=== PATIENT | female | born 1940 | race African-American/Black ===

== ENCOUNTER → 2016-11-11 | Outpatient (CLI) | payer MEDICARE ==
--- NOTE | 2016-11-11 17:43 | WOMENS IMAGING REPORT ---
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 Left breast 90 mediolateral view, compression magnification views left breast lumpectomy site in the CC and 90 mediolateral orientations. LIMITATIONS: None. FINDINGS: RIGHT BREAST MASSES: No suspicious masses. CALCIFICATIONS: No new or suspicious calcifications. ARCHITECTURAL DISTORTION: None. DEVELOPING DENSITY: None. ASYMMETRY: None noted. OTHER: No other significant findings. LEFT BREAST MASSES: No suspicious masses. CALCIFICATIONS: No new or suspicious calcifications. ARCHITECTURAL DISTORTION: Postsurgical change in the left breast lower inner quadrant DEVELOPING DENSITY: None. ASYMMETRY: None noted. OTHER: Left breast skin thickening post radiation therapy Read with the assistance of CAD: .[facility] - R2 Cenova Version 1.3 .[facility] - R2 Cenova Version 1.3 .[facility] - R2 Cenova Version 2.4 .[facility] [place] R2 Cenova Version 2.4 .[facility] - R2 [employer] Version 9.2 BREAST DENSITY: a. The breasts are almost entirely fatty. BIRAD: 2 Benign findings. RECOMMENDATION: RECOMMENDED FOLLOW UP: Please continue right breast screening, left breast diagnosti c mammography in November 2017 SPECIFIC INTERVENTION/IMAGING/CONSULTATION RECOMMENDED:No additional intervention/ imaging/consultati on needed at this time. COMMUNICATION:Patient notified by letter COMMENT: PATIENT NOTIFIED BY LETTER. The [employer] ([employer]) has developed recommendations for screening MRI of the breast s in certain patient populations, to be used in conjunction with mammography. Breast MRI surveillanc e may be appropriate for women with more than 20% lifetime risk of developing breast cancer as deter mined by genetic testing, significant family history of the disease, or history of mantle radiation f or Hodgkins Disease. [employer] Practice Guidelines 2008. TECHNICAL DOCUMENTATION: FINDING NUMBER: (1) ASSESSMENT: (1) JOB ID: [id number] [employer]- All Rights Reserved
== END ==
LOC: WI 09:14
PROVIDERS: ATTEND Internal Medicine Medical Oncology
DX: C50.919 Malignant neoplasm of unspecified site of unspecified female breast (principal)
CPT/HCPCS: 77066; G0204

== ENCOUNTER 2017-01-26 10:14 | Day surgery (SDC) | payer MEDICARE ==
[2017-01-19 09:24] LABS: HEMATOCRIT 32.4 % (36.0-47.0); HEMOGLOBIN 10.5 g/dL (12.0-15.5); HGB HCT DIFFERENCE -0.9; MEAN CORPUSCULAR HEMOGLOBIN 29.3 pg (27.0-33.4); MEAN CORPUSCULAR HGB CONC 32.4 g/dL (32.0-36.0); MEAN CORPUSCULAR VOLUME 90 fl (80-97); RED BLOOD COUNT 3.59 10^6/uL (3.72-5.28); RED CELL DISTRIBUTION WIDTH 17.4 % (11.5-14.0); WHITE BLOOD COUNT 7.7 10^3/uL (4.0-10.5)
[2017-01-19 09:50] LABS: ALANINE AMINOTRANSFERASE 25 U/L (9-52); ALBUMIN 3.9 g/dL (3.5-5.0); ALKALINE PHOSPHATASE 100 U/L (38-126); ANION GAP 13 (5-19); ASPARTATE AMINO TRANSFERASE 14 U/L (14-36); BILIRUBIN,TOTAL 1.3 mg/dL (0.2-1.3); BLOOD UREA NITROGEN 20 mg/dL (7-20); CALCIUM 9.9 mg/dL (8.4-10.2); CARBON DIOXIDE 26 mmol/L (22-30); CHLORIDE 102 mmol/L (98-107); CREATININE RESULT 0.98 mg/dL (0.52-1.25); GLUCOSE 298 mg/dL (75-110); SODIUM 140.6 mmol/L (137-145)
--- NOTE | 2017-01-19 17:20 | EKG REPORT ---
SEVERITY:- ABNORMAL ECG - SINUS RHYTHM MULTIPLE ATRIAL PREMATURE COMPLEXES BORDERLINE T ABNORMALITIES, INFERIOR LEADS : Confirmed by: Ana Luisa Johnston MD 19-Jan-2017 17:20:05
[~2017-01-26 10:14] MED LIST: ACETAMINOPHEN 325 MG TABLET PO PRN; BUPIVACAINE HCL 0.25 % INJ/PF (2.5 MG/1 ML) 30 ML VIAL ONE; CEFAZOLIN 1 GM/D5W RTU 1 GM/50 ML RTUPB IV PRN; DEXAMETHASONE SOD PHOSPHATE INJ 4 MG/1 ML VIAL ONE; GLYCOPYRROLATE INJ 0.4 MG/2 ML VIAL ONE; LIDOCAINE 0.5% INJ-PF (5 MG/ML) 50 ML SDV SUBCUT PRN; LIDOCAINE 2% INJ-PF (20 MG/ML) 10 ML AMPUL ONE; METOCLOPRAMIDE HCL INJ/PF 10 MG/2 ML SDV ONE; NEOSTIGMINE METHYLSULFATE 10 MG/10 ML VIAL ONE; NORMAL SALINE 1000 ML (RENAL PATIENTS) IV PRN; ONDANSETRON HCL INJ/PF 4 MG/2 ML SDV ONE; PHENYLEPHRINE HCL INJ/PF 10 MG/1 ML SDV ONE; ROCURONIUM BROMIDE INJ 50 MG/5 ML VIAL IV ONE; SUCCINYLCHOLINE CHLORIDE INJ 200 MG/10 ML VIAL ONE
[2017-01-26] MEDS ORDERED: FENTANYL CITRATE INJ/PF 250 MCG/5 ML AMPULE ONE (11:06)
[2017-01-26] MEDS ORDERED: MIDAZOLAM 2 MG/2 ML INJ ONE (11:06)
[2017-01-26] MEDS ORDERED: PROPOFOL INJ 200 MG/20 ML VIAL IV ONE (11:06)
[2017-01-26] MEDS ORDERED: ACETAMINOPHEN 100 ML IV ONE (11:07)
[2017-01-26] MEDS ORDERED: MORPHINE SULFATE 10 MG/ML INJ ONE (11:07)
[2017-01-26 11:17] LABS: PROTHROMBIN TIME 13.4 SEC (11.4-15.4)
[2017-01-26] MEDS ORDERED: MEPERIDINE HCL/PF INJ 25 MG/1 ML DISP.SYRIN IV PRN (11:20)
[2017-01-26] MEDS ORDERED: DIPHENHYDRAMINE HCL 50 MG/ML VIAL IV PRN (11:20)
[2017-01-26] MEDS ORDERED: PROMETHAZINE HCL INJ 25 MG/1 ML VIAL IV PRN ×2 (11:20)
[2017-01-26] MEDS ORDERED: OXYCODONE-ACETAMINOPHEN 5-325 MG TABLET PO PRN ×3 (11:20→13:45)
[2017-01-26] MEDS ORDERED: FENTANYL CITRATE INJ/PF 100 MCG/2 ML AMPUL IV PRN ×3 (11:20)
[2017-01-26] MEDS ORDERED: MORPHINE SULFATE 10 MG/ML INJ IV PRN (11:20)
[2017-01-26] MEDS ORDERED: ONDANSETRON HCL INJ/PF 4 MG/2 ML SDV IV PRN (13:45)
[2017-01-26] MEDS ORDERED: RINGERS SOLUTION,LACTATED 1,000 ML IV PRN (13:45)
[2017-01-26] MEDS ORDERED: INSULIN REG, HUMAN 100 UNIT/ML 3 ML VIAL (PYX) ONE (15:55)
--- NOTE | 2017-01-26 16:16 | PDOC PROGRESS REPORT ---
Subjective Progress Note for:: 01/26/17 Subjective:: Awake comfortable states that she is feeling well. Physical Exam Vital Signs: Temp Pulse Resp BP Pulse Ox 98.4 F 72 25 H 118/58 L 100 01/26/17 14:23 01/26/17 14:53 01/26/17 14:53 01/26/17 14:53 01/26/17 14:53 Intake & Output 01/25/17 01/26/17 01/27/17 06:59 06:59 06:59 Intake Total 2150 Output Total 220 Balance 1930 Weight 96 kg General appearance: PRESENT: no acute distress Respiratory exam: PRESENT: clear to auscultation mack - O2 sat 98% on room air Cardiovascular exam: PRESENT: RRR GI/Abdominal exam: PRESENT: other - Soft, nondistended, minimal tenderness at the incision sites. Results Laboratory Results: 01/19/17 08:47 01/19/17 08:47 Impressions: Chest X-Ray 01/26/17 00:00 IMPRESSION: Stable moderate cardiomegaly. No acute infiltrates. Assessment & Plan - Diagnosis (1) Gallstones Is this a current diagnosis for this admission?: YesPlan: Status post laparoscopic cholecystectomy. Patient looks very good. Pulmonary status looks very good postoperatively. If she is able to ambulate and tolerate the liquids will plan to discharge the patient home. Her glucose was running in the 300s therefore 8 units of subcutaneous insulin was administered.
[2017-01-26 17:19] VITALS: BP 125/69
--- NOTE | 2017-01-26 19:04 | PDOC DISCHARGE SUMMARY ---
Discharge Summary (SDC) - Discharge Final Diagnosis: Symptomatic cholelithiasis Date of Surgery: 01/26/17 Discharge Date: 01/26/17 Condition: Good Treatment or Instructions: Laparoscopic cholecystectomy. May discharge the patient home when met discharge criteria. Stay active at home but avoid strenuous activity. May shower tomorrow night. Follow-up with me in next week. Hold Pradaxa until follow-up visit. Prescriptions: Oxycodone HCl/Acetaminophen [Percocet 5-325 mg Tablet] 1 tab PO ASDIR PRN #25 tablet PRN Reason: Discharge Diet: As Tolerated - Low-fat diabetic cardiac diet Discharge Activity: Activity As Tolerated - Stay active but avoid strenuous activity. Report the Following to Your Physician Immediately: Yellow Skin, Fever over 101 Degrees, Unusual Bleeding
--- NOTE | 2017-01-26 19:04 | Operative Report ---
Operative Report DATE OF SURGERY: 01/26/17 PREOPERATIVE DIAGNOSIS: Symptomatic cholelithiasis POSTOPERATIVE DIAGNOSIS: Symptomatically cholelithiasis OPERATION: Laparoscopic cholecystectomy SURGEON: LOREE ALEJANDRA ANESTHESIA: GA TISSUE REMOVED OR ALTERED: gallbladder COMPLICATIONS: None ESTIMATED BLOOD LOSS: minimal INTRAOPERATIVE FINDINGS: Intra-abdominal omental adhesions PROCEDURE: Informed consent was obtained. Patient was brought to the operating room placed operating table in supine position. After satisfactory induction of general anesthesia, patient's abdomen was prepped and draped in usual sterile fashion. A supraumbilical midline incision was made and dissection carried down to the fascia the peritoneal cavity entered without difficulty. El trocar was inserted. Pneumoperitoneum produced good patient toleration. 5 mm trocar was placed in the subxiphoid location.Two 5 mm trochars were placed in the right subcostal location. There were omental adhesions in the right upper quadrant which had to be taken down prior to placement of all of the trochars. Great care was taken to avoid injury to the underlying bowel. Meticulous hemostasis was maintained throughout the entire case. The gallbladder was grasped and retracted cephalad over the dome of the liver. The infundibulum of the gallbladder was grasped retracted laterally and inferiorly thus exposing calot's triangle. The cystic duct gallbladder junction was clearly identified and the cystic duct was clipped and divided. Cystic artery was likewise taken. The gallbladder was taken off the gallbladder bed using the hook electrocautery technique. The gallbladder was removed with an Endobag through the El trocar site fascial defect. There was no bile spillage during the case. Minimal amount of irrigation was used during the case. Hemostasis appeared excellent. All trochars were removed under the direct vision a laparoscope to ensure hemostasis. The El trocar site fascial defect was closed with interrupted Vicryl sutures. All skin incisions were closed with subcuticular interrupted Monocryl sutures. Marcaine was injected at the port sites. Patient tolerated procedure well no apparent complications and was taken to the recovery area in stable condition.
== END 2017-01-26 17:35 | disposition home or self-care (01) ==
LOC: OROUT 10:14
PROVIDERS: ATTEND Surgery
PROC: 0FT44ZZ Resection of Gallbladder, Percutaneous Endoscopic Approach (ICD-10-PCS; principal; 2017-01-26 12:15)
DX: K80.10 Calculus of gallbladder with chronic cholecystitis without obstruction (principal); E11.9 Type 2 diabetes mellitus without complications; I10 Essential (primary) hypertension; J44.9 Chronic obstructive pulmonary disease, unspecified; M19.90 Unspecified osteoarthritis, unspecified site; E66.01 Morbid (severe) obesity due to excess calories; I48.91 Unspecified atrial fibrillation; Z68.38 Body mass index [BMI] 38.0-38.9, adult; Z79.4 Long term (current) use of insulin; Z85.3 Personal history of malignant neoplasm of breast; Z79.01 Long term (current) use of anticoagulants; Z79.899 Other long term (current) drug therapy
CPT/HCPCS: 47562; 93005; 36415 ×2; 82962; 85027; 85610; 85730; 80053; 88304 ×2; 71010; 93010; J2250; J0690; J3490 ×2; J1100; J3010; J2765; J2370; A9270; J0330; J2405; J2704; J0131; 790; J1815; J2270

== ENCOUNTER 2017-03-06 23:47 | Emergency (ER) | payer MEDICARE ==
[2017-03-07] MEDS ORDERED: DEXTROSE 50%-WATER 25 GM/50 ML DISP.SYRIN IV ONE (00:04)
--- NOTE | 2017-03-07 01:53 | ER Document Report ---
ED General - General Chief Complaint: Low Blood Sugar Stated Complaint: BLOOD SUGAR PROBLEMS Notes: Patient is a 67-year-old female presents with complaint of episode of hypoglycemia. She takes insulin for her diabetes. Patient's daughter says that she not use much at dinner tonight. Mother checked on or she was sweaty and confused. According to him once her blood sugar was 27. She received D50. She then started eating. She is now sitting in bed eating crackers and peanut butter. She says that she feels well. She denies recent infections. She has no other complaints at this time. TRAVEL OUTSIDE OF THE [place] IN LAST 30 DAYS: No - Related Data Allergies/Adverse Reactions: No Known Allergies Allergy (Verified 01/19/17 09:40) Past Medical History - Social History Smoking Status: Unknown if Ever Smoked Frequency of alcohol use: None Drug Abuse: None Family History: None - Past Medical History Cardiac Medical History: Reports: Hx Atrial Fibrillation, Hx Hypertension, Hx Peripheral Vascular Disease Denies: Hx Congestive Heart Failure, Hx Coronary Artery Disease, Hx Heart Attack, Hx Hypercholesterolemia, Hx Pulmonary Embolism, Hx Heart Murmur Pulmonary Medical History: Reports: Hx Bronchitis - approx 2 x yrly, Hx Pneumonia - Nov 2012 (hospitalized), Hx Sleep Apnea - C-PAP use Denies: Hx Asthma, Hx COPD, Hx Respiratory Failure, Hx Tuberculosis Neurological Medical History: Denies: Hx Cerebrovascular Accident, Hx Seizures Endocrine Medical History: Reports: Hx Diabetes Mellitus Type 2. Denies: Hx Graves' Disease, Hx Hyperthyroidism, Hx Hypothyroidism Renal/ Medical History: Denies: Hx End Stage Renal Disease, Hx Kidney Stones, Hx Ovarian Cysts, Hx Peritoneal Dialysis, Hx Pelvic Inflammatory Disease Malignancy Medical History: Reports: Hx Breast Cancer - Left. Denies: Hx Cervical Cancer, Hx Lung Cancer, Hx Ovarian Cancer Musculoskeltal Medical History: Reports Hx Arthritis - Knees, Denies Hx Fibromyalgia, Denies Hx Multiple Sclerosis, Denies Hx Muscular Dystrophy Psychiatric Medical History: Denies: Hx Dementia, Hx Depression Traumatic Medical History: Denies: Hx Fractures Past Surgical History: Reports: Hx Breast Surgery - lumpectomy, Hx Hysterectomy , Hx Orthopedic Surgery - Left knee replacement, Hx Tonsillectomy. Denies: Hx Appendectomy, Hx Bowel Surgery, Hx Section, Hx Cholecystectomy, Hx Coronary Artery Bypass Graft, Hx Gastric Bypass Surgery, Hx Herniorrhaphy, Hx Mastectomy, Hx Pacemaker, Hx Tubal Ligation - Immunizations Immunizations up to date: Yes Hx Diphtheria, Pertussis, Tetanus Vaccination: Yes Hx Pneumococcal Vaccination: 08/08/16 Review of Systems - Review of Systems Notes: My Normal Review Basic REVIEW OF SYSTEMS: CONSTITUTIONAL : Denies fever, chills, or sweats. Denies recent illness. CARDIOVASCULAR: Denies chest pain. RESPIRATORY: Denies cough, cold, or chest congestion. Denies shortness of breath, difficulty breathing, or wheezing. GASTROINTESTINAL: Denies abdominal pain. Denies nausea, vomiting, or diarrhea. Denies constipation. Last BM: GENITOURINARY: Denies difficulty urinating, painful urination, burning, frequency, or blood in urine. MUSCULOSKELETAL: Denies neck or back pain or joint pain or swelling. SKIN: Denies rash or skin lesions. NEUROLOGICAL: Brief period of altered mental status due to hyperglycemia. ALL OTHER SYSTEMS REVIEWED AND NEGATIVE. Physical Exam - Notes Notes: General Appearance: Well nourished, alert, cooperative, no acute distress, no obvious discomfort. Ill-appearing. Vitals: reviewed, See vital signs table. Head: no swelling or tenderness to the head Eyes: PERRL, EOMI, Conjuctiva clear Lungs: No wheezing, No rales, No rhonci, No accessory muscle use, good air exchange bilaterally. Heart: Normal rate, Regular rythm, No murmur, no rub Abdomen: Normal BS, soft, No rigidity, No abdominal tenderness, No guarding, no rebound, no abdominal masses, no organomegaly Extremities: strength 5/5 in all extremities, good pulses in all extremities, no swelling or tenderness in the extremities, no edema. Skin: warm, dry, appropriate color, no rash Neuro: speech clear, oriented x 3, normal affect, responds appropriately to questions. Radial nerves II through XII are intact. Course - Re-evaluation Re-evalutation: 03/07/17 03:16 The daughter was able to get the patient's medications and bring him in. She is on Actos. She last took it yesterday morning. I will keep her until morning time so it's been at least 24 hours since he last took this medication makes her blood sugar does not drop again. If her blood sugar continues to remain stable then she'll be discharged at that time and we will have her hold the Actos. Patient and family agree with plan. - Laboratory Laboratory results interpreted by me: 03/07/17 03/07/17 03:14 04:29 POC Glucose 156 H 125 H - Transfer of Care Notes: 03/07/17 06:21 Patient's blood sugars remained stable throughout the night. I'll have her hold the Actos. I encourage her to eat well at dinnertime. We will discharge her home. We'll have her follow closely with her primary care doctor. Patient to return if she has any recurrence of hypoglycemia. Patient agrees with plan and will be discharged home. Dictation of this chart was performed using voice recognition software; therefore, there may be some unintended grammatical errors. Discharge - Discharge Clinical Impression: Hypoglycemia Condition: Good Disposition: HOME, SELF-CARE Additional Instructions: Please be sure to eat well at dinner. Please do not take Actos as this can sometimes cause recurrent drops in your blood sugar. Please follow up closely with your doctor this week for reevaluation.
[2017-03-07 06:23] VITALS: BP 129/65
== END 2017-03-07 06:25 | disposition home or self-care (01) ==
LOC: ER 23:47
DX: E11.649 Type 2 diabetes mellitus with hypoglycemia without coma (principal); Z79.4 Long term (current) use of insulin
CPT/HCPCS: 82962; 99285

== ENCOUNTER 2017-08-11 17:31 | Inpatient (IN) | payer MEDICARE ==
--- NOTE | 2017-08-11 17:48 | ER Document Report ---
ED Medical Screen (RME) - General Chief Complaint: Shortness Of Breath Stated Complaint: SHORTNESS OF BREATH Time Seen by Provider: 08/11/17 17:39 Mode of Arrival: Wheelchair Information source: Patient TRAVEL OUTSIDE OF THE [place] IN LAST 30 DAYS: No - HPI Patient complains to provider of: Chest pain or shortness of breath Notes: 08/11/17 17:47 Patient is a 77-year-old female presenting to the emergency room today complaining of chest pain with shortness of breath worsening over the past week , patient's heart rate is 150 in triage area, she was taken immediately back to her room in the main emergency department - Related Data Allergies/Adverse Reactions: No Known Allergies Allergy (Verified 08/11/17 17:37) Past Medical History - Past Medical History Cardiac Medical History: Reports: Hx Atrial Fibrillation, Hx Hypertension, Hx Peripheral Vascular Disease Denies: Hx Congestive Heart Failure, Hx Coronary Artery Disease, Hx Heart Attack, Hx Hypercholesterolemia, Hx Pulmonary Embolism, Hx Heart Murmur Pulmonary Medical History: Reports: Hx Bronchitis - approx 2 x yrly, Hx Pneumonia - Nov 2012 (hospitalized), Hx Sleep Apnea - C-PAP use Denies: Hx Asthma, Hx COPD, Hx Respiratory Failure, Hx Tuberculosis Neurological Medical History: Denies: Hx Cerebrovascular Accident, Hx Seizures Endocrine Medical History: Reports: Hx Diabetes Mellitus Type 2. Denies: Hx Graves' Disease, Hx Hyperthyroidism, Hx Hypothyroidism Renal/ Medical History: Denies: Hx End Stage Renal Disease, Hx Kidney Stones, Hx Ovarian Cysts, Hx Peritoneal Dialysis, Hx Pelvic Inflammatory Disease Malignancy Medical History: Reports: Hx Breast Cancer - Left. Denies: Hx Cervical Cancer, Hx Lung Cancer, Hx Ovarian Cancer Musculoskeltal Medical History: Reports Hx Arthritis - Knees, Denies Hx Fibromyalgia, Denies Hx Multiple Sclerosis, Denies Hx Muscular Dystrophy Psychiatric Medical History: Denies: Hx Dementia, Hx Depression Traumatic Medical History: Denies: Hx Fractures Past Surgical History: Reports: Hx Breast Surgery - lumpectomy, Hx Hysterectomy , Hx Orthopedic Surgery - Left knee replacement, Hx Tonsillectomy. Denies: Hx Appendectomy, Hx Bowel Surgery, Hx Section, Hx Cholecystectomy, Hx Coronary Artery Bypass Graft, Hx Gastric Bypass Surgery, Hx Herniorrhaphy, Hx Mastectomy, Hx Pacemaker, Hx Tubal Ligation - Immunizations Immunizations up to date: Yes Hx Diphtheria, Pertussis, Tetanus Vaccination: Yes Physical Exam - Vital signs Vitals: Temp Pulse Resp BP Pulse Ox 98.1 F 152 H 34 H 144/95 H 95 08/11/17 17:37 08/11/17 17:37 08/11/17 17:37 08/11/17 17:37 08/11/17 17:37 Course - Vital Signs Vital signs: Temp Pulse Resp BP Pulse Ox 98.1 F 152 H 34 H 144/95 H 95 08/11/17 17:37 08/11/17 17:37 08/11/17 17:37 08/11/17 17:37 08/11/17 17:37
[2017-08-11] MEDS ORDERED: DILTIAZEM HCL INJ 25 MG/5 ML VIAL IV ONE ×2 (18:03→20:05)
--- NOTE | 2017-08-11 18:14 | ER Document Report ---
ED General - General Chief Complaint: Shortness Of Breath Stated Complaint: SHORTNESS OF BREATH Time Seen by Provider: 08/11/17 17:39 Mode of Arrival: Wheelchair Information source: Patient, Relative TRAVEL OUTSIDE OF THE [place] IN LAST 30 DAYS: No - HPI Onset: Last week Onset/Duration: Sudden Quality of pain: Pressure Severity: Moderate Associated symptoms: Chest pain, Shortness of breath Exacerbated by: Other - ANY ACTIVITY Relieved by: Other - REST Similar symptoms previously: Yes - NOT RECENT Recently seen / treated by doctor: No - Related Data Allergies/Adverse Reactions: No Known Allergies Allergy (Verified 08/11/17 17:37) Past Medical History - General Information source: Patient - Social History Smoking Status: Never Smoker Chew tobacco use (# tins/day): No Frequency of alcohol use: None Drug Abuse: None Lives with: Family Family History: None - Past Medical History Cardiac Medical History: Reports: Hx Atrial Fibrillation, Hx Hypertension, Hx Peripheral Vascular Disease Denies: Hx Congestive Heart Failure, Hx Coronary Artery Disease, Hx Heart Attack, Hx Hypercholesterolemia, Hx Pulmonary Embolism, Hx Heart Murmur Pulmonary Medical History: Reports: Hx Bronchitis - approx 2 x yrly, Hx Pneumonia - Nov 2012 (hospitalized), Hx Sleep Apnea - C-PAP use Denies: Hx Asthma, Hx COPD, Hx Respiratory Failure, Hx Tuberculosis Neurological Medical History: Denies: Hx Cerebrovascular Accident, Hx Seizures Endocrine Medical History: Reports: Hx Diabetes Mellitus Type 2. Denies: Hx Graves' Disease, Hx Hyperthyroidism, Hx Hypothyroidism Renal/ Medical History: Denies: Hx End Stage Renal Disease, Hx Kidney Stones, Hx Ovarian Cysts, Hx Peritoneal Dialysis, Hx Pelvic Inflammatory Disease Malignancy Medical History: Reports: Hx Breast Cancer - Left. Denies: Hx Cervical Cancer, Hx Lung Cancer, Hx Ovarian Cancer Musculoskeltal Medical History: Reports Hx Arthritis - Knees, Denies Hx Fibromyalgia, Denies Hx Multiple Sclerosis, Denies Hx Muscular Dystrophy Psychiatric Medical History: Denies: Hx Dementia, Hx Depression Traumatic Medical History: Denies: Hx Fractures Past Surgical History: Reports: Hx Breast Surgery - lumpectomy, Hx Hysterectomy , Hx Orthopedic Surgery - Left knee replacement, Hx Tonsillectomy. Denies: Hx Appendectomy, Hx Bowel Surgery, Hx Section, Hx Cholecystectomy, Hx Coronary Artery Bypass Graft, Hx Gastric Bypass Surgery, Hx Herniorrhaphy, Hx Mastectomy, Hx Pacemaker, Hx Tubal Ligation - Immunizations Immunizations up to date: Yes Hx Diphtheria, Pertussis, Tetanus Vaccination: Yes Hx Pneumococcal Vaccination: 08/08/16 Review of Systems - Review of Systems Constitutional: Weakness EENT: No symptoms reported Cardiovascular: See HPI Respiratory: See HPI Gastrointestinal: Nausea, Vomiting. denies: Diarrhea Genitourinary: No symptoms reported Female Genitourinary: Post menopausal Musculoskeletal: No symptoms reported Skin: No symptoms reported Neurological/Psychological: No symptoms reported Physical Exam - Vital signs Vitals: Temp Pulse Resp BP Pulse Ox 98.1 F 152 H 34 H 144/95 H 95 08/11/17 17:37 08/11/17 17:37 08/11/17 17:37 08/11/17 17:37 08/11/17 17:37 Interpretation: Hypertensive, Tachycardic, Tachypneic. No: Hypoxic, Febrile - General General appearance: Appears well, Alert In distress: None - HEENT Head: Normocephalic Eyes: Normal Conjunctiva: Normal Ears: Normal Nasal: Normal Mouth/Lips: Normal Mucous membranes: Normal Pharynx: Normal Neck: Normal - Respiratory Respiratory status: No respiratory distress Breath sounds: Normal - Cardiovascular Rhythm: Regular, Tachycardia Heart sounds: Normal auscultation Murmur: No - Abdominal Inspection: Obese - Extremities General upper extremity: Normal inspection General lower extremity: Normal inspection. No: Edema - Neurological Neuro grossly intact: Yes Cognition: Normal Orientation: AAOx4 - Psychological Associated symptoms: Normal affect, Normal mood - Skin Skin Temperature: Warm Skin Moisture: Dry Skin Color: Normal Skin Turgor: Elastic Course - Re-evaluation Re-evalutation: 08/11/17 21:25 Patient remained tachycardic with minimal change after 2 doses of diltiazem, 10 mg each. BiPAP mask did seem to help her shortness of breath some. She was given 6 mg of adenosine IV push, with transient slowing of the ventricular rate , after which the rhythm appeared to change to atrial fibrillation with a ventricular response in the mid 140s. She will be begun on a diltiazem drip and her primary care provider will be requested to admit. - Vital Signs Vital signs: Temp Pulse Resp BP Pulse Ox 98.1 F 152 H 27 H 124/80 98 08/11/17 17:37 08/11/17 17:37 08/11/17 21:46 08/11/17 21:46 08/11/17 21:46 - Laboratory Result Diagrams: 08/11/17 18:31 08/11/17 18:31 Laboratory results interpreted by me: 08/11/17 08/11/17 08/11/17 18:31 18:31 18:31 RBC 3.40 L Hgb 10.1 L Hct 31.1 L RDW 18.9 H Seg Neutrophils % 35.6 L Lymphocytes % 56.2 H Absolute Neutrophils 1.5 L APTT 69.0 H BUN 21 H Est GFR ( Amer) 52 L Est GFR (Non-Af Amer) 43 L Glucose 267 H NT-Pro-B Natriuret Pep Urine Protein Urine Glucose (UA) Urine Blood 08/11/17 08/11/17 18:31 20:35 RBC Hgb Hct RDW Seg Neutrophils % Lymphocytes % Absolute Neutrophils APTT BUN Est GFR ( Amer) Est GFR (Non-Af Amer) Glucose NT-Pro-B Natriuret Pep 3760 H Urine Protein 100 H Urine Glucose (UA) >=500 H Urine Blood SMALL H - Diagnostic Test Radiology reviewed: Image reviewed, Reports reviewed - EKG Interpretation by Me EKG shows normal: [place], QRS Complexes, ST-T Waves - INF. T ABNLS, NS Rate: Tachycardia Rhythm: A.Flutter - (PROBABLY) - Consults DR. BOGGS Time consulted: 21:52 Reason for consultation: 08/11/17 21:54 AGREES TO ADMIT Consulted provider: will see as inpatient Procedures - Additional Procedures Cardioversion/Defib Time performed: 21:05 Additional Procedures: Cardioversion/defib Notes: 08/11/17 21:55 Patient was administered 6 mg of adenosine rapid IV push. This resulted in converting her rhythm from a regular narrow complex tachycardia of 150/min to an irregular narrow complex tachycardia of approximately 140, presumably atrial fibrillation with rapid response. Patient tolerated procedure well. Critical Care Note - Critical Care Note Total time excluding time spent on procedures (mins): 30 Comments: EXTREME TACHYCARDIA, LABILE BLOOD PRESSURE, INTRAVENOUS MEDICATIONS NECESSARY FOR STABILIZATION. Discharge - Discharge Clinical Impression: Atrial fibrillation with rapid ventricular response Condition: Good Disposition: ADMITTED INPATIENT Admitting Provider: Juan Unit Admitted: [facility]
--- NOTE | 2017-08-11 18:25 | RADIOLOGY REPORT (SQ) ---
EXAM DESCRIPTION: CHEST SINGLE VIEW COMPLETED DATE/TIME: 08/11/2017 6:12 pm REASON FOR STUDY: cp COMPARISON: 01/26/2017 EXAM PARAMETERS: NUMBER OF VIEWS: One view. TECHNIQUE: Single frontal radiographic view of the chest acquired. RADIATION DOSE: NA LIMITATIONS: None. FINDINGS: LUNGS AND PLEURA: There is ill-defined opacification in the left base. Chronic interstiti al changes are seen. MEDIASTINUM AND HILAR STRUCTURES: No masses. Contour normal. HEART AND VASCULAR STRUCTURES: Cardiomegaly with pulmonary vascular congestion but no pulmonary edema . BONES: No acute findings. HARDWARE: None in the chest. OTHER: No other significant finding. IMPRESSION: 1. Cannot rule out a left lower lobe pneumonia. 2. Cardiomegaly without CHF. TECHNICAL DOCUMENTATION: JOB ID: [id number]
[2017-08-11 18:58] LABS: ABSOLUTE LYMPHOCYTES (AUTO) 2.4 10^3/uL (0.5-4.7); ABSOLUTE MONOCYTES (AUTO) 0.3 10^3/uL (0.1-1.4); ABSOLUTE NEUT (AUTO) 1.5 10^3/uL (1.7-8.2); BASOPHILS % (AUTO) 1.1 % (0-2); EOSINOPHILS % (AUTO) 0.3 % (0-6); HEMATOCRIT 31.1 % (36.0-47.0); HEMOGLOBIN 10.1 g/dL (12.0-15.5); HGB HCT DIFFERENCE -0.8; LYMPHOCYTES % (AUTO) 56.2 % (13-45); MEAN CORPUSCULAR HEMOGLOBIN 29.6 pg (27.0-33.4); MEAN CORPUSCULAR HGB CONC 32.4 g/dL (32.0-36.0); MEAN CORPUSCULAR VOLUME 92 fl (80-97); MONOCYTES % (AUTO) 6.8 % (3-13); RED CELL DISTRIBUTION WIDTH 18.9 % (11.5-14.0); SEGMENTED NEUTROPHILS % (AUTO) 35.6 % (42-78); WHITE BLOOD COUNT 4.3 10^3/uL (4.0-10.5)
[2017-08-11 19:15] LABS: ALANINE AMINOTRANSFERASE 41 U/L (9-52); ALBUMIN 3.6 g/dL (3.5-5.0); ALKALINE PHOSPHATASE 120 U/L (38-126); ANION GAP 10 (5-19); ASPARTATE AMINO TRANSFERASE 27 U/L (14-36); BILIRUBIN,DIRECT 0.4 mg/dL (0.0-0.4); BILIRUBIN,TOTAL 1.3 mg/dL (0.2-1.3); BLOOD UREA NITROGEN 21 mg/dL (7-20); CALCIUM 9.4 mg/dL (8.4-10.2); CARBON DIOXIDE 25 mmol/L (22-30); CHLORIDE 106 mmol/L (98-107); CREATINE KINASE 105 U/L (30-135); CREATININE RESULT 1.21 mg/dL (0.52-1.25); GLUCOSE 267 mg/dL (75-110); POTASSIUM 4.2 mmol/L (3.6-5.0); SODIUM 140.9 mmol/L (137-145); TOTAL PROTEIN 7.4 g/dL (6.3-8.2)
[2017-08-11 19:26] LABS: CREATINE KINASE MB 1.08 ng/mL (<4.55); TROPONIN I 0.017 ng/mL
[2017-08-11] MEDS ORDERED: ADENOSINE INJ/PF 6 MG/2 ML SDV IV ONE ×2 (21:10→21:16)
[2017-08-11] MEDS ORDERED: DILTIAZEM HCL/D5W 125 MG/125 ML RTUINJ IV PRN (21:21)
[2017-08-11] MEDS ORDERED: DILTIAZEM HCL/D5W 125 MG/125 ML RTUINJ IV ONE (21:25)
[2017-08-11 21:45] LABS: APPEARANCE,URINE CLEAR; BILIRUBIN,URINE NEGATIVE (NEGATIVE); GLUCOSE, URINE >=500 mg/dL (NEGATIVE); KETONES,URINE NEGATIVE (NEGATIVE); LEUKOCYTE ESTERASE,URINE NEGATIVE (NEGATIVE); NITRITE,URINE NEGATIVE (NEGATIVE); PROTEIN,URINE 100 mg/dL (NEGATIVE); URINE SPECIFIC GRAVITY 1.018; UROBILINOGEN,URINE NEGATIVE mg/dL (<2.0)
[2017-08-12] MEDS ORDERED: AMIODARONE HCL 150 MG in DEXTROSE 5%-WATER 100 ML IV ONE ×5 (00:45→22:30)
[2017-08-12] MEDS ORDERED: DEXTROSE 5%-WATER 500 ML with AMIODARONE HCL 900 MG IV PRN ×4 (00:45→22:31)
[2017-08-12] MEDS ORDERED: GLUCAGON,HUMAN RECOMB 1 MG INJ IM PRN (00:53)
[2017-08-12] MEDS ORDERED: DEXTROSE 50%-WATER 25 GM/50 ML DISP.SYRIN IV PRN ×2 (00:53)
[2017-08-12] MEDS ORDERED: DEXTROSE 40% GEL 15 GM TUBE PO PRN ×2 (00:53)
[2017-08-12] MEDS ORDERED: DABIGATRAN ETEXILATE 150 MG CAPSULE PO SCH (01:00)
[2017-08-12] MEDS ORDERED: METOPROLOL SUCCINATE 50 MG TAB.SR.24H PO SCH ×2 (01:00→22:00)
[2017-08-12] MEDS ORDERED: LOSARTAN POTASSIUM 50 MG TABLET PO SCH ×2 (01:00→10:00)
[2017-08-12] MEDS ORDERED: INSULIN GLARGINE,HUM.REC.ANLOG 1,000 UNIT/10 ML UNIT SUBCUT SCH ×3 (01:00→22:00)
[2017-08-12] MEDS ORDERED: AMIODARONE HCL INJ 150 MG/3 ML VIAL IV ONE ×5 (01:06→23:15)
[2017-08-12 01:53] LABS: MAGNESIUM 1.3 mg/dL (1.6-2.3); PHOSPHORUS 3.5 mg/dL (2.5-4.5)
[2017-08-12 02:18] LABS: CREATINE KINASE MB 0.88 ng/mL (<4.55); TROPONIN I 0.023 ng/mL
[2017-08-12 02:30] LABS: THYROID STIMULATING HORMONE 1.32 uIU/mL (0.47-4.68)
[2017-08-12] MEDS ORDERED: METOPROLOL SUCCINATE 50 MG TAB.SR.24H PO ONE (03:15)
[2017-08-12] MEDS ORDERED: LOSARTAN POTASSIUM 50 MG TABLET PO ONE (03:15)
[2017-08-12] MEDS ORDERED: INSULIN GLARGINE,HUM.REC.ANLOG 1,000 UNIT/10 ML UNIT SUBCUT ONE (03:15)
[2017-08-12] MEDS ORDERED: DABIGATRAN ETEXILATE 150 MG CAPSULE PO ONE (03:15)
[2017-08-12] MEDS ORDERED: VERAPAMIL HCL 120 MG TABLET PO ONE ×2 (06:07→08:45)
[2017-08-12 07:39] LABS: CHOLESTEROL 126.28 mg/dL (0-200); CREATINE KINASE 78 U/L (30-135); Direct HDL 41 mg/dL (>40); TRIGLYCERIDES 77 mg/dL (<150)
[2017-08-12 07:48] LABS: CREATINE KINASE MB 0.88 ng/mL (<4.55); TROPONIN I 0.021 ng/mL
[2017-08-12 07:50] LABS: DIRECT LDL 68 mg/dL (<100)
[2017-08-12] MEDS: INSULIN LISPRO 100 UNIT/ML 3 ML VIAL SUBCUT PRN ×4 (08:10→15:40)
--- NOTE | 2017-08-12 09:13 | EKG REPORT ---
SEVERITY:- ABNORMAL ECG - SINUS TACHYCARDIA NONSPECIFIC T ABNORMALITIES, INFERIOR LEADS : Confirmed by: Ana Luisa Johnston MD 12-Aug-2017 09:13:12
[2017-08-12] MEDS: NORMAL SALINE 1000 ML 1,000 ML IV PRN ×2 (09:29→15:33)
--- NOTE | 2017-08-12 09:29 | RADIOLOGY REPORT (SQ) ---
EXAM DESCRIPTION: CT CHEST WITHOUT COMPLETED DATE/TIME: 08/12/2017 7:59 am REASON FOR STUDY: PNEUMONIA COMPARISON: CT chest 10/15/2016, 01/17/2014, 09/19/2009 TECHNIQUE: CT scan performed of the chest without intravenous contrast. Images reviewed with lung, soft tissue and bone windows. Reconstructed coronal and sagittal MPR images reviewed. All images st ored on PACS. All CT scanners at this facility use dose modulation, iterative reconstruction, and/or weight based d osing when appropriate to reduce radiation dose to as low as reasonably achievable (ALARA). [facility]: Dose Right [facility]: CareDose [facility]: Dose Right [facility]: Teradose 4D [facility]: [employer] RADIATION DOSE: Up-to-date CT equipment and radiation dose reduction techniques were employed. CTDIv ol: 19.0 mGy. DLP: 656 mGy-cm. mGy. LIMITATIONS: No technical limitations. FINDINGS: LUNGS AND PLEURA: There are small to moderate-sized bilateral pleural effusions. Diffuse thickened interlobular septa likely from interstitial edema. At both bases, patchy airspace disease is present, pulmonary edema versus pneumonia. More masslike areas of consolidation are present in the anterior aspect left upper lobe (2.[address] image 40), periphery of the right upper lobe (2 x 1 cm image 41 and 42), and periphery of the lef t lower lobe (2 cm on axial image 62). This could represent multifocal pneumonia. Lung parenchymal scarring or underlying nodules could not be excluded. When the patient's acute condition resolves, f ollow-up noncontrast CT chest is recommended to evaluate these findings. No pneumothorax. HILAR AND MEDIASTINAL STRUCTURES: There are multiple stable small hilar and mediastinal lymph nodes, similar compared to 10/15/2016 and 09/19/2009, nonspecific. HEART AND VASCULAR STRUCTURES: Cardiomegaly. Calcified aortic valve. No significant coronary artery calcification or pericardial effusion. UPPER ABDOMEN: No significant findings. Limited exam. THYROID AND OTHER SOFT TISSUES: No masses. No adenopathy. BONES: No significant finding. HARDWARE: None in the chest. OTHER: No other significant findings. IMPRESSION: Findings worrisome for fluid overload or congestive failure with alveolar and interstiti al edema. Multiple areas of more dense lung parenchymal consolidation around the periphery of both lungs, pneum onia versus nodules. When the patient's acute condition resolves, uncontrasted CT chest is recommend ed for followup TECHNICAL DOCUMENTATION: JOB ID: [id number] Quality ID # [id number]: Final reports with documentation of one or more dose reduction techniques (e.g., Au tomated exposure control, adjustment of the mA and/or kV according to patient size, use of iterative reconstruction technique) 2010 [employer]- All Rights Reserved
[2017-08-12] MEDS ORDERED: [UNRECOGNIZED DRUG - OTHER] PO SCH (10:00)
[2017-08-12] MEDS ORDERED: NORMAL SALINE 1000 ML 1,000 ML IV ONE (10:00)
[2017-08-12] MEDS ORDERED: CANAGLIFLOZIN PO SCH ×2 (10:00→17:00)
[2017-08-12] MEDS ORDERED: METFORMIN HCL PO SCH ×2 (10:00→17:00)
[2017-08-12] MEDS ORDERED: CALCIUM GLUCONATE 1000 MG/10 ML INJ IV ONE ×2 (10:05→10:15)
[2017-08-12] MEDS ORDERED: INSULIN LISPRO 100 UNIT/ML 3 ML VIAL SUBCUT ONE (10:15)
[2017-08-12 10:25] LABS: ABSOLUTE BASOPHILS # (AUTO) 0.1 10^3/uL (0.0-0.2); ABSOLUTE LYMPHOCYTES (AUTO) 1.3 10^3/uL (0.5-4.7); ABSOLUTE MONOCYTES (AUTO) 0.5 10^3/uL (0.1-1.4); ABSOLUTE NEUT (AUTO) 6.2 10^3/uL (1.7-8.2); BASOPHILS % (AUTO) 0.7 % (0-2); HEMATOCRIT 29.7 % (36.0-47.0); HGB HCT DIFFERENCE -2.7; LYMPHOCYTES % (AUTO) 16.1 % (13-45); MEAN CORPUSCULAR HEMOGLOBIN 28.9 pg (27.0-33.4); MEAN CORPUSCULAR HGB CONC 30.3 g/dL (32.0-36.0); MEAN CORPUSCULAR VOLUME 95 fl (80-97); MONOCYTES % (AUTO) 6.3 % (3-13); RED BLOOD COUNT 3.12 10^6/uL (3.72-5.28); RED CELL DISTRIBUTION WIDTH 19.3 % (11.5-14.0); SEGMENTED NEUTROPHILS % (AUTO) 76.9 % (42-78)
[2017-08-12 10:35] LABS: FIBRINOGEN 383 mg/dL (209-497); PARTIAL THROMBOPLASTIN TIME 30.2 SEC (23.5-35.8)
[2017-08-12 10:38] LABS: D-DIMER 1.99 ug/mL (0.00-0.50)
[2017-08-12 10:40] LABS: ARTERIAL BLOOD BASE EXCESS -5.2 mmol/L; ARTERIAL BLOOD O2 SATURATION 99.4 % (94-98)
[2017-08-12 10:44] LABS: ANION GAP 13 (5-19); BLOOD UREA NITROGEN 19 mg/dL (7-20); CALCIUM 9.3 mg/dL (8.4-10.2); CARBON DIOXIDE 19 mmol/L (22-30); CHLORIDE 102 mmol/L (98-107); CREATININE RESULT 1.66 mg/dL (0.52-1.25); MAGNESIUM 1.3 mg/dL (1.6-2.3); POTASSIUM 4.4 mmol/L (3.6-5.0); SODIUM 133.6 mmol/L (137-145)
[2017-08-12] MEDS: ATORVASTATIN CALCIUM 10 MG TABLET PO SCH ×2 (10:48→21:59)
[2017-08-12] MEDS: METOPROLOL SUCCINATE 50 MG TAB.SR.24H PO SCH ×2 (10:50→21:57)
[2017-08-12 10:55] LABS: GLUCOSE 504 mg/dL (75-110)
--- NOTE | 2017-08-12 11:33 | RADIOLOGY REPORT (SQ) ---
EXAM DESCRIPTION: CHEST SINGLE VIEW COMPLETED DATE/TIME: 08/12/2017 11:00 am REASON FOR STUDY: chf COMPARISON: CT chest 10/15/2016, 08/12/2017 Chest films 08/11/2017, 01/26/2017, 10/14/2016, 09/14/2015 EXAM PARAMETERS: NUMBER OF VIEWS: One view. TECHNIQUE: Single frontal radiographic view of the chest acquired. RADIATION DOSE: NA LIMITATIONS: None. FINDINGS: LUNGS AND PLEURA: The small pleural effusions seen on CT chest earlier today 08/12/2017 are difficult to visualize by portable chest film. There is pulmonary vascular congestion with mild alveolar and interstitial edema. Bandlike airspace disease right upper lobe. Airspace disease periphery left mid lung. No pneumothorax. MEDIASTINUM AND HILAR STRUCTURES: No masses. Contour normal. HEART AND VASCULAR STRUCTURES: Stable cardiomegaly. BONES: No acute findings. HARDWARE: Right permanent central line tip superior vena cava. Defibrillator pads over the chest OTHER: No other significant finding. IMPRESSION: Pulmonary vascular congestion with mild alveolar and interstitial edema Small pleural effusions evident on chest CT earlier today are difficult to detect by plain film TECHNICAL DOCUMENTATION: JOB ID: [id number]
[2017-08-12 15:01] LABS: CREATINE KINASE MB 0.59 ng/mL (<4.55); TROPONIN I 0.02 ng/mL
[2017-08-12] MEDS ORDERED: [UNRECOGNIZED DRUG - OTHER] PO SCH (17:00)
[2017-08-12] MEDS: DABIGATRAN ETEXILATE 150 MG CAPSULE PO SCH ×2 (18:27→21:59)
--- NOTE | 2017-08-12 19:43 | XCELERA REPORT ---
[address] [address] Transthoracic Echocardiogram Report Name: LC ANGUIANO Age: 77 yrs Gender: Female : 1940 Patient Status: Inpatient Patient Location: [address] [place] [address] Study Date: 08/12/2017 01:28 PM Height: 63 in Weight: 210 lb BSA: 2.0 m2 Procedure: A complete two-dimensional transthoracic echocardiogram was performed (2D, M-mode, spectral and color flow Doppler). The study was technically difficult with many images being suboptimal in quality. Reason For Study: ATRIAL FIBRILLATION Ordering Physician: OBED BOGGS Performed By: Jeanne Hagan Interpretation Summary LV EF is 35% Left ventricular systolic function is moderately reduced. There is borderline concentric left ventricular hypertrophy. The left ventricle is grossly normal size. Doppler measurements suggest pseudonormalized left ventricular relaxation, which is associated with grade II/IV or mild to moderate diastolic dysfunction Regional wall motion abnormalities cannot be excluded due to limited visualization. Not all wall segments were well visualized. The right atrium is mildly dilated. The left atrium is mildly dilated. There is a mild amount of mitral regurgitation There is no mitral valve stenosis. There is a trace amount of aortic regurgitation There is no aortic valve stenosis There is a trace or physiologic amount of tricuspid regurgitation Tricuspid regurgitation jet envelope not well defined to measure RV systolic pressure accurately. The aortic root is not well visualized. The inferior vena cava was not well visualized There is no pericardial effusion. MMode/2D Measurements & Calculations RVDd: 2.2 cm LVIDd: 5.2 cmFS: 11.0 % Ao root diam: 3.4 cm IVSd: 1.0 cm LVIDs: 4.7 cmEDV(Teich): 131.6 ml LVPWd: 1.0 cmESV(Teich): 100.3 ml Ao root area: 8.8 cm2 EF(Teich): 23.7 % LA dimension: 3.9 cm LVOT diam: 2.0 cm LVOT area: 3.2 cm2 Doppler Measurements & Calculations MV E max vero: MV P1/2t max vero: Ao V2 max: LV V1 max P.5 cm/sec 81.8 cm/sec 108.0 cm/sec 2.7 mmHg MV A max vero: MV P1/2t: 50.3 msec Ao max PG: LV V1 max: 22.4 cm/sec MVA(P1/2t): 4.4 cm2 4.7 mmHg 82.0 cm/sec MV E/A: 3.6 MV dec slope: NADER(V,D): 2.4 cm2 476.1 cm/sec2 PA V2 max: PI end-d vero: TR max vero: 54.8 cm/sec 130.3 cm/sec 225.9 cm/sec PA max PG: TR max P.2 mmHg 20.4 mmHg Left Ventricle The left ventricle is grossly normal size. There is borderline concentric left ventricular hypertrophy. Left ventricular systolic function is moderately reduced. LV EF is 35%. Doppler measurements suggest pseudonormalized left ventricular relaxation, which is associated with grade II/IV or mild to moderate diastolic dysfunction. Not all wall segments were well visualized. Regional wall motion abnormalities cannot be excluded due to limited visualization. Right Ventricle The right ventricle is mildly dilated. The right ventricular systolic function is mildly reduced. Atria The right atrium is mildly dilated. The left atrium is mildly dilated. Interarterial septum not well visualized and not well dopplered. Cannot comment on ASD/PFO presence. Mitral Valve The mitral valve is grossly normal. There is no mitral valve stenosis. There is a mild amount of mitral regurgitation. Aortic Valve The aortic valve is grossly normal. There is no aortic valve stenosis. There is a trace amount of aortic regurgitation. Tricuspid Valve The tricuspid valve is not well visualized secondary to technical limitations. There is no tricuspid stenosis. There is a trace or physiologic amount of tricuspid regurgitation. Tricuspid regurgitation jet envelope not well defined to measure RV systolic pressure accurately. Pulmonic Valve The pulmonic valve is not well visualized. Great Vessels The aortic root is not well visualized. The inferior vena cava was not well visualized. Effusions There is no pericardial effusion. : OBED BOGGS > Domo Parker
[2017-08-12] MEDS ORDERED: FUROSEMIDE INJ/PF 40 MG/4 ML SDV IV ONE (20:30)
[2017-08-12] MEDS ORDERED: CHLORPHENIRAMINE MALEATE 4 MG TABLET PO PRN (20:50)
[2017-08-12] MEDS ORDERED: LEVOFLOXACIN 750 MG TABLET PO SCH (21:00)
--- NOTE | 2017-08-12 21:02 | PDOC H&P ---
History of Present Illness Admission Date/PCP: 08/12/17 00:47 OBED BOGGS MD History of Present Illness: LC ANGUIANO is a 77 year old female, She has a history of paroxysmal atrial fibrillation, chronic obstructive lung disease, type 2 diabetes mellitus, she came to the emergency room for evaluation of shortness of breath cough and palpitation. In the emergency room she was found to have atrial fibrillation with rapid ventricular response, she was treated with adenosine and Cardizem infusion without much response in the rate.Hospital admission was advised ,on the floor she was started on amiodarone infusion this was complicated with hypotension. Patient is known to have atrial fibrillation, chronically, on anticoagulant with Pradaxa.She was subsequently stabilized. A 2D echo was done this morning it showed left ventricle ejection fraction of 35%, the left ventricle is grossly normal size the Doppler evaluation suggests grade [address] chest was done he showed moderate-sized bilateral pleural effusions also found was mass like areas of consolidation in the anterior aspect of the left upper lobe peripherally of the right upper lobe and periphery of the left lower lobe the chest CT is most suggestive of fluid overload this is probably related to the fluid resuscitation that was administered to the patient was initially low blood pressure Past Medical History Cardiac Medical History: Reports: Atrial Fibrillation, Hypertension, Peripheral Vascular Disease Pulmonary Medical History: Reports: Bronchitis - approx 2 x yrly, Pneumonia - Nov 2012 (hospitalized), Sleep Apnea - C-PAP use Endocrine Medical History: Reports: Diabetes Mellitus Type 2 Malignancy Medical History: Reports: Breast Cancer - Left Musculoskeltal Medical History: Reports: Arthritis - Knees Denies: Fibromyalgia Past Surgical History Past Surgical History: Reports: Hysterectomy, Orthopedic Surgery - Left knee replacement, Tonsillectomy Denies: Amputation, Appendectomy, Section, Cholecystectomy, Coronary Artery Bypass Graft, Gastric Bypass Surgery, Herniorrhaphy, Mastectomy , Pacemaker, Tubal Ligation Social History Lives with: Family Smoking Status: Former Smoker Frequency of Alcohol Use: None Hx Recreational Drug Use: No Drugs: None Hx Prescription Drug Abuse: No - Advance Directive Resuscitation Status: Full Code Family History Family History: None Parental Family History Reviewed: Yes Children Family History Reviewed: Yes Sibling(s) Family History Reviewed.: Yes Medication/Allergy Home Medications: Atorvastatin Calcium [Lipitor 10 mg Tablet] 10 mg PO QHS 08/12/17 Canagliflozin/Metformin HCl [Invokamet 150-1,000 mg Tablet] 1 each PO BIDBS 03/24 Chlorpheniramine Maleate [Chlor-Trimeton 4 mg Tablet] 1 tab PO Q6HP PRN Dabigatran Etexilate Mesylate [Pradaxa 150 mg Capsule] 150 mg PO Q12 08/12/17 Gabapentin [Neurontin 300 mg Capsule] 300 mg PO Q8 08/12/17 Insulin Aspart [Novolog Flexpen] 6 unit SUBCUT AC 08/12/17 Insulin Glargine,Hum.rec.anlog [Lantus Insulin 100 Unit/1 ml 10 ml] 40 unit SUBCUT QHS 08/12/17 Losartan Potassium [Cozaar 50 mg Tablet] 50 mg PO DAILY 08/12/17 Metoprolol Succinate [Toprol XL 100 mg Tablet] 100 mg PO Q12 08/12/17 Pioglitazone HCl [Actos] 30 mg PO QAM 08/12/17 Allergies/Adverse Reactions: No Known Allergies Allergy (Verified 08/11/17 17:37) Review of Systems Constitutional: ABSENT: chills, fever(s), headache(s), weight gain, weight loss Eyes: ABSENT: visual disturbances Ears: ABSENT: hearing changes Cardiovascular: PRESENT: chest pain, dyspnea on exertion, orthropnea, palpitations Respiratory: ABSENT: cough, hemoptysis Gastrointestinal: ABSENT: abdominal pain, constipation, diarrhea, hematemesis, hematochezia, nausea, vomiting Genitourinary: ABSENT: dysuria, hematuria Musculoskeletal: ABSENT: joint swelling Integumentary: ABSENT: rash, wounds Neurological: ABSENT: abnormal gait, abnormal speech, confusion, dizziness, focal weakness, syncope Psychiatric: ABSENT: anxiety, depression, homidical ideation, suicidal ideation Endocrine: ABSENT: cold intolerance, heat intolerance, menstrual abnormalities, polydipsia, polyuria Hematologic/Lymphatic: ABSENT: easy bleeding, easy bruising, lymphadenopathy Physical Exam Vital Signs: Temp Pulse Resp BP Pulse Ox 98.2 F 72 20 124/63 98 08/12/17 16:23 08/12/17 16:23 08/12/17 16:23 08/12/17 17:36 08/12/17 17:36 Intake & Output 08/11/17 08/12/17 08/13/17 06:59 06:59 06:59 Intake Total 265 1636 Output Total 351 700 Balance -86 936 Weight 95.6 kg General appearance: PRESENT: mild distress Head exam: PRESENT: atraumatic, normocephalic Eye exam: PRESENT: conjunctiva pink, EOMI, PERRLA Ear exam: PRESENT: normal external ear exam Mouth exam: PRESENT: moist, tongue midline Neck exam: PRESENT: full ROM Cardiovascular exam: PRESENT: irregular rhythm, RRR, +S1, +S2, systolic murmur Pulses: PRESENT: normal dorsalis pedis pul, +2 pedal pulses bilateral Vascular exam: PRESENT: normal capillary refill GI/Abdominal exam: PRESENT: normal bowel sounds, soft Rectal exam: PRESENT: deferred Neurological exam: PRESENT: alert, awake, oriented to person, oriented to place , oriented to time, oriented to situation, CN II-XII grossly intact Psychiatric exam: PRESENT: appropriate affect, normal mood Skin exam: PRESENT: dry, intact, warm Results Laboratory Results: 08/12/17 10:12 08/12/17 10:12 08/12/17 08/12/17 08/12/17 01:20 01:20 01:20 WBC RBC Hgb Hct MCV MCH MCHC RDW Plt Count Seg Neutrophils % Lymphocytes % Monocytes % Eosinophils % Basophils % Absolute Neutrophils Absolute Lymphocytes Absolute Monocytes Absolute Eosinophils Absolute Basophils Carbonic Acid HCO3/H2CO3 Ratio ABG pH ABG pCO2 ABG pO2 ABG HCO3 ABG O2 Saturation ABG Base Excess FiO2 Sodium Potassium Chloride Carbon Dioxide Anion Gap BUN Creatinine Est GFR ( Amer) Est GFR (Non-Af Amer) Glucose Calcium Phosphorus 3.5 Magnesium 1.3 L Ammonia < 8.7 L Triglycerides Cholesterol LDL Cholesterol Direct VLDL Cholesterol HDL Cholesterol Amylase 36 Lipase 42.0 TSH 1.32 Free T4 2.06 08/12/17 08/12/17 08/12/17 06:45 10:12 10:12 WBC 8.0 RBC 3.12 L Hgb 9.0 L Hct 29.7 L MCV 95 MCH 28.9 MCHC 30.3 L RDW 19.3 H Plt Count 131 L Seg Neutrophils % 76.9 Lymphocytes % 16.1 Monocytes % 6.3 Eosinophils % 0.0 Basophils % 0.7 Absolute Neutrophils 6.2 Absolute Lymphocytes 1.3 Absolute Monocytes 0.5 Absolute Eosinophils 0.0 Absolute Basophils 0.1 Carbonic Acid HCO3/H2CO3 Ratio ABG pH ABG pCO2 ABG pO2 ABG HCO3 ABG O2 Saturation ABG Base Excess FiO2 Sodium 133.6 L Potassium 4.4 Chloride 102 Carbon Dioxide 19 L Anion Gap 13 BUN 19 Creatinine 1.66 H Est GFR ( Amer) 36 L Est GFR (Non-Af Amer) 30 L Glucose 504 H* Calcium 9.3 Phosphorus Magnesium 1.3 L Ammonia Triglycerides 77 Cholesterol 126.28 LDL Cholesterol Direct 68 VLDL Cholesterol 15.0 HDL Cholesterol 41 Amylase Lipase TSH Free T4 08/12/17 10:30 WBC RBC Hgb Hct MCV MCH MCHC RDW Plt Count Seg Neutrophils % Lymphocytes % Monocytes % Eosinophils % Basophils % Absolute Neutrophils Absolute Lymphocytes Absolute Monocytes Absolute Eosinophils Absolute Basophils Carbonic Acid 1.09 HCO3/H2CO3 Ratio 18:1 ABG pH 7.36 ABG pCO2 36.1 ABG pO2 204.1 H ABG HCO3 19.8 L ABG O2 Saturation 99.4 H ABG Base Excess -5.2 FiO2 100% Sodium Potassium Chloride Carbon Dioxide Anion Gap BUN Creatinine Est GFR ( Amer) Est GFR (Non-Af Amer) Glucose Calcium Phosphorus Magnesium Ammonia Triglycerides Cholesterol LDL Cholesterol Direct VLDL Cholesterol HDL Cholesterol Amylase Lipase TSH Free T4 08/12/17 08/12/17 08/12/17 01:20 01:20 01:20 Creatine Kinase 88 CK-MB (CK-2) 0.88 Troponin I 0.023 NT-Pro-B Natriuret Pep 2800 H 08/12/17 08/12/17 08/12/17 06:45 06:45 14:07 Creatine Kinase 78 58 CK-MB (CK-2) 0.88 Troponin I 0.021 NT-Pro-B Natriuret Pep 08/12/17 14:07 Creatine Kinase CK-MB (CK-2) 0.59 Troponin I 0.020 NT-Pro-B Natriuret Pep Impressions: Chest CT 08/12/17 00:00 IMPRESSION: Findings worrisome for fluid overload or congestive failure with alveolar and interstitial edema. Multiple areas of more dense lung parenchymal consolidation around the periphery of both lungs, pneumonia versus nodules. When the patient's acute condition resolves, uncontrasted CT chest is recommended for followup Chest X-Ray 08/12/17 00:00 IMPRESSION: Pulmonary vascular congestion with mild alveolar and interstitial edema Small pleural effusions evident on chest CT earlier today are difficult to detect by plain film Assessment & Plan - Diagnosis (1) Acute combined systolic and diastolic heart failure Is this a current diagnosis for this admission?: Yes Plan: 2D echo showed low ejection fraction of left ventricle ,clinically CHF, she will be started on entresto (2) Atrial fibrillation with rapid ventricular response Is this a current diagnosis for this admission?: Yes (3) Atrial fibrillation with rapid ventricular response Is this a current diagnosis for this admission?: Yes (4) Diabetes mellitus type II, uncontrolled Qualifiers: Diabetes mellitus complication status: with neurologic complications Diabetes mellitus complication detail: with polyneuropathy Diabetes mellitus detention insulin use: with assembler surgical garment use Qualified Code(s): E11.42 - Type 2 diabetes mellitus with diabetic polyneuropathy Is this a current diagnosis for this admission?: Yes
[2017-08-12] MEDS: CEFTRIAXONE 1 GM/D5W RTU 1 GM/50 ML RTUPB IV SCH (21:20)
[2017-08-12] MEDS: GABAPENTIN 300 MG CAPSULE PO SCH (22:14)
[2017-08-12] MEDS ORDERED: METOPROLOL TARTRATE PF/INJ 5 MG/5 ML SDV IV PRN (22:21)
[2017-08-12] MEDS: SACUBITRIL/VALSARTAN 24 MG/26 MG TABLET PO SCH (22:25)
[2017-08-12] MEDS: INSULIN GLARGINE,HUM.REC.ANLOG 300 UNIT/3 ML INSULN.PEN SUBCUT SCH (22:27)
[2017-08-12] MEDS ORDERED: DIGOXIN INJ 0.5 MG/2 ML AMPULE IV ONE (22:30)
[2017-08-12] MEDS: METOPROLOL TARTRATE PF/INJ 5 MG/5 ML SDV IV PRN (22:59)
[2017-08-12 23:32] LABS: APPEARANCE,URINE CLEAR; BILIRUBIN,URINE NEGATIVE (NEGATIVE); GLUCOSE, URINE NEGATIVE (NEGATIVE); KETONES,URINE NEGATIVE (NEGATIVE); LEUKOCYTE ESTERASE,URINE NEGATIVE (NEGATIVE); NITRITE,URINE NEGATIVE (NEGATIVE); PROTEIN,URINE NEGATIVE (NEGATIVE); URINE SPECIFIC GRAVITY 1.004; UROBILINOGEN,URINE NEGATIVE mg/dL (<2.0)
[2017-08-12 23:46] LABS: URINE BARBITURATES SCREEN NEGATIVE; URINE METHADONE SCREEN NEGATIVE; URINE OPIATES LOW NEGATIVE; URINE PHENCYCLIDINE SCREEN NEGATIVE
[2017-08-12] MEDS: DEXTROSE 5%-WATER 500 ML with AMIODARONE HCL 900 MG IV PRN ×2 (23:55)
[2017-08-13] MEDS: DABIGATRAN ETEXILATE 150 MG CAPSULE PO SCH ×4 (06:45→21:57)
[2017-08-13] MEDS: GABAPENTIN 300 MG CAPSULE PO SCH ×3 (06:46→21:58)
[2017-08-13 07:27] LABS: ANION GAP 12 (5-19); BLOOD UREA NITROGEN 21 mg/dL (7-20); CALCIUM 9.2 mg/dL (8.4-10.2); CARBON DIOXIDE 24 mmol/L (22-30); CHLORIDE 105 mmol/L (98-107); CREATININE RESULT 1.63 mg/dL (0.52-1.25); GLUCOSE 281 mg/dL (75-110); POTASSIUM 4.6 mmol/L (3.6-5.0); SODIUM 140.6 mmol/L (137-145)
[2017-08-13 07:36] LABS: ABSOLUTE LYMPHOCYTES (AUTO) 2.7 10^3/uL (0.5-4.7); ABSOLUTE MONOCYTES (AUTO) 0.9 10^3/uL (0.1-1.4); ABSOLUTE NEUT (AUTO) 7.7 10^3/uL (1.7-8.2); BASOPHILS % (AUTO) 0.1 % (0-2); HEMATOCRIT 33.4 % (36.0-47.0); HEMOGLOBIN 10.4 g/dL (12.0-15.5); HGB HCT DIFFERENCE -2.2; LYMPHOCYTES % (AUTO) 24.2 % (13-45); MEAN CORPUSCULAR HEMOGLOBIN 29.2 pg (27.0-33.4); MEAN CORPUSCULAR HGB CONC 31.2 g/dL (32.0-36.0); MEAN CORPUSCULAR VOLUME 94 fl (80-97); MONOCYTES % (AUTO) 7.7 % (3-13); RED BLOOD COUNT 3.57 10^6/uL (3.72-5.28); RED CELL DISTRIBUTION WIDTH 19.3 % (11.5-14.0); WHITE BLOOD COUNT 11.3 10^3/uL (4.0-10.5)
[2017-08-13] MEDS ORDERED: PIOGLITAZONE HCL 30 MG TABLET PO SCH (08:00)
[2017-08-13] MEDS: METOPROLOL TARTRATE PF/INJ 5 MG/5 ML SDV IV PRN (08:19)
[2017-08-13] MEDS: INSULIN LISPRO 100 UNIT/ML 3 ML VIAL SUBCUT PRN ×4 (08:19→23:17)
[2017-08-13] MEDS ORDERED: FUROSEMIDE INJ/PF 40 MG/4 ML SDV IV ONE (10:00)
--- NOTE | 2017-08-13 10:14 | PDOC CONSULTATION ---
Consultation Consult Date: 08/13/17 Attending physician:: OBED BOGGS Consult reason:: Atrial fibrillation, CHF History of Present Illness Admission Date/PCP: 08/12/17 00:47 OBED BOGGS MD Patient complains of: Shortness of breath History of Present Illness: LC ANGUIANO is a 77 year old female, She has a history of paroxysmal atrial fibrillation, chronic obstructive lung disease, type 2 diabetes mellitus, she came to the emergency room for evaluation of shortness of breath cough and palpitation. In the emergency room she was found to have atrial fibrillation with rapid ventricular response, she was treated with adenosine and Cardizem infusion without much response in the rate.Hospital admission was advised ,on the floor she was started on amiodarone infusion this was complicated with hypotension. Patient is known to have atrial fibrillation, chronically, on anticoagulant with Pradaxa.She was subsequently stabilized. A 2D echo was done this morning it showed left ventricle ejection fraction of 35%, the left ventricle is grossly normal size the Doppler evaluation suggests grade [address] chest was done he showed moderate-sized bilateral pleural effusions also found was mass like areas of consolidation in the anterior aspect of the left upper lobe peripherally of the right upper lobe and periphery of the left lower lobe the chest CT is most suggestive of fluid overload this is probably related to the fluid resuscitation that was administered to the patient was initially low blood pressure. Past Medical History Cardiac Medical History: Reports: Atrial Fibrillation, Hypertension, Peripheral Vascular Disease Denies: Congestive Heart Failure, Coronary Artery Disease, Myocardial Infarction, Hyperlipidema, Pulmonary Embolism, Heart Murmur Pulmonary Medical History: Reports: Bronchitis - approx 2 x yrly, Pneumonia - Nov 2012 (hospitalized), Sleep Apnea - C-PAP use Denies: Asthma, Chronic Obstructive Pulmonary Disease (COPD), Respiratory Failure, Tuberculosis Neurological Medical History: Denies: Seizures Endocrine Medical History: Reports: Diabetes Mellitus Type 2 Denies: Hyperthyroidism, Hypothyroidism Renal/ Medical History: Denies: End Stage Renal Disease Malignancy Medical History: Reports: Breast Cancer - Left Denies: Cervical Cancer, Lung Cancer, Ovarian Cancer Musculoskeltal Medical History: Reports: Arthritis - Knees Denies: Fibromyalgia Psychiatric Medical History: Denies: Dementia, Depression Hematology: Denies: Anemia Past Surgical History Past Surgical History: Reports: Hysterectomy, Orthopedic Surgery - Left knee replacement, Tonsillectomy Denies: Amputation, Appendectomy, Section, Cholecystectomy, Coronary Artery Bypass Graft, Gastric Bypass Surgery, Herniorrhaphy, Mastectomy , Pacemaker, Tubal Ligation Social History Information Source: Patient Lives with: Family Smoking Status: Former Smoker Frequency of Alcohol Use: None Hx Recreational Drug Use: No Drugs: None Hx Prescription Drug Abuse: No - Advance Directive Resuscitation Status: Full Code Family History Family History: Hypertension Parental Family History Reviewed: Yes Children Family History Reviewed: Yes Sibling(s) Family History Reviewed.: Yes Medication/Allergy Home Medications: Atorvastatin Calcium [Lipitor 10 mg Tablet] 10 mg PO QHS 08/12/17 Canagliflozin/Metformin HCl [Invokamet 150-1,000 mg Tablet] 1 each PO BIDBS 03/24 Chlorpheniramine Maleate [Chlor-Trimeton 4 mg Tablet] 1 tab PO Q6HP PRN Dabigatran Etexilate Mesylate [Pradaxa 150 mg Capsule] 150 mg PO Q12 08/12/17 Gabapentin [Neurontin 300 mg Capsule] 300 mg PO Q8 08/12/17 Insulin Aspart [Novolog Flexpen] 6 unit SUBCUT AC 08/12/17 Insulin Glargine,Hum.rec.anlog [Lantus Insulin 100 Unit/1 ml 10 ml] 40 unit SUBCUT QHS 08/12/17 Losartan Potassium [Cozaar 50 mg Tablet] 50 mg PO DAILY 08/12/17 Metoprolol Succinate [Toprol XL 100 mg Tablet] 100 mg PO Q12 08/12/17 Pioglitazone HCl [Actos] 30 mg PO QAM 08/12/17 Allergies/Adverse Reactions: No Known Allergies Allergy (Verified 08/11/17 17:37) Review of Systems Review of Systems: Please see history of present illness and past medical history as wall. Constitutional: No fever or chills reported. Head : No recent chronic headaches, recent head injury. Eyes: No recent eye pain, diplopia, redness, discharge, acute visual changes. Ears: No recent chronic ear pain, acute hearing loss, ear discharge. Oral cavity: No recent ulcerations, bleeding, oral cavity discomfort. Neck: No recent acute neck pain reported. Hematologic: No recent easy bruising or bleeding or hematologic malignancy reported. Lymphatic: No recent lymphatic malignancy, chronic lymphadenopathy reported yet Cardiovascular system review: See history of present illness. Increasing shortness of breath, palpitations and pedal edema. No chest pains Respiratory system review: No hemoptysis, blood clots in the lungs reported. Shortness of breath on exertion, cough but no sputum production present Gastrointestinal system review: Negative for any recent acute or chronic abdominal pain, hematemesis, melena, recent change in bowel habits. Genitourinary system review: No recent acute or chronic hematuria, flank pain, UTI etc. reported. Skin system review: Negative for any recent abnormal bruising, no rash, no pruritus reported. Neurologic: No prior history of strokes, mini strokes, seizure disorder. Psychologic: No history of major psychosis or major depression reported. Musculoskeletal: Minor aches and pains reported. No acute joint swelling reported. Endocrine: No recent polyuria, polydipsia, recent heat or cold intolerance. Physical Exam Vital Signs: Temp Pulse Resp BP Pulse Ox 97.8 F 122 H 26 H 114/96 H 98 08/13/17 05:41 08/13/17 06:33 08/13/17 09:34 08/13/17 09:01 08/13/17 10:00 Intake & Output 08/12/17 08/13/17 08/14/17 06:59 06:59 06:59 Intake Total 265 2929 Output Total 351 3700 Balance -86 -771 Weight 95.6 kg Exam: GENERAL: well-nourished and in no acute distress. Alert and oriented x3 HEAD: Atraumatic, normocephalic. EYES: Pupils equal round and reactive to light, extraocular movements intact, sclera anicteric, conjunctiva are normal. ENT: TMs normal, nares patent, oropharynx clear without exudates. Moist mucous membranes. No oral ulcerations or bleeding gums noted NECK: supple without lymphadenopathy. Trachea is central. No cervical or axillary lymphadenopathy noted. Carotids are 2+, JVD 10-12 cm LUNGS: Respiration seems nonlabored, no significant accessory muscle action noted. Bilateral fine crackles with some mild dullness both bases. No significant wheezing noted. CHEST: Palpation of the chest wall shows no significant chest wall tenderness. No other significant abnormalities noted. HEART: [place] [employer] THER[employer]IST, No PSH, 1/6 JOSUE aortic area, 1/6 bunch systolic murmur mitral area, no rubs, positive S3 gallop. ABDOMEN: Soft, no significant tenderness appreciated, normoactive bowel sounds. No guarding, no rebound. No rigidity noted . No masses appreciated. EXTREMITIES: Pedal pulses are 1-2+, no calf tenderness noted. No clubbing or cyanosis. 1+ pedal edema noted NEUROLOGICAL: Focused neurological exam showed no significant neurologic deficit. Normal speech, no focal weakness appreciated. PSYCH: Normal mood, normal affect. Judgment and insight within normal limits. SKIN: No significant ecchymosis, rash, ulcerations or signs of pruritus noted. MUSCULOSKELETAL EXAM: No significant joint swelling noted. Results Laboratory Results: 08/13/17 07:05 08/13/17 07:05 08/12/17 08/12/17 08/12/17 10:12 10:12 10:30 WBC 8.0 RBC 3.12 L Hgb 9.0 L Hct 29.7 L MCV 95 MCH 28.9 MCHC 30.3 L RDW 19.3 H Plt Count 131 L Seg Neutrophils % 76.9 Lymphocytes % 16.1 Monocytes % 6.3 Eosinophils % 0.0 Basophils % 0.7 Absolute Neutrophils 6.2 Absolute Lymphocytes 1.3 Absolute Monocytes 0.5 Absolute Eosinophils 0.0 Absolute Basophils 0.1 Carbonic Acid 1.09 HCO3/H2CO3 Ratio 18:1 ABG pH 7.36 ABG pCO2 36.1 ABG pO2 204.1 H ABG HCO3 19.8 L ABG O2 Saturation 99.4 H ABG Base Excess -5.2 FiO2 100% Sodium 133.6 L Potassium 4.4 Chloride 102 Carbon Dioxide 19 L Anion Gap 13 BUN 19 Creatinine 1.66 H Est GFR ( Amer) 36 L Est GFR (Non-Af Amer) 30 L Glucose 504 H* Calcium 9.3 Magnesium 1.3 L Urine Color Urine Appearance Urine pH Ur Specific [place] Urine Protein Urine Glucose (UA) Urine Ketones Urine Blood Urine Nitrite Ur Leukocyte Esterase Urine WBC (Auto) Urine RBC (Auto) 08/12/17 08/13/17 08/13/17 22:15 07:05 07:05 WBC 11.3 H RBC 3.57 L Hgb 10.4 L Hct 33.4 L MCV 94 MCH 29.2 MCHC 31.2 L RDW 19.3 H Plt Count 146 L Seg Neutrophils % 68.0 Lymphocytes % 24.2 Monocytes % 7.7 Eosinophils % 0.0 Basophils % 0.1 Absolute Neutrophils 7.7 Absolute Lymphocytes 2.7 Absolute Monocytes 0.9 Absolute Eosinophils 0.0 Absolute Basophils 0.0 Carbonic Acid HCO3/H2CO3 Ratio ABG pH ABG pCO2 ABG pO2 ABG HCO3 ABG O2 Saturation ABG Base Excess FiO2 Sodium 140.6 Potassium 4.6 Chloride 105 Carbon Dioxide 24 Anion Gap 12 BUN 21 H Creatinine 1.63 H Est GFR ( Amer) 37 L Est GFR (Non-Af Amer) 31 L Glucose 281 H Calcium 9.2 Magnesium Urine Color STRAW Urine Appearance CLEAR Urine pH 5.0 Ur Specific [place] 1.004 Urine Protein NEGATIVE Urine Glucose (UA) NEGATIVE Urine Ketones NEGATIVE Urine Blood LARGE H Urine Nitrite NEGATIVE Ur Leukocyte Esterase NEGATIVE Urine WBC (Auto) 1 Urine RBC (Auto) 24 08/12/17 08/12/17 08/12/17 01:20 01:20 01:20 Creatine Kinase 88 CK-MB (CK-2) 0.88 Troponin I 0.023 NT-Pro-B Natriuret Pep 2800 H 08/12/17 08/12/17 08/12/17 06:45 06:45 14:07 Creatine Kinase 78 58 CK-MB (CK-2) 0.88 Troponin I 0.021 NT-Pro-B Natriuret Pep 08/12/17 14:07 Creatine Kinase CK-MB (CK-2) 0.59 Troponin I 0.020 NT-Pro-B Natriuret Pep EKG Comments: Yesterday's EKG shows sinus rhythm with borderline T-wave abnormalities. No acute ST segment changes noted. Impressions: Chest CT 08/12/17 00:00 IMPRESSION: Findings worrisome for fluid overload or congestive failure with alveolar and interstitial edema. Multiple areas of more dense lung parenchymal consolidation around the periphery of both lungs, pneumonia versus nodules. When the patient's acute condition resolves, uncontrasted CT chest is recommended for followup Chest X-Ray 08/12/17 00:00 IMPRESSION: Pulmonary vascular congestion with mild alveolar and interstitial edema Small pleural effusions evident on chest CT earlier today are difficult to detect by plain film Assessment & Plan - Diagnosis (1) Acute on chronic combined systolic and diastolic congestive heart failure Is this a current diagnosis for this admission?: Yes (2) Atrial fibrillation with rapid ventricular response Is this a current diagnosis for this admission?: Yes (3) COPD (chronic obstructive pulmonary disease) Qualifiers: Emphysema type: unspecified Is this a current diagnosis for this admission?: Yes (4) Hypertension Qualifiers: Hypertension type: essential hypertension Qualified Code(s): I10 - Essential (primary) hypertension (5) Sleep apnea syndrome Qualifiers: Sleep apnea type: unspecified type Qualified Code(s): G47.30 - Sleep apnea , unspecified Is this a current diagnosis for this admission?: Yes (6) Cardiomyopathy Qualifiers: Cardiomyopathy type: unspecified Qualified Code(s): I42.9 - Cardiomyopathy , unspecified Is this a current diagnosis for this admission?: Yes - Notes Notes: CHF: Possibly acute on chronic systolic and diastolic. At this point, will start patient on torsemide 20 mg p.o. daily. Atrial fibrillation clearly aggravating this. Patient was in sinus rhythm yesterday morning therefore patient was placed on amiodarone bolus and drip protocol to try to convert her back to sinus rhythm as this will certainly help. In the meantime will recommend optimizing therapy for underlying cardiomyopathy. This should include ALFONSO inhibitor/ARB/entresto therapy. Have added digoxin. May consider spironolactone therapy. Have stopped pioglitazone as this can aggravate CHF. Atrial fibrillation with rapid ventricular response. Patient currently on chronic anticoagulation. For heart rate controlled, beta-blockers and digoxin preferred in the presence of diastolic systolic heart failure. May consider adding Ranexa if needed. COPD: Currently is stable. Hypertension: Blood pressure under satisfactory control. Goal is 135/95 or less. Cardiomyopathy: Currently is stable. Sleep apnea syndrome: Recommend nightly bilevel therapy and also during the day while taking naps. - Time Time Spent: 50 to 70 Minutes - CODE STATUS was discussed, patient remains full code. Surrogate decision-maker unchanged. Multiple medical problems were addressed. More than 50% of the time spent coordinating care, discussing management plans with involved caregivers. Management plans discussed with involved personnels. Medical decision making was of moderate to high complexity , patient's has multiple comorbidities. Medications reviewed and adjusted accordingly: Yes
--- NOTE | 2017-08-13 11:15 | EKG REPORT ---
SEVERITY:- BORDERLINE ECG - SINUS RHYTHM BORDERLINE T ABNORMALITIES, DIFFUSE LEADS BORDERLINE PROLONGED QT INTERVAL : Confirmed by: Ana Luisa Johnston MD 13-Aug-2017 11:14:20
[2017-08-13] MEDS: SACUBITRIL/VALSARTAN 24 MG/26 MG TABLET PO SCH ×2 (11:51→23:18)
[2017-08-13] MEDS: METOPROLOL SUCCINATE 50 MG TAB.SR.24H PO SCH ×2 (11:52→21:56)
[2017-08-13] MEDS: ATORVASTATIN CALCIUM 10 MG TABLET PO SCH ×2 (11:53→21:58)
[2017-08-13] MEDS ORDERED: TORSEMIDE 20 MG TABLET PO ONE (12:00)
[2017-08-13] MEDS ORDERED: DIGOXIN 0.125 MG TABLET PO ONE (12:00)
[2017-08-13] MEDS: CEFTRIAXONE 1 GM/D5W RTU 1 GM/50 ML RTUPB IV SCH (20:56)
[2017-08-13] MEDS: DEXTROSE 5%-WATER 500 ML with AMIODARONE HCL 900 MG IV PRN ×2 (23:15)
[2017-08-13] MEDS: INSULIN GLARGINE,HUM.REC.ANLOG 300 UNIT/3 ML INSULN.PEN SUBCUT SCH (23:17)
--- NOTE | 2017-08-13 23:40 | PDOC PROGRESS REPORT ---
Subjective Progress Note for:: 08/13/17 Subjective:: She was seen by the bedside, she was seen today by cardiology, Dr. Parker she continues to require noninvasive positive pressure ventilation BiPAP machine she was admitted for the management of acute systolic heart failure with atrial fibrillation and rapid irregular response. Blood culture is growing gram- positive cocci, she is empirically on IV antibiotic for pneumona Physical Exam Vital Signs: Temp Pulse Resp BP Pulse Ox 97.8 F 105 H 25 H 123/108 H 99 08/13/17 05:41 08/13/17 19:00 08/13/17 20:42 08/13/17 19:01 08/13/17 20:42 Intake & Output 08/12/17 08/13/17 08/14/17 06:59 06:59 06:59 Intake Total 265 2929 750 Output Total 351 3700 1000 Balance -86 -891 -250 Weight 95.6 kg General appearance: PRESENT: mild distress Eye exam: PRESENT: PERRLA Respiratory exam: PRESENT: crackles Cardiovascular exam: PRESENT: +S1, +S2 GI/Abdominal exam: PRESENT: soft Neurological exam: PRESENT: alert, CN II-XII grossly intact Results Laboratory Results: 08/13/17 07:05 08/13/17 07:05 08/12/17 08/13/17 08/13/17 22:15 07:05 07:05 WBC 11.3 H RBC 3.57 L Hgb 10.4 L Hct 33.4 L MCV 94 MCH 29.2 MCHC 31.2 L RDW 19.3 H Plt Count 146 L Seg Neutrophils % 68.0 Lymphocytes % 24.2 Monocytes % 7.7 Eosinophils % 0.0 Basophils % 0.1 Absolute Neutrophils 7.7 Absolute Lymphocytes 2.7 Absolute Monocytes 0.9 Absolute Eosinophils 0.0 Absolute Basophils 0.0 Sodium 140.6 Potassium 4.6 Chloride 105 Carbon Dioxide 24 Anion Gap 12 BUN 21 H Creatinine 1.63 H Est GFR ( Amer) 37 L Est GFR (Non-Af Amer) 31 L Glucose 281 H Calcium 9.2 Urine Color STRAW Urine Appearance CLEAR Urine pH 5.0 Ur Specific [place] 1.004 Urine Protein NEGATIVE Urine Glucose (UA) NEGATIVE Urine Ketones NEGATIVE Urine Blood LARGE H Urine Nitrite NEGATIVE Ur Leukocyte Esterase NEGATIVE Urine WBC (Auto) 1 Urine RBC (Auto) 24 08/12/17 08/12/17 08/12/17 01:20 01:20 01:20 Creatine Kinase 88 CK-MB (CK-2) 0.88 Troponin I 0.023 NT-Pro-B Natriuret Pep 2800 H 08/12/17 08/12/17 08/12/17 06:45 06:45 14:07 Creatine Kinase 78 58 CK-MB (CK-2) 0.88 Troponin I 0.021 NT-Pro-B Natriuret Pep 08/12/17 14:07 Creatine Kinase CK-MB (CK-2) 0.59 Troponin I 0.020 NT-Pro-B Natriuret Pep Impressions: Chest CT 08/12/17 00:00 IMPRESSION: Findings worrisome for fluid overload or congestive failure with alveolar and interstitial edema. Multiple areas of more dense lung parenchymal consolidation around the periphery of both lungs, pneumonia versus nodules. When the patient's acute condition resolves, uncontrasted CT chest is recommended for followup Chest X-Ray 08/12/17 00:00 IMPRESSION: Pulmonary vascular congestion with mild alveolar and interstitial edema Small pleural effusions evident on chest CT earlier today are difficult to detect by plain film Assessment & Plan - Diagnosis (1) Acute combined systolic and diastolic heart failure Is this a current diagnosis for this admission?: Yes (2) Atrial fibrillation with rapid ventricular response Is this a current diagnosis for this admission?: Yes (3) Atrial fibrillation with rapid ventricular response Is this a current diagnosis for this admission?: Yes (4) Diabetes mellitus type II, uncontrolled Qualifiers: Diabetes mellitus complication status: with neurologic complications Diabetes mellitus complication detail: with polyneuropathy Diabetes mellitus intermodal customer service insulin use: with longterm use Qualified Code(s): E11.42 - Type 2 diabetes mellitus with diabetic polyneuropathy Is this a current diagnosis for this admission?: Yes (5) Pneumonia Qualifiers: Pneumonia type: aspiration pneumonia Aspiration pneumonia type: unspecified Laterality: unspecified laterality Lung location: unspecified part of lung Qualified Code(s): J69.0 - Pneumonitis due to inhalation of food and vomit Is this a current diagnosis for this admission?: Yes (6) Gram positive septicemia Is this a current diagnosis for this admission?: Yes - Plan Summary Plan Summary: The patient will be discontinued she will continue IV antibiotic ceftriaxone, continue beta-jerry., Continue noninvasive positive pressure ventilation with BiPAP
[2017-08-14] MEDS: GABAPENTIN 300 MG CAPSULE PO SCH ×3 (05:42→21:44)
[2017-08-14] MEDS: DABIGATRAN ETEXILATE 150 MG CAPSULE PO SCH ×2 (05:43→17:20)
[2017-08-14 06:20] LABS: ABSOLUTE MONOCYTES (AUTO) 0.9 10^3/uL (0.1-1.4); ABSOLUTE NEUT (AUTO) 4.3 10^3/uL (1.7-8.2); BASOPHILS % (AUTO) 0.1 % (0-2); EOSINOPHILS % (AUTO) 0.1 % (0-6); HEMATOCRIT 32.2 % (36.0-47.0); HEMOGLOBIN 10.2 g/dL (12.0-15.5); HGB HCT DIFFERENCE -1.6; LYMPHOCYTES % (AUTO) 27.3 % (13-45); MEAN CORPUSCULAR HEMOGLOBIN 29.2 pg (27.0-33.4); MEAN CORPUSCULAR HGB CONC 31.8 g/dL (32.0-36.0); MEAN CORPUSCULAR VOLUME 92 fl (80-97); MONOCYTES % (AUTO) 12.7 % (3-13); RED CELL DISTRIBUTION WIDTH 19.3 % (11.5-14.0); SEGMENTED NEUTROPHILS % (AUTO) 59.8 % (42-78); WHITE BLOOD COUNT 7.2 10^3/uL (4.0-10.5)
[2017-08-14 06:41] LABS: ANION GAP 11 (5-19); BLOOD UREA NITROGEN 30 mg/dL (7-20); CALCIUM 8.7 mg/dL (8.4-10.2); CARBON DIOXIDE 25 mmol/L (22-30); CHLORIDE 104 mmol/L (98-107); CREATININE RESULT 1.77 mg/dL (0.52-1.25); GLUCOSE 210 mg/dL (75-110); SODIUM 139.6 mmol/L (137-145)
[2017-08-14] MEDS: INSULIN LISPRO 100 UNIT/ML 3 ML VIAL SUBCUT PRN ×4 (08:09→21:41)
--- NOTE | 2017-08-14 11:18 | PDOC PROGRESS REPORT ---
Subjective Progress Note for:: 08/14/17 Subjective:: Patient seems to be doing better with gradual improvement. Pt is denying any chest arm or neck discomfort. Patient denying any PND, orthopnea. Patient denied any sustained palpitations, dizziness, syncope, near syncope. Patient denying any fever chills. Patient denying any other significant discomfort. Patient is maintaining atrial fibrillation, heart rate seems slightly increased but better than before. Review of systems: Rest review of systems negative. Medications: Medications have been reviewed. Physical Exam Vital Signs: Temp Pulse Resp BP Pulse Ox 97.8 F 120 H 21 H 123/108 H 97 08/13/17 05:41 08/14/17 07:00 08/14/17 04:28 08/13/17 19:01 08/14/17 04:28 Intake & Output 08/13/17 08/14/17 08/15/17 06:59 06:59 06:59 Intake Total 2929 1460 Output Total 3700 1425 Balance -771 35 Weight 95.8 kg Exam: GENERAL: well-nourished and in no acute distress. Alert and oriented x3 HEAD: Atraumatic, normocephalic. EYES: Pupils equal round and reactive to light, extraocular movements intact, sclera anicteric, conjunctiva are normal. ENT: TMs normal, nares patent, oropharynx clear without exudates. Moist mucous membranes. No oral ulcerations or bleeding gums noted NECK: supple without lymphadenopathy. Trachea is central. No cervical or axillary lymphadenopathy noted. Carotids are 2+, JVD difficult to assess LUNGS: Respiration seems nonlabored, no significant accessory muscle action noted. Bibasilar fine crackles with mild dullness noted. CHEST: Palpation of the chest wall shows no significant chest wall tenderness. No other significant abnormalities noted. HEART: [employer], No PSH, 1/6 JOSUE aortic area, 1/6 bunch systolic murmur mitral area, no rubs, no gallops. ABDOMEN: Soft, no significant tenderness appreciated, normoactive bowel sounds. No guarding, no rebound. No rigidity noted . No masses appreciated. EXTREMITIES: Pedal pulses are 1-2+, no calf tenderness noted. No clubbing or cyanosis.trace to 1+ pedal edema noted NEUROLOGICAL: Focused neurological exam showed no significant neurologic deficit. Normal speech, no focal weakness appreciated. PSYCH: Normal mood, normal affect. Judgment and insight within normal limits. SKIN: No significant ecchymosis, rash, ulcerations or signs of pruritus noted. MUSCULOSKELETAL EXAM: No significant joint swelling noted. Results Laboratory Results: 08/14/17 05:47 08/14/17 05:47 08/14/17 08/14/17 05:47 05:47 WBC 7.2 RBC 3.50 L Hgb 10.2 L Hct 32.2 L MCV 92 MCH 29.2 MCHC 31.8 L RDW 19.3 H Plt Count 125 L Seg Neutrophils % 59.8 Lymphocytes % 27.3 Monocytes % 12.7 Eosinophils % 0.1 Basophils % 0.1 Absolute Neutrophils 4.3 Absolute Lymphocytes 2.0 Absolute Monocytes 0.9 Absolute Eosinophils 0.0 Absolute Basophils 0.0 Sodium 139.6 Potassium 4.0 Chloride 104 Carbon Dioxide 25 Anion Gap 11 BUN 30 H Creatinine 1.77 H Est GFR ( Amer) 34 L Est GFR (Non-Af Amer) 28 L Glucose 210 H Calcium 8.7 08/12/17 22:15 Clean Catch Midstream Urine Culture - Final Mixed Urogenital [place] 08/12/17 08/12/17 08/12/17 01:20 01:20 01:20 Creatine Kinase 88 CK-MB (CK-2) 0.88 Troponin I 0.023 NT-Pro-B Natriuret Pep 2800 H 08/12/17 08/12/17 08/12/17 06:45 06:45 14:07 Creatine Kinase 78 58 CK-MB (CK-2) 0.88 Troponin I 0.021 NT-Pro-B Natriuret Pep 08/12/17 14:07 Creatine Kinase CK-MB (CK-2) 0.59 Troponin I 0.020 NT-Pro-B Natriuret Pep EKG Comments: Atrial fibrillation with mild tachycardic rhythm but improved than before Impressions: Chest CT 08/12/17 00:00 IMPRESSION: Findings worrisome for fluid overload or congestive failure with alveolar and interstitial edema. Multiple areas of more dense lung parenchymal consolidation around the periphery of both lungs, pneumonia versus nodules. When the patient's acute condition resolves, uncontrasted CT chest is recommended for followup Chest X-Ray 08/12/17 00:00 IMPRESSION: Pulmonary vascular congestion with mild alveolar and interstitial edema Small pleural effusions evident on chest CT earlier today are difficult to detect by plain film Assessment & Plan - Diagnosis (1) Congestive heart failure (CHF) Qualifiers: Congestive heart failure type: combined Congestive heart failure chronicity : acute on chronic Qualified Code(s): I50.43 - Acute on chronic combined systolic (congestive) and diastolic (congestive) heart failure Is this a current diagnosis for this admission?: Yes (2) Atrial fibrillation with rapid ventricular response Is this a current diagnosis for this admission?: Yes (3) COPD (chronic obstructive pulmonary disease) Qualifiers: Emphysema type: unspecified Is this a current diagnosis for this admission?: Yes (4) Hypertension Qualifiers: Hypertension type: essential hypertension Qualified Code(s): I10 - Essential (primary) hypertension (5) Sleep apnea syndrome Qualifiers: Sleep apnea type: unspecified type Qualified Code(s): G47.30 - Sleep apnea , unspecified Is this a current diagnosis for this admission?: Yes (6) Cardiomyopathy Qualifiers: Cardiomyopathy type: unspecified Qualified Code(s): I42.9 - Cardiomyopathy , unspecified Is this a current diagnosis for this admission?: Yes - Notes Notes: CHF: Possibly acute on chronic systolic and diastolic. Currently patient on torsemide 20 mg p.o. daily. Atrial fibrillation clearly aggravating this. Patient was in sinus rhythm earlier this admission, patient was on amiodarone at home therefore will discontinue IV amiodarone and switch her back to p.o. amiodarone to try to convert her back to sinus rhythm as this will certainly help. In the meantime will recommend optimizing therapy for underlying cardiomyopathy. This should include ALFONSO inhibitor/ARB/entresto therapy. Continue digoxin at 0.125 mg p.o. daily. May consider spironolactone therapy. Have stopped pioglitazone as this can aggravate CHF. Atrial fibrillation with rapid ventricular response. Patient currently on chronic anticoagulation. For heart rate controlled, beta-blockers and digoxin preferred in the presence of diastolic systolic heart failure. May consider adding Ranexa if needed. Ranexa may help with converting patient to sinus rhythm. Currently on metoprolol succinate 100 mg p.o. twice daily. COPD: Currently is stable. Hypertension: Blood pressure under satisfactory control. Goal is 135/95 or less. Cardiomyopathy: Currently is stable. Sleep apnea syndrome: Recommend nightly bilevel therapy and also during the day while taking naps. Addendum I was called in the afternoon and had to order IV Lopressor every hour as needed for heart rate over 115. - Time Time with patient: Greater than 35 minutes - CODE STATUS was discussed, patient remains full code. Multiple medical problems were addressed. More than 50% of the time spent coordinating care, discussing management plans with involved caregivers. Management plans discussed with involved personnels. Medical decision making was of high complexity, patient's has multiple comorbidities. Medications reviewed and adjusted accordingly: Yes
[2017-08-14] MEDS: TORSEMIDE 20 MG TABLET PO SCH (11:41)
[2017-08-14] MEDS: SACUBITRIL/VALSARTAN 24 MG/26 MG TABLET PO SCH ×2 (11:42→21:44)
[2017-08-14] MEDS: METOPROLOL SUCCINATE 50 MG TAB.SR.24H PO SCH ×2 (11:42→21:43)
[2017-08-14] MEDS: DIGOXIN 0.125 MG TABLET PO SCH (11:42)
[2017-08-14] MEDS ORDERED: RANOLAZINE 500 MG TAB.SR.12H PO ONE (12:00)
[2017-08-14] MEDS: METOPROLOL TARTRATE PF/INJ 5 MG/5 ML SDV IV PRN ×6 (15:44→22:36)
[2017-08-14] MEDS: AMIODARONE HCL 200 MG TABLET PO SCH (15:44)
--- NOTE | 2017-08-14 16:37 | PDOC PROGRESS REPORT ---
Subjective Progress Note for:: 08/14/17 Subjective:: Patient denied any chest pain. Breathing is getting better. No fever or chills. No nausea, vomiting, or abdominal pain. Oral intake satisfactory. Physical Exam Vital Signs: Temp Pulse Resp BP Pulse Ox 97.8 F 107 H 21 H 123/108 H 97 08/13/17 05:41 08/14/17 14:00 08/14/17 04:28 08/13/17 19:01 08/14/17 04:28 Intake & Output 08/13/17 08/14/17 08/15/17 06:59 06:59 06:59 Intake Total 2929 1460 Output Total 3700 1425 Balance -771 35 Weight 95.8 kg General appearance: PRESENT: no acute distress, mild distress - remain on supplemental oxygen via nasal cannula Head exam: PRESENT: atraumatic, normocephalic Eye exam: PRESENT: conjunctiva pink, EOMI, PERRLA. ABSENT: scleral icterus Mouth exam: PRESENT: moist Respiratory exam: PRESENT: clear to auscultation mack, decreased breath sounds Cardiovascular exam: PRESENT: RRR. ABSENT: diastolic murmur, rubs, systolic murmur Vascular exam: PRESENT: normal capillary refill. ABSENT: pallor GI/Abdominal exam: PRESENT: normal bowel sounds, soft. ABSENT: distended, guarding, mass, organolmegaly, rebound, tenderness Musculoskeletal exam: PRESENT: deformity - related to joint arthritis Neurological exam: PRESENT: alert, awake, oriented to person, oriented to place , oriented to time, oriented to situation, CN II-XII grossly intact. ABSENT: motor sensory deficit Psychiatric exam: PRESENT: appropriate affect, normal mood. ABSENT: homicidal ideation, suicidal ideation Skin exam: PRESENT: dry, intact, warm. ABSENT: cyanosis, rash Results Laboratory Results: 08/14/17 05:47 08/14/17 05:47 08/14/17 08/14/17 05:47 05:47 WBC 7.2 RBC 3.50 L Hgb 10.2 L Hct 32.2 L MCV 92 MCH 29.2 MCHC 31.8 L RDW 19.3 H Plt Count 125 L Seg Neutrophils % 59.8 Lymphocytes % 27.3 Monocytes % 12.7 Eosinophils % 0.1 Basophils % 0.1 Absolute Neutrophils 4.3 Absolute Lymphocytes 2.0 Absolute Monocytes 0.9 Absolute Eosinophils 0.0 Absolute Basophils 0.0 Sodium 139.6 Potassium 4.0 Chloride 104 Carbon Dioxide 25 Anion Gap 11 BUN 30 H Creatinine 1.77 H Est GFR ( Amer) 34 L Est GFR (Non-Af Amer) 28 L Glucose 210 H Calcium 8.7 08/12/17 22:15 Clean Catch Midstream Urine Culture - Final Mixed Urogenital [place] 08/12/17 08/12/17 08/12/17 01:20 01:20 01:20 Creatine Kinase 88 CK-MB (CK-2) 0.88 Troponin I 0.023 NT-Pro-B Natriuret Pep 2800 H 08/12/17 08/12/17 08/12/17 06:45 06:45 14:07 Creatine Kinase 78 58 CK-MB (CK-2) 0.88 Troponin I 0.021 NT-Pro-B Natriuret Pep 08/12/17 14:07 Creatine Kinase CK-MB (CK-2) 0.59 Troponin I 0.020 NT-Pro-B Natriuret Pep Impressions: Chest CT 08/12/17 00:00 IMPRESSION: Findings worrisome for fluid overload or congestive failure with alveolar and interstitial edema. Multiple areas of more dense lung parenchymal consolidation around the periphery of both lungs, pneumonia versus nodules. When the patient's acute condition resolves, uncontrasted CT chest is recommended for followup Chest X-Ray 08/12/17 00:00 IMPRESSION: Pulmonary vascular congestion with mild alveolar and interstitial edema Small pleural effusions evident on chest CT earlier today are difficult to detect by plain film Assessment & Plan - Diagnosis (1) Atrial fibrillation with rapid ventricular response Is this a current diagnosis for this admission?: Yes Plan: See physician orders. She is currently of amiodarone infusion therapy. (2) Congestive heart failure (CHF) Qualifiers: Congestive heart failure type: combined Congestive heart failure chronicity : acute on chronic Qualified Code(s): I50.43 - Acute on chronic combined systolic (congestive) and diastolic (congestive) heart failure Is this a current diagnosis for this admission?: Yes Plan: See covering attending physician orders. (3) Gram positive septicemia Is this a current diagnosis for this admission?: Yes (4) Pneumonia Qualifiers: Pneumonia type: aspiration pneumonia Aspiration pneumonia type: unspecified Laterality: unspecified laterality Lung location: unspecified part of lung Qualified Code(s): J69.0 - Pneumonitis due to inhalation of food and vomit Is this a current diagnosis for this admission?: Yes Plan: Maintain on IV Rocephin coverage. Follow up on blood culture findings. (5) Diabetes mellitus type II, uncontrolled Qualifiers: Diabetes mellitus complication status: with neurologic complications Diabetes mellitus complication detail: with polyneuropathy Diabetes mellitus alf insulin use: with alf use Qualified Code(s): E11.42 - Type 2 diabetes mellitus with diabetic polyneuropathy Is this a current diagnosis for this admission?: Yes Plan: See covering attending physician orders. - Time Time Spent with patient: 25-34 minutes Medications reviewed and adjusted accordingly: Yes Anticipated discharge: SNF - for short term rehabilitation - Inpatient Certification Based on my medical assessment, after consideration of the patient's comorbidities, presenting symptoms, or acuity I expect that the services needed warrant INPATIENT care.: Yes I certify that my determination is in accordance with my understanding of Medicare's requirements for reasonable and necessary INPATIENT services [42 CFR 412.3e].: Yes Medical Necessity: Need Close Monitoring Due to Risk of Patient Decompensation, Need For Continuous Telemetry Monitoring, Need for Nebulizer Therapy and Monitoring of Response, Need for IV Antibiotics, Risk of Complication if Not Cared For in Hospital Post Hospital Care: D/C or Transfer Summary - Plan Summary Plan Summary: See attending physician orders.
[2017-08-14] MEDS: CEFTRIAXONE 1 GM/D5W RTU 1 GM/50 ML RTUPB IV SCH (21:40)
[2017-08-14] MEDS: INSULIN GLARGINE,HUM.REC.ANLOG 300 UNIT/3 ML INSULN.PEN SUBCUT SCH (21:41)
[2017-08-14] MEDS: ATORVASTATIN CALCIUM 10 MG TABLET PO SCH (21:44)
[2017-08-14] MEDS: RANOLAZINE 500 MG TAB.SR.12H PO SCH (21:44)
[2017-08-15] MEDS: DABIGATRAN ETEXILATE 150 MG CAPSULE PO SCH ×2 (07:10→17:12)
[2017-08-15] MEDS: GABAPENTIN 300 MG CAPSULE PO SCH ×3 (07:12→21:51)
[2017-08-15 07:56] LABS: ABSOLUTE LYMPHOCYTES (AUTO) 1.9 10^3/uL (0.5-4.7); ABSOLUTE MONOCYTES (AUTO) 0.9 10^3/uL (0.1-1.4); ABSOLUTE NEUT (AUTO) 3.5 10^3/uL (1.7-8.2); BASOPHILS % (AUTO) 0.2 % (0-2); EOSINOPHILS % (AUTO) 0.1 % (0-6); HEMATOCRIT 30.9 % (36.0-47.0); HEMOGLOBIN 9.8 g/dL (12.0-15.5); HGB HCT DIFFERENCE -1.5; LYMPHOCYTES % (AUTO) 29.9 % (13-45); MEAN CORPUSCULAR HEMOGLOBIN 29.3 pg (27.0-33.4); MEAN CORPUSCULAR HGB CONC 31.8 g/dL (32.0-36.0); MEAN CORPUSCULAR VOLUME 92 fl (80-97); MONOCYTES % (AUTO) 14.6 % (3-13); RED BLOOD COUNT 3.35 10^6/uL (3.72-5.28); RED CELL DISTRIBUTION WIDTH 18.6 % (11.5-14.0); SEGMENTED NEUTROPHILS % (AUTO) 55.2 % (42-78); WHITE BLOOD COUNT 6.4 10^3/uL (4.0-10.5)
[2017-08-15 08:12] LABS: ANION GAP 9 (5-19); BLOOD UREA NITROGEN 35 mg/dL (7-20); CALCIUM 8.5 mg/dL (8.4-10.2); CARBON DIOXIDE 29 mmol/L (22-30); CHLORIDE 105 mmol/L (98-107); CREATININE RESULT 1.62 mg/dL (0.52-1.25); GLUCOSE 80 mg/dL (75-110); POTASSIUM 3.8 mmol/L (3.6-5.0); SODIUM 143.4 mmol/L (137-145)
[2017-08-15] MEDS: AMIODARONE HCL 200 MG TABLET PO SCH ×2 (08:18→15:39)
[2017-08-15] MEDS: DIGOXIN 0.125 MG TABLET PO SCH (10:23)
[2017-08-15] MEDS: RANOLAZINE 500 MG TAB.SR.12H PO SCH ×2 (10:24→21:51)
[2017-08-15] MEDS: SACUBITRIL/VALSARTAN 24 MG/26 MG TABLET PO SCH ×2 (10:24→21:52)
[2017-08-15] MEDS: METOPROLOL SUCCINATE 50 MG TAB.SR.24H PO SCH ×2 (10:24→21:52)
[2017-08-15] MEDS: TORSEMIDE 20 MG TABLET PO SCH (10:25)
--- NOTE | 2017-08-15 16:14 | PDOC PROGRESS REPORT ---
Subjective Progress Note for:: 08/15/17 Subjective:: Patient seems to be doing better with significant improvement, this improvement is from conversion to sinus rhythm. Pt is denying any chest arm or neck discomfort. Patient denying any PND, orthopnea. Patient denied any sustained palpitations, dizziness, syncope, near syncope. Patient denying any fever chills. Patient denying any other significant discomfort. Today noted to be in sinus rhythm.. Review of systems: Rest review of systems negative. Medications: Medications have been reviewed. Physical Exam Vital Signs: Temp Pulse Resp BP Pulse Ox 99.6 F 65 23 H 118/52 L 99 08/14/17 20:00 08/15/17 14:00 08/15/17 04:22 08/15/17 11:46 08/15/17 10:21 Intake & Output 08/14/17 08/15/17 08/16/17 06:59 06:59 06:59 Intake Total 1460 1625 Output Total 1425 1700 Balance 35 -75 Weight 95.8 kg 95.8 kg Exam: GENERAL: well-nourished and in no acute distress. Alert and oriented x3 HEAD: Atraumatic, normocephalic. EYES: Pupils equal round and reactive to light, extraocular movements intact, sclera anicteric, conjunctiva are normal. ENT: TMs normal, nares patent, oropharynx clear without exudates. Moist mucous membranes. No oral ulcerations or bleeding gums noted NECK: supple without lymphadenopathy. Trachea is central. No cervical or axillary lymphadenopathy noted. Carotids are 2+, JVD WNL LUNGS: Respiration seems nonlabored, no significant accessory muscle action noted. Breath sounds clear to auscultation bilaterally and equal noted. No wheezes rales or rhonchi noted. No significant dullness noted on percussion. CHEST: Palpation of the chest wall shows no significant chest wall tenderness. No other significant abnormalities noted. HEART: [place] [employer], No PSH, 1/6 JOSUE aortic area, 1/6 bunch systolic murmur mitral area, no rubs, no gallops. ABDOMEN: Soft, no significant tenderness appreciated, normoactive bowel sounds. No guarding, no rebound. No rigidity noted . No masses appreciated. EXTREMITIES: Pedal pulses are 1-2+, no calf tenderness noted. No clubbing or cyanosis.trace to 1+ pedal edema noted NEUROLOGICAL: Focused neurological exam showed no significant neurologic deficit. Normal speech, no focal weakness appreciated. PSYCH: Normal mood, normal affect. Judgment and insight within normal limits. SKIN: No significant ecchymosis, rash, ulcerations or signs of pruritus noted. MUSCULOSKELETAL EXAM: No significant joint swelling noted. Results Laboratory Results: 08/15/17 07:10 08/15/17 07:10 08/15/17 08/15/17 07:10 07:10 WBC 6.4 RBC 3.35 L Hgb 9.8 L Hct 30.9 L MCV 92 MCH 29.3 MCHC 31.8 L RDW 18.6 H Plt Count 110 L Seg Neutrophils % 55.2 Lymphocytes % 29.9 Monocytes % 14.6 H Eosinophils % 0.1 Basophils % 0.2 Absolute Neutrophils 3.5 Absolute Lymphocytes 1.9 Absolute Monocytes 0.9 Absolute Eosinophils 0.0 Absolute Basophils 0.0 Sodium 143.4 Potassium 3.8 Chloride 105 Carbon Dioxide 29 Anion Gap 9 BUN 35 H Creatinine 1.62 H Est GFR ( Amer) 37 L Est GFR (Non-Af Amer) 31 L Glucose 80 Calcium 8.5 08/12/17 08/12/17 08/12/17 01:20 01:20 01:20 Creatine Kinase 88 CK-MB (CK-2) 0.88 Troponin I 0.023 NT-Pro-B Natriuret Pep 2800 H 08/12/17 08/12/17 08/12/17 06:45 06:45 14:07 Creatine Kinase 78 58 CK-MB (CK-2) 0.88 Troponin I 0.021 NT-Pro-B Natriuret Pep 08/12/17 14:07 Creatine Kinase CK-MB (CK-2) 0.59 Troponin I 0.020 NT-Pro-B Natriuret Pep Impressions: Chest CT 08/12/17 00:00 IMPRESSION: Findings worrisome for fluid overload or congestive failure with alveolar and interstitial edema. Multiple areas of more dense lung parenchymal consolidation around the periphery of both lungs, pneumonia versus nodules. When the patient's acute condition resolves, uncontrasted CT chest is recommended for followup Chest X-Ray 08/12/17 00:00 IMPRESSION: Pulmonary vascular congestion with mild alveolar and interstitial edema Small pleural effusions evident on chest CT earlier today are difficult to detect by plain film Assessment & Plan - Diagnosis (1) Congestive heart failure (CHF) Qualifiers: Congestive heart failure type: combined Congestive heart failure chronicity : acute on chronic Qualified Code(s): I50.43 - Acute on chronic combined systolic (congestive) and diastolic (congestive) heart failure Is this a current diagnosis for this admission?: Yes (2) Atrial fibrillation with rapid ventricular response Is this a current diagnosis for this admission?: Yes (3) COPD (chronic obstructive pulmonary disease) Qualifiers: Emphysema type: unspecified Is this a current diagnosis for this admission?: Yes (4) Hypertension Qualifiers: Hypertension type: essential hypertension Qualified Code(s): I10 - Essential (primary) hypertension (5) Sleep apnea syndrome Qualifiers: Sleep apnea type: unspecified type Qualified Code(s): G47.30 - Sleep apnea , unspecified Is this a current diagnosis for this admission?: Yes (6) Cardiomyopathy Qualifiers: Cardiomyopathy type: unspecified Qualified Code(s): I42.9 - Cardiomyopathy , unspecified Is this a current diagnosis for this admission?: Yes - Notes Notes: CHF: Possibly acute on chronic systolic and diastolic. Currently patient on torsemide 20 mg p.o. daily. Patient converted to sinus rhythm. Patient's medical regimen reviewed. Currently seems to be in satisfactory sinus rhythm. Patient was placed on Ranexa, Ranexa has some effect on improving diastolic dysfunction. Atrial fibrillation with rapid ventricular response. Patient converted to sinus rhythm. Patient currently on chronic anticoagulation. For heart rate controlled, beta-blockers and digoxin preferred in the presence of diastolic systolic heart failure. Continue p.o. amiodarone and Ranexa therapy. COPD: Currently is stable. Hypertension: Blood pressure under satisfactory control. Goal is 135/95 or less. Cardiomyopathy: Currently is stable. Medical regimen is noted to be satisfactory with high-dose beta-jerry, entresto therapy. Entresto can be gradually increased. Sleep apnea syndrome: Recommend nightly bilevel therapy and also during the day while taking naps. - Time Time with patient: Greater than 35 minutes - CODE STATUS was discussed, patient remains full code. Multiple medical problems were addressed. More than 50% of the time spent coordinating care, discussing management plans with involved caregivers. Management plans discussed with involved personnels. Medical decision making was of moderate to high complexity, patient's has multiple comorbidities. Medications reviewed and adjusted accordingly: Yes
--- NOTE | 2017-08-15 16:36 | PDOC PROGRESS REPORT ---
Subjective Progress Note for:: 08/15/17 Subjective:: Patient converted to sinus rhythm earlier today. She remain on oral amiodarone and beta-jerry therapy for rhythm and rate control. She denied any chest pain ior difficulty with breathing. No fever or chills. No nausea, vomiting, or abdominal pain. Oral intake satisfactory. Physical Exam Vital Signs: Temp Pulse Resp BP Pulse Ox 99.6 F 65 23 H 118/52 L 99 08/14/17 20:00 08/15/17 14:00 08/15/17 04:22 08/15/17 11:46 08/15/17 10:21 Intake & Output 08/14/17 08/15/17 08/16/17 06:59 06:59 06:59 Intake Total 1460 1625 Output Total 1425 1700 Balance 35 -75 Weight 95.8 kg 95.8 kg Results Laboratory Results: 08/15/17 07:10 08/15/17 07:10 08/15/17 08/15/17 07:10 07:10 WBC 6.4 RBC 3.35 L Hgb 9.8 L Hct 30.9 L MCV 92 MCH 29.3 MCHC 31.8 L RDW 18.6 H Plt Count 110 L Seg Neutrophils % 55.2 Lymphocytes % 29.9 Monocytes % 14.6 H Eosinophils % 0.1 Basophils % 0.2 Absolute Neutrophils 3.5 Absolute Lymphocytes 1.9 Absolute Monocytes 0.9 Absolute Eosinophils 0.0 Absolute Basophils 0.0 Sodium 143.4 Potassium 3.8 Chloride 105 Carbon Dioxide 29 Anion Gap 9 BUN 35 H Creatinine 1.62 H Est GFR ( Amer) 37 L Est GFR (Non-Af Amer) 31 L Glucose 80 Calcium 8.5 08/12/17 08/12/17 08/12/17 01:20 01:20 01:20 Creatine Kinase 88 CK-MB (CK-2) 0.88 Troponin I 0.023 NT-Pro-B Natriuret Pep 2800 H 08/12/17 08/12/17 08/12/17 06:45 06:45 14:07 Creatine Kinase 78 58 CK-MB (CK-2) 0.88 Troponin I 0.021 NT-Pro-B Natriuret Pep 08/12/17 14:07 Creatine Kinase CK-MB (CK-2) 0.59 Troponin I 0.020 NT-Pro-B Natriuret Pep Impressions: Chest CT 08/12/17 00:00 IMPRESSION: Findings worrisome for fluid overload or congestive failure with alveolar and interstitial edema. Multiple areas of more dense lung parenchymal consolidation around the periphery of both lungs, pneumonia versus nodules. When the patient's acute condition resolves, uncontrasted CT chest is recommended for followup Chest X-Ray 08/12/17 00:00 IMPRESSION: Pulmonary vascular congestion with mild alveolar and interstitial edema Small pleural effusions evident on chest CT earlier today are difficult to detect by plain film Assessment & Plan - Diagnosis (1) Atrial fibrillation with rapid ventricular response Is this a current diagnosis for this admission?: Yes (2) Congestive heart failure (CHF) Qualifiers: Congestive heart failure type: combined Congestive heart failure chronicity : acute on chronic Qualified Code(s): I50.43 - Acute on chronic combined systolic (congestive) and diastolic (congestive) heart failure Is this a current diagnosis for this admission?: Yes (3) Gram positive septicemia Is this a current diagnosis for this admission?: Yes (4) Pneumonia Qualifiers: Pneumonia type: aspiration pneumonia Aspiration pneumonia type: unspecified Laterality: unspecified laterality Lung location: unspecified part of lung Qualified Code(s): J69.0 - Pneumonitis due to inhalation of food and vomit Is this a current diagnosis for this admission?: Yes (5) Diabetes mellitus type II, uncontrolled Qualifiers: Diabetes mellitus complication status: with neurologic complications Diabetes mellitus complication detail: with polyneuropathy Diabetes mellitus longterm insulin use: with longterm use Qualified Code(s): E11.42 - Type 2 diabetes mellitus with diabetic polyneuropathy Is this a current diagnosis for this admission?: Yes - Time Time Spent with patient: 25-34 minutes Medications reviewed and adjusted accordingly: Yes Anticipated discharge: Home with Homehealth Within: Other - Inpatient Certification Based on my medical assessment, after consideration of the patient's comorbidities, presenting symptoms, or acuity I expect that the services needed warrant INPATIENT care.: Yes I certify that my determination is in accordance with my understanding of Medicare's requirements for reasonable and necessary INPATIENT services [42 CFR 412.3e].: Yes Medical Necessity: Need Close Monitoring Due to Risk of Patient Decompensation, Need For Continuous Telemetry Monitoring, Risk of Complication if Not Cared For in Hospital Post Hospital Care: D/C Retail Analyst Documentation - Plan Summary Plan Summary: Maintain on current medication management. Encouraged medication compliance.
[2017-08-15] MEDS: INSULIN LISPRO 100 UNIT/ML 3 ML VIAL SUBCUT PRN (16:43)
--- NOTE | 2017-08-15 17:04 | EKG REPORT ---
SEVERITY:- BORDERLINE ECG - SINUS RHYTHM ATRIAL PREMATURE COMPLEX BORDERLINE T ABNORMALITIES, DIFFUSE LEADS : Confirmed by: Ana Luisa Johnston MD 15-Aug-2017 17:03:11
[2017-08-15] MEDS: CEFTRIAXONE 1 GM/D5W RTU 1 GM/50 ML RTUPB IV SCH (21:50)
[2017-08-15] MEDS: INSULIN GLARGINE,HUM.REC.ANLOG 300 UNIT/3 ML INSULN.PEN SUBCUT SCH (21:51)
[2017-08-15] MEDS: ATORVASTATIN CALCIUM 10 MG TABLET PO SCH (21:51)
--- NOTE | 2017-08-16 06:24 | EKG REPORT ---
SEVERITY:- ABNORMAL ECG - ATRIAL FIBRILLATION NONSPECIFIC T ABNORMALITIES, ANT-LAT LEADS : Confirmed by: Ana Luisa Johnston MD 16-Aug-2017 06:23:20
[2017-08-16] MEDS: DABIGATRAN ETEXILATE 150 MG CAPSULE PO SCH ×2 (07:07→17:29)
[2017-08-16] MEDS: GABAPENTIN 300 MG CAPSULE PO SCH ×3 (07:09→20:59)
--- NOTE | 2017-08-16 08:36 | RADIOLOGY REPORT (SQ) ---
EXAM DESCRIPTION: CHEST PA/LAT COMPLETED DATE/TIME: 08/16/2017 7:44 am REASON FOR STUDY: followup CHF COMPARISON: AP chest 08/12/2017, 10/14/2016, 01/26/2017 CT chest 08/12/2017 EXAM PARAMETERS: NUMBER OF VIEWS: two views TECHNIQUE: Digital Frontal and Lateral radiographic views of the chest acquired. RADIATION DOSE: NA LIMITATIONS: none FINDINGS: LUNGS AND PLEURA: On the lateral view, there is blunting of the posterior costophrenic sul ci from trace bilateral pleural effusions. Bibasilar atelectasis is present, similar compared to CT 08/12/2017. There are bandlike areas of atelectasis in the right perihilar and left mid lung. Mild pulmonary vascular congestion. No alveolar edema. No pneumothorax. MEDIASTINUM AND HILAR STRUCTURES: No masses or contour abnormalities. HEART AND VASCULAR STRUCTURES: Stable moderate cardiomegaly BONES: No acute findings. HARDWARE: Right-sided permanent central line tip superior vena cava. Defibrillator pads over the [address]. OTHER: No other significant finding. IMPRESSION: Small bilateral pleural effusions with bibasilar atelectasis. Mild pulmonary vascular congestion without alveolar or interstitial edema TECHNICAL DOCUMENTATION: JOB ID: [id number] [employer]- All Rights Reserved
[2017-08-16] MEDS: AMIODARONE HCL 200 MG TABLET PO SCH ×2 (08:40→16:02)
[2017-08-16] MEDS: METOPROLOL SUCCINATE 50 MG TAB.SR.24H PO SCH ×2 (09:39→20:59)
[2017-08-16] MEDS: RANOLAZINE 500 MG TAB.SR.12H PO SCH ×2 (09:40→20:59)
[2017-08-16] MEDS: DIGOXIN 0.125 MG TABLET PO SCH (09:40)
[2017-08-16] MEDS: TORSEMIDE 20 MG TABLET PO SCH (09:40)
[2017-08-16] MEDS: SACUBITRIL/VALSARTAN 24 MG/26 MG TABLET PO SCH ×2 (09:42→20:59)
[2017-08-16] MEDS: INSULIN LISPRO 100 UNIT/ML 3 ML VIAL SUBCUT PRN ×2 (12:50→17:29)
--- NOTE | 2017-08-16 19:19 | PDOC PROGRESS REPORT ---
Subjective Progress Note for:: 08/16/17 Subjective:: She was seen by the bedside, she is still requires noninvasive positive pressure ventilation BiPAP Physical Exam Vital Signs: Temp Pulse Resp BP Pulse Ox 99.9 F 118 H 18 111/52 L 97 08/16/17 14:59 08/16/17 14:59 08/16/17 14:59 08/16/17 14:59 08/16/17 16:29 Intake & Output 08/15/17 08/16/17 08/17/17 06:59 06:59 06:59 Intake Total 1625 1195 20 Output Total 1700 1650 Balance -75 -455 20 Weight 95.8 kg 98.7 kg General appearance: PRESENT: mild distress Eye exam: PRESENT: PERRLA Respiratory exam: PRESENT: decreased breath sounds Cardiovascular exam: PRESENT: +S1, +S2 GI/Abdominal exam: PRESENT: soft Neurological exam: PRESENT: alert, CN II-XII grossly intact Results Laboratory Results: 08/15/17 07:10 08/15/17 07:10 08/12/17 01:20 Blood Blood Culture - Final Staphylococcus Epidermidis Staphylococcus Epidermidis#2 08/12/17 08/12/17 08/12/17 01:20 01:20 01:20 Creatine Kinase 88 CK-MB (CK-2) 0.88 Troponin I 0.023 NT-Pro-B Natriuret Pep 2800 H 08/12/17 08/12/17 08/12/17 06:45 06:45 14:07 Creatine Kinase 78 58 CK-MB (CK-2) 0.88 Troponin I 0.021 NT-Pro-B Natriuret Pep 08/12/17 14:07 Creatine Kinase CK-MB (CK-2) 0.59 Troponin I 0.020 NT-Pro-B Natriuret Pep Impressions: Chest CT 08/12/17 00:00 IMPRESSION: Findings worrisome for fluid overload or congestive failure with alveolar and interstitial edema. Multiple areas of more dense lung parenchymal consolidation around the periphery of both lungs, pneumonia versus nodules. When the patient's acute condition resolves, uncontrasted CT chest is recommended for followup Chest X-Ray 08/16/17 07:00 IMPRESSION: Small bilateral pleural effusions with bibasilar atelectasis. Mild pulmonary vascular congestion without alveolar or interstitial edema Assessment & Plan - Diagnosis (1) Acute combined systolic and diastolic heart failure Is this a current diagnosis for this admission?: Yes (2) Atrial fibrillation with rapid ventricular response Is this a current diagnosis for this admission?: Yes (3) Atrial fibrillation with rapid ventricular response Is this a current diagnosis for this admission?: Yes (4) Diabetes mellitus type II, uncontrolled Qualifiers: Diabetes mellitus complication status: with neurologic complications Diabetes mellitus complication detail: with polyneuropathy Diabetes mellitus retirement insulin use: with retirement use Qualified Code(s): E11.42 - Type 2 diabetes mellitus with diabetic polyneuropathy Is this a current diagnosis for this admission?: Yes (5) Pneumonia Qualifiers: Pneumonia type: aspiration pneumonia Aspiration pneumonia type: unspecified Laterality: unspecified laterality Lung location: unspecified part of lung Qualified Code(s): J69.0 - Pneumonitis due to inhalation of food and vomit Is this a current diagnosis for this admission?: Yes (6) Gram positive septicemia Is this a current diagnosis for this admission?: Yes - Plan Summary Plan Summary: She will continue present medications the blood culture grew staph epi most likely is contamination
--- NOTE | 2017-08-16 19:40 | PDOC PROGRESS REPORT ---
Subjective Progress Note for:: 08/16/17 Subjective:: Patient seems to be doing about the same as yesterday. Still needing intermittent positive pressure noninvasive ventilation. Pt is denying any chest arm or neck discomfort. Patient denying any PND, orthopnea. Patient denied any sustained palpitations, dizziness, syncope, near syncope. Patient denying any fever chills. Patient denying any other significant discomfort. Today noted to be in reverted back to atrial fibrillation. Review of systems: Rest review of systems negative. Medications: Medications have been reviewed. Physical Exam Vital Signs: Temp Pulse Resp BP Pulse Ox 99.9 F 118 H 18 111/52 L 97 08/16/17 14:59 08/16/17 14:59 08/16/17 14:59 08/16/17 14:59 08/16/17 16:29 Intake & Output 08/15/17 08/16/17 08/17/17 06:59 06:59 06:59 Intake Total 1625 1195 620 Output Total 1700 1650 2100 Balance -75 -455 -1480 Weight 95.8 kg 98.7 kg Exam: GENERAL: well-nourished and in no acute distress. Alert and oriented x3 HEAD: Atraumatic, normocephalic. EYES: Pupils equal round and reactive to light, extraocular movements intact, sclera anicteric, conjunctiva are normal. ENT: TMs normal, nares patent, oropharynx clear without exudates. Moist mucous membranes. No oral ulcerations or bleeding gums noted NECK: supple without lymphadenopathy. Trachea is central with tracheostomy scar noted. No cervical or axillary lymphadenopathy noted. Carotids are 2+, JVD WNL LUNGS: Respiration seems nonlabored, no significant accessory muscle action noted. Bibasilar fine crackles with few wheezes rales or rhonchi noted. No significant dullness noted on percussion. CHEST: Palpation of the chest wall shows no significant chest wall tenderness. No other significant abnormalities noted. 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 ABDOMEN: Soft, no significant tenderness appreciated, normoactive bowel sounds. No guarding, no rebound. No rigidity noted . No masses appreciated. EXTREMITIES: Pedal pulses are 1-2+, no calf tenderness noted. No clubbing or cyanosis.trace to 1+ pedal edema noted NEUROLOGICAL: Focused neurological exam showed no significant neurologic deficit. Normal speech, no focal weakness appreciated. PSYCH: Normal mood, normal affect. Judgment and insight within normal limits. SKIN: No significant ecchymosis, rash, ulcerations or signs of pruritus noted. MUSCULOSKELETAL EXAM: No significant joint swelling noted. Results Laboratory Results: 08/15/17 07:10 08/15/17 07:10 08/12/17 01:20 Blood Blood Culture - Final Staphylococcus Epidermidis Staphylococcus Epidermidis#2 08/12/17 08/12/17 08/12/17 01:20 01:20 01:20 Creatine Kinase 88 CK-MB (CK-2) 0.88 Troponin I 0.023 NT-Pro-B Natriuret Pep 2800 H 08/12/17 08/12/17 08/12/17 06:45 06:45 14:07 Creatine Kinase 78 58 CK-MB (CK-2) 0.88 Troponin I 0.021 NT-Pro-B Natriuret Pep 08/12/17 14:07 Creatine Kinase CK-MB (CK-2) 0.59 Troponin I 0.020 NT-Pro-B Natriuret Pep EKG Comments: Telemetry strips shows patient reverted to back to atrial fibrillation. However heart rate is better controlled. Impressions: Chest CT 08/12/17 00:00 IMPRESSION: Findings worrisome for fluid overload or congestive failure with alveolar and interstitial edema. Multiple areas of more dense lung parenchymal consolidation around the periphery of both lungs, pneumonia versus nodules. When the patient's acute condition resolves, uncontrasted CT chest is recommended for followup Chest X-Ray 08/16/17 07:00 IMPRESSION: Small bilateral pleural effusions with bibasilar atelectasis. Mild pulmonary vascular congestion without alveolar or interstitial edema Assessment & Plan - Diagnosis (1) Congestive heart failure (CHF) Qualifiers: Congestive heart failure type: combined Congestive heart failure chronicity : acute on chronic Qualified Code(s): I50.43 - Acute on chronic combined systolic (congestive) and diastolic (congestive) heart failure Is this a current diagnosis for this admission?: Yes (2) Atrial fibrillation with rapid ventricular response Is this a current diagnosis for this admission?: Yes (3) COPD (chronic obstructive pulmonary disease) Qualifiers: Emphysema type: unspecified Is this a current diagnosis for this admission?: Yes (4) Hypertension Qualifiers: Hypertension type: essential hypertension Qualified Code(s): I10 - Essential (primary) hypertension (5) Sleep apnea syndrome Qualifiers: Sleep apnea type: unspecified type Qualified Code(s): G47.30 - Sleep apnea , unspecified Is this a current diagnosis for this admission?: Yes (6) Cardiomyopathy Qualifiers: Cardiomyopathy type: unspecified Qualified Code(s): I42.9 - Cardiomyopathy , unspecified Is this a current diagnosis for this admission?: Yes - Notes Notes: CHF: Possibly acute on chronic systolic and diastolic. Currently patient on torsemide 20 mg p.o. daily. Patient reverted back to atrial fibrillation. Patient's medical regimen reviewed. Currently seems euvolemic. Chest x-ray shows improvement. Patient was placed on Ranexa, Ranexa has some effect on improving diastolic dysfunction. Atrial fibrillation with rapid ventricular response. Patient converted to sinus rhythm. Patient currently on chronic anticoagulation. For heart rate controlled, beta-blockers and digoxin preferred in the presence of diastolic systolic heart failure. Continue p.o. amiodarone and Ranexa therapy. Digoxin level noted to be WNL therefore continue digoxin. COPD: Currently is stable. Hypertension: Blood pressure under satisfactory control. Goal is 135/95 or less. Cardiomyopathy: Currently is stable. Medical regimen is noted to be satisfactory with high-dose beta-jerry, entresto therapy. Entresto can be gradually increased. Sleep apnea syndrome: Recommend nightly bilevel therapy and also during the day while taking naps. Patient generally maintaining stable status. Will continue to follow. - Time Time with patient: 15-25 minutes - CODE STATUS was discussed, patient remains full code. Surrogate decision-maker unchanged. Multiple medical problems were addressed. More than 50% of the time spent coordinating care, discussing management plans with involved caregivers. Management plans discussed with involved personnels. Medical decision making was of moderate to high complexity , patient's has multiple comorbidities. Medications reviewed and adjusted accordingly: Yes
[2017-08-16] MEDS: ATORVASTATIN CALCIUM 10 MG TABLET PO SCH (20:59)
[2017-08-16] MEDS: CEFTRIAXONE 1 GM/D5W RTU 1 GM/50 ML RTUPB IV SCH (20:59)
[2017-08-16] MEDS: INSULIN GLARGINE,HUM.REC.ANLOG 300 UNIT/3 ML INSULN.PEN SUBCUT SCH (23:09)
[2017-08-17] MEDS: DABIGATRAN ETEXILATE 150 MG CAPSULE PO SCH ×2 (05:26→18:21)
[2017-08-17] MEDS: GABAPENTIN 300 MG CAPSULE PO SCH ×3 (05:26→21:34)
[2017-08-17] MEDS: AMIODARONE HCL 200 MG TABLET PO SCH ×2 (07:50→15:55)
[2017-08-17] MEDS: METOPROLOL SUCCINATE 50 MG TAB.SR.24H PO SCH ×2 (09:34→21:35)
[2017-08-17] MEDS: DIGOXIN 0.125 MG TABLET PO SCH (09:34)
[2017-08-17] MEDS: TORSEMIDE 20 MG TABLET PO SCH (09:34)
[2017-08-17] MEDS: RANOLAZINE 500 MG TAB.SR.12H PO SCH ×2 (09:34→21:35)
[2017-08-17] MEDS: LORATADINE 10 MG TABLET PO SCH (09:34)
[2017-08-17] MEDS: SACUBITRIL/VALSARTAN 24 MG/26 MG TABLET PO SCH ×2 (09:35→21:34)
[2017-08-17 12:54] LABS: ARTERIAL BLOOD BASE EXCESS 5.9 mmol/L; ARTERIAL BLOOD O2 SATURATION 94.9 % (94-98)
[2017-08-17 13:54] LABS: APPEARANCE,URINE CLEAR; BILIRUBIN,URINE NEGATIVE (NEGATIVE); GLUCOSE, URINE NEGATIVE (NEGATIVE); KETONES,URINE NEGATIVE (NEGATIVE); LEUKOCYTE ESTERASE,URINE NEGATIVE (NEGATIVE); NITRITE,URINE NEGATIVE (NEGATIVE); PROTEIN,URINE NEGATIVE (NEGATIVE); URINE SPECIFIC GRAVITY 1.005; UROBILINOGEN,URINE NEGATIVE mg/dL (<2.0)
[2017-08-17 14:08] LABS: ALANINE AMINOTRANSFERASE 33 U/L (9-52); ALBUMIN 3.2 g/dL (3.5-5.0); ALKALINE PHOSPHATASE 96 U/L (38-126); ANION GAP 12 (5-19); ASPARTATE AMINO TRANSFERASE 35 U/L (14-36); BILIRUBIN,DIRECT 0.7 mg/dL (0.0-0.4); BLOOD UREA NITROGEN 31 mg/dL (7-20); CALCIUM 8.3 mg/dL (8.4-10.2); CARBON DIOXIDE 32 mmol/L (22-30); CHLORIDE 101 mmol/L (98-107); CREATININE RESULT 1.58 mg/dL (0.52-1.25); GLUCOSE 68 mg/dL (75-110); SODIUM 144.5 mmol/L (137-145); TOTAL PROTEIN 7.2 g/dL (6.3-8.2)
[2017-08-17 14:10] LABS: URINE POTASSIUM 13.5 mmol/L (22-164)
--- NOTE | 2017-08-17 14:31 | RADIOLOGY REPORT (SQ) ---
EXAM DESCRIPTION: CT HEAD WITHOUT COMPLETED DATE/TIME: 08/17/2017 2:07 pm REASON FOR STUDY: acute confusion COMPARISON: CT brain 08/24/2008, 05/08/2012 TECHNIQUE: Axial images acquired through the brain without intravenous contrast. Images reviewed wi th bone, brain and subdural windows. Images stored on PACS. All CT scanners at this facility use dose modulation, iterative reconstruction, and/or weight based d osing when appropriate to reduce radiation dose to as low as reasonably achievable (ALARA). [facility]: Dose Right [facility]: CareDose [facility]: Dose Right [facility]: Teradose 4D [facility]: [employer] RADIATION DOSE: Up-to-date CT equipment and radiation dose reduction techniques were employed. CTDIv ol: 49.0 mGy. DLP: 783 mGy-cm. mGy. LIMITATIONS: Motion artifact throughout the study. FINDINGS: Motion artifact throughout the study. 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 No gross evidence of acute large territory ischemic change, acute intracranial hemorrhage, mass effec t, or midline shift. IMPRESSION: Old small vessel disease. Limited study, no gross acute changes EVIDENCE OF ACUTE STROKE: NO. COMMENT: Quality ID # [id number]: Final reports with documentation of one or more dose reduction techniques (e.g., Automated exposure control, adjustment of the mA and/or kV according to patient size, use of iterative reconstruction technique) TECHNICAL DOCUMENTATION: JOB ID: [id number] [employer]- All Rights Reserved
[2017-08-17] MEDS ORDERED: FUROSEMIDE INJ/PF 40 MG/4 ML SDV IV ONE (18:30)
--- NOTE | 2017-08-17 19:37 | PDOC PROGRESS REPORT ---
Subjective Progress Note for:: 08/17/17 Subjective:: Patient seems to be doing about the same as yesterday. Patient was reported to be confused by the nurses and is being scheduled to have a CT of the head. Patient was seen in the morning. Still needing intermittent positive pressure noninvasive ventilation. When examined patient was noted to be sleeping. Patient continues in atrial fibrillation. It is noted that when patient is comfortable using CPAP therapy her heart rate is better controlled. Review of systems: Rest review of systems negative. Medications: Medications have been reviewed. Physical Exam Vital Signs: Temp Pulse Resp BP Pulse Ox 99.4 F 80 27 H 148/61 H 100 08/17/17 15:30 08/17/17 15:30 08/17/17 15:30 08/17/17 15:30 08/17/17 15:30 Intake & Output 08/16/17 08/17/17 08/18/17 06:59 06:59 06:59 Intake Total 1195 922 252 Output Total 1650 2850 1800 Balance -328 -9434 -6072 Weight 98.7 kg 95.6 kg Exam: GENERAL: well-nourished and in no acute distress. Patient is alert but not oriented to place time or person. Patient noted to be confused today. HEAD: Atraumatic, normocephalic. EYES: Pupils equal round and reactive to light, extraocular movements intact, sclera anicteric, conjunctiva are normal. ENT: TMs normal, nares patent, oropharynx clear without exudates. Moist mucous membranes. No oral ulcerations or bleeding gums noted NECK: supple without lymphadenopathy or JVD. Trachea is central, with central tracheostomy scar. No cervical or axillary lymphadenopathy noted. Carotids are 2+ LUNGS: Breath sounds bibasilar fine crackles at bases. No significant dullness noted. CHEST: Palpation of chest wall shows no significant chest wall tenderness. 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 ABDOMEN: Soft, no significant tenderness appreciated, normoactive bowel sounds. No guarding, no rebound. No rigidity noted . No masses appreciated. EXTREMITIES: Pedal pulses are 1-2+, no calf tenderness noted, Trace + pedal edema noted. No clubbing or cyanosis. NEUROLOGICAL: Patient is alert but is not able to participate in neurological exam because of patient's current mental status PSYCH: Patient cannot participate in a neurologic and psych exam because of the patient's current mental status SKIN: No significant ecchymosis, rash, ulcerations or signs of pruritus noted. MUSCULOSKELETAL EXAM: No significant joint swelling noted. Results Laboratory Results: 08/15/17 07:10 08/17/17 13:25 08/17/17 08/17/17 08/17/17 12:40 13:25 13:25 Carbonic Acid 1.44 H HCO3/H2CO3 Ratio 21:1 ABG pH 7.43 ABG pCO2 47.8 H ABG pO2 72.8 L ABG HCO3 31.1 H ABG O2 Saturation 94.9 ABG Base Excess 5.9 FiO2 4L Sodium 144.5 Potassium 4.0 Chloride 101 Carbon Dioxide 32 H Anion Gap 12 BUN 31 H Creatinine 1.58 H Est GFR ( Amer) 38 L Est GFR (Non-Af Amer) 32 L Glucose 68 L Calcium 8.3 L Total Bilirubin 2.0 H AST 35 ALT 33 Alkaline Phosphatase 96 Total Protein 7.2 Albumin 3.2 L Urine Color YELLOW Urine Appearance CLEAR Urine pH 5.0 Ur Specific [place] 1.005 Urine Protein NEGATIVE Urine Glucose (UA) NEGATIVE Urine Ketones NEGATIVE Urine Blood LARGE H Urine Nitrite NEGATIVE Ur Leukocyte Esterase NEGATIVE Urine RBC (Auto) >182 08/12/17 08/12/17 08/12/17 01:20 01:20 01:20 Creatine Kinase 88 CK-MB (CK-2) 0.88 Troponin I 0.023 NT-Pro-B Natriuret Pep 2800 H 08/12/17 08/12/17 08/12/17 06:45 06:45 14:07 Creatine Kinase 78 58 CK-MB (CK-2) 0.88 Troponin I 0.021 NT-Pro-B Natriuret Pep 08/12/17 14:07 Creatine Kinase CK-MB (CK-2) 0.59 Troponin I 0.020 NT-Pro-B Natriuret Pep Impressions: Chest CT 08/12/17 00:00 IMPRESSION: Findings worrisome for fluid overload or congestive failure with alveolar and interstitial edema. Multiple areas of more dense lung parenchymal consolidation around the periphery of both lungs, pneumonia versus nodules. When the patient's acute condition resolves, uncontrasted CT chest is recommended for followup Chest X-Ray 08/16/17 07:00 IMPRESSION: Small bilateral pleural effusions with bibasilar atelectasis. Mild pulmonary vascular congestion without alveolar or interstitial edema Head CT 08/17/17 00:00 IMPRESSION: Old small vessel disease. Limited study, no gross acute changes EVIDENCE OF ACUTE STROKE: NO. Assessment & Plan - Diagnosis (1) Congestive heart failure (CHF) Qualifiers: Congestive heart failure type: combined Congestive heart failure chronicity : acute on chronic Qualified Code(s): I50.43 - Acute on chronic combined systolic (congestive) and diastolic (congestive) heart failure Is this a current diagnosis for this admission?: Yes (2) Atrial fibrillation with rapid ventricular response Is this a current diagnosis for this admission?: Yes (3) COPD (chronic obstructive pulmonary disease) Qualifiers: Emphysema type: unspecified Is this a current diagnosis for this admission?: Yes (4) Hypertension Qualifiers: Hypertension type: essential hypertension Qualified Code(s): I10 - Essential (primary) hypertension (5) Sleep apnea syndrome Qualifiers: Sleep apnea type: unspecified type Qualified Code(s): G47.30 - Sleep apnea , unspecified Is this a current diagnosis for this admission?: Yes (6) Cardiomyopathy Qualifiers: Cardiomyopathy type: unspecified Qualified Code(s): I42.9 - Cardiomyopathy , unspecified Is this a current diagnosis for this admission?: Yes - Notes Notes: CHF: Possibly acute on chronic systolic and diastolic. Currently patient on torsemide 20 mg p.o. daily. Patient reverted back to atrial fibrillation. Patient's medical regimen reviewed. Currently seems mildly volume overloaded. Chest x-ray shows no significant change by my review. Patient was placed on Ranexa, Ranexa has some effect on improving diastolic dysfunction. Atrial fibrillation with rapid ventricular response. Rate control strategy. Patient currently on chronic anticoagulation. For heart rate controlled, beta- blockers and digoxin preferred in the presence of diastolic systolic heart failure. Continue p.o. amiodarone and Ranexa therapy. Digoxin level noted to be WNL therefore continue digoxin. COPD: Currently is stable. Hypertension: Blood pressure under satisfactory control. Goal is 135/95 or less. Cardiomyopathy: Currently is stable. Medical regimen is noted to be satisfactory with high-dose beta-jerry, entresto therapy. Entresto can be gradually increased. Sleep apnea syndrome: Recommend nightly bilevel therapy and also during the day while taking naps. Patient remains critically ill. Will continue to follow. - Time Time with patient: 15-25 minutes - CODE STATUS was discussed, patient remains full code. Surrogate decision-maker unchanged. Multiple medical problems were addressed. More than 50% of the time spent coordinating care, discussing management plans with involved caregivers. Management plans discussed with involved personnels. Medical decision making was of moderate to high complexity , patient's has multiple comorbidities. Medications reviewed and adjusted accordingly: Yes
--- NOTE | 2017-08-17 20:32 | PDOC PROGRESS REPORT ---
Subjective Progress Note for:: 08/17/17 Subjective:: She had episode of confusion this morning, this is most likely from hypoglycemia , the glucose was 60, the blood gas that was done showed metabolic alkalosis the urine potassium was 13.5 urine sodium 123, this is expected most likely is contraction alkalosis due to diuretic the confusion is most likely from hypoglycemia. Physical Exam Vital Signs: Temp Pulse Resp BP Pulse Ox 99.4 F 80 27 H 148/61 H 100 08/17/17 15:30 08/17/17 15:30 08/17/17 15:30 08/17/17 15:30 08/17/17 15:30 Intake & Output 08/16/17 08/17/17 08/18/17 06:59 06:59 06:59 Intake Total 1195 922 252 Output Total 5101 6190 2731 Balance -068 -2870 -9917 Weight 98.7 kg 95.6 kg General appearance: PRESENT: mild distress Eye exam: PRESENT: PERRLA Respiratory exam: PRESENT: rales Cardiovascular exam: PRESENT: +S1, +S2 GI/Abdominal exam: PRESENT: soft Neurological exam: PRESENT: alert, other - Confused to person place and time Results Laboratory Results: 08/15/17 07:10 08/17/17 13:25 08/17/17 08/17/17 08/17/17 12:40 13:25 13:25 Carbonic Acid 1.44 H HCO3/H2CO3 Ratio 21:1 ABG pH 7.43 ABG pCO2 47.8 H ABG pO2 72.8 L ABG HCO3 31.1 H ABG O2 Saturation 94.9 ABG Base Excess 5.9 FiO2 4L Sodium 144.5 Potassium 4.0 Chloride 101 Carbon Dioxide 32 H Anion Gap 12 BUN 31 H Creatinine 1.58 H Est GFR ( Amer) 38 L Est GFR (Non-Af Amer) 32 L Glucose 68 L Calcium 8.3 L Total Bilirubin 2.0 H AST 35 ALT 33 Alkaline Phosphatase 96 Total Protein 7.2 Albumin 3.2 L Urine Color YELLOW Urine Appearance CLEAR Urine pH 5.0 Ur Specific [place] 1.005 Urine Protein NEGATIVE Urine Glucose (UA) NEGATIVE Urine Ketones NEGATIVE Urine Blood LARGE H Urine Nitrite NEGATIVE Ur Leukocyte Esterase NEGATIVE Urine RBC (Auto) >182 08/12/17 08/12/17 08/12/17 01:20 01:20 01:20 Creatine Kinase 88 CK-MB (CK-2) 0.88 Troponin I 0.023 NT-Pro-B Natriuret Pep 2800 H 08/12/17 08/12/17 08/12/17 06:45 06:45 14:07 Creatine Kinase 78 58 CK-MB (CK-2) 0.88 Troponin I 0.021 NT-Pro-B Natriuret Pep 08/12/17 14:07 Creatine Kinase CK-MB (CK-2) 0.59 Troponin I 0.020 NT-Pro-B Natriuret Pep Impressions: Chest CT 08/12/17 00:00 IMPRESSION: Findings worrisome for fluid overload or congestive failure with alveolar and interstitial edema. Multiple areas of more dense lung parenchymal consolidation around the periphery of both lungs, pneumonia versus nodules. When the patient's acute condition resolves, uncontrasted CT chest is recommended for followup Chest X-Ray 08/16/17 07:00 IMPRESSION: Small bilateral pleural effusions with bibasilar atelectasis. Mild pulmonary vascular congestion without alveolar or interstitial edema Head CT 08/17/17 00:00 IMPRESSION: Old small vessel disease. Limited study, no gross acute changes EVIDENCE OF ACUTE STROKE: NO. Assessment & Plan - Diagnosis (1) Acute combined systolic and diastolic heart failure Is this a current diagnosis for this admission?: Yes Plan: Lasix 40 mg IV 1 was given (2) Atrial fibrillation with rapid ventricular response Is this a current diagnosis for this admission?: Yes (3) Atrial fibrillation with rapid ventricular response Is this a current diagnosis for this admission?: Yes (4) Diabetes mellitus type II, uncontrolled Qualifiers: Diabetes mellitus complication status: with neurologic complications Diabetes mellitus complication detail: with polyneuropathy Diabetes mellitus detention insulin use: with detention use Qualified Code(s): E11.42 - Type 2 diabetes mellitus with diabetic polyneuropathy Is this a current diagnosis for this admission?: Yes (5) Pneumonia Qualifiers: Pneumonia type: aspiration pneumonia Aspiration pneumonia type: unspecified Laterality: unspecified laterality Lung location: unspecified part of lung Qualified Code(s): J69.0 - Pneumonitis due to inhalation of food and vomit Is this a current diagnosis for this admission?: Yes (6) Gram positive septicemia Is this a current diagnosis for this admission?: Yes (7) Hypoglycemic encephalopathy Is this a current diagnosis for this admission?: Yes
[2017-08-17] MEDS: CEFTRIAXONE 1 GM/D5W RTU 1 GM/50 ML RTUPB IV SCH (21:06)
[2017-08-17] MEDS: ATORVASTATIN CALCIUM 10 MG TABLET PO SCH (21:35)
[2017-08-17] MEDS: INSULIN GLARGINE,HUM.REC.ANLOG 300 UNIT/3 ML INSULN.PEN SUBCUT SCH (22:31)
[2017-08-18] MEDS: DABIGATRAN ETEXILATE 150 MG CAPSULE PO SCH ×2 (07:07→17:59)
[2017-08-18] MEDS: GABAPENTIN 300 MG CAPSULE PO SCH ×3 (07:08→22:47)
[2017-08-18] MEDS: AMIODARONE HCL 200 MG TABLET PO SCH ×2 (08:36→15:54)
[2017-08-18] MEDS: RANOLAZINE 500 MG TAB.SR.12H PO SCH ×2 (10:13→22:46)
[2017-08-18] MEDS: METOPROLOL SUCCINATE 50 MG TAB.SR.24H PO SCH ×2 (10:14→22:45)
[2017-08-18] MEDS: LORATADINE 10 MG TABLET PO SCH (10:15)
[2017-08-18] MEDS: DIGOXIN 0.125 MG TABLET PO SCH (10:15)
[2017-08-18] MEDS: TORSEMIDE 20 MG TABLET PO SCH (10:15)
[2017-08-18] MEDS: SACUBITRIL/VALSARTAN 24 MG/26 MG TABLET PO SCH ×2 (10:15→22:47)
[2017-08-18] MEDS ORDERED: ALBUTEROL SULFATE 0.083% NEB 2.5 MG/3 ML AMPUL NEB PRN ×2 (13:54→16:00)
[2017-08-18] MEDS ORDERED: IPRATROPIUM/ALBUTEROL 0.5-2.5 MG/3 ML AMPUL NEB PRN (13:54)
[2017-08-18 16:13] LABS: HEMATOCRIT 31.3 % (36.0-47.0); HEMOGLOBIN 9.8 g/dL (12.0-15.5); HGB HCT DIFFERENCE -1.9; MEAN CORPUSCULAR HEMOGLOBIN 28.3 pg (27.0-33.4); MEAN CORPUSCULAR HGB CONC 31.2 g/dL (32.0-36.0); MEAN CORPUSCULAR VOLUME 91 fl (80-97); RED BLOOD COUNT 3.45 10^6/uL (3.72-5.28); RED CELL DISTRIBUTION WIDTH 18.3 % (11.5-14.0); WHITE BLOOD COUNT 3.9 10^3/uL (4.0-10.5)
[2017-08-18 16:23] LABS: ALANINE AMINOTRANSFERASE 28 U/L (9-52); ALKALINE PHOSPHATASE 90 U/L (38-126); ANION GAP 11 (5-19); ASPARTATE AMINO TRANSFERASE 37 U/L (14-36); BILIRUBIN,DIRECT 0.6 mg/dL (0.0-0.4); BILIRUBIN,TOTAL 1.8 mg/dL (0.2-1.3); BLOOD UREA NITROGEN 38 mg/dL (7-20); CALCIUM 8.3 mg/dL (8.4-10.2); CARBON DIOXIDE 32 mmol/L (22-30); CHLORIDE 98 mmol/L (98-107); CREATININE RESULT 1.59 mg/dL (0.52-1.25); GLUCOSE 210 mg/dL (75-110); POTASSIUM 4.1 mmol/L (3.6-5.0); SODIUM 140.6 mmol/L (137-145)
[2017-08-18 16:42] LABS: BASOPHILS % (MANUAL) 1 % (0-2); EOSINOPHILS % (MANUAL) 1 % (0-6); LYMPHOCYTES % (MANUAL) 35 % (13-45); TOTAL CELLS COUNTED 100
[2017-08-18 16:45] LABS: ANISOCYTOSIS 2+; HYPOCHROMASIA SLIGHT; PLATELET CLUMPS PRESENT; POIKILOCYTOSIS 1+; POLYCHROMASIA SLIGHT; SCHISTOCYTES SLIGHT; TARGET CELLS 1+
--- NOTE | 2017-08-18 17:35 | PDOC PROGRESS REPORT ---
Subjective Progress Note for:: 08/18/17 Subjective:: Patient was seen by the bedside, she is somewhat improved today compared to previously but on auscultation of her chest there is scattered wheeze in both lung guerra, she has a history of COPD, she was admitted due to acute systolic heart failure associated with atrial fibrillation and RVR. Physical Exam Vital Signs: Temp Pulse Resp BP Pulse Ox 98.5 F 73 24 H 114/55 L 96 08/18/17 08:30 08/18/17 08:30 08/18/17 08:30 08/18/17 08:30 08/18/17 08:30 Intake & Output 08/17/17 08/18/17 08/19/17 06:59 06:59 06:59 Intake Total 922 407 118 Output Total 2850 2700 400 Balance -7633 -9749 -491 Weight 95.6 kg 93.7 kg General appearance: PRESENT: mild distress Eye exam: PRESENT: PERRLA Respiratory exam: PRESENT: wheezes Cardiovascular exam: PRESENT: irregular rhythm, +S1, +S2 GI/Abdominal exam: PRESENT: soft Neurological exam: PRESENT: alert Results Laboratory Results: 08/18/17 15:50 08/18/17 15:50 08/18/17 08/18/17 15:50 15:50 WBC 3.9 L RBC 3.45 L Hgb 9.8 L Hct 31.3 L MCV 91 MCH 28.3 MCHC 31.2 L RDW 18.3 H Plt Count 133 L Seg Neutrophils % Not Reportable Lymphocytes % Not Reportable Monocytes % Not Reportable Eosinophils % Not Reportable Basophils % Not Reportable Absolute Neutrophils Not Reportable Absolute Lymphocytes Not Reportable Absolute Monocytes Not Reportable Absolute Eosinophils Not Reportable Absolute Basophils Not Reportable Sodium 140.6 Potassium 4.1 Chloride 98 Carbon Dioxide 32 H Anion Gap 11 BUN 38 H Creatinine 1.59 H Est GFR ( Amer) 38 L Est GFR (Non-Af Amer) 31 L Glucose 210 H Calcium 8.3 L Total Bilirubin 1.8 H AST 37 H ALT 28 Alkaline Phosphatase 90 Total Protein 7.0 Albumin 3.0 L 08/16/17 17:30 Catheterized Urine Urine Culture - Final NO GROWTH 2 DAYS 08/12/17 08/12/17 08/12/17 01:20 01:20 01:20 Creatine Kinase 88 CK-MB (CK-2) 0.88 Troponin I 0.023 NT-Pro-B Natriuret Pep 2800 H 08/12/17 08/12/17 08/12/17 06:45 06:45 14:07 Creatine Kinase 78 58 CK-MB (CK-2) 0.88 Troponin I 0.021 NT-Pro-B Natriuret Pep 08/12/17 14:07 Creatine Kinase CK-MB (CK-2) 0.59 Troponin I 0.020 NT-Pro-B Natriuret Pep Impressions: Chest CT 08/12/17 00:00 IMPRESSION: Findings worrisome for fluid overload or congestive failure with alveolar and interstitial edema. Multiple areas of more dense lung parenchymal consolidation around the periphery of both lungs, pneumonia versus nodules. When the patient's acute condition resolves, uncontrasted CT chest is recommended for followup Chest X-Ray 08/16/17 07:00 IMPRESSION: Small bilateral pleural effusions with bibasilar atelectasis. Mild pulmonary vascular congestion without alveolar or interstitial edema Head CT 08/17/17 00:00 IMPRESSION: Old small vessel disease. Limited study, no gross acute changes EVIDENCE OF ACUTE STROKE: NO. Assessment & Plan - Diagnosis (1) Acute combined systolic and diastolic heart failure Is this a current diagnosis for this admission?: Yes (2) Atrial fibrillation with rapid ventricular response Is this a current diagnosis for this admission?: Yes (3) Atrial fibrillation with rapid ventricular response Is this a current diagnosis for this admission?: Yes (4) Diabetes mellitus type II, uncontrolled Qualifiers: Diabetes mellitus complication status: with neurologic complications Diabetes mellitus complication detail: with polyneuropathy Diabetes mellitus joint terminal attack controller insulin use: with correction use Qualified Code(s): E11.42 - Type 2 diabetes mellitus with diabetic polyneuropathy Is this a current diagnosis for this admission?: Yes (5) Pneumonia Qualifiers: Pneumonia type: aspiration pneumonia Aspiration pneumonia type: unspecified Laterality: unspecified laterality Lung location: unspecified part of lung Qualified Code(s): J69.0 - Pneumonitis due to inhalation of food and vomit Is this a current diagnosis for this admission?: Yes (6) Gram positive septicemia Is this a current diagnosis for this admission?: Yes (7) Hypoglycemic encephalopathy Is this a current diagnosis for this admission?: Yes (8) Acute exacerbation of chronic obstructive pulmonary disease (COPD) Is this a current diagnosis for this admission?: Yes Plan: She has COPD with acute exacerbation, she be treated with bronchodilators, will hold off on IV Solu-Medrol at this time, this will reconsider if there is no resolution of the wheezing
[2017-08-18] MEDS: INSULIN LISPRO 100 UNIT/ML 3 ML VIAL SUBCUT PRN (17:57)
[2017-08-18] MEDS: IPRATROPIUM/ALBUTEROL 0.5-2.5 MG/3 ML AMPUL NEB SCH (20:09)
[2017-08-18] MEDS: CEFTRIAXONE 1 GM/D5W RTU 1 GM/50 ML RTUPB IV SCH (21:17)
[2017-08-18] MEDS: ATORVASTATIN CALCIUM 10 MG TABLET PO SCH (22:47)
[2017-08-18] MEDS: INSULIN GLARGINE,HUM.REC.ANLOG 300 UNIT/3 ML INSULN.PEN SUBCUT SCH (22:48)
[2017-08-19] MEDS: IPRATROPIUM/ALBUTEROL 0.5-2.5 MG/3 ML AMPUL NEB SCH ×4 (02:50→19:52)
[2017-08-19] MEDS: GABAPENTIN 300 MG CAPSULE PO SCH ×3 (05:15→22:52)
[2017-08-19] MEDS: DABIGATRAN ETEXILATE 150 MG CAPSULE PO SCH ×2 (05:15→17:58)
[2017-08-19 06:10] LABS: ALANINE AMINOTRANSFERASE 36 U/L (9-52); ALBUMIN 2.5 g/dL (3.5-5.0); ALKALINE PHOSPHATASE 67 U/L (38-126); ANION GAP 12 (5-19); ASPARTATE AMINO TRANSFERASE 21 U/L (14-36); BILIRUBIN,DIRECT 0.4 mg/dL (0.0-0.4); BLOOD UREA NITROGEN 35 mg/dL (7-20); CALCIUM 7.1 mg/dL (8.4-10.2); CARBON DIOXIDE 26 mmol/L (22-30); CHLORIDE 106 mmol/L (98-107); CREATININE RESULT 1.37 mg/dL (0.52-1.25); GLUCOSE 182 mg/dL (75-110); POTASSIUM 3.4 mmol/L (3.6-5.0); SODIUM 144.3 mmol/L (137-145); TOTAL PROTEIN 5.9 g/dL (6.3-8.2)
[2017-08-19 06:12] LABS: HEMATOCRIT 30.6 % (36.0-47.0); HEMOGLOBIN 9.6 g/dL (12.0-15.5); HGB HCT DIFFERENCE -1.8; MEAN CORPUSCULAR HEMOGLOBIN 28.8 pg (27.0-33.4); MEAN CORPUSCULAR HGB CONC 31.5 g/dL (32.0-36.0); MEAN CORPUSCULAR VOLUME 91 fl (80-97); RED BLOOD COUNT 3.35 10^6/uL (3.72-5.28); WHITE BLOOD COUNT 5.3 10^3/uL (4.0-10.5)
[2017-08-19 06:36] LABS: BAND NEUTROPHILS % (MANUAL) 1 % (3-5); BASOPHILS % (MANUAL) 0 % (0-2); TOTAL CELLS COUNTED 100
[2017-08-19 06:37] LABS: ANISOCYTOSIS 2+; EOSINOPHILS % (MANUAL) 3 % (0-6); HYPOCHROMASIA 2+; LYMPHOCYTES % (MANUAL) 43 % (13-45); POLYCHROMASIA 1+
[2017-08-19] MEDS: TORSEMIDE 20 MG TABLET PO SCH (09:11)
[2017-08-19] MEDS: AMIODARONE HCL 200 MG TABLET PO SCH ×2 (09:11→16:57)
[2017-08-19] MEDS: METOPROLOL SUCCINATE 50 MG TAB.SR.24H PO SCH ×2 (09:12→22:50)
[2017-08-19] MEDS: SACUBITRIL/VALSARTAN 24 MG/26 MG TABLET PO SCH ×2 (09:12→22:50)
[2017-08-19] MEDS: RANOLAZINE 500 MG TAB.SR.12H PO SCH ×2 (09:12→22:50)
[2017-08-19] MEDS: LORATADINE 10 MG TABLET PO SCH (09:12)
[2017-08-19] MEDS: DIGOXIN 0.125 MG TABLET PO SCH (09:13)
[2017-08-19] MEDS: INSULIN LISPRO 100 UNIT/ML 3 ML VIAL SUBCUT PRN ×2 (16:55→22:46)
--- NOTE | 2017-08-19 19:28 | PDOC PROGRESS REPORT ---
Subjective Progress Note for:: 08/18/17 Subjective:: Patient seems to be doing better than yesterday. Patient is noted to be more alert and seems more oriented, easily answering to questions. Patient was seen in the morning. Still needing intermittent positive pressure noninvasive ventilation. Patient continues in atrial fibrillation. Heart rate slight bit on the high side but currently stable. Review of systems: Rest review of systems negative. Medications: Medications have been reviewed. Physical Exam Vital Signs: Temp Pulse Resp BP Pulse Ox 97.4 F 98 22 H 140/91 H 98 08/18/17 16:45 08/18/17 16:45 08/18/17 16:45 08/18/17 16:45 08/18/17 16:45 Intake & Output 08/17/17 08/18/17 08/19/17 06:59 06:59 06:59 Intake Total 922 407 460 Output Total 2850 2700 1000 Balance -2468 -2293 -540 Weight 95.6 kg 93.7 kg Exam: GENERAL: well-nourished and in no acute distress. Alert and oriented x3 HEAD: Atraumatic, normocephalic. EYES: Pupils equal round and reactive to light, extraocular movements intact, sclera anicteric, conjunctiva are normal. ENT: TMs normal, nares patent, oropharynx clear without exudates. Moist mucous membranes. No oral ulcerations or bleeding gums noted NECK: supple without lymphadenopathy. Trachea is central. No cervical or axillary lymphadenopathy noted. Carotids are 2+, JVD WNL. Central tracheostomy scar noted. LUNGS: Respiration seems nonlabored, no significant accessory muscle action noted. Bibasilar fine crackles with few wheezes rales or rhonchi noted. No significant dullness noted on percussion. CHEST: Palpation of the chest wall shows no significant chest wall tenderness. No other significant abnormalities noted. HEART: [place] [employer], No PSH, 1/6 JOSUE aortic area, 1/6 bunch systolic murmur mitral area, no rubs, no gallops. ABDOMEN: Soft, no significant tenderness appreciated, normoactive bowel sounds. No guarding, no rebound. No rigidity noted . No masses appreciated. EXTREMITIES: Pedal pulses are 1-2+, no calf tenderness noted. No clubbing or cyanosis.trace to 1+ pedal edema noted NEUROLOGICAL: Focused neurological exam showed no significant neurologic deficit. Normal speech, no focal weakness appreciated. PSYCH: Normal mood, normal affect. Judgment and insight within normal limits. SKIN: No significant ecchymosis, rash, ulcerations or signs of pruritus noted. MUSCULOSKELETAL EXAM: No significant joint swelling noted. Results Laboratory Results: 08/18/17 15:50 08/18/17 15:50 08/18/17 08/18/17 15:50 15:50 WBC 3.9 L RBC 3.45 L Hgb 9.8 L Hct 31.3 L MCV 91 MCH 28.3 MCHC 31.2 L RDW 18.3 H Plt Count 133 L Seg Neutrophils % Not Reportable Lymphocytes % Not Reportable Monocytes % Not Reportable Eosinophils % Not Reportable Basophils % Not Reportable Absolute Neutrophils Not Reportable Absolute Lymphocytes Not Reportable Absolute Monocytes Not Reportable Absolute Eosinophils Not Reportable Absolute Basophils Not Reportable Sodium 140.6 Potassium 4.1 Chloride 98 Carbon Dioxide 32 H Anion Gap 11 BUN 38 H Creatinine 1.59 H Est GFR ( Amer) 38 L Est GFR (Non-Af Amer) 31 L Glucose 210 H Calcium 8.3 L Total Bilirubin 1.8 H AST 37 H ALT 28 Alkaline Phosphatase 90 Total Protein 7.0 Albumin 3.0 L 08/16/17 17:30 Catheterized Urine Urine Culture - Final NO GROWTH 2 DAYS 08/12/17 08/12/17 08/12/17 01:20 01:20 01:20 Creatine Kinase 88 CK-MB (CK-2) 0.88 Troponin I 0.023 NT-Pro-B Natriuret Pep 2800 H 08/12/17 08/12/17 08/12/17 06:45 06:45 14:07 Creatine Kinase 78 58 CK-MB (CK-2) 0.88 Troponin I 0.021 NT-Pro-B Natriuret Pep 08/12/17 14:07 Creatine Kinase CK-MB (CK-2) 0.59 Troponin I 0.020 NT-Pro-B Natriuret Pep Impressions: Chest CT 08/12/17 00:00 IMPRESSION: Findings worrisome for fluid overload or congestive failure with alveolar and interstitial edema. Multiple areas of more dense lung parenchymal consolidation around the periphery of both lungs, pneumonia versus nodules. When the patient's acute condition resolves, uncontrasted CT chest is recommended for followup Chest X-Ray 08/16/17 07:00 IMPRESSION: Small bilateral pleural effusions with bibasilar atelectasis. Mild pulmonary vascular congestion without alveolar or interstitial edema Head CT 08/17/17 00:00 IMPRESSION: Old small vessel disease. Limited study, no gross acute changes EVIDENCE OF ACUTE STROKE: NO. Assessment & Plan - Diagnosis (1) Congestive heart failure (CHF) Qualifiers: Congestive heart failure type: combined Congestive heart failure chronicity : acute on chronic Qualified Code(s): I50.43 - Acute on chronic combined systolic (congestive) and diastolic (congestive) heart failure Is this a current diagnosis for this admission?: Yes (2) Atrial fibrillation with rapid ventricular response Is this a current diagnosis for this admission?: Yes (3) COPD (chronic obstructive pulmonary disease) Qualifiers: Emphysema type: unspecified Is this a current diagnosis for this admission?: Yes (4) Hypertension Qualifiers: Hypertension type: essential hypertension Qualified Code(s): I10 - Essential (primary) hypertension (5) Sleep apnea syndrome Qualifiers: Sleep apnea type: unspecified type Qualified Code(s): G47.30 - Sleep apnea , unspecified Is this a current diagnosis for this admission?: Yes (6) Cardiomyopathy Qualifiers: Cardiomyopathy type: unspecified Qualified Code(s): I42.9 - Cardiomyopathy , unspecified Is this a current diagnosis for this admission?: Yes - Notes Notes: CHF: Currently stable with slight hypervolemia by clinical exam. Continue diuretic therapy. Will consider rechecking chest x-ray. Atrial fibrillation with rapid ventricular response: Continue current regimen of rate control and chronic anticoagulation. COPD: Continue current management plans. Hypertension: Blood pressure seems under reasonable control. Sleep apnea syndrome: Currently stable. Patient on noninvasive positive pressure in ventilation. Cardiomyopathy: Medical management is being gradually optimized. Currently on entresto and other supportive therapy. - Time Time with patient: 15-25 minutes - CODE STATUS was discussed, patient remains full code. Surrogate decision-maker unchanged. Multiple medical problems were addressed. More than 50% of the time spent coordinating care, discussing management plans with involved caregivers. Management plans discussed with involved personnels. Medical decision making was of moderate to high complexity , patient's has multiple comorbidities. Medications reviewed and adjusted accordingly: Yes
--- NOTE | 2017-08-19 19:32 | PDOC PROGRESS REPORT ---
Subjective Progress Note for:: 08/19/17 Subjective:: Patient seems to be doing better than yesterday. Patient is noted to be more alert and seems more oriented, easily answering to questions. Patient was seen in the morning. Still needing intermittent positive pressure noninvasive ventilation. Patient today noted to be in sinus rhythm. Review of systems: Rest review of systems negative. Medications: Medications have been reviewed. Physical Exam Vital Signs: Temp Pulse Resp BP Pulse Ox 98.0 F 65 20 96/42 L 96 08/19/17 11:19 08/19/17 14:25 08/19/17 14:25 08/19/17 11:19 08/19/17 14:25 Intake & Output 08/18/17 08/19/17 08/20/17 06:59 06:59 06:59 Intake Total 407 815 600 Output Total 2700 1575 200 Balance -2293 -760 400 Weight 93.7 kg 92.8 kg Exam: GENERAL: well-nourished and in no acute distress. Alert and oriented x3 HEAD: Atraumatic, normocephalic. EYES: Pupils equal round and reactive to light, extraocular movements intact, sclera anicteric, conjunctiva are normal. ENT: TMs normal, nares patent, oropharynx clear without exudates. Moist mucous membranes. No oral ulcerations or bleeding gums noted NECK: supple without lymphadenopathy. Trachea is central central tracheostomy scar noted.. No cervical or axillary lymphadenopathy noted. Carotids are 2+, JVD WNL LUNGS: Respiration seems nonlabored, no significant accessory muscle action noted. Bilateral mild wheezing noted with few bibasilar crackles. No dullness noted. CHEST: Palpation of the chest wall shows no significant chest wall tenderness. No other significant abnormalities noted. HEART: [place] [employer]ER[employer]IST, No PSH, 1/6 JOSUE aortic area, 1/6 bunch systolic murmur mitral area, no rubs, no gallops. ABDOMEN: Soft, no significant tenderness appreciated, normoactive bowel sounds. No guarding, no rebound. No rigidity noted . No masses appreciated. EXTREMITIES: Pedal pulses are 1-2+, no calf tenderness noted. No clubbing or cyanosis.trace to 1+ pedal edema noted NEUROLOGICAL: Focused neurological exam showed no significant neurologic deficit. Normal speech, no focal weakness appreciated. PSYCH: Normal mood, normal affect. Judgment and insight within normal limits. SKIN: No significant ecchymosis, rash, ulcerations or signs of pruritus noted. MUSCULOSKELETAL EXAM: No significant joint swelling noted. Results Laboratory Results: 08/19/17 04:35 08/19/17 04:35 08/19/17 08/19/17 04:35 04:35 WBC 5.3 RBC 3.35 L Hgb 9.6 L Hct 30.6 L MCV 91 MCH 28.8 MCHC 31.5 L RDW 18.0 H Plt Count 139 L Seg Neutrophils % Not Reportable Lymphocytes % Not Reportable Monocytes % Not Reportable Eosinophils % Not Reportable Basophils % Not Reportable Absolute Neutrophils Not Reportable Absolute Lymphocytes Not Reportable Absolute Monocytes Not Reportable Absolute Eosinophils Not Reportable Absolute Basophils Not Reportable Sodium 144.3 Potassium 3.4 L Chloride 106 Carbon Dioxide 26 Anion Gap 12 BUN 35 H Creatinine 1.37 H Est GFR ( Amer) 45 L Est GFR (Non-Af Amer) 37 L Glucose 182 H Calcium 7.1 L Total Bilirubin 1.0 AST 21 ALT 36 Alkaline Phosphatase 67 Total Protein 5.9 L Albumin 2.5 L 08/12/17 08/12/17 08/12/17 01:20 01:20 01:20 Creatine Kinase 88 CK-MB (CK-2) 0.88 Troponin I 0.023 NT-Pro-B Natriuret Pep 2800 H 08/12/17 08/12/17 08/12/17 06:45 06:45 14:07 Creatine Kinase 78 58 CK-MB (CK-2) 0.88 Troponin I 0.021 NT-Pro-B Natriuret Pep 08/12/17 14:07 Creatine Kinase CK-MB (CK-2) 0.59 Troponin I 0.020 NT-Pro-B Natriuret Pep Impressions: Chest CT 08/12/17 00:00 IMPRESSION: Findings worrisome for fluid overload or congestive failure with alveolar and interstitial edema. Multiple areas of more dense lung parenchymal consolidation around the periphery of both lungs, pneumonia versus nodules. When the patient's acute condition resolves, uncontrasted CT chest is recommended for followup Chest X-Ray 08/16/17 07:00 IMPRESSION: Small bilateral pleural effusions with bibasilar atelectasis. Mild pulmonary vascular congestion without alveolar or interstitial edema Head CT 08/17/17 00:00 IMPRESSION: Old small vessel disease. Limited study, no gross acute changes EVIDENCE OF ACUTE STROKE: NO. Assessment & Plan - Diagnosis (1) Congestive heart failure (CHF) Qualifiers: Congestive heart failure type: combined Congestive heart failure chronicity : acute on chronic Qualified Code(s): I50.43 - Acute on chronic combined systolic (congestive) and diastolic (congestive) heart failure Is this a current diagnosis for this admission?: Yes (2) Atrial fibrillation with rapid ventricular response Is this a current diagnosis for this admission?: Yes (3) COPD (chronic obstructive pulmonary disease) Qualifiers: Emphysema type: unspecified Is this a current diagnosis for this admission?: Yes (4) Hypertension Qualifiers: Hypertension type: essential hypertension Qualified Code(s): I10 - Essential (primary) hypertension (5) Sleep apnea syndrome Qualifiers: Sleep apnea type: unspecified type Qualified Code(s): G47.30 - Sleep apnea , unspecified Is this a current diagnosis for this admission?: Yes (6) Cardiomyopathy Qualifiers: Cardiomyopathy type: unspecified Qualified Code(s): I42.9 - Cardiomyopathy , unspecified Is this a current diagnosis for this admission?: Yes - Notes Notes: Plan on repeating a chest x-ray in the morning. Also increase entresto dose. CHF: Currently stable with slight hypervolemia by clinical exam. Continue diuretic therapy. Will consider rechecking chest x-ray. Atrial fibrillation with rapid ventricular response: Today patient converted back to sinus rhythm. Continue current regimen of rate control and chronic anticoagulation. COPD: Continue current management plans. Hypertension: Blood pressure seems under reasonable control. Sleep apnea syndrome: Currently stable. Patient on noninvasive positive pressure in ventilation. Cardiomyopathy: Medical management is being gradually optimized. Currently on entresto and other supportive therapy. - Time Time with patient: 15-25 minutes - CODE STATUS was discussed, patient remains full code. Surrogate decision-maker unchanged. Multiple medical problems were addressed. More than 50% of the time spent coordinating care, discussing management plans with involved caregivers. Management plans discussed with involved personnels. Medical decision making was of moderate to high complexity , patient's has multiple comorbidities. Medications reviewed and adjusted accordingly: Yes
--- NOTE | 2017-08-19 20:57 | PDOC PROGRESS REPORT ---
Subjective Progress Note for:: 08/19/17 Subjective:: Patient was seen by the bedside, she seemed to be improving, she is able to walk down the hallway today with physical therapy Physical Exam Vital Signs: Temp Pulse Resp BP Pulse Ox 98.0 F 65 20 96/42 L 96 08/19/17 11:19 08/19/17 14:25 08/19/17 14:25 08/19/17 11:19 08/19/17 14:25 Intake & Output 08/18/17 08/19/17 08/20/17 06:59 06:59 06:59 Intake Total 407 815 600 Output Total 2700 1575 200 Balance -2293 -760 400 Weight 93.7 kg 92.8 kg General appearance: PRESENT: no acute distress, well-developed, well-nourished Head exam: PRESENT: atraumatic, normocephalic Eye exam: PRESENT: conjunctiva pink, EOMI, PERRLA Ear exam: PRESENT: normal external ear exam Mouth exam: PRESENT: moist, tongue midline Neck exam: PRESENT: full ROM Respiratory exam: PRESENT: clear to auscultation mack Cardiovascular exam: PRESENT: irregular rhythm, RRR, +S1, +S2 Pulses: PRESENT: normal dorsalis pedis pul, +2 pedal pulses bilateral Vascular exam: PRESENT: normal capillary refill GI/Abdominal exam: PRESENT: normal bowel sounds, soft Rectal exam: PRESENT: deferred Neurological exam: PRESENT: alert, CN II-XII grossly intact Psychiatric exam: PRESENT: appropriate affect, normal mood Skin exam: PRESENT: dry, intact, warm Results Laboratory Results: 08/19/17 04:35 08/19/17 04:35 08/19/17 08/19/17 04:35 04:35 WBC 5.3 RBC 3.35 L Hgb 9.6 L Hct 30.6 L MCV 91 MCH 28.8 MCHC 31.5 L RDW 18.0 H Plt Count 139 L Seg Neutrophils % Not Reportable Lymphocytes % Not Reportable Monocytes % Not Reportable Eosinophils % Not Reportable Basophils % Not Reportable Absolute Neutrophils Not Reportable Absolute Lymphocytes Not Reportable Absolute Monocytes Not Reportable Absolute Eosinophils Not Reportable Absolute Basophils Not Reportable Sodium 144.3 Potassium 3.4 L Chloride 106 Carbon Dioxide 26 Anion Gap 12 BUN 35 H Creatinine 1.37 H Est GFR ( Amer) 45 L Est GFR (Non-Af Amer) 37 L Glucose 182 H Calcium 7.1 L Total Bilirubin 1.0 AST 21 ALT 36 Alkaline Phosphatase 67 Total Protein 5.9 L Albumin 2.5 L 08/12/17 08/12/17 08/12/17 01:20 01:20 01:20 Creatine Kinase 88 CK-MB (CK-2) 0.88 Troponin I 0.023 NT-Pro-B Natriuret Pep 2800 H 08/12/17 08/12/17 08/12/17 06:45 06:45 14:07 Creatine Kinase 78 58 CK-MB (CK-2) 0.88 Troponin I 0.021 NT-Pro-B Natriuret Pep 08/12/17 14:07 Creatine Kinase CK-MB (CK-2) 0.59 Troponin I 0.020 NT-Pro-B Natriuret Pep Impressions: Chest CT 08/12/17 00:00 IMPRESSION: Findings worrisome for fluid overload or congestive failure with alveolar and interstitial edema. Multiple areas of more dense lung parenchymal consolidation around the periphery of both lungs, pneumonia versus nodules. When the patient's acute condition resolves, uncontrasted CT chest is recommended for followup Head CT 08/17/17 00:00 IMPRESSION: Old small vessel disease. Limited study, no gross acute changes EVIDENCE OF ACUTE STROKE: NO. Assessment & Plan - Diagnosis (1) Acute combined systolic and diastolic heart failure Is this a current diagnosis for this admission?: Yes (2) Atrial fibrillation with rapid ventricular response Is this a current diagnosis for this admission?: Yes (3) Atrial fibrillation with rapid ventricular response Is this a current diagnosis for this admission?: Yes (4) Diabetes mellitus type II, uncontrolled Qualifiers: Diabetes mellitus complication status: with neurologic complications Diabetes mellitus complication detail: with polyneuropathy Diabetes mellitus director long term care insulin use: with director long term care use Qualified Code(s): E11.42 - Type 2 diabetes mellitus with diabetic polyneuropathy Is this a current diagnosis for this admission?: Yes (5) Pneumonia Qualifiers: Pneumonia type: aspiration pneumonia Aspiration pneumonia type: unspecified Laterality: unspecified laterality Lung location: unspecified part of lung Qualified Code(s): J69.0 - Pneumonitis due to inhalation of food and vomit Is this a current diagnosis for this admission?: Yes (6) Gram positive septicemia Is this a current diagnosis for this admission?: Yes (7) Hypoglycemic encephalopathy Is this a current diagnosis for this admission?: Yes (8) Acute exacerbation of chronic obstructive pulmonary disease (COPD) Is this a current diagnosis for this admission?: Yes - Plan Summary Plan Summary: She will continue present treatment
[2017-08-19] MEDS: INSULIN GLARGINE,HUM.REC.ANLOG 300 UNIT/3 ML INSULN.PEN SUBCUT SCH (22:47)
[2017-08-19] MEDS: ATORVASTATIN CALCIUM 10 MG TABLET PO SCH (22:50)
--- NOTE | 2017-08-19 23:31 | RADIOLOGY REPORT (SQ) ---
EXAM DESCRIPTION: CHEST PA/LAT COMPLETED DATE/TIME: 08/19/2017 8:21 pm REASON FOR STUDY: followup CHF COMPARISON: 08/16/2017 EXAM PARAMETERS: NUMBER OF VIEWS: two views TECHNIQUE: Digital Frontal and Lateral radiographic views of the chest acquired. RADIATION DOSE: NA LIMITATIONS: none FINDINGS: LUNGS AND PLEURA: Resolved pleural effusions. Mild residual interstitial prominence. Min imal linear subsegmental atelectasis in both lung bases. No consolidation or pneumothorax. MEDIASTINUM AND HILAR STRUCTURES: Stable. HEART AND VASCULAR STRUCTURES: Stable. BONES: No acute findings. HARDWARE: Right chest port. OTHER: No other significant finding. IMPRESSION: Resolved pleural effusions. Mild residual interstitial prominence. Minimal linear subs egmental atelectasis in both lung bases. TECHNICAL DOCUMENTATION: JOB ID: [id number] [employer]- All Rights Reserved
[2017-08-20] MEDS: IPRATROPIUM/ALBUTEROL 0.5-2.5 MG/3 ML AMPUL NEB SCH ×4 (02:11→19:55)
[2017-08-20] MEDS: GABAPENTIN 300 MG CAPSULE PO SCH ×3 (05:45→21:26)
[2017-08-20] MEDS: DABIGATRAN ETEXILATE 150 MG CAPSULE PO SCH ×2 (05:46→17:06)
[2017-08-20] MEDS: INSULIN LISPRO 100 UNIT/ML 3 ML VIAL SUBCUT PRN ×3 (08:47→17:06)
[2017-08-20] MEDS: AMIODARONE HCL 200 MG TABLET PO SCH (08:48)
[2017-08-20] MEDS: DIGOXIN 0.125 MG TABLET PO SCH (10:08)
[2017-08-20] MEDS: LORATADINE 10 MG TABLET PO SCH (10:08)
[2017-08-20] MEDS: RANOLAZINE 500 MG TAB.SR.12H PO SCH ×2 (10:08→21:25)
[2017-08-20] MEDS: METOPROLOL SUCCINATE 50 MG TAB.SR.24H PO SCH ×2 (10:09→21:24)
[2017-08-20] MEDS: SACUBITRIL/VALSARTAN 24 MG/26 MG TABLET PO SCH ×2 (10:10→21:25)
[2017-08-20] MEDS: TORSEMIDE 20 MG TABLET PO SCH (10:10)
--- NOTE | 2017-08-20 11:05 | PDOC PROGRESS REPORT ---
Subjective Progress Note for:: 08/20/17 Subjective:: Patient seems to be doing better than yesterday. Patient today noted to be sitting at bedside chair complaining of feeling better. Patient was seen in the morning. Still needing intermittent positive pressure noninvasive ventilation. Patient has reverted back into atrial fibrillation. Heart rate slight bit on the high side but currently stable. Review of systems: Rest review of systems negative. Medications: Medications have been reviewed. Physical Exam Vital Signs: Temp Pulse Resp BP Pulse Ox 98.0 F 86 21 H 96/42 L 99 08/19/17 11:19 08/20/17 07:52 08/20/17 07:52 08/19/17 11:19 08/20/17 07:52 Intake & Output 08/19/17 08/20/17 08/21/17 06:59 06:59 06:59 Intake Total 815 1197 Output Total 1575 700 Balance -760 497 Weight 92.8 kg 92.9 kg Exam: GENERAL: well-nourished and in no acute distress. Alert and oriented x3 HEAD: Atraumatic, normocephalic. EYES: Pupils equal round and reactive to light, extraocular movements intact, sclera anicteric, conjunctiva are normal. ENT: TMs normal, nares patent, oropharynx clear without exudates. Moist mucous membranes. No oral ulcerations or bleeding gums noted. Central tracheostomy scar noted NECK: supple without lymphadenopathy. Trachea is central. No cervical or axillary lymphadenopathy noted. Carotids are 2+, JVD WNL LUNGS: Respiration seems nonlabored, no significant accessory muscle action noted. Few bibasilar crackles noted. No wheezes rales or rhonchi noted. No significant dullness noted on percussion. CHEST: Palpation of the chest wall shows no significant chest wall tenderness. No other significant abnormalities noted. 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 ABDOMEN: Soft, no significant tenderness appreciated, normoactive bowel sounds. No guarding, no rebound. No rigidity noted . No masses appreciated. EXTREMITIES: Pedal pulses are 1-2+, no calf tenderness noted. No clubbing or cyanosis.trace to 1+ pedal edema noted NEUROLOGICAL: Focused neurological exam showed no significant neurologic deficit. Normal speech, no focal weakness appreciated. PSYCH: Normal mood, normal affect. Judgment and insight within normal limits. SKIN: No significant ecchymosis, rash, ulcerations or signs of pruritus noted. MUSCULOSKELETAL EXAM: No significant joint swelling noted. Results Laboratory Results: 08/19/17 04:35 08/19/17 04:35 08/12/17 08/12/17 08/12/17 01:20 01:20 01:20 Creatine Kinase 88 CK-MB (CK-2) 0.88 Troponin I 0.023 NT-Pro-B Natriuret Pep 2800 H 08/12/17 08/12/17 08/12/17 06:45 06:45 14:07 Creatine Kinase 78 58 CK-MB (CK-2) 0.88 Troponin I 0.021 NT-Pro-B Natriuret Pep 08/12/17 08/20/17 14:07 06:05 Creatine Kinase CK-MB (CK-2) 0.59 Troponin I 0.020 NT-Pro-B Natriuret Pep 325 Impressions: Chest CT 08/12/17 00:00 IMPRESSION: Findings worrisome for fluid overload or congestive failure with alveolar and interstitial edema. Multiple areas of more dense lung parenchymal consolidation around the periphery of both lungs, pneumonia versus nodules. When the patient's acute condition resolves, uncontrasted CT chest is recommended for followup Head CT 08/17/17 00:00 IMPRESSION: Old small vessel disease. Limited study, no gross acute changes EVIDENCE OF ACUTE STROKE: NO. Chest X-Ray 08/19/17 19:33 IMPRESSION: Resolved pleural effusions. Mild residual interstitial prominence. Minimal linear subsegmental atelectasis in both lung bases. Assessment & Plan - Diagnosis (1) Congestive heart failure (CHF) Qualifiers: Congestive heart failure type: combined Congestive heart failure chronicity : acute on chronic Qualified Code(s): I50.43 - Acute on chronic combined systolic (congestive) and diastolic (congestive) heart failure Is this a current diagnosis for this admission?: Yes (2) Atrial fibrillation with rapid ventricular response Is this a current diagnosis for this admission?: Yes (3) COPD (chronic obstructive pulmonary disease) Qualifiers: Emphysema type: unspecified Is this a current diagnosis for this admission?: Yes (4) Hypertension Qualifiers: Hypertension type: essential hypertension Qualified Code(s): I10 - Essential (primary) hypertension (5) Sleep apnea syndrome Qualifiers: Sleep apnea type: unspecified type Qualified Code(s): G47.30 - Sleep apnea , unspecified Is this a current diagnosis for this admission?: Yes (6) Cardiomyopathy Qualifiers: Cardiomyopathy type: unspecified Qualified Code(s): I42.9 - Cardiomyopathy , unspecified Is this a current diagnosis for this admission?: Yes - Notes Notes: CHF: Clinically improved. BNP level WNL however chest x-ray showing increased interstitial markings. This raises possibility of interstitial lung disease. Will order a CT chest without contrast. Atrial fibrillation with rapid ventricular response: Heart rate reasonably well controlled. Have stopped amiodarone in concern about interstitial lung disease. COPD: Continue current management plans. May consult pulmonary. Hypertension: Blood pressure under well controlled. Sleep apnea syndrome: Continue positive pressure noninvasive ventilation. Cardiomyopathy: Currently stable. May consider increasing entresto dose as tolerated. Dr. Johnston to cover from tomorrow. - Time Time with patient: 15-25 minutes - CODE STATUS was discussed, patient remains full code. Surrogate decision-maker unchanged. Multiple medical problems were addressed. More than 50% of the time spent coordinating care, discussing management plans with involved caregivers. Management plans discussed with involved personnels. Medical decision making was of moderate to high complexity , patient's has multiple comorbidities. Medications reviewed and adjusted accordingly: Yes
--- NOTE | 2017-08-20 16:42 | RADIOLOGY REPORT (SQ) ---
EXAM DESCRIPTION: CT CHEST WITHOUT COMPLETED DATE/TIME: 08/20/2017 3:58 pm REASON FOR STUDY: evaluate for CHF vs interstial lung disease COMPARISON: CT chest exams 08/12/2017, 10/15/2016, 01/17/2014, 11/21/2012, 05/10/2012, 09/09/2009 TECHNIQUE: CT scan performed of the chest without intravenous contrast. Images reviewed with lung, soft tissue and bone windows. Reconstructed coronal and sagittal MPR images reviewed. All images st ored on PACS. All CT scanners at this facility use dose modulation, iterative reconstruction, and/or weight based d osing when appropriate to reduce radiation dose to as low as reasonably achievable (ALARA). [facility]: Dose Right [facility]: CareDose [facility]: Dose Right [facility]: Teradose 4D [facility]: [employer] RADIATION DOSE: Up-to-date CT equipment and radiation dose reduction techniques were employed. CTDIv ol: 18.6 mGy. DLP: 648 mGy-cm. mGy. LIMITATIONS: No technical limitations. FINDINGS: LUNGS AND PLEURA: Over the series of exams, there are waxing and waning areas of dense con solidation throughout both lungs. This is worrisome for recurrent pneumonia/aspiration versus bronch iolitis obliterans organizing pneumonia. These densities are as follows: Right apical alveolar density 1.5 cm axial image 28 new compared to prior 6 mm nodule left lung apex axial image 28 new compared to prior Anterior left upper lobe consolidation axial image 38 less prominent than on 08/12/2017 Minimal bandlike density periphery of the right upper lobe axial image 43 improved compared to 017 New lingular 1.5 cm density axial image 57 New medial right middle lobe density 1.2 cm axial image 70 New left lower lobe 2 cm density posterior costophrenic sulcus axial image 76 No pleural effusions. No pneumothorax. Benign calcified granuloma left lower lobe unchanged. HILAR AND MEDIASTINAL STRUCTURES: Mild to moderate adenopathy, similar over the series of exams with enlarged lymph nodes in the prevascular, pretracheal and right paratracheal, precarinal, and AP windo w regions. HEART AND VASCULAR STRUCTURES: No aneurysm. No pericardial effusion. UPPER ABDOMEN: Post cholecystectomy THYROID AND OTHER SOFT TISSUES: No masses. No adenopathy. BONES: Convex rightward thoracic curvature. HARDWARE: Right permanent central line tip superior vena cava OTHER: The esophagus is diffusely abnormal. There is diffuse wall thickening, and a small hiatal her paola IMPRESSION: Multifocal consolidation, waxing and waning over the series of exams. Differential is r ecurrent aspiration/ multifocal pneumonia versus bronchiolitis obliterans. Sarcoidosis might cause t his appearance. Significantly abnormal esophagus, with diffuse wall thickening and luminal narrowing. Small hiatal h ernia. Question diffuse esophagitis. TECHNICAL DOCUMENTATION: JOB ID: [id number] Quality ID # [id number]: Final reports with documentation of one or more dose reduction techniques (e.g., Au tomated exposure control, adjustment of the mA and/or kV according to patient size, use of iterative reconstruction technique) 2010 [employer]- All Rights Reserved
[2017-08-20] MEDS: ATORVASTATIN CALCIUM 10 MG TABLET PO SCH (21:25)
[2017-08-20] MEDS: INSULIN GLARGINE,HUM.REC.ANLOG 300 UNIT/3 ML INSULN.PEN SUBCUT SCH (21:25)
[2017-08-21] MEDS: IPRATROPIUM/ALBUTEROL 0.5-2.5 MG/3 ML AMPUL NEB SCH ×4 (01:32→20:08)
[2017-08-21] MEDS: DABIGATRAN ETEXILATE 150 MG CAPSULE PO SCH ×2 (05:59→18:04)
[2017-08-21] MEDS: GABAPENTIN 300 MG CAPSULE PO SCH ×3 (05:59→21:20)
[2017-08-21] MEDS: INSULIN LISPRO 100 UNIT/ML 3 ML VIAL SUBCUT PRN ×3 (07:34→16:23)
[2017-08-21] MEDS: SACUBITRIL/VALSARTAN 24 MG/26 MG TABLET PO SCH ×2 (09:20→21:21)
[2017-08-21] MEDS: RANOLAZINE 500 MG TAB.SR.12H PO SCH ×2 (09:20→21:21)
[2017-08-21] MEDS: METOPROLOL SUCCINATE 50 MG TAB.SR.24H PO SCH ×2 (09:20→21:20)
[2017-08-21] MEDS: LORATADINE 10 MG TABLET PO SCH (09:20)
[2017-08-21] MEDS: DIGOXIN 0.125 MG TABLET PO SCH (09:20)
[2017-08-21] MEDS: TORSEMIDE 20 MG TABLET PO SCH (09:20)
--- NOTE | 2017-08-21 09:34 | PDOC PROGRESS REPORT ---
Subjective Progress Note for:: 08/20/17 Subjective:: She was seen by the bedside, she was admitted for the management of acute systolic heart failure in the setting of atrial fibrillation with rapid irregular response. Physical Exam Vital Signs: Temp Pulse Resp BP Pulse Ox 97.5 F 57 L 16 105/59 L 99 08/21/17 07:57 08/21/17 08:14 08/21/17 08:14 08/21/17 07:57 08/21/17 08:14 Intake & Output 08/20/17 08/21/17 08/22/17 06:59 06:59 06:59 Intake Total 1197 1375 Output Total 700 800 Balance 497 575 Weight 92.9 kg 93 kg General appearance: PRESENT: no acute distress Eye exam: PRESENT: PERRLA Respiratory exam: PRESENT: clear to auscultation mack Cardiovascular exam: PRESENT: irregular rhythm, +S1, +S2 GI/Abdominal exam: PRESENT: soft Neurological exam: PRESENT: alert Results Laboratory Results: 08/19/17 04:35 08/19/17 04:35 08/12/17 08/12/17 08/12/17 01:20 01:20 01:20 Creatine Kinase 88 CK-MB (CK-2) 0.88 Troponin I 0.023 NT-Pro-B Natriuret Pep 2800 H 08/12/17 08/12/17 08/12/17 06:45 06:45 14:07 Creatine Kinase 78 58 CK-MB (CK-2) 0.88 Troponin I 0.021 NT-Pro-B Natriuret Pep 08/12/17 08/20/17 14:07 06:05 Creatine Kinase CK-MB (CK-2) 0.59 Troponin I 0.020 NT-Pro-B Natriuret Pep 325 Impressions: Head CT 08/17/17 00:00 IMPRESSION: Old small vessel disease. Limited study, no gross acute changes EVIDENCE OF ACUTE STROKE: NO. Chest X-Ray 08/19/17 19:33 IMPRESSION: Resolved pleural effusions. Mild residual interstitial prominence. Minimal linear subsegmental atelectasis in both lung bases. Chest CT 08/20/17 00:00 IMPRESSION: Multifocal consolidation, waxing and waning over the series of exams. Differential is recurrent aspiration/ multifocal pneumonia versus bronchiolitis obliterans. Sarcoidosis might cause this appearance. Significantly abnormal esophagus, with diffuse wall thickening and luminal narrowing. Small hiatal hernia. Question diffuse esophagitis. Assessment & Plan - Diagnosis (1) Acute combined systolic and diastolic heart failure Is this a current diagnosis for this admission?: Yes (2) Atrial fibrillation with rapid ventricular response Is this a current diagnosis for this admission?: Yes (3) Atrial fibrillation with rapid ventricular response Is this a current diagnosis for this admission?: Yes (4) Diabetes mellitus type II, uncontrolled Qualifiers: Diabetes mellitus complication status: with neurologic complications Diabetes mellitus complication detail: with polyneuropathy Diabetes mellitus long term care phlebotomist insulin use: with long term care phlebotomist use Qualified Code(s): E11.42 - Type 2 diabetes mellitus with diabetic polyneuropathy Is this a current diagnosis for this admission?: Yes (5) Pneumonia Qualifiers: Pneumonia type: aspiration pneumonia Aspiration pneumonia type: unspecified Laterality: unspecified laterality Lung location: unspecified part of lung Qualified Code(s): J69.0 - Pneumonitis due to inhalation of food and vomit Is this a current diagnosis for this admission?: Yes (6) Gram positive septicemia Is this a current diagnosis for this admission?: Yes (7) Hypoglycemic encephalopathy Is this a current diagnosis for this admission?: Yes (8) Acute exacerbation of chronic obstructive pulmonary disease (COPD) Is this a current diagnosis for this admission?: Yes - Plan Summary Plan Summary: She will continue present treatment
[2017-08-21 10:41] LABS: ABSOLUTE MONOCYTES (AUTO) 0.4 10^3/uL (0.1-1.4); ABSOLUTE NEUT (AUTO) 3.1 10^3/uL (1.7-8.2); BASOPHILS % (AUTO) 0.4 % (0-2); EOSINOPHILS % (AUTO) 0.4 % (0-6); HEMATOCRIT 28.8 % (36.0-47.0); HGB HCT DIFFERENCE -1.8; LYMPHOCYTES % (AUTO) 36.5 % (13-45); MEAN CORPUSCULAR HEMOGLOBIN 28.5 pg (27.0-33.4); MEAN CORPUSCULAR HGB CONC 31.3 g/dL (32.0-36.0); MEAN CORPUSCULAR VOLUME 91 fl (80-97); MONOCYTES % (AUTO) 6.4 % (3-13); RED BLOOD COUNT 3.17 10^6/uL (3.72-5.28); RED CELL DISTRIBUTION WIDTH 18.2 % (11.5-14.0); SEGMENTED NEUTROPHILS % (AUTO) 56.3 % (42-78); WHITE BLOOD COUNT 5.5 10^3/uL (4.0-10.5)
[2017-08-21 11:22] LABS: ANION GAP 11 (5-19); BLOOD UREA NITROGEN 66 mg/dL (7-20); CALCIUM 9.3 mg/dL (8.4-10.2); CARBON DIOXIDE 32 mmol/L (22-30); CHLORIDE 97 mmol/L (98-107); CREATININE RESULT 2.09 mg/dL (0.52-1.25); GLUCOSE 288 mg/dL (75-110); SODIUM 139.8 mmol/L (137-145)
[2017-08-21 11:23] LABS: ALANINE AMINOTRANSFERASE 26 U/L (9-52); ALBUMIN 3.2 g/dL (3.5-5.0); ALKALINE PHOSPHATASE 84 U/L (38-126); ASPARTATE AMINO TRANSFERASE 28 U/L (14-36); BILIRUBIN,DIRECT 0.5 mg/dL (0.0-0.4); BILIRUBIN,TOTAL 0.7 mg/dL (0.2-1.3); TOTAL PROTEIN 7.1 g/dL (6.3-8.2)
--- NOTE | 2017-08-21 12:39 | PDOC PROGRESS REPORT ---
Subjective Progress Note for:: 08/21/17 Subjective:: I saw patient by the bedside, she said she feels better she still coughing but not like when she was admitted. She had CT chest without contrast on 08/20/2017 , it showed areas of dense consolidation throughout both lungs, worrisome for recurrent pneumonia/aspiration/bronchiolitis obliterans organizing pneumonia. She has right apical alveolar density which is new when compared to prior CAT scan that was done when she is admitted. Also found was a 6 mm nodule left lung apex new, anterior left upper lobe consolidation less prominent than on 03/2017. Minimal bandlike density periphery of the right upper lobe improvement compared to 03/17/2017. New lingular 1.5 cm density. New medial right middle lobe density new left lower lobe 2 cm density in the posterior costophrenic sulcus no pleural effusion there is mild to moderate adenopathy in the hilium. Physical Exam Vital Signs: Temp Pulse Resp BP Pulse Ox 97.5 F 57 L 16 105/59 L 99 08/21/17 07:57 08/21/17 08:14 08/21/17 08:14 08/21/17 07:57 08/21/17 08:14 Intake & Output 08/20/17 08/21/17 08/22/17 06:59 06:59 06:59 Intake Total 1197 1375 Output Total 700 800 Balance 497 575 Weight 92.9 kg 93 kg General appearance: PRESENT: no acute distress Respiratory exam: PRESENT: rhonchi Cardiovascular exam: PRESENT: irregular rhythm, +S1, +S2 GI/Abdominal exam: PRESENT: soft Neurological exam: PRESENT: alert, CN II-XII grossly intact Results Laboratory Results: 08/21/17 09:59 08/21/17 09:59 08/21/17 08/21/17 09:59 09:59 WBC 5.5 RBC 3.17 L Hgb 9.0 L Hct 28.8 L MCV 91 MCH 28.5 MCHC 31.3 L RDW 18.2 H Plt Count 195 Seg Neutrophils % 56.3 Lymphocytes % 36.5 Monocytes % 6.4 Eosinophils % 0.4 Basophils % 0.4 Absolute Neutrophils 3.1 Absolute Lymphocytes 2.0 Absolute Monocytes 0.4 Absolute Eosinophils 0.0 Absolute Basophils 0.0 Sodium 139.8 Potassium 4.0 Chloride 97 L Carbon Dioxide 32 H Anion Gap 11 BUN 66 H Creatinine 2.09 H Est GFR ( Amer) 28 L Est GFR (Non-Af Amer) 23 L Glucose 288 H Calcium 9.3 Total Bilirubin 0.7 AST 28 ALT 26 Alkaline Phosphatase 84 Total Protein 7.1 Albumin 3.2 L 08/12/17 08/12/17 08/12/17 01:20 01:20 01:20 Creatine Kinase 88 CK-MB (CK-2) 0.88 Troponin I 0.023 NT-Pro-B Natriuret Pep 2800 H 08/12/17 08/12/17 08/12/17 06:45 06:45 14:07 Creatine Kinase 78 58 CK-MB (CK-2) 0.88 Troponin I 0.021 NT-Pro-B Natriuret Pep 08/12/17 08/20/17 14:07 06:05 Creatine Kinase CK-MB (CK-2) 0.59 Troponin I 0.020 NT-Pro-B Natriuret Pep 325 Impressions: Head CT 08/17/17 00:00 IMPRESSION: Old small vessel disease. Limited study, no gross acute changes EVIDENCE OF ACUTE STROKE: NO. Chest X-Ray 08/19/17 19:33 IMPRESSION: Resolved pleural effusions. Mild residual interstitial prominence. Minimal linear subsegmental atelectasis in both lung bases. Chest CT 08/20/17 00:00 IMPRESSION: Multifocal consolidation, waxing and waning over the series of exams. Differential is recurrent aspiration/ multifocal pneumonia versus bronchiolitis obliterans. Sarcoidosis might cause this appearance. Significantly abnormal esophagus, with diffuse wall thickening and luminal narrowing. Small hiatal hernia. Question diffuse esophagitis. Assessment & Plan - Diagnosis (1) Acute combined systolic and diastolic heart failure Is this a current diagnosis for this admission?: Yes (2) Atrial fibrillation with rapid ventricular response Is this a current diagnosis for this admission?: Yes (3) Atrial fibrillation with rapid ventricular response Is this a current diagnosis for this admission?: Yes (4) Diabetes mellitus type II, uncontrolled Qualifiers: Diabetes mellitus complication status: with neurologic complications Diabetes mellitus complication detail: with polyneuropathy Diabetes mellitus termite control technician insulin use: with termite control technician use Qualified Code(s): E11.42 - Type 2 diabetes mellitus with diabetic polyneuropathy Is this a current diagnosis for this admission?: Yes (5) Pneumonia Qualifiers: Pneumonia type: aspiration pneumonia Aspiration pneumonia type: unspecified Laterality: unspecified laterality Lung location: unspecified part of lung Qualified Code(s): J69.0 - Pneumonitis due to inhalation of food and vomit Is this a current diagnosis for this admission?: Yes (6) Gram positive septicemia Is this a current diagnosis for this admission?: Yes Plan: She has no antibiotic allergy, she will be started on intravenous azithromycin and Rocephin (7) Hypoglycemic encephalopathy Is this a current diagnosis for this admission?: Yes (8) Acute exacerbation of chronic obstructive pulmonary disease (COPD) Is this a current diagnosis for this admission?: Yes (9) Acute kidney injury Is this a current diagnosis for this admission?: Yes Plan: There is worsening serum creatinine suggesting acute kidney injury, on admission his serum creatinine was normal, this is most likely prerenal, she is on diuretic and also on entresto the ABG from 08/17/2017 was consistent with metabolic alkalosis, the UA showed increased sodium, low potassium consistent with contraction alkalosis. So she is most likely over diuresed that could be the reason for the acute kidney injury. She also have acute systolic heart failure the CT chest is grossly abnormal suggesting fluid with a component of pneumonia versus sarcoidosis the acute kidney injury could also be from cardiorenal syndrome from the acute systolic heart failure kidney ultrasound is ordered to rule out postobstructive etiology though unlikely
[2017-08-21] MEDS: CEFTRIAXONE 1 GM/D5W RTU 1 GM/50 ML RTUPB IV SCH (12:50)
[2017-08-21] MEDS: AZITHROMYCIN 500 MG in DEXTROSE 5%-WATER 250 ML IV SCH (13:41)
--- NOTE | 2017-08-21 20:26 | RADIOLOGY REPORT (SQ) ---
EXAM DESCRIPTION: U/S RETROPERITON (RENAL/AORTA) COMPLETED DATE/TIME: 08/21/2017 7:12 pm REASON FOR STUDY: kidney failure COMPARISON: None. TECHNIQUE: Dynamic and static grayscale images acquired of the kidneys and bladder and recorded on P ACS. Additional selected color Doppler and spectral images recorded. LIMITATIONS: None. FINDINGS: RIGHT KIDNEY: Normal size. Normal echogenicity. No solid or suspicious masses. No hydronep hrosis. No calcifications. LEFT KIDNEY: Normal size. Normal echogenicity. No solid or suspicious masses. No hydronephrosis. No calcifications. BLADDER: No masses. OTHER FINDINGS: No other significant finding. IMPRESSION: NORMAL RENAL AND BLADDER ULTRASOUND. TECHNICAL DOCUMENTATION: JOB ID: [id number] [employer]- All Rights Reserved
[2017-08-21] MEDS ORDERED: DABIGATRAN ETEXILATE 150 MG CAPSULE PO SCH (20:36)
[2017-08-21] MEDS: INSULIN GLARGINE,HUM.REC.ANLOG 300 UNIT/3 ML INSULN.PEN SUBCUT SCH (21:17)
[2017-08-21] MEDS: ATORVASTATIN CALCIUM 10 MG TABLET PO SCH (21:20)
--- NOTE | 2017-08-21 21:58 | PROGRESS NOTE E ---
Progress Note NAME: LC ANGUIANO : 1940 AGE: 77Y DATE: 08/21/2017 ROOM: 305 SUBJECTIVE: The patient states the shortness of breath is much better. She still has orthopnea although she says the shortness of breath is much better. She intermittently uses intermittent positive pressure noninvasive ventilation. The patient has gone back into sinus rhythm. The heart rate is well controlled at present. The patient denies any chest pain or discomfort. There are no TIA or CVA symptoms. There is no bleeding on Pradaxa. REVIEW OF SYSTEMS: Otherwise negative. MEDICATIONS: Have been reviewed. OBJECTIVE: GENERAL: The patient is moderately obese but in no acute distress. At present she is on room air; she was on positive pressure noninvasive ventilation. VITAL SIGNS: Pulse 60 beats per minute. Blood pressure 107/45, respirations 18 per minute, 02 saturations 100% on room air. HEENT: Head is normocephalic, atraumatic. Eyes: Pupils are equal, round, regular and reactive to light and accommodation. Extraocular movements are normal. There is mild conjunctival pallor. There is no scleral icterus. Tympanic membranes are normal. Nares are patent. Oropharynx is clear without exudates. Moist mucous membranes and tongue. There is no oral ulceration or bleeding gums noted. Tracheostomy scar is noted. NECK: Supple. There is no JVD. Trachea is central. There is no cervical or axillary lymphadenopathy. LUNGS: Without any accessory muscles in action. Respirations seem to be nonlabored. There are no wheezing, rales or rhonchi noted. There is no significant dullness on percussion. HEART: The apex of heart is not palpable. There is a systolic murmur in the aortic area and a systolic murmur in the mitral area. S1,S2 heard. S1 is of normal intensity. There is no S3 gallop; there is no S4 gallop; there are no rubs. ABDOMEN: Soft, nontender, slightly obese and bowel sounds are normal. There is no hepatosplenomegaly. There are no tender areas or masses. EXTREMITIES: Femorals are very deep. Femorals are diminished. There are no femoral bruits. Leg pulses are diminished. There is trace pedal edema bilaterally. There is no cyanosis or clubbing. There is no cellulitis. CENTRAL NERVOUS SYSTEM: The patient is conscious, awake, alert x3 with no neurologic deficits. There is no focal weakness appreciated. PSYCHIATRIC: The patient's judgment and insight are within normal limits. Mood is normal and her affect is normal. SKIN: There are no skin rashes or ecchymosis or petechia or skin lesions. DIAGNOSTIC DATA: Note that the patient's echocardiogram done from 08/12/2017 showed an EF of 35%, which is moderately reduced. The patient's had a chest CT and this showed waxing and waning areas of dense consolidation in both lungs. This is worrisome for recurrent pneumonia aspiration versus bronchiolitis obliterans or organizing pneumonia. Please review the report. Also there is a significantly abnormal esophagus and diffuse wall thickening and luminal narrowing, mild hiatal hernia, question diffuse cellulitis, but the patient does not complain of any swallowing problems. The patient's 24-hour intake is 1375 mL, output is 800 mL. The patient's sodium is 139.8, potassium 4.0, chloride 97, CO2 22, BUN 66, creatinine 2.09, GFR is reduced at 28 which is chronic kidney disease stage 4. Glucose is 254. Liver function tests are normal except for a mildly elevated direct bilirubin of 0.5 and calcium is 9.3. The patient's white count is 5500, hemoglobin 9, hematocrit 28.8, platelet count is 195,000. On August 15, the patient's digoxin level was 0.97. IMPRESSION: 1. Zkzmt-tn-muihvih congestive heart failure. Seems to be compensated at present. 2. Paroxysmal atrial fibrillation. At present in sinus rhythm. 3. COPD. At present seems to be stable. 4. Hypertension. Blood pressure well controlled. 5. Sleep apnea syndrome. 6. Cardiomyopathy. 7. CKD stage 4. 8. Diabetes mellitus, insulin-dependent with chronic kidney disease. RECOMMENDATIONS: 1. Chest x-ray findings were discussed with the patient. 2. Continue the patient's current treatment. 3. In view of the renal function, would not increase the Entresto. 4. In view of the patient's renal function showing a GFR of 28 mL/min, would decrease the dose of Pradaxa to 75 mg twice a day. 5. Also would continue the patient's insulin, would be *------* with Invokana and treat dehydration and also in view of the patient's renal function being bad, would not put the patient on metformin. Will discuss with the attending physician. 6. Medications have been reviewed. 7. Abnormal chest x-ray due to differential diagnosis of which is organizing versus aspiration pneumonia versus bronchiolitis obliterans organizing pneumonia. TIME SPENT: Thirty minutes spent on this patient. Medications have been reviewed. Continue current medications. Note that the patient's amiodarone has been discontinued. Continue metoprolol. Continue Ranexa and would not increase the dose of Ranexa. Continue the patient's torsemide and Entresto. The patient is also on antibiotics for abnormal chest x-ray. Would recommend a Pulmonary consult. Will decrease the dose of Pradaxa. More than 50% of the time spent on direct patient care and medications have been reviewed and adjusted. Note that the patient is a FULL CODE and her daughter is the surrogate healthcare decision-maker. Will follow with you. DICTATING PHYSICIAN: MERARI MARLEY M.D. [id number] PHY#: [id number] ID: [id number] JOB#: [id number] ACCT: [id number] cc: >
[2017-08-22] MEDS: IPRATROPIUM/ALBUTEROL 0.5-2.5 MG/3 ML AMPUL NEB SCH ×4 (03:01→21:23)
[2017-08-22 05:03] LABS: ABSOLUTE LYMPHOCYTES (AUTO) 2.2 10^3/uL (0.5-4.7); ABSOLUTE MONOCYTES (AUTO) 0.4 10^3/uL (0.1-1.4); BASOPHILS % (AUTO) 0.7 % (0-2); EOSINOPHILS % (AUTO) 0.7 % (0-6); HEMOGLOBIN 8.1 g/dL (12.0-15.5); HGB HCT DIFFERENCE -0.7; LYMPHOCYTES % (AUTO) 47.6 % (13-45); MEAN CORPUSCULAR HEMOGLOBIN 29.2 pg (27.0-33.4); MEAN CORPUSCULAR HGB CONC 32.5 g/dL (32.0-36.0); MEAN CORPUSCULAR VOLUME 90 fl (80-97); MONOCYTES % (AUTO) 8.1 % (3-13); RED BLOOD COUNT 2.78 10^6/uL (3.72-5.28); RED CELL DISTRIBUTION WIDTH 17.8 % (11.5-14.0); SEGMENTED NEUTROPHILS % (AUTO) 42.9 % (42-78); WHITE BLOOD COUNT 4.7 10^3/uL (4.0-10.5)
[2017-08-22 06:09] LABS: ALANINE AMINOTRANSFERASE 34 U/L (9-52); ALBUMIN 3.1 g/dL (3.5-5.0); ALKALINE PHOSPHATASE 89 U/L (38-126); ANION GAP 13 (5-19); ASPARTATE AMINO TRANSFERASE 20 U/L (14-36); BILIRUBIN,DIRECT 0.4 mg/dL (0.0-0.4); BILIRUBIN,TOTAL 0.4 mg/dL (0.2-1.3); BLOOD UREA NITROGEN 69 mg/dL (7-20); CALCIUM 9.2 mg/dL (8.4-10.2); CARBON DIOXIDE 30 mmol/L (22-30); CHLORIDE 99 mmol/L (98-107); CREATININE RESULT 2.06 mg/dL (0.52-1.25); DIGOXIN 1.16 ng/mL (0.8-2.0); GLUCOSE 276 mg/dL (75-110); POTASSIUM 4.1 mmol/L (3.6-5.0); SODIUM 141.6 mmol/L (137-145); TOTAL PROTEIN 6.7 g/dL (6.3-8.2)
[2017-08-22] MEDS: GABAPENTIN 300 MG CAPSULE PO SCH ×3 (06:09→22:16)
[2017-08-22] MEDS: DABIGATRAN ETEXILATE 75 MG CAPSULE PO SCH ×2 (06:10→17:34)
[2017-08-22] MEDS: INSULIN LISPRO 100 UNIT/ML 3 ML VIAL SUBCUT PRN ×3 (08:37→17:34)
[2017-08-22] MEDS: LORATADINE 10 MG TABLET PO SCH (09:35)
[2017-08-22] MEDS: DIGOXIN 0.125 MG TABLET PO SCH (09:36)
[2017-08-22] MEDS: METOPROLOL SUCCINATE 50 MG TAB.SR.24H PO SCH ×2 (09:36→22:14)
[2017-08-22] MEDS: RANOLAZINE 500 MG TAB.SR.12H PO SCH ×2 (09:37→22:16)
[2017-08-22] MEDS: SACUBITRIL/VALSARTAN 24 MG/26 MG TABLET PO SCH ×2 (09:38→22:16)
[2017-08-22] MEDS: TORSEMIDE 20 MG TABLET PO SCH (09:38)
[2017-08-22] MEDS: CEFTRIAXONE 1 GM/D5W RTU 1 GM/50 ML RTUPB IV SCH (12:35)
[2017-08-22] MEDS: AZITHROMYCIN 500 MG in DEXTROSE 5%-WATER 250 ML IV SCH (13:09)
--- NOTE | 2017-08-22 13:53 | PROGRESS NOTE E ---
Progress Note NAME: LC ANGUIANO : 1940 AGE: 77Y DATE: 08/22/2017 ROOM: 305 SUBJECTIVE: The patient is sitting up in the chair. She denies any chest pain or discomfort. There is no shortness of breath. There is some degree of orthopnea, but no cough or wheezing. Her legs are without any edema. She does have some orthopnea. The patient at night wears BiPAP. At present she is on room air and O2 saturation is great. OBJECTIVE: GENERAL: On examination the patient is moderately obese, but in no acute distress. She is on room air present. VITAL SIGNS: Her pulse is 58 beats per minute, the patient remains in sinus rhythm. Her blood pressure is 123/44. Her temperature is 98.1. Her respirations are 20 per minute, O2 saturations are 91% on room air. HEENT: Head is normocephalic, atraumatic. Eyes: Pupils are equal, round, regular and reactive to light and accommodation. Extraocular movements are normal. There is mild conjunctival pallor. There is no scleral icterus. Tympanic membranes are normal. Nares are patent. There is no inflammation of the nasal mucosa membranes. Oropharynx is clear without exudates. Mouth: Moist mucous membranes and tongue. There is no ulceration or bleeding from the gums noted. Tracheostomy scar is noted. NECK: Supple. There is no JVD. Trachea is central. There is no cervical or axillary lymphadenopathy. LUNGS: Without any accessory muscles in action. Respirations seem to be nonlabored. There is no wheezing, rales, or rhonchi. There is no significant dullness on percussion. HEART: The apex of heart is nonpalpable. There is a systolic murmur in the aortic area and a systolic murmur in the mitral area. S1 and S2 is heard. S1 is of normal intensity. There is no S3 gallop. There is no S4 gallop. There are no rubs. ABDOMEN: Soft, nontender, slightly obese. Bowel sounds are normal. There is no hepatosplenomegaly. There are no tender areas or masses. EXTREMITIES: Femorals are deep. Femorals are diminished. There are no femoral bruits. Leg pulses are diminished. There is no pedal edema today bilaterally. There is no cyanosis or clubbing. There is no cellulitis. There is no calf tenderness. CENTRAL NERVOUS SYSTEM: The patient is conscious, awake, alert, and oriented x3 with no focal deficits noted. PSYCHIATRIC: The patient's judgment and insight are within normal limits. Mood is normal and her affect is normal. SKIN: There are no skin rashes, ecchymosis, petechia, or skin lesions. INTAKE/OUTPUT: The patient's 24 hour intake is 2045 mL, output is 1100 mL. LABORATORY DATA: The patient's dig level was 1.16. The patient's sodium is 121.6, potassium 4.9, chloride 99, CO2 is 30. The patient's BUN is 69, creatinine is 2.06, GFR is reduced by 28 this is chronic kidney disease stage 4. Glucose *------*. Calcium is 9.2. Her liver function tests are normal. The patient's albumin is 3.1, total protein is 6.7. The patient's white count is 4600, hemoglobin is 8.1, hematocrit is 25. The patient's platelet count is 181,000. IMPRESSION: 1. ACUTE ON CHRONIC CONGESTIVE HEART FAILURE. SEEMS TO BE COMPENSATED AT PRESENT. 2. PAROXYSMAL ATRIAL FIBRILLATION. AT PRESENT IN SINUS RHYTHM. 3. COPD. AT PRESENT SEEMS TO BE STABLE. 4. HYPERTENSION. BLOOD PRESSURE IS WELL-CONTROLLED. 5. SLEEP APNEA SYNDROME. 6. CARDIOMYOPATHY. 7. CKD STAGE 4. 8. DIABETES MELLITUS, INSULIN DEPENDENT WITH CHRONIC KIDNEY DISEASE. 9. RULE OUT DIAGNOSIS OF HYPERLIPIDEMIA. RECOMMENDATIONS: Continue atorvastatin at 10 mg/hr. The patient is on digoxin 0.125 mg p.o. daily and *------* changed to every other day. She is on antibiotic azithromycin 500 mg IV daily as well as on ceftriaxone 1 g IV every day. She is on metoprolol succinate 100 mg p.o. q.12 hours. She is on ranolazine (Ranexa) 500 mg p.o. q.12 hours. She is on Entresto 24 mg/23 mg tablet 1 tablet p.o. q.12 hours. The patient is improving. Also the patient is on Demadex 20 mg p.o. daily. TIME SPENT: Note 30 minutes spent on this patient with more than 50% of the time spent on direct patient care and medications were reviewed. Later discussed with daughter and patient, asked for the management plan. Not more than 50% of the time spent on direct patient care. The patient's medical decision making was moderate to highly complex decision in view of the multiple medical problems that the patient has. In view of the dialysis would watch the patient's BUN and creatinine closely. DICTATING PHYSICIAN: MERARI MARLEY M.D. [id number] PHY#: [id number] ID: [id number] JOB#: [id number] ACCT: [id number] cc: >
--- NOTE | 2017-08-22 20:15 | PDOC PROGRESS REPORT ---
Subjective Progress Note for:: 08/22/17 Subjective:: I saw patient by the bedside, she said she feels better she still coughing but not like when she was admitted. She had CT chest without contrast on 08/20/2017 , it showed areas of dense consolidation throughout both lungs, worrisome for recurrent pneumonia/aspiration/bronchiolitis obliterans organizing pneumonia. She has right apical alveolar density which is new when compared to prior CAT scan that was done when she is admitted. Also found was a 6 mm nodule left lung apex new, anterior left upper lobe consolidation less prominent than on 03/2017. Minimal bandlike density periphery of the right upper lobe improvement compared to 03/17/2017. New lingular 1.5 cm density. New medial right middle lobe density new left lower lobe 2 cm density in the posterior costophrenic sulcus no pleural effusion there is mild to moderate adenopathy in the hilium. Physical Exam Vital Signs: Temp Pulse Resp BP Pulse Ox 98.0 F 58 L 17 107/43 L 99 08/22/17 15:59 08/22/17 15:59 08/22/17 15:59 08/22/17 15:59 08/22/17 15:59 Intake & Output 08/21/17 08/22/17 08/23/17 06:59 06:59 06:59 Intake Total 1375 2045 770 Output Total 800 1100 1300 Balance 575 945 -530 Weight 93 kg 93.6 kg General appearance: PRESENT: mild distress Eye exam: PRESENT: PERRLA Respiratory exam: PRESENT: rhonchi Cardiovascular exam: PRESENT: +S1, +S2 GI/Abdominal exam: PRESENT: soft Neurological exam: PRESENT: alert, CN II-XII grossly intact Results Laboratory Results: 08/22/17 04:37 08/22/17 04:37 08/22/17 08/22/17 04:37 04:37 WBC 4.7 RBC 2.78 L Hgb 8.1 L Hct 25.0 L MCV 90 MCH 29.2 MCHC 32.5 RDW 17.8 H Plt Count 181 Seg Neutrophils % 42.9 Lymphocytes % 47.6 H Monocytes % 8.1 Eosinophils % 0.7 Basophils % 0.7 Absolute Neutrophils 2.0 Absolute Lymphocytes 2.2 Absolute Monocytes 0.4 Absolute Eosinophils 0.0 Absolute Basophils 0.0 Sodium 141.6 Potassium 4.1 Chloride 99 Carbon Dioxide 30 Anion Gap 13 BUN 69 H Creatinine 2.06 H Est GFR ( Amer) 28 L Est GFR (Non-Af Amer) 23 L Glucose 276 H Calcium 9.2 Total Bilirubin 0.4 AST 20 ALT 34 Alkaline Phosphatase 89 Total Protein 6.7 Albumin 3.1 L 08/12/17 08/12/17 08/12/17 01:20 01:20 01:20 Creatine Kinase 88 CK-MB (CK-2) 0.88 Troponin I 0.023 NT-Pro-B Natriuret Pep 2800 H 08/12/17 08/12/17 08/12/17 06:45 06:45 14:07 Creatine Kinase 78 58 CK-MB (CK-2) 0.88 Troponin I 0.021 NT-Pro-B Natriuret Pep 08/12/17 08/20/17 14:07 06:05 Creatine Kinase CK-MB (CK-2) 0.59 Troponin I 0.020 NT-Pro-B Natriuret Pep 325 Impressions: Head CT 08/17/17 00:00 IMPRESSION: Old small vessel disease. Limited study, no gross acute changes EVIDENCE OF ACUTE STROKE: NO. Chest X-Ray 08/19/17 19:33 IMPRESSION: Resolved pleural effusions. Mild residual interstitial prominence. Minimal linear subsegmental atelectasis in both lung bases. Chest CT 08/20/17 00:00 IMPRESSION: Multifocal consolidation, waxing and waning over the series of exams. Differential is recurrent aspiration/ multifocal pneumonia versus bronchiolitis obliterans. Sarcoidosis might cause this appearance. Significantly abnormal esophagus, with diffuse wall thickening and luminal narrowing. Small hiatal hernia. Question diffuse esophagitis. Renal Ultrasound 08/21/17 00:00 IMPRESSION: NORMAL RENAL AND BLADDER ULTRASOUND. 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 Qualified Code(s): E11.42 - Type 2 diabetes mellitus with diabetic polyneuropathy Is this a current diagnosis for this admission?: Yes (5) Pneumonia Qualifiers: Pneumonia type: aspiration pneumonia Aspiration pneumonia type: unspecified Laterality: unspecified laterality Lung location: unspecified part of lung Qualified Code(s): J69.0 - Pneumonitis due to inhalation of food and vomit Is this a current diagnosis for this admission?: Yes (6) Gram positive septicemia Is this a current diagnosis for this admission?: Yes (7) Hypoglycemic encephalopathy Is this a current diagnosis for this admission?: Yes (8) Acute exacerbation of chronic obstructive pulmonary disease (COPD) Is this a current diagnosis for this admission?: Yes (9) Acute kidney injury Is this a current diagnosis for this admission?: Yes - Plan Summary Plan Summary: Yesterday she was started on IV antibiotic, the CAT scan of the chest suggests a superimposed acute lung injury on a pre-existing pulmonary edema from CHF, she was seen by cardiology today as well consultation will be requested from pulmonary
[2017-08-22] MEDS: ATORVASTATIN CALCIUM 10 MG TABLET PO SCH (22:16)
[2017-08-22] MEDS ORDERED: INSULIN GLARGINE,HUM.REC.ANLOG 300 UNIT/3 ML INSULN.PEN SUBCUT ONE (22:31)
[2017-08-22] MEDS: INSULIN GLARGINE,HUM.REC.ANLOG 300 UNIT/3 ML INSULN.PEN SUBCUT SCH (22:38)
[2017-08-23] MEDS: IPRATROPIUM/ALBUTEROL 0.5-2.5 MG/3 ML AMPUL NEB SCH ×4 (01:37→20:15)
[2017-08-23] MEDS: GABAPENTIN 300 MG CAPSULE PO SCH ×3 (06:13→21:36)
[2017-08-23] MEDS: DABIGATRAN ETEXILATE 75 MG CAPSULE PO SCH ×2 (06:13→17:26)
[2017-08-23] MEDS: METOPROLOL SUCCINATE 50 MG TAB.SR.24H PO SCH ×2 (10:07→21:36)
[2017-08-23] MEDS: DIGOXIN 0.125 MG TABLET PO SCH (10:10)
[2017-08-23] MEDS: RANOLAZINE 500 MG TAB.SR.12H PO SCH ×2 (10:11→21:36)
[2017-08-23] MEDS: LORATADINE 10 MG TABLET PO SCH (10:11)
[2017-08-23] MEDS: TORSEMIDE 20 MG TABLET PO SCH (10:12)
[2017-08-23] MEDS: SACUBITRIL/VALSARTAN 24 MG/26 MG TABLET PO SCH ×2 (10:12→21:37)
[2017-08-23] MEDS: CEFTRIAXONE 1 GM/D5W RTU 1 GM/50 ML RTUPB IV SCH (12:59)
[2017-08-23] MEDS: AZITHROMYCIN 500 MG in DEXTROSE 5%-WATER 250 ML IV SCH (13:44)
[2017-08-23] MEDS: INSULIN LISPRO 100 UNIT/ML 3 ML VIAL SUBCUT PRN ×2 (17:34→21:49)
[2017-08-23] MEDS: ATORVASTATIN CALCIUM 10 MG TABLET PO SCH (21:36)
--- NOTE | 2017-08-23 21:46 | PDOC PROGRESS REPORT ---
Subjective Progress Note for:: 08/30/17 Subjective:: Patient is seen by the bedside she seems to be improving compared to yesterday the plan is that she be discharged home with physical therapy home health and OT Physical Exam Vital Signs: Temp Pulse Resp BP Pulse Ox 97.9 F 53 L 23 H 119/49 L 97 08/23/17 20:00 08/23/17 20:15 08/23/17 20:15 08/23/17 20:00 08/23/17 20:00 Intake & Output 08/22/17 08/23/17 08/24/17 06:59 06:59 06:59 Intake Total 2045 770 1438 Output Total 1100 2100 1000 Balance 945 -1330 438 Weight 93.6 kg General appearance: PRESENT: no acute distress, well-developed, well-nourished Head exam: PRESENT: atraumatic, normocephalic Eye exam: PRESENT: conjunctiva pink, EOMI, PERRLA. ABSENT: scleral icterus Ear exam: PRESENT: normal external ear exam Mouth exam: PRESENT: moist, tongue midline Neck exam: PRESENT: full ROM Respiratory exam: PRESENT: clear to auscultation mack Cardiovascular exam: PRESENT: RRR, +S1, +S2 Pulses: PRESENT: normal dorsalis pedis pul, +2 pedal pulses bilateral Vascular exam: PRESENT: normal capillary refill GI/Abdominal exam: PRESENT: normal bowel sounds, soft Rectal exam: PRESENT: deferred Neurological exam: PRESENT: alert, awake, oriented to person, oriented to place , oriented to time, oriented to situation, CN II-XII grossly intact Psychiatric exam: PRESENT: appropriate affect, normal mood Skin exam: PRESENT: dry, intact, warm Results Laboratory Results: 08/22/17 04:37 08/22/17 04:37 08/12/17 08/12/17 08/12/17 01:20 01:20 01:20 Creatine Kinase 88 CK-MB (CK-2) 0.88 Troponin I 0.023 NT-Pro-B Natriuret Pep 2800 H 08/12/17 08/12/17 08/12/17 06:45 06:45 14:07 Creatine Kinase 78 58 CK-MB (CK-2) 0.88 Troponin I 0.021 NT-Pro-B Natriuret Pep 08/12/17 08/20/17 14:07 06:05 Creatine Kinase CK-MB (CK-2) 0.59 Troponin I 0.020 NT-Pro-B Natriuret Pep 325 Impressions: Head CT 08/17/17 00:00 IMPRESSION: Old small vessel disease. Limited study, no gross acute changes EVIDENCE OF ACUTE STROKE: NO. Chest X-Ray 08/19/17 19:33 IMPRESSION: Resolved pleural effusions. Mild residual interstitial prominence. Minimal linear subsegmental atelectasis in both lung bases. Chest CT 08/20/17 00:00 IMPRESSION: Multifocal consolidation, waxing and waning over the series of exams. Differential is recurrent aspiration/ multifocal pneumonia versus bronchiolitis obliterans. Sarcoidosis might cause this appearance. Significantly abnormal esophagus, with diffuse wall thickening and luminal narrowing. Small hiatal hernia. Question diffuse esophagitis. Renal Ultrasound 08/21/17 00:00 IMPRESSION: NORMAL RENAL AND BLADDER ULTRASOUND. Assessment & Plan - Diagnosis (1) Acute combined systolic and diastolic heart failure Is this a current diagnosis for this admission?: Yes (2) Atrial fibrillation with rapid ventricular response Is this a current diagnosis for this admission?: Yes (3) Atrial fibrillation with rapid ventricular response Is this a current diagnosis for this admission?: Yes (4) Diabetes mellitus type II, uncontrolled Qualifiers: Diabetes mellitus complication status: with neurologic complications Diabetes mellitus complication detail: with polyneuropathy Diabetes mellitus fdc insulin use: with termination clerk use Qualified Code(s): E11.42 - Type 2 diabetes mellitus with diabetic polyneuropathy Is this a current diagnosis for this admission?: Yes (5) Pneumonia Qualifiers: Pneumonia type: aspiration pneumonia Aspiration pneumonia type: unspecified Laterality: unspecified laterality Lung location: unspecified part of lung Qualified Code(s): J69.0 - Pneumonitis due to inhalation of food and vomit Is this a current diagnosis for this admission?: Yes (6) Gram positive septicemia Is this a current diagnosis for this admission?: Yes (7) Hypoglycemic encephalopathy Is this a current diagnosis for this admission?: Yes (8) Acute exacerbation of chronic obstructive pulmonary disease (COPD) Is this a current diagnosis for this admission?: Yes (9) Acute kidney injury Is this a current diagnosis for this admission?: Yes
[2017-08-23] MEDS: INSULIN GLARGINE,HUM.REC.ANLOG 300 UNIT/3 ML INSULN.PEN SUBCUT SCH (21:49)
--- NOTE | 2017-08-23 23:08 | PROGRESS NOTE E ---
Progress Note NAME: LC ANGUIANO : 1940 AGE: 77Y DATE: 08/23/2017 ROOM: 305 SUBJECTIVE: The patient denies any shortness of breath. She has no PND, but has some mild orthopnea. There is no chest pain or discomfort. The patient continues to be in sinus rhythm. There is no bleeding on Pradaxa. There is no TIA or CVA symptoms. There is no pedal edema. The patient denies any symptoms of TIA or CVA. OBJECTIVE: GENERAL: On examination the patient is moderately obese, but in no acute distress. She is well-groomed. She uses intermittent positive pressure, noninvasive ventilation. At present the patient is on room air. VITAL SIGNS: Her pulse is 58 beats per minute, still shows sinus bradycardia. She is afebrile with a temperature of 98 degrees Fahrenheit. Her blood pressure is 114/76. Her respirations are 18 per minute, O2 saturations are 94% on room air. HEENT: Head is normocephalic, atraumatic. Eyes: Pupils are equal, round, regular and reactive to light and accommodation. Extraocular movements are normal. There is mild conjunctival pallor. There is no scleral icterus. Tympanic membranes are normal. Nares are patent. Oropharynx is clear without exudates. Moist mucous membranes and tongue. There is no oral ulceration or bleeding gums. Note, tracheostomy scar is noted. NECK: Supple. There is no JVD. Carotids are equal, there is no bruit. Trachea is central. There is no cervical or axillary lymphadenopathy. There is no goiter. LUNGS: Without any accessory muscles of respiration use. Respirations seem to be normal. There is no wheezing, rales, rhonchi, or dullness noted. There is diminished air entry and prolonged expiration. On percussion there is slight hyperresonance. HEART: S1 and S2 is heard. The apical beat of heart is nonpalpable. There is a systolic murmur in the aortic area and a systolic murmur in the mitral area. S1 and S2 is heard. S1 is of normal intensity. There is no S3 gallop. There is no S4 gallop. There are no rubs. ABDOMEN: Soft, obese, nontender. Bowel sounds are well heard. There is no hepatosplenomegaly. There are no tender areas or masses. There is no rebound, guarding, or rigidity. EXTREMITIES: Femorals are deep. Femorals are diminished. Leg pulses are diminished. There is no pedal edema. There is no cyanosis or clubbing. There is no cellulitis. There is no calf tenderness. CENTRAL NERVOUS SYSTEM: The patient is conscious, awake, alert, and oriented x3 with no focal neurological deficits. There is no focal weakness appreciated. PSYCHIATRIC: The patient's judgment and insight are intact. Her affect is normal. INTAKE/OUTPUT: Note the patient's intake was 770 mL, output was 2100 mL. LABORATORY DATA: Note her only blood test done today was a blood sugar which was 147. IMPRESSION: 1. ACUTE ON CHRONIC CONGESTIVE HEART FAILURE. AT PRESENT SEEMS TO BE COMPENSATED. 2. PAROXYSMAL ATRIAL FIBRILLATION. AT PRESENT IN SINUS RHYTHM. NOT AMIODARONE HAS BEEN STOPPED, THE PATIENT IS ON METOPROLOL AND THE PATIENT IS ALSO ON PRADAXA. 3. COPD. AT PRESENT SEEMS TO BE STABLE. 4. HYPERTENSION. BLOOD PRESSURE IS WELL-CONTROLLED. 5. SLEEP APNEA SYNDROME, USES INTERMITTENT POSITIVE PRESSURE NONINVASIVE VENTILATION. 6. CARDIOMYOPATHY. 7. CHRONIC KIDNEY DISEASE STAGE 4. 8. DIABETES MELLITUS, INSULIN DEPENDENT WITH CHRONIC KIDNEY DISEASE. 9. ABNORMAL CHEST X-RAY WITH DIFFERENTIAL DIAGNOSIS WHICH IS ASPIRATION PNEUMONIA VERSUS BRONCHIOLITIS OBLITERANS, ORGANIZING PNEUMONIA. SEEMS TO BE GETTING BETTER. RECOMMENDATIONS: Continue the patient's Pradaxa at a lower dose. Continue the patient on current treatment, including metoprolol. Note that the patient should be able to be discharged here shortly to home with physiotherapy and occupational therapy at home. TIME SPENT: Note 30 minutes spent on this patient with more than 50% of the time spent on direct patient care. Her medications have been reviewed and *------* discussed with the attending physician on the case. Note that this is a moderately complex medical decision making with this case in view of the patient's significant multiple medical problems. Discussed with the attending physician and management of *------*. Dr. Parker will be covering tomorrow. DICTATING PHYSICIAN: MERARI MARLEY M.D. [id number] PHY#: [id number] ID: [id number] JOB#: [id number] ACCT: [id number] cc: >
[2017-08-24] MEDS: IPRATROPIUM/ALBUTEROL 0.5-2.5 MG/3 ML AMPUL NEB SCH ×4 (02:09→19:51)
[2017-08-24] MEDS: DABIGATRAN ETEXILATE 75 MG CAPSULE PO SCH ×2 (05:59→17:51)
[2017-08-24] MEDS: GABAPENTIN 300 MG CAPSULE PO SCH ×3 (06:01→21:38)
[2017-08-24] MEDS: INSULIN LISPRO 100 UNIT/ML 3 ML VIAL SUBCUT PRN ×2 (07:35→22:07)
[2017-08-24] MEDS: DIGOXIN 0.125 MG TABLET PO SCH (10:05)
[2017-08-24] MEDS: LORATADINE 10 MG TABLET PO SCH (10:05)
[2017-08-24] MEDS: METOPROLOL SUCCINATE 50 MG TAB.SR.24H PO SCH ×2 (10:06→21:36)
[2017-08-24] MEDS: TORSEMIDE 20 MG TABLET PO SCH (10:07)
[2017-08-24] MEDS: RANOLAZINE 500 MG TAB.SR.12H PO SCH ×2 (10:07→21:38)
[2017-08-24] MEDS: SACUBITRIL/VALSARTAN 24 MG/26 MG TABLET PO SCH ×2 (10:07→21:38)
[2017-08-24] MEDS: AZITHROMYCIN 250 MG TABLET PO SCH (13:24)
[2017-08-24] MEDS: CEFTRIAXONE 1 GM/D5W RTU 1 GM/50 ML RTUPB IV SCH (13:25)
--- NOTE | 2017-08-24 21:03 | PDOC PROGRESS REPORT ---
Subjective Progress Note for:: 08/24/17 Subjective:: Patient was seen by the bedside, she is improving with treatment on present regimen. Physical Exam Vital Signs: Temp Pulse Resp BP Pulse Ox 98.1 F 68 18 122/55 L 96 08/24/17 20:10 08/24/17 20:10 08/24/17 20:10 08/24/17 20:10 08/24/17 20:10 Intake & Output 08/23/17 08/24/17 08/25/17 06:59 06:59 06:59 Intake Total 770 1438 670 Output Total 2100 1000 Balance -1330 438 670 Weight 93.6 kg General appearance: PRESENT: no acute distress, well-developed, well-nourished Head exam: PRESENT: atraumatic, normocephalic Eye exam: PRESENT: conjunctiva pink, EOMI, PERRLA Ear exam: PRESENT: normal external ear exam Mouth exam: PRESENT: moist, tongue midline Neck exam: PRESENT: full ROM Respiratory exam: PRESENT: clear to auscultation mack Cardiovascular exam: PRESENT: RRR. ABSENT: diastolic murmur, rubs, systolic murmur Pulses: PRESENT: normal dorsalis pedis pul, +2 pedal pulses bilateral Vascular exam: PRESENT: normal capillary refill GI/Abdominal exam: PRESENT: normal bowel sounds, soft Rectal exam: PRESENT: deferred Neurological exam: PRESENT: alert, CN II-XII grossly intact Psychiatric exam: PRESENT: appropriate affect, normal mood Skin exam: PRESENT: dry, intact, warm. ABSENT: cyanosis, rash Results Laboratory Results: 08/22/17 04:37 08/22/17 04:37 08/12/17 08/12/17 08/12/17 01:20 01:20 01:20 Creatine Kinase 88 CK-MB (CK-2) 0.88 Troponin I 0.023 NT-Pro-B Natriuret Pep 2800 H 08/12/17 08/12/17 08/12/17 06:45 06:45 14:07 Creatine Kinase 78 58 CK-MB (CK-2) 0.88 Troponin I 0.021 NT-Pro-B Natriuret Pep 08/12/17 08/20/17 14:07 06:05 Creatine Kinase CK-MB (CK-2) 0.59 Troponin I 0.020 NT-Pro-B Natriuret Pep 325 Impressions: Head CT 08/17/17 00:00 IMPRESSION: Old small vessel disease. Limited study, no gross acute changes EVIDENCE OF ACUTE STROKE: NO. Chest X-Ray 08/19/17 19:33 IMPRESSION: Resolved pleural effusions. Mild residual interstitial prominence. Minimal linear subsegmental atelectasis in both lung bases. Chest CT 08/20/17 00:00 IMPRESSION: Multifocal consolidation, waxing and waning over the series of exams. Differential is recurrent aspiration/ multifocal pneumonia versus bronchiolitis obliterans. Sarcoidosis might cause this appearance. Significantly abnormal esophagus, with diffuse wall thickening and luminal narrowing. Small hiatal hernia. Question diffuse esophagitis. Renal Ultrasound 08/21/17 00:00 IMPRESSION: NORMAL RENAL AND BLADDER ULTRASOUND. Assessment & Plan - Diagnosis (1) Acute combined systolic and diastolic heart failure Is this a current diagnosis for this admission?: Yes (2) Atrial fibrillation with rapid ventricular response Is this a current diagnosis for this admission?: Yes (3) Atrial fibrillation with rapid ventricular response Is this a current diagnosis for this admission?: Yes (4) Diabetes mellitus type II, uncontrolled Qualifiers: Qualified Code(s): E11.42 - Type 2 diabetes mellitus with diabetic polyneuropathy; E11.65 - Type 2 diabetes mellitus with hyperglycemia; E11.65 - Type 2 diabetes mellitus with hyperglycemia; E11.65 - Type 2 diabetes mellitus with hyperglycemia; E11.65 - Type 2 diabetes mellitus with hyperglycemia; Z79.4 - [facility] (current) use of insulin; 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 ; 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; 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 Is this a current diagnosis for this admission?: Yes (5) Pneumonia Qualifiers: Qualified Code(s): J69.0 - Pneumonitis due to inhalation of food and vomit Is this a current diagnosis for this admission?: Yes (6) Gram positive septicemia Is this a current diagnosis for this admission?: Yes (7) Hypoglycemic encephalopathy Is this a current diagnosis for this admission?: Yes (8) Acute exacerbation of chronic obstructive pulmonary disease (COPD) Is this a current diagnosis for this admission?: Yes (9) Acute kidney injury Is this a current diagnosis for this admission?: Yes - Plan Summary Plan Summary: She will continue present regimen
[2017-08-24 21:36] LABS: ABSOLUTE LYMPHOCYTES (AUTO) 2.4 10^3/uL (0.5-4.7); ABSOLUTE MONOCYTES (AUTO) 0.3 10^3/uL (0.1-1.4); ABSOLUTE NEUT (AUTO) 1.5 10^3/uL (1.7-8.2); BASOPHILS % (AUTO) 0.5 % (0-2); EOSINOPHILS % (AUTO) 0.5 % (0-6); HEMATOCRIT 26.3 % (36.0-47.0); HEMOGLOBIN 8.3 g/dL (12.0-15.5); HGB HCT DIFFERENCE -1.4; LYMPHOCYTES % (AUTO) 55.5 % (13-45); MEAN CORPUSCULAR HEMOGLOBIN 28.7 pg (27.0-33.4); MEAN CORPUSCULAR HGB CONC 31.5 g/dL (32.0-36.0); MEAN CORPUSCULAR VOLUME 91 fl (80-97); MONOCYTES % (AUTO) 8.1 % (3-13); RED BLOOD COUNT 2.89 10^6/uL (3.72-5.28); RED CELL DISTRIBUTION WIDTH 18.1 % (11.5-14.0); SEGMENTED NEUTROPHILS % (AUTO) 35.4 % (42-78); WHITE BLOOD COUNT 4.2 10^3/uL (4.0-10.5)
[2017-08-24] MEDS: ATORVASTATIN CALCIUM 10 MG TABLET PO SCH (21:38)
[2017-08-24 22:06] LABS: ALANINE AMINOTRANSFERASE 60 U/L (9-52); ALBUMIN 3.3 g/dL (3.5-5.0); ALKALINE PHOSPHATASE 84 U/L (38-126); ANION GAP 11 (5-19); ASPARTATE AMINO TRANSFERASE 31 U/L (14-36); BILIRUBIN,DIRECT 0.4 mg/dL (0.0-0.4); BILIRUBIN,TOTAL 0.4 mg/dL (0.2-1.3); BLOOD UREA NITROGEN 51 mg/dL (7-20); CALCIUM 8.8 mg/dL (8.4-10.2); CARBON DIOXIDE 29 mmol/L (22-30); CHLORIDE 102 mmol/L (98-107); CREATININE RESULT 2.04 mg/dL (0.52-1.25); GLUCOSE 263 mg/dL (75-110); POTASSIUM 4.5 mmol/L (3.6-5.0); SODIUM 142.3 mmol/L (137-145); TOTAL PROTEIN 7.1 g/dL (6.3-8.2)
[2017-08-24] MEDS: INSULIN GLARGINE,HUM.REC.ANLOG 300 UNIT/3 ML INSULN.PEN SUBCUT SCH (22:07)
[2017-08-24 22:14] LABS: HEMATOCRIT 25.1 % (36.0-47.0); HGB HCT DIFFERENCE -1.1; MEAN CORPUSCULAR HEMOGLOBIN 28.7 pg (27.0-33.4); MEAN CORPUSCULAR HGB CONC 31.8 g/dL (32.0-36.0); MEAN CORPUSCULAR VOLUME 90 fl (80-97); RED BLOOD COUNT 2.78 10^6/uL (3.72-5.28); RED CELL DISTRIBUTION WIDTH 18.4 % (11.5-14.0); WHITE BLOOD COUNT 4.2 10^3/uL (4.0-10.5)
[2017-08-24 22:40] LABS: ANION GAP 10 (5-19); BLOOD UREA NITROGEN 49 mg/dL (7-20); CARBON DIOXIDE 30 mmol/L (22-30); CHLORIDE 102 mmol/L (98-107); CREATININE RESULT 1.88 mg/dL (0.52-1.25); GLUCOSE 257 mg/dL (75-110); POTASSIUM 4.2 mmol/L (3.6-5.0); SODIUM 141.5 mmol/L (137-145)
[2017-08-25] MEDS: IPRATROPIUM/ALBUTEROL 0.5-2.5 MG/3 ML AMPUL NEB SCH ×4 (02:08→19:30)
[2017-08-25] MEDS: DABIGATRAN ETEXILATE 75 MG CAPSULE PO SCH ×2 (06:28→17:12)
[2017-08-25] MEDS: GABAPENTIN 300 MG CAPSULE PO SCH ×3 (06:31→22:08)
[2017-08-25 06:48] LABS: HEMATOCRIT 24.7 % (36.0-47.0); HGB HCT DIFFERENCE -0.7; MEAN CORPUSCULAR HEMOGLOBIN 29.2 pg (27.0-33.4); MEAN CORPUSCULAR HGB CONC 32.4 g/dL (32.0-36.0); MEAN CORPUSCULAR VOLUME 90 fl (80-97); RED BLOOD COUNT 2.75 10^6/uL (3.72-5.28); RED CELL DISTRIBUTION WIDTH 17.6 % (11.5-14.0); WHITE BLOOD COUNT 3.5 10^3/uL (4.0-10.5)
[2017-08-25 06:53] LABS: ALANINE AMINOTRANSFERASE 51 U/L (9-52); ALBUMIN 3.1 g/dL (3.5-5.0); ALKALINE PHOSPHATASE 78 U/L (38-126); ANION GAP 11 (5-19); ASPARTATE AMINO TRANSFERASE 23 U/L (14-36); BILIRUBIN,DIRECT 0.4 mg/dL (0.0-0.4); BILIRUBIN,TOTAL 0.4 mg/dL (0.2-1.3); BLOOD UREA NITROGEN 45 mg/dL (7-20); CALCIUM 9.4 mg/dL (8.4-10.2); CARBON DIOXIDE 30 mmol/L (22-30); CHLORIDE 104 mmol/L (98-107); CREATININE RESULT 1.76 mg/dL (0.52-1.25); GLUCOSE 200 mg/dL (75-110); POTASSIUM 4.2 mmol/L (3.6-5.0); SODIUM 145.4 mmol/L (137-145)
[2017-08-25 07:35] LABS: ANISOCYTOSIS 2+; BASOPHILS % (MANUAL) 0 % (0-2); EOSINOPHILS % (MANUAL) 2 % (0-6); HYPOCHROMASIA 1+; LYMPHOCYTES % (MANUAL) 61 % (13-45); POLYCHROMASIA 1+; TOTAL CELLS COUNTED 100
[2017-08-25] MEDS: METOPROLOL SUCCINATE 50 MG TAB.SR.24H PO SCH ×2 (10:00→22:08)
[2017-08-25] MEDS: SACUBITRIL/VALSARTAN 24 MG/26 MG TABLET PO SCH (10:00)
[2017-08-25] MEDS: LORATADINE 10 MG TABLET PO SCH (10:01)
[2017-08-25] MEDS: DIGOXIN 0.125 MG TABLET PO SCH (10:01)
[2017-08-25] MEDS: TORSEMIDE 20 MG TABLET PO SCH (10:01)
[2017-08-25] MEDS: RANOLAZINE 500 MG TAB.SR.12H PO SCH ×2 (10:01→22:08)
--- NOTE | 2017-08-25 11:14 | PDOC PROGRESS REPORT ---
Subjective Progress Note for:: 08/24/17 Subjective:: Patient seems to be doing better than yesterday. Patient today noted to be sitting at bedside chair complaining of feeling better. Patient was seen in the morning. Still needing intermittent positive pressure noninvasive ventilation. Noted to be in sinus rhythm but telemetry strips reviewed shows intermittent atrial fibrillation last night. Review of systems: Rest review of systems negative. Medications: Medications have been reviewed. Physical Exam Vital Signs: Temp Pulse Resp BP Pulse Ox 98.1 F 68 18 122/55 L 96 08/24/17 20:10 08/24/17 20:10 08/24/17 20:10 08/24/17 20:10 08/24/17 20:10 Intake & Output 08/23/17 08/24/17 08/25/17 06:59 06:59 06:59 Intake Total 770 1438 670 Output Total 2100 1000 Balance -1330 438 670 Weight 93.6 kg Exam: GENERAL: well-nourished and in no acute distress. Alert and oriented x3 HEAD: Atraumatic, normocephalic. EYES: Pupils equal round and reactive to light, extraocular movements intact, sclera anicteric, conjunctiva are normal. ENT: TMs normal, nares patent, oropharynx clear without exudates. Moist mucous membranes. No oral ulcerations or bleeding gums noted NECK: supple without lymphadenopathy. Trachea is central. No cervical or axillary lymphadenopathy noted. Carotids are 2+, JVD WNL. Tracheostomy scar noted LUNGS: Respiration seems nonlabored, no significant accessory muscle action noted. Breath sounds clear to auscultation bilaterally and equal noted. No wheezes rales or rhonchi noted. No significant dullness noted on percussion. CHEST: Palpation of the chest wall shows no significant chest wall tenderness. No other significant abnormalities noted. 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 ABDOMEN: Soft, no significant tenderness appreciated, normoactive bowel sounds. No guarding, no rebound. No rigidity noted . No masses appreciated. EXTREMITIES: Pedal pulses are 1-2+, no calf tenderness noted. No clubbing or cyanosis.trace pedal edema noted NEUROLOGICAL: Focused neurological exam showed no significant neurologic deficit. Normal speech, no focal weakness appreciated. PSYCH: Normal mood, normal affect. Judgment and insight within normal limits. SKIN: No significant ecchymosis, rash, ulcerations or signs of pruritus noted. MUSCULOSKELETAL EXAM: No significant joint swelling noted. Results Laboratory Results: 08/22/17 04:37 08/22/17 04:37 08/12/17 08/12/17 08/12/17 01:20 01:20 01:20 Creatine Kinase 88 CK-MB (CK-2) 0.88 Troponin I 0.023 NT-Pro-B Natriuret Pep 2800 H 08/12/17 08/12/17 08/12/17 06:45 06:45 14:07 Creatine Kinase 78 58 CK-MB (CK-2) 0.88 Troponin I 0.021 NT-Pro-B Natriuret Pep 08/12/17 08/20/17 14:07 06:05 Creatine Kinase CK-MB (CK-2) 0.59 Troponin I 0.020 NT-Pro-B Natriuret Pep 325 EKG Comments: Patient noted to be maintaining sinus rhythm with mild intermittent bradycardia Impressions: Head CT 08/17/17 00:00 IMPRESSION: Old small vessel disease. Limited study, no gross acute changes EVIDENCE OF ACUTE STROKE: NO. Chest X-Ray 08/19/17 19:33 IMPRESSION: Resolved pleural effusions. Mild residual interstitial prominence. Minimal linear subsegmental atelectasis in both lung bases. Chest CT 08/20/17 00:00 IMPRESSION: Multifocal consolidation, waxing and waning over the series of exams. Differential is recurrent aspiration/ multifocal pneumonia versus bronchiolitis obliterans. Sarcoidosis might cause this appearance. Significantly abnormal esophagus, with diffuse wall thickening and luminal narrowing. Small hiatal hernia. Question diffuse esophagitis. Renal Ultrasound 08/21/17 00:00 IMPRESSION: NORMAL RENAL AND BLADDER ULTRASOUND. Assessment & Plan - Diagnosis (1) Congestive heart failure (CHF) Qualifiers: Congestive heart failure type: combined Congestive heart failure chronicity : acute on chronic Qualified Code(s): I50.43 - Acute on chronic combined systolic (congestive) and diastolic (congestive) heart failure Is this a current diagnosis for this admission?: Yes (2) Atrial fibrillation with rapid ventricular response Is this a current diagnosis for this admission?: Yes (3) COPD (chronic obstructive pulmonary disease) Qualifiers: Emphysema type: unspecified Is this a current diagnosis for this admission?: Yes (4) Hypertension Qualifiers: Hypertension type: essential hypertension Qualified Code(s): I10 - Essential (primary) hypertension (5) Sleep apnea syndrome Qualifiers: Sleep apnea type: unspecified type Qualified Code(s): G47.30 - Sleep apnea , unspecified Is this a current diagnosis for this admission?: Yes (6) Cardiomyopathy Qualifiers: Cardiomyopathy type: unspecified Qualified Code(s): I42.9 - Cardiomyopathy , unspecified Is this a current diagnosis for this admission?: Yes - Notes Notes: Congestive heart failure: Seems clinically compensated without any signs of fluid overload. Chest x-ray will be obtained tomorrow. Atrial fibrillation with rapid ventricular response: Patient currently maintaining sinus rhythm. She was in A. fib last night. Continue with chronic anticoagulation and rate control strategy. COPD: Most likely severe with some possible interstitial lung disease. Hypertension: Reasonably well-controlled. Sleep apnea syndrome: Continue with current management plans with noninvasive positive pressure ventilation on as needed during the day and on a regular basis at night. Cardiomyopathy: Will optimize dose of entresto based on blood pressure reading. - Time Time with patient: 15-25 minutes - CODE STATUS was discussed, patient remains full code. Surrogate decision-maker unchanged. Multiple medical problems were addressed. More than 50% of the time spent coordinating care, discussing management plans with involved caregivers. Management plans discussed with involved personnels. Medical decision making was of moderate to high complexity , patient's has multiple comorbidities. Medications reviewed and adjusted accordingly: Yes
--- NOTE | 2017-08-25 11:22 | PDOC PROGRESS REPORT ---
Subjective Progress Note for:: 08/25/17 Subjective:: Patient seems to be doing better than yesterday. Patient today noted sitting at the bedside chair. Patient today noted to be sitting at bedside chair complaining of feeling better. Noted to be in sinus rhythm with mild intermittent bradycardia. Review of systems: Rest review of systems negative. Medications: Medications have been reviewed. Physical Exam Vital Signs: Temp Pulse Resp BP Pulse Ox 98.1 F 56 L 14 129/46 H 96 08/25/17 07:15 08/25/17 08:57 08/25/17 08:57 08/25/17 07:15 08/25/17 08:57 Intake & Output 08/24/17 08/25/17 08/26/17 06:59 06:59 06:59 Intake Total 1438 992 Output Total 1000 850 Balance 438 142 Weight 94.2 kg Exam: GENERAL: well-nourished and in no acute distress. Alert and oriented x3 HEAD: Atraumatic, normocephalic. EYES: Pupils equal round and reactive to light, extraocular movements intact, sclera anicteric, conjunctiva are normal. ENT: TMs normal, nares patent, oropharynx clear without exudates. Moist mucous membranes. No oral ulcerations or bleeding gums noted NECK: supple without lymphadenopathy. Trachea is central. Tracheostomy scar noted. No cervical or axillary lymphadenopathy noted. Carotids are 2+, JVD WNL LUNGS: Respiration seems nonlabored, no significant accessory muscle action noted. Breath sounds clear to auscultation bilaterally and equal noted. No wheezes rales or rhonchi noted. No significant dullness noted on percussion. CHEST: Palpation of the chest wall shows no significant chest wall tenderness. No other significant abnormalities noted. 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 ABDOMEN: Soft, no significant tenderness appreciated, normoactive bowel sounds. No guarding, no rebound. No rigidity noted . No masses appreciated. EXTREMITIES: Pedal pulses are 1-2+, no calf tenderness noted. No clubbing or cyanosis.trace pedal edema noted NEUROLOGICAL: Focused neurological exam showed no significant neurologic deficit. Normal speech, no focal weakness appreciated. PSYCH: Normal mood, normal affect. Judgment and insight within normal limits. SKIN: No significant ecchymosis, rash, ulcerations or signs of pruritus noted. MUSCULOSKELETAL EXAM: No significant joint swelling noted. Results Laboratory Results: 08/25/17 06:15 08/25/17 06:15 08/24/17 08/24/17 08/24/17 21:18 21:18 22:00 WBC 4.2 4.2 RBC 2.89 L 2.78 L Hgb 8.3 L 8.0 L Hct 26.3 L 25.1 L MCV 91 90 MCH 28.7 28.7 MCHC 31.5 L 31.8 L RDW 18.1 H 18.4 H Plt Count 230 232 Seg Neutrophils % 35.4 L Lymphocytes % 55.5 H Monocytes % 8.1 Eosinophils % 0.5 Basophils % 0.5 Absolute Neutrophils 1.5 L Absolute Lymphocytes 2.4 Absolute Monocytes 0.3 Absolute Eosinophils 0.0 Absolute Basophils 0.0 Sodium 142.3 Potassium 4.5 Chloride 102 Carbon Dioxide 29 Anion Gap 11 BUN 51 H Creatinine 2.04 H Est GFR ( Amer) 29 L Est GFR (Non-Af Amer) 24 L Glucose 263 H Calcium 8.8 Total Bilirubin 0.4 AST 31 ALT 60 H Alkaline Phosphatase 84 Total Protein 7.1 Albumin 3.3 L 08/24/17 08/25/17 08/25/17 22:00 06:15 06:15 WBC 3.5 L RBC 2.75 L Hgb 8.0 L Hct 24.7 L MCV 90 MCH 29.2 MCHC 32.4 RDW 17.6 H Plt Count 228 Seg Neutrophils % Not Reportable Lymphocytes % Not Reportable Monocytes % Not Reportable Eosinophils % Not Reportable Basophils % Not Reportable Absolute Neutrophils Not Reportable Absolute Lymphocytes Not Reportable Absolute Monocytes Not Reportable Absolute Eosinophils Not Reportable Absolute Basophils Not Reportable Sodium 141.5 145.4 H Potassium 4.2 4.2 Chloride 102 104 Carbon Dioxide 30 30 Anion Gap 10 11 BUN 49 H 45 H Creatinine 1.88 H 1.76 H Est GFR ( Amer) 31 L 34 L Est GFR (Non-Af Amer) 26 L 28 L Glucose 257 H 200 H Calcium 9.0 9.4 Total Bilirubin 0.4 AST 23 ALT 51 Alkaline Phosphatase 78 Total Protein 7.0 Albumin 3.1 L 10/05/17 10/05/17 10/05/17 01:20 01:20 01:20 Creatine Kinase 88 CK-MB (CK-2) 0.88 Troponin I 0.023 NT-Pro-B Natriuret Pep 2800 H 08/12/17 08/12/17 08/12/17 06:45 06:45 14:07 Creatine Kinase 78 58 CK-MB (CK-2) 0.88 Troponin I 0.021 NT-Pro-B Natriuret Pep 08/12/17 08/20/17 14:07 06:05 Creatine Kinase CK-MB (CK-2) 0.59 Troponin I 0.020 NT-Pro-B Natriuret Pep 325 EKG Comments: Sinus rhythm with mild intermittent sinus bradycardia Impressions: Head CT 08/17/17 00:00 IMPRESSION: Old small vessel disease. Limited study, no gross acute changes EVIDENCE OF ACUTE STROKE: NO. Chest X-Ray 08/19/17 19:33 IMPRESSION: Resolved pleural effusions. Mild residual interstitial prominence. Minimal linear subsegmental atelectasis in both lung bases. Chest CT 08/20/17 00:00 IMPRESSION: Multifocal consolidation, waxing and waning over the series of exams. Differential is recurrent aspiration/ multifocal pneumonia versus bronchiolitis obliterans. Sarcoidosis might cause this appearance. Significantly abnormal esophagus, with diffuse wall thickening and luminal narrowing. Small hiatal hernia. Question diffuse esophagitis. Renal Ultrasound 08/21/17 00:00 IMPRESSION: NORMAL RENAL AND BLADDER ULTRASOUND. Assessment & Plan - Diagnosis (1) Congestive heart failure (CHF) Qualifiers: Congestive heart failure type: combined Congestive heart failure chronicity : acute on chronic Qualified Code(s): I50.43 - Acute on chronic combined systolic (congestive) and diastolic (congestive) heart failure Is this a current diagnosis for this admission?: Yes (2) Atrial fibrillation with rapid ventricular response Is this a current diagnosis for this admission?: Yes (3) COPD (chronic obstructive pulmonary disease) Qualifiers: Emphysema type: unspecified Is this a current diagnosis for this admission?: Yes (4) Hypertension Qualifiers: Hypertension type: essential hypertension Qualified Code(s): I10 - Essential (primary) hypertension (5) Sleep apnea syndrome Qualifiers: Sleep apnea type: unspecified type Qualified Code(s): G47.30 - Sleep apnea , unspecified Is this a current diagnosis for this admission?: Yes (6) Cardiomyopathy Qualifiers: Cardiomyopathy type: unspecified Qualified Code(s): I42.9 - Cardiomyopathy , unspecified Is this a current diagnosis for this admission?: Yes - Notes Notes: Same as yesterday. Have increased entresto dose. Have ordered a chest x-ray. Will order BNP level, digoxin level and chemistry panel for tomorrow morning. Patient looks much improved. Patient will need physical therapy. Patient tells me that she might be discharged tomorrow. Indications reviewed. - Time Time with patient: 15-25 minutes - CODE STATUS was discussed, patient remains full code. Surrogate decision-maker unchanged. Multiple medical problems were addressed. More than 50% of the time spent coordinating care, discussing management plans with involved caregivers. Management plans discussed with involved personnels. Medical decision making was of moderate to high complexity , patient's has multiple comorbidities. Medications reviewed and adjusted accordingly: Yes
--- NOTE | 2017-08-25 13:10 | RADIOLOGY REPORT (SQ) ---
EXAM DESCRIPTION: CHEST PA/LAT COMPLETED DATE/TIME: 08/25/2017 12:54 pm REASON FOR STUDY: followup CHF COMPARISON: 08/19/2017. TECHNIQUE: Frontal and lateral radiographic views of the chest acquired. NUMBER OF VIEWS: Two view. LIMITATIONS: None. FINDINGS: LUNGS AND PLEURA: Generally clear lungs today. No evidence of overt failure or pneumonia. No significant pleural fluid. No pneumothorax. MEDIASTINUM AND HILAR STRUCTURES: Stable contours. HEART AND VASCULAR STRUCTURES: Cardiac enlargement, stable. BONES: No acute findings. HARDWARE: Right port to the right atrium, grossly intact pre OTHER: No other significant finding. IMPRESSION: NO SIGNIFICANT RADIOGRAPHIC FINDING IN THE CHEST. TECHNICAL DOCUMENTATION: JOB ID: [id number] [employer]- All Rights Reserved
[2017-08-25] MEDS: AZITHROMYCIN 250 MG TABLET PO SCH (14:53)
[2017-08-25] MEDS: CEFTRIAXONE 1 GM/D5W RTU 1 GM/50 ML RTUPB IV SCH (14:54)
--- NOTE | 2017-08-25 17:00 | PDOC PROGRESS REPORT ---
Subjective Progress Note for:: 08/25/17 Subjective:: Patient is seen by the bedside, the chest x-ray that was done today showed no pulmonary edema, no pneumonia Physical Exam Vital Signs: Temp Pulse Resp BP Pulse Ox 98.1 F 60 16 108/48 L 97 08/25/17 15:32 08/25/17 15:32 08/25/17 15:32 08/25/17 15:32 08/25/17 15:32 Intake & Output 08/24/17 08/25/17 08/26/17 06:59 06:59 06:59 Intake Total 1438 992 437 Output Total 0482 652 7578 Balance 438 142 -563 Weight 94.2 kg General appearance: PRESENT: no acute distress, well-developed, well-nourished Head exam: PRESENT: atraumatic, normocephalic Eye exam: PRESENT: conjunctiva pink, EOMI, PERRLA Ear exam: PRESENT: normal external ear exam Mouth exam: PRESENT: moist, tongue midline Neck exam: PRESENT: full ROM Respiratory exam: PRESENT: clear to auscultation mack Cardiovascular exam: PRESENT: RRR, +S1, +S2 Pulses: PRESENT: normal dorsalis pedis pul, +2 pedal pulses bilateral Vascular exam: PRESENT: normal capillary refill GI/Abdominal exam: PRESENT: normal bowel sounds, soft Rectal exam: PRESENT: deferred Neurological exam: PRESENT: alert, awake, oriented to person, oriented to place , oriented to time, oriented to situation, CN II-XII grossly intact Psychiatric exam: PRESENT: appropriate affect, normal mood Skin exam: PRESENT: dry, intact, warm Results Laboratory Results: 08/25/17 06:15 08/25/17 06:15 08/24/17 08/24/17 08/24/17 21:18 21:18 22:00 WBC 4.2 4.2 RBC 2.89 L 2.78 L Hgb 8.3 L 8.0 L Hct 26.3 L 25.1 L MCV 91 90 MCH 28.7 28.7 MCHC 31.5 L 31.8 L RDW 18.1 H 18.4 H Plt Count 230 232 Seg Neutrophils % 35.4 L Lymphocytes % 55.5 H Monocytes % 8.1 Eosinophils % 0.5 Basophils % 0.5 Absolute Neutrophils 1.5 L Absolute Lymphocytes 2.4 Absolute Monocytes 0.3 Absolute Eosinophils 0.0 Absolute Basophils 0.0 Sodium 142.3 Potassium 4.5 Chloride 102 Carbon Dioxide 29 Anion Gap 11 BUN 51 H Creatinine 2.04 H Est GFR ( Amer) 29 L Est GFR (Non-Af Amer) 24 L Glucose 263 H Calcium 8.8 Total Bilirubin 0.4 AST 31 ALT 60 H Alkaline Phosphatase 84 Total Protein 7.1 Albumin 3.3 L 08/24/17 08/25/17 08/25/17 22:00 06:15 06:15 WBC 3.5 L RBC 2.75 L Hgb 8.0 L Hct 24.7 L MCV 90 MCH 29.2 MCHC 32.4 RDW 17.6 H Plt Count 228 Seg Neutrophils % Not Reportable Lymphocytes % Not Reportable Monocytes % Not Reportable Eosinophils % Not Reportable Basophils % Not Reportable Absolute Neutrophils Not Reportable Absolute Lymphocytes Not Reportable Absolute Monocytes Not Reportable Absolute Eosinophils Not Reportable Absolute Basophils Not Reportable Sodium 141.5 145.4 H Potassium 4.2 4.2 Chloride 102 104 Carbon Dioxide 30 30 Anion Gap 10 11 BUN 49 H 45 H Creatinine 1.88 H 1.76 H Est GFR ( Amer) 31 L 34 L Est GFR (Non-Af Amer) 26 L 28 L Glucose 257 H 200 H Calcium 9.0 9.4 Total Bilirubin 0.4 AST 23 ALT 51 Alkaline Phosphatase 78 Total Protein 7.0 Albumin 3.1 L 08/12/17 08/12/17 08/12/17 01:20 01:20 01:20 Creatine Kinase 88 CK-MB (CK-2) 0.88 Troponin I 0.023 NT-Pro-B Natriuret Pep 2800 H 08/12/17 08/12/17 08/12/17 06:45 06:45 14:07 Creatine Kinase 78 58 CK-MB (CK-2) 0.88 Troponin I 0.021 NT-Pro-B Natriuret Pep 08/12/17 08/20/17 14:07 06:05 Creatine Kinase CK-MB (CK-2) 0.59 Troponin I 0.020 NT-Pro-B Natriuret Pep 325 Impressions: Head CT 08/17/17 00:00 IMPRESSION: Old small vessel disease. Limited study, no gross acute changes EVIDENCE OF ACUTE STROKE: NO. Chest CT 08/20/17 00:00 IMPRESSION: Multifocal consolidation, waxing and waning over the series of exams. Differential is recurrent aspiration/ multifocal pneumonia versus bronchiolitis obliterans. Sarcoidosis might cause this appearance. Significantly abnormal esophagus, with diffuse wall thickening and luminal narrowing. Small hiatal hernia. Question diffuse esophagitis. Renal Ultrasound 08/21/17 00:00 IMPRESSION: NORMAL RENAL AND BLADDER ULTRASOUND. Chest X-Ray 08/25/17 11:15 IMPRESSION: NO SIGNIFICANT RADIOGRAPHIC FINDING IN THE CHEST. Assessment & Plan - Diagnosis (1) Acute combined systolic and diastolic heart failure Is this a current diagnosis for this admission?: Yes (2) Atrial fibrillation with rapid ventricular response Is this a current diagnosis for this admission?: Yes (3) Atrial fibrillation with rapid ventricular response Is this a current diagnosis for this admission?: Yes (4) Diabetes mellitus type II, uncontrolled Qualifiers: Diabetes mellitus complication status: with neurologic complications Diabetes mellitus complication detail: with polyneuropathy Diabetes mellitus alf insulin use: with alf use Qualified Code(s): E11.42 - Type 2 diabetes mellitus with diabetic polyneuropathy Is this a current diagnosis for this admission?: Yes (5) Pneumonia Qualifiers: Pneumonia type: aspiration pneumonia Aspiration pneumonia type: unspecified Laterality: unspecified laterality Lung location: unspecified part of lung Qualified Code(s): J69.0 - Pneumonitis due to inhalation of food and vomit Is this a current diagnosis for this admission?: Yes (6) Gram positive septicemia Is this a current diagnosis for this admission?: Yes (7) Hypoglycemic encephalopathy Is this a current diagnosis for this admission?: Yes (8) Acute exacerbation of chronic obstructive pulmonary disease (COPD) Is this a current diagnosis for this admission?: Yes (9) Acute kidney injury Is this a current diagnosis for this admission?: Yes
[2017-08-25] MEDS: INSULIN LISPRO 100 UNIT/ML 3 ML VIAL SUBCUT PRN ×2 (17:12→22:07)
[2017-08-25] MEDS: SACUBITRIL/VALSARTAN 49 MG/51 MG TABLET PO SCH (17:13)
[2017-08-25] MEDS: INSULIN GLARGINE,HUM.REC.ANLOG 300 UNIT/3 ML INSULN.PEN SUBCUT SCH (22:07)
[2017-08-25] MEDS: ATORVASTATIN CALCIUM 10 MG TABLET PO SCH (22:08)
[2017-08-26] MEDS: IPRATROPIUM/ALBUTEROL 0.5-2.5 MG/3 ML AMPUL NEB SCH ×4 (02:13→19:43)
[2017-08-26] MEDS: DABIGATRAN ETEXILATE 75 MG CAPSULE PO SCH ×2 (05:47→17:44)
[2017-08-26] MEDS: GABAPENTIN 300 MG CAPSULE PO SCH ×3 (05:47→21:43)
[2017-08-26 06:16] LABS: ALANINE AMINOTRANSFERASE 49 U/L (9-52); ALBUMIN 3.4 g/dL (3.5-5.0); ALKALINE PHOSPHATASE 72 U/L (38-126); ANION GAP 12 (5-19); ASPARTATE AMINO TRANSFERASE 25 U/L (14-36); BILIRUBIN,DIRECT 0.4 mg/dL (0.0-0.4); BILIRUBIN,TOTAL 0.5 mg/dL (0.2-1.3); BLOOD UREA NITROGEN 36 mg/dL (7-20); CALCIUM 9.4 mg/dL (8.4-10.2); CARBON DIOXIDE 31 mmol/L (22-30); CHLORIDE 104 mmol/L (98-107); CREATININE RESULT 1.47 mg/dL (0.52-1.25); DIGOXIN 1.49 ng/mL (0.8-2.0); GLUCOSE 114 mg/dL (75-110); POTASSIUM 4.2 mmol/L (3.6-5.0); SODIUM 146.6 mmol/L (137-145); TOTAL PROTEIN 7.3 g/dL (6.3-8.2)
[2017-08-26] MEDS: SACUBITRIL/VALSARTAN 49 MG/51 MG TABLET PO SCH ×2 (07:06→17:44)
[2017-08-26] MEDS: TORSEMIDE 20 MG TABLET PO SCH (09:09)
[2017-08-26] MEDS: RANOLAZINE 500 MG TAB.SR.12H PO SCH ×2 (09:10→21:43)
[2017-08-26] MEDS: LORATADINE 10 MG TABLET PO SCH (09:10)
[2017-08-26] MEDS: METOPROLOL SUCCINATE 50 MG TAB.SR.24H PO SCH ×2 (09:33→21:43)
--- NOTE | 2017-08-26 10:00 | PDOC PROGRESS REPORT ---
Subjective Progress Note for:: 08/26/17 Subjective:: Patient seems to be doing better than yesterday. Patient today noted sitting at the bedside chair. Patient today noted to be sitting at bedside chair complaining of feeling better. Noted to be in sinus rhythm with mild intermittent bradycardia. Review of systems: Rest review of systems negative. Medications: Medications have been reviewed. Physical Exam Vital Signs: Temp Pulse Resp BP Pulse Ox 97.5 F 52 L 16 127/55 H 100 08/26/17 07:58 08/26/17 07:58 08/26/17 07:58 08/26/17 07:58 08/26/17 07:58 Intake & Output 08/25/17 08/26/17 08/27/17 06:59 06:59 06:59 Intake Total 992 1821 Output Total 850 2650 Balance 142 -829 Weight 94.2 kg 94.8 kg Exam: GENERAL: well-nourished and in no acute distress. Alert and oriented x3 HEAD: Atraumatic, normocephalic. EYES: Pupils equal round and reactive to light, extraocular movements intact, sclera anicteric, conjunctiva are normal. ENT: TMs normal, nares patent, oropharynx clear without exudates. Moist mucous membranes. No oral ulcerations or bleeding gums noted NECK: supple without lymphadenopathy. Trachea is central. Tracheostomy scar noted. No cervical or axillary lymphadenopathy noted. Carotids are 2+, JVD WNL LUNGS: Respiration seems nonlabored, no significant accessory muscle action noted. Breath sounds clear to auscultation bilaterally and equal noted. No wheezes rales or rhonchi noted. No significant dullness noted on percussion. CHEST: Palpation of the chest wall shows no significant chest wall tenderness. No other significant abnormalities noted. 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 ABDOMEN: Soft, no significant tenderness appreciated, normoactive bowel sounds. No guarding, no rebound. No rigidity noted . No masses appreciated. EXTREMITIES: Pedal pulses are 1-2+, no calf tenderness noted. No clubbing or cyanosis.trace pedal edema noted NEUROLOGICAL: Focused neurological exam showed no significant neurologic deficit. Normal speech, no focal weakness appreciated. PSYCH: Normal mood, normal affect. Judgment and insight within normal limits. SKIN: No significant ecchymosis, rash, ulcerations or signs of pruritus noted. MUSCULOSKELETAL EXAM: No significant joint swelling noted. Results Laboratory Results: 08/25/17 06:15 08/26/17 04:40 08/26/17 04:40 Sodium 146.6 H Potassium 4.2 Chloride 104 Carbon Dioxide 31 H Anion Gap 12 BUN 36 H Creatinine 1.47 H Est GFR ( Amer) 42 L Est GFR (Non-Af Amer) 34 L Glucose 114 H Calcium 9.4 Total Bilirubin 0.5 AST 25 ALT 49 Alkaline Phosphatase 72 Total Protein 7.3 Albumin 3.4 L 08/12/17 08/12/17 08/12/17 01:20 01:20 01:20 Creatine Kinase 88 CK-MB (CK-2) 0.88 Troponin I 0.023 NT-Pro-B Natriuret Pep 2800 H 08/12/17 08/12/17 08/12/17 06:45 06:45 14:07 Creatine Kinase 78 58 CK-MB (CK-2) 0.88 Troponin I 0.021 NT-Pro-B Natriuret Pep 08/12/17 08/20/17 08/26/17 14:07 06:05 04:40 Creatine Kinase CK-MB (CK-2) 0.59 Troponin I 0.020 NT-Pro-B Natriuret Pep 325 283 EKG Comments: SR, mild SB Impressions: Head CT 08/17/17 00:00 IMPRESSION: Old small vessel disease. Limited study, no gross acute changes EVIDENCE OF ACUTE STROKE: NO. Chest CT 08/20/17 00:00 IMPRESSION: Multifocal consolidation, waxing and waning over the series of exams. Differential is recurrent aspiration/ multifocal pneumonia versus bronchiolitis obliterans. Sarcoidosis might cause this appearance. Significantly abnormal esophagus, with diffuse wall thickening and luminal narrowing. Small hiatal hernia. Question diffuse esophagitis. Renal Ultrasound 08/21/17 00:00 IMPRESSION: NORMAL RENAL AND BLADDER ULTRASOUND. Chest X-Ray 08/25/17 11:15 IMPRESSION: NO SIGNIFICANT RADIOGRAPHIC FINDING IN THE CHEST. Assessment & Plan - Diagnosis (1) Congestive heart failure (CHF) Qualifiers: Congestive heart failure type: combined Congestive heart failure chronicity : acute on chronic Qualified Code(s): I50.43 - Acute on chronic combined systolic (congestive) and diastolic (congestive) heart failure Is this a current diagnosis for this admission?: Yes (2) Atrial fibrillation with rapid ventricular response Is this a current diagnosis for this admission?: Yes (3) COPD (chronic obstructive pulmonary disease) Qualifiers: Emphysema type: unspecified Is this a current diagnosis for this admission?: Yes (4) Hypertension Qualifiers: Hypertension type: essential hypertension Qualified Code(s): I10 - Essential (primary) hypertension (5) Sleep apnea syndrome Qualifiers: Sleep apnea type: unspecified type Qualified Code(s): G47.30 - Sleep apnea , unspecified Is this a current diagnosis for this admission?: Yes (6) Cardiomyopathy Qualifiers: Cardiomyopathy type: unspecified Qualified Code(s): I42.9 - Cardiomyopathy , unspecified Is this a current diagnosis for this admission?: Yes (7) Bradycardia Is this a current diagnosis for this admission?: Yes - Notes Notes: Doing Well. Tolerated increased entresto dose. reviewed chest x-ray. reviewed BNP level, reviewed chemistry panel results. Patient looks much improved. Patient will need physical therapy. Noted to have mild SB, reduce Digoxin to QOD. Digoxin level reviewed. Adequate digoxin level should be less than 1. - Time Time with patient: 15-25 minutes - CODE STATUS was discussed, patient remains full code. Surrogate decision-maker unchanged. Multiple medical problems were addressed. More than 50% of the time spent coordinating care, discussing management plans with involved caregivers. Management plans discussed with involved personnels. Medical decision making was of moderate to high complexity , patient's has multiple comorbidities. Medications reviewed and adjusted accordingly: Yes
[2017-08-26] MEDS: CEFTRIAXONE 1 GM/D5W RTU 1 GM/50 ML RTUPB IV SCH (12:22)
[2017-08-26] MEDS: AZITHROMYCIN 250 MG TABLET PO SCH (13:18)
[2017-08-26] MEDS: INSULIN LISPRO 100 UNIT/ML 3 ML VIAL SUBCUT PRN (17:44)
[2017-08-26] MEDS ORDERED: INFLUENZA ADLT QUAD (36MOS+) 2017-18 VAC 0.5 ML SYR IM PRN (21:13)
[2017-08-26 21:14] VITALS: BP 121/35
[2017-08-26] MEDS: ATORVASTATIN CALCIUM 10 MG TABLET PO SCH (21:43)
--- NOTE | 2017-08-26 22:09 | PDOC DISCHARGE SUMMARY ---
General - Admit/Disc Date/PCP Admission Date/Primary Care Provider: 08/12/17 00:47 OBED BOGGS MD Discharge Date: 08/26/17 - Discharge Diagnosis (1) Acute combined systolic and diastolic heart failure Is this a current diagnosis for this admission?: Yes (2) Atrial fibrillation with rapid ventricular response Is this a current diagnosis for this admission?: Yes (3) Atrial fibrillation with rapid ventricular response Is this a current diagnosis for this admission?: Yes (4) Diabetes mellitus type II, uncontrolled Is this a current diagnosis for this admission?: Yes (5) Pneumonia Is this a current diagnosis for this admission?: Yes (6) Gram positive septicemia Is this a current diagnosis for this admission?: Yes (7) Hypoglycemic encephalopathy Is this a current diagnosis for this admission?: Yes (8) Acute exacerbation of chronic obstructive pulmonary disease (COPD) Is this a current diagnosis for this admission?: Yes (9) Acute kidney injury Is this a current diagnosis for this admission?: Yes - Additional Information Resuscitation Status: Full Code Discharge Diet: Cardiac, Diabetic Discharge Activity: Activity As Tolerated, Balance Activity w/Rest, Weigh Daily Home Medications: Atorvastatin Calcium [Lipitor 10 mg Tablet] 10 mg PO QHS 08/12/17 Chlorpheniramine Maleate [Chlor-Trimeton 4 mg Tablet] 1 tab PO Q6HP PRN Gabapentin [Neurontin 300 mg Capsule] 300 mg PO Q8 08/12/17 Insulin Aspart [Novolog Flexpen] 6 unit SUBCUT AC 08/12/17 Insulin Glargine,Hum.rec.anlog [Lantus Insulin 100 Unit/1 ml 10 ml] 40 unit SUBCUT QHS 08/12/17 Metoprolol Succinate [Toprol XL 100 mg Tablet] 100 mg PO Q12 08/12/17 Azithromycin [Zithromax 250 mg Tablet] 500 mg PO DAILY@1400 #10 tablet 08/26/17 Dabigatran Etexilate Mesylate [Pradaxa 150 mg Capsule] 75 mg PO Q12 #0 08/26/17 Empagliflozin/Metformin HCl [Synjardy Xr 25-1,000 mg Tablet] 1 each PO DAILY # 90 tab.bp.24h 08/26/17 Sacubitril/Valsartan [Entresto 49 mg-51 mg Tablet] 1 each PO BID #60 tablet Sacubitril/Valsartan [Entresto 49 mg/51 mg Tablet] 1 tab PO Q12A #60 tablet Torsemide [Demadex 20 mg Tablet] 20 mg PO DAILY #30 tablet 08/26/17 History of Present Illness History of Present Illness: LC ANGUIANO is a 77 year old female, She has a history of paroxysmal atrial fibrillation, chronic obstructive lung disease, type 2 diabetes mellitus, she came to the emergency room for evaluation of shortness of breath cough and palpitation. In the emergency room she was found to have atrial fibrillation with rapid ventricular response, she was treated with adenosine and Cardizem infusion without much response in the rate.Hospital admission was advised ,on the floor she was started on amiodarone infusion this was complicated with hypotension. Patient is known to have atrial fibrillation, chronically, on anticoagulant with Pradaxa.She was subsequently stabilized. A 2D echo was done this morning it showed left ventricle ejection fraction of 35%, the left ventricle is grossly normal size the Doppler evaluation suggests grade [address] chest was done he showed moderate-sized bilateral pleural effusions also found was mass like areas of consolidation in the anterior aspect of the left upper lobe peripherally of the right upper lobe and periphery of the left lower lobe the chest CT is most suggestive of fluid overload this is probably related to the fluid resuscitation that was administered to the patient was initially low blood pressure Hospital Course Hospital Course: Patient was admitted with acute systolic and diastolic heart failure associated with atrial fibrillation with rapid ventricular response. She was treated with initially in the emergency room with Cardizem infusion, this was transitioned to amiodarone infusion she developed hypotension initially on admission. Initially she developed sinus rhythm but she converted back to atrial fibrillation and she required intravenous amiodarone. Hospital course was complicated with acute kidney injury ,pneumonia, respiratory failure. She required noninvasive positive pressure ventilation, BiPAP she also had episode of hypoglycemia associated with encephalopathy.She was treated with intravenous antibiotic for the pneumonia on this admission she was started on entresto for the acute systolic heart failure. She also required digoxin for rate control of the atrial fibrillation. The beta-jerry was adjusted, she is a diabetic she was on Actos for the control of diabetes this was discontinued, if recommended was also discontinued his admission because of concern for Invokana and amputations, she has a history of peripheral vascular disease the document was changed to Synjardy.CT chest was done during the course of his admission he showed small to moderate size bilateral pleural effusions. Diffuse thickened interlobular septa likely from interstitial edema. At both bases there was patchy airspace disease present, pulmonary edema versus pneumonia was suspected. More masslike areas of consolidation are present in the anterior aspect left upper lobe, 2.4 cm diameter, periphery of the right upper lobe 2 x 1 cm on periphery of the left lower lobe this could represent multifocal pneumonia. Subsequent to x-ray done yesterday show complete clearing of infiltratesPatient improved clinically, she felt much better the last 2 days, she is not requiring any noninvasive positive pressure ventilation with BiPAP Physical Exam Vital Signs: Temp Pulse Resp BP Pulse Ox 98.1 F 73 16 121/35 L 99 08/26/17 21:09 08/26/17 21:09 08/26/17 21:09 08/26/17 21:09 08/26/17 21:09 Intake & Output 08/25/17 08/26/17 08/27/17 06:59 06:59 06:59 Intake Total 992 1821 1011 Output Total 850 2650 Balance 142 -829 1011 Weight 94.2 kg 94.8 kg General appearance: PRESENT: no acute distress Head exam: PRESENT: atraumatic, normocephalic Eye exam: PRESENT: conjunctiva pink, EOMI, PERRLA Neck exam: PRESENT: full ROM Respiratory exam: PRESENT: clear to auscultation mack Cardiovascular exam: PRESENT: RRR, +S1, +S2 Pulses: PRESENT: normal dorsalis pedis pul, +2 pedal pulses bilateral Vascular exam: PRESENT: normal capillary refill GI/Abdominal exam: PRESENT: normal bowel sounds, soft Rectal exam: PRESENT: deferred Neurological exam: PRESENT: alert, awake, oriented to person, oriented to place , oriented to time, oriented to situation, CN II-XII grossly intact. ABSENT: motor sensory deficit Psychiatric exam: PRESENT: appropriate affect, normal mood Skin exam: PRESENT: dry, intact, warm Results Laboratory Results: 08/25/17 06:15 08/26/17 04:40 08/26/17 04:40 Sodium 146.6 H Potassium 4.2 Chloride 104 Carbon Dioxide 31 H Anion Gap 12 BUN 36 H Creatinine 1.47 H Est GFR ( Amer) 42 L Est GFR (Non-Af Amer) 34 L Glucose 114 H Calcium 9.4 Total Bilirubin 0.5 AST 25 ALT 49 Alkaline Phosphatase 72 Total Protein 7.3 Albumin 3.4 L 08/12/17 08/12/17 08/12/17 01:20 01:20 01:20 Creatine Kinase 88 CK-MB (CK-2) 0.88 Troponin I 0.023 NT-Pro-B Natriuret Pep 2800 H 08/12/17 08/12/17 08/12/17 06:45 06:45 14:07 Creatine Kinase 78 58 CK-MB (CK-2) 0.88 Troponin I 0.021 NT-Pro-B Natriuret Pep 08/12/17 08/20/17 08/26/17 14:07 06:05 04:40 Creatine Kinase CK-MB (CK-2) 0.59 Troponin I 0.020 NT-Pro-B Natriuret Pep 325 283 Impressions: Head CT 08/17/17 00:00 IMPRESSION: Old small vessel disease. Limited study, no gross acute changes EVIDENCE OF ACUTE STROKE: NO. Chest CT 08/20/17 00:00 IMPRESSION: Multifocal consolidation, waxing and waning over the series of exams. Differential is recurrent aspiration/ multifocal pneumonia versus bronchiolitis obliterans. Sarcoidosis might cause this appearance. Significantly abnormal esophagus, with diffuse wall thickening and luminal narrowing. Small hiatal hernia. Question diffuse esophagitis. Renal Ultrasound 08/21/17 00:00 IMPRESSION: NORMAL RENAL AND BLADDER ULTRASOUND. Chest X-Ray 08/25/17 11:15 IMPRESSION: NO SIGNIFICANT RADIOGRAPHIC FINDING IN THE CHEST.
[2017-08-27] MEDS ORDERED: DIGOXIN 0.125 MG TABLET PO SCH (10:00)
== END 2017-08-26 22:00 | disposition home health service (06) | DRG 871 ==
LOC: ER 17:31 → EH 22:06 → UNDOADMIN 22:06 → EH 23:58 → 3N 23:58 → EH 08-12 00:47 → 3N 08-12 00:47
PROVIDERS: ADMIT Internal Medicine; ATTEND Internal Medicine
PROC: 5A09557 Assistance with Respiratory Ventilation, Greater than 96 Consecutive Hours, Continuous Positive Airway Pressure (ICD-10-PCS; 2017-08-11)
PROC: 3E0F73Z Introduction of Anti-inflammatory into Respiratory Tract, Via Natural or Artificial Opening (ICD-10-PCS; 2017-08-18)
PROC: 3E0234Z Introduction of Serum, Toxoid and Vaccine into Muscle, Percutaneous Approach (ICD-10-PCS; principal; 2017-08-26)
DX: A41.89 Other specified sepsis (principal); I50.41 Acute combined systolic (congestive) and diastolic (congestive) heart failure; J69.0 Pneumonitis due to inhalation of food and vomit; J44.1 Chronic obstructive pulmonary disease with (acute) exacerbation; N17.9 Acute kidney failure, unspecified; I42.9 Cardiomyopathy, unspecified; N18.4 Chronic kidney disease, stage 4 (severe); I13.0 Hypertensive heart and chronic kidney disease with heart failure and stage 1 through stage 4 chronic kidney disease, or unspecified chronic kidney disease; I48.0 Paroxysmal atrial fibrillation; E11.65 Type 2 diabetes mellitus with hyperglycemia; E11.649 Type 2 diabetes mellitus with hypoglycemia without coma; K44.9 Diaphragmatic hernia without obstruction or gangrene; G47.30 Sleep apnea, unspecified; C50.912 Malignant neoplasm of unspecified site of left female breast; E11.42 Type 2 diabetes mellitus with diabetic polyneuropathy; E11.51 Type 2 diabetes mellitus with diabetic peripheral angiopathy without gangrene; Z68.37 Body mass index [BMI] 37.0-37.9, adult; E66.9 Obesity, unspecified; E11.22 Type 2 diabetes mellitus with diabetic chronic kidney disease; Z82.49 Family history of ischemic heart disease and other diseases of the circulatory system; Z79.899 Other long term (current) drug therapy; Z23 Encounter for immunization; Z79.4 Long term (current) use of insulin; Z90.710 Acquired absence of both cervix and uterus; Z96.652 Presence of left artificial knee joint; Z87.891 Personal history of nicotine dependence
CPT/HCPCS: 36415; 36600; 70450; 71010; 71020; 71250; 76770; 80048; 80053; 80061; 80162; 80307; 81001; 82140; 82150; 82550; 82553; 82803; 82962; 83036; 83690; 83735; 83880; 84100; 84133; 84300; 84439; 84443; 84484; 85025; 85027; 85362; 85379; 85384; 85610; 85730; 87040; 87077; 87086; 87186; 90686; 93005; 93010; 93306; 94660; 96365; 96375; 96376; 99285; G8978-GP; G8979-GP; G8987-GO; G8988-GO; J0153; J0282; J0456; J0610; J0696; J1160; J1815; J1940; J3490; J7030; J7060; J7620

== ENCOUNTER → 2017-11-23 | Outpatient (CLI) | payer MEDICARE, MEDICAID ==
--- NOTE | 2017-11-24 16:38 | WOMENS IMAGING REPORT ---
EXAM DESCRIPTION: BILAT DIAGNOSTIC MAMMO W/CAD COMPLETED DATE/TIME: 11/23/2017 10:40 am REASON FOR STUDY: HX OF BREAST CANCER C50.919 MALIGNANT NEOPLASM OF UNSP SITE OF UNSPECIFIED FEMAL Z85.3 PERSONAL HISTORY OF MALIGNANT NEOPLASM OF BREAST COMPARISON: Multiple previous since 2011 TECHNIQUE: Standard craniocaudal and mediolateral oblique views of each breast recorded using digita l acquisition. Additional left breast compression magnification views of the lumpectomy site lower inner quadrant, a dditional left breast 90 mediolateral view LIMITATIONS: None. FINDINGS: RIGHT BREAST MASSES: No suspicious masses. CALCIFICATIONS: No new or suspicious calcifications. ARCHITECTURAL DISTORTION: None. DEVELOPING DENSITY: None. ASYMMETRY: None noted. OTHER: No other significant findings. LEFT BREAST MASSES: No suspicious masses. CALCIFICATIONS: No new or suspicious calcifications. ARCHITECTURAL DISTORTION: Postsurgical architectural distortion lower inner quadrant left breast DEVELOPING DENSITY: None. ASYMMETRY: None noted. OTHER: Skin thickening post left breast radiation Read with the assistance of CAD: .[facility] - R2 Cenova Version 1.3 .[facility] - R2 Cenova Version 1.3 .[facility] - R2 Cenova Version 2.4 .[facility] [place] Cenova Version 2.4 .[facility] - R2 Form Coverer Version 9.2 IMPRESSION: No mammographic evidence for malignancy bilaterally BREAST DENSITY: b. There are scattered areas of fibroglandular density. BIRAD: 2 Benign findings. RECOMMENDATION: RECOMMENDED FOLLOW UP: Continue right breast screening, left breast diagnostic mammo graphy in November 2018. Consider bilateral tomosynthesis SPECIFIC INTERVENTION/IMAGING/CONSULTATION RECOMMENDED:No additional intervention/ imaging/consultati on needed at this time. COMMUNICATION:Patient notified by letter COMMENT: The patient has been notified of the results by letter per SA requirements. Additional no tification policies are in place for contacting patient with suspicious or incomplete findings. Quality ID #[id number]: The [employer] recommends an annual screening mammogram for women aged 40 years or over. This facility utilizes a reminder system to ensure that all patients receive reminder letters, and/or direct phone calls for appointments. This includes reminders for routine scr eening mammograms, diagnostic mammograms, or other Breast Imaging Interventions when appropriate. Th is patient will be placed in the appropriate reminder system. The [employer] ([employer]) has developed recommendations for screening MRI of the breast s in certain patient populations, to be used in conjunction with mammography. Breast MRI surveillanc e may be appropriate for women with more than 20% lifetime risk of developing breast cancer as deter mined by genetic testing, significant family history of the disease, or history of mantle radiation f or Hodgkins Disease. ACR Practice Guidelines 2008. TECHNICAL DOCUMENTATION: FINDING NUMBER: (1) ASSESSMENT: (1) JOB ID: [id number] [employer]- All Rights Reserved
== END ==
LOC: WI 09:50
PROVIDERS: ATTEND Internal Medicine Medical Oncology
DX: C50.312 Malignant neoplasm of lower-inner quadrant of left female breast (principal)
CPT/HCPCS: 77066

== ENCOUNTER 2017-12-25 16:45 | Inpatient (IN) | payer MEDICARE, MEDICAID ==
--- NOTE | 2017-12-25 18:05 | ER Document Report ---
ED Medical Screen (RME) - General Mode of Arrival: Ambulatory Information source: Patient TRAVEL OUTSIDE OF THE [place] IN LAST 30 DAYS: No - HPI Onset: This morning Onset/Duration: Sudden Quality of pain: Cramping - JUST BEFORE EMESIS Severity: Moderate Associated Symptoms: Nausea. denies: Chest pain, Cough (productive), Diarrhea, Dysuria, Shortness of breath Exacerbated by: Food Relieved by: Denies Similar symptoms previously: No Recently seen / treated by doctor: No - Related Data Smoking: Non-smoker Frequency of alcohol use: None Drug Abuse: None <RAMO DUPONT - Last Filed: 12/25/17 17:59> <CAS PENG V - Last Filed: 12/25/17 22:08> - General Chief Complaint: Vomiting Stated Complaint: VOMITING Time Seen by Provider: 12/25/17 17:58 Notes: 77-year-old lady with past medical history of diabetes, atrial fibrillation on Pradaxa who presented today for evaluation of vomiting. According to patient she started not feeling well today early in the morning and start having multiple episodes of vomiting. Patient denies any fevers, chills, chest pain or shortness of breath. Patient denies any diarrhea today. Emesis appears to be liquid-like, hematemesis or coffee-ground. (CAS PENG V) - Related Data Allergies/Adverse Reactions: No Known Allergies Allergy (Verified 12/25/17 16:46) Past Medical History - General Information source: Patient - Social History Cigarette use (# per day): No Chew tobacco use (# tins/day): No Frequency of alcohol use: None Drug Abuse: None Lives with: Family Family history: None - Past Medical History Cardiac Medical History: Reports: Hx Atrial Fibrillation, Hx Hypertension, Hx Peripheral Vascular Disease Denies: Hx Congestive Heart Failure, Hx Coronary Artery Disease, Hx Heart Attack, Hx Hypercholesterolemia, Hx Pulmonary Embolism, Hx Heart Murmur Pulmonary Medical History: Reports: Hx Bronchitis - approx 2 x yrly, Hx Pneumonia - Nov 2012 (hospitalized), Hx Sleep Apnea - C-PAP use Denies: Hx Asthma, Hx COPD, Hx Respiratory Failure, Hx Tuberculosis Neurological Medical History: Denies: Hx Cerebrovascular Accident, Hx Seizures Endocrine Medical History: Reports: Hx Diabetes Mellitus Type 2. Denies: Hx Graves' Disease, Hx Hyperthyroidism, Hx Hypothyroidism Renal/ Medical History: Denies: Hx End Stage Renal Disease, Hx Kidney Stones, Hx Ovarian Cysts, Hx Peritoneal Dialysis, Hx Pelvic Inflammatory Disease Malignancy Medical History: Reports: Hx Breast Cancer - Left, FINISHED CHEMO Tx 2 MOS AGO. Denies: Hx Cervical Cancer, Hx Lung Cancer, Hx Ovarian Cancer GI Medical History: Reports: None Musculoskeltal Medical History: Reports Hx Arthritis - Knees, Denies Hx Fibromyalgia, Denies Hx Multiple Sclerosis, Denies Hx Muscular Dystrophy Psychiatric Medical History: Denies: Hx Dementia, Hx Depression Traumatic Medical History: Denies: Hx Fractures Past Surgical History: Reports: Hx Breast Surgery - lumpectomy, Hx Hysterectomy , Hx Orthopedic Surgery - Left knee replacement, Hx Tonsillectomy. Denies: Hx Appendectomy, Hx Bowel Surgery, Hx Section, Hx Cholecystectomy, Hx Coronary Artery Bypass Graft, Hx Gastric Bypass Surgery, Hx Herniorrhaphy, Hx Mastectomy, Hx Pacemaker, Hx Tubal Ligation - Immunizations Immunizations up to date: Yes Hx Diphtheria, Pertussis, Tetanus Vaccination: Yes History of Influenza Vaccine for 08/2017 - 01/2018 Season: Yes <RAMO DUPONT - Last Filed: 12/25/17 17:59> - General Information source: Patient, Relative <CAS PENG V - Last Filed: 12/25/17 22:08> Review of Systems - Review of Systems Constitutional: No symptoms reported. denies: Chills, Fever EENT: No symptoms reported Cardiovascular: No symptoms reported Respiratory: No symptoms reported Gastrointestinal: See HPI Genitourinary: No symptoms reported Musculoskeletal: No symptoms reported Skin: No symptoms reported Neurological/Psychological: No symptoms reported <RAMO DUPONT - Last Filed: 12/25/17 17:59> <CAS PENG V - Last Filed: 12/25/17 22:08> - Review of Systems Notes: REVIEW OF SYSTEMS: CONSTITUTIONAL: -fevers, -chills EENT: -eye pain, -difficulty swallowing, -nasal congestion CARDIOVASCULAR: -chest pain, -syncope. RESPIRATORY: -cough, -SOB GASTROINTESTINAL: -abdominal pain, +nausea, + vomiting, -diarrhea GENITOURINARY: -dysuria, -hematuria MUSCULOSKELETAL: -back pain, -neck pain SKIN: -rash or skin lesions. HEMATOLOGIC: -easy bruising or bleeding. LYMPHATIC: -swollen, enlarged glands. NEUROLOGICAL: -altered mental status or loss of consciousness, -headache, - neurologic symptoms PSYCHIATRIC: -anxiety, -depression. ALL OTHER SYSTEMS REVIEWED AND NEGATIVE. (CAS PENG V) Physical Exam - Vital signs Interpretation: Hypotensive, Tachypneic. No: Tachycardic - General General appearance: Appears well, Alert In distress: None - HEENT Head: Normocephalic Eyes: Normal Conjunctiva: Normal Ears: Normal Nasal: Normal Mouth/Lips: Normal Mucous membranes: Dry - MILDLY Pharynx: Normal - Respiratory Respiratory status: No respiratory distress Breath sounds: Normal - Cardiovascular Rhythm: Regular Heart sounds: Normal auscultation Murmur: No - Abdominal Inspection: Morbidly Obese Bowel sounds: Hypoactive - Extremities General upper extremity: Normal inspection General lower extremity: Normal inspection - Neurological Neuro grossly intact: Yes Cognition: Normal Orientation: AAOx4 - Psychological Associated symptoms: Normal affect, Normal mood - Skin Skin Temperature: Warm Skin Moisture: Dry Skin Color: Normal Skin Turgor: Elastic <RAMO DUPONT - Last Filed: 12/25/17 17:59> <CAS PENG V - Last Filed: 12/25/17 22:08> - Vital signs Vitals: Temp Pulse Resp BP Pulse Ox 97.9 F 77 24 H 99/52 L 97 12/25/17 17:00 12/25/17 17:00 12/25/17 17:00 12/25/17 17:00 12/25/17 17:00 - Notes Notes: Reviewed vital signs and nursing note as charted by RN. CONSTITUTIONAL: Alert and oriented and responds appropriately to questions HEAD: Normocephalic; atraumatic EYES: PERRL; Conjunctivae clear, sclerae non-icteric ENT: normal nose; no rhinorrhea; dry mucous membranes; pharynx without lesions noted NECK: Supple without meningismus; non-tender; no cervical lymphadenopathy, no masses CARD: Tachycardia, irregularly irregular rhythm; no murmurs, no clicks, no rubs , no gallops; symmetric distal pulses RESP: Normal chest excursion without splinting or tachypnea; breath sounds clear and equal bilaterally ABD/GI: Normal bowel sounds; non-distended; soft, no tenderness to palpation BACK: The back appears normal and is non-tender to palpation EXT: Normal ROM in all joints; non-tender to palpation; no cyanosis, no effusions, no edema SKIN: Normal color for age and race; warm; dry; good turgor; capillary refill < 2 seconds; no acute lesions noted NEURO: .Cranial nerves 3-12 intact. Motor strength 5/5 bilaterally. Sensation intact to touch bilaterally. No pronator drift. Finger to nose intact bilaterally PSYCH: The patient's mood and manner are appropriate. Grooming and personal hygiene are appropriate. (CAS PENG V) Course <RAMO DUPONT - Last Filed: 12/25/17 17:59> - Laboratory Result Diagrams: 12/25/17 19:40 12/25/17 19:40 <CAS PENG V - Last Filed: 12/25/17 22:08> - Re-evaluation Re-evalutation: 12/25/17 20:52 77-year-old with history of A. fib as well as diabetes who presented today with vomiting Differential diagnosis includes A. fib with RVR, ACS, electrolyte abnormalities , dehydration, hyperthyroidism, DKA We will obtain basic lab work including CBC, BMP, urinalysis EKG, cardiac markers, TSH, electrolytes We will start patient IV fluids, continuous cardiac monitoring as well as pulse oximetry We will give patient IV diltiazem to slow down her right Reassess patient 12/25/17 21:42 Reassessment 9:40 PM Patient continues to have tenuous blood pressures, will continue with IV fluids as well as insulin drip for her hyperglycemia When the blood pressure is improving we will start diltiazem drip I have discussed the case with Dr. Fernandez, agree with admission to [facility] bed (CAS PENG V) - Vital Signs Vital signs: Temp Pulse Resp BP Pulse Ox 97.7 F 77 20 119/105 H 89 L 12/25/17 21:28 12/25/17 17:00 12/25/17 22:00 12/25/17 21:56 12/25/17 22:00 - Laboratory Laboratory results interpreted by me: 12/25/17 12/25/17 12/25/17 19:40 19:40 19:40 MCHC 31.8 L RDW 18.6 H Plt Count 135 L Seg Neutrophils % 40.0 L Lymphocytes % 51.7 H Potassium 5.4 H Carbon Dioxide 21 L BUN 32 H Creatinine 2.13 H Est GFR ( Amer) 27 L Est GFR (Non-Af Amer) 22 L Glucose 563 H* Magnesium 1.5 L Total Bilirubin 1.6 H Direct Bilirubin 0.5 H Total Protein 9.0 H - EKG Interpretation by Me Additional EKG results interpreted by me: 12/25/17 21:48 Initial EKG was done at 6:20 PM Heart rate 173 Narrow complex, irregularly irregular, consistent with atrial fibrillation with RVR ST depressions noted laterally compared to prior EKG No ST elevation Repeat EKG 8:50 PM Heart rate improving, 154 Normal axis Irregularly irregular, atrial fibrillation with RVR Improvement of ST depressions in lateral leads (CAS PENG V) Critical Care Note <RAMO DUPONT - Last Filed: 12/25/17 17:59> - Critical Care Note Total time excluding time spent on procedures (mins): 60 <CAS PENG V - Last Filed: 12/25/17 22:08> - Critical Care Note Comments: Critical Care Time: 60 minutes Critical care provider statement: Critical care time was exclusive of: Separately billable procedures and treating other patients and teaching time Critical care was time spent personally by me on the following activities: Blood draw for specimens, development of treatment plan with patient or surrogate, evaluation of patient's response to treatment, examination of patient , obtaining history from patient or surrogate, ordering and performing treatments and interventions, ordering and review of laboratory studies, ordering and review of radiographic studies, pulse oximetry, re-evaluation of patient's condition and review of old charts I assumed direction of critical care for this patient from another provider in my specialty: no (CAS PENG V) Doctor's Discharge <RAMO DUPONT - Last Filed: 12/25/17 17:59> <CAS PENG V - Last Filed: 12/25/17 22:08> - Discharge Clinical Impression: DKA (diabetic ketoacidoses), Chronic atrial fibrillation with RVR, Hypomagnesemia, Vomiting Condition: Stable Disposition: ADMITTED INPATIENT Referrals: BARB MAHER MD [Primary Care Provider] - Follow up as needed
[2017-12-25] MEDS ORDERED: NORMAL SALINE 1000 ML 1,000 ML IV ONE (18:12)
[2017-12-25] MEDS ORDERED: ONDANSETRON 4 MG TAB.RAPDIS PO ONE (18:12)
[2017-12-25 20:00] LABS: ABSOLUTE LYMPHOCYTES (AUTO) 4.4 10^3/uL (0.5-4.7); ABSOLUTE MONOCYTES (AUTO) 0.7 10^3/uL (0.1-1.4); ABSOLUTE NEUT (AUTO) 3.4 10^3/uL (1.7-8.2); BASOPHILS % (AUTO) 0.2 % (0-2); HEMATOCRIT 43.5 % (36.0-47.0); HEMOGLOBIN 13.8 g/dL (12.0-15.5); LYMPHOCYTES % (AUTO) 51.7 % (13-45); MEAN CORPUSCULAR HEMOGLOBIN 29.6 pg (27.0-33.4); MEAN CORPUSCULAR HGB CONC 31.8 g/dL (32.0-36.0); MEAN CORPUSCULAR VOLUME 93 fl (80-97); MONOCYTES % (AUTO) 8.1 % (3-13); PLATELET COUNT 135 10^3/uL (150-450); RED BLOOD COUNT 4.67 10^6/uL (3.72-5.28); RED CELL DISTRIBUTION WIDTH 18.6 % (11.5-14.0); TOTAL CELLS COUNTED % (AUTO) 100 %; WHITE BLOOD COUNT 8.5 10^3/uL (4.0-10.5)
[2017-12-25 20:17] LABS: ALANINE AMINOTRANSFERASE 16 U/L (9-52); ALBUMIN 4.6 g/dL (3.5-5.0); ALKALINE PHOSPHATASE 110 U/L (38-126); ANION GAP 18 (5-19); ASPARTATE AMINO TRANSFERASE 32 U/L (14-36); BILIRUBIN,DIRECT 0.5 mg/dL (0.0-0.4); BILIRUBIN,TOTAL 1.6 mg/dL (0.2-1.3); BLOOD UREA NITROGEN 32 mg/dL (7-20); CALCIUM 9.7 mg/dL (8.4-10.2); CARBON DIOXIDE 21 mmol/L (22-30); CHLORIDE 98 mmol/L (98-107); LIPASE 53.4 U/L (23-300); POTASSIUM 5.4 mmol/L (3.6-5.0)
[2017-12-25] MEDS ORDERED: DILTIAZEM HCL INJ 25 MG/5 ML VIAL IV ONE (20:21)
[2017-12-25] MEDS ORDERED: DILTIAZEM HCL INJ 25 MG/5 ML VIAL ONE (20:21)
[2017-12-25 20:30] LABS: GLUCOSE 563 mg/dL (75-110)
[2017-12-25] MEDS ORDERED: NORMAL SALINE 100 ML with INSULIN REGULAR, HUMAN 100 UNIT SUBCUT PRN ×2 (20:55)
[2017-12-25] MEDS ORDERED: MAGNESIUM SULFATE/D5W 1 GM/100 ML RTUPB IV ONE (21:37)
[2017-12-25] MEDS ORDERED: INSULIN REG, HUMAN 100 UNIT/ML 3 ML VIAL (PYX) ONE (21:41)
--- NOTE | 2017-12-25 21:42 | RADIOLOGY REPORT (SQ) ---
EXAM DESCRIPTION: CHEST SINGLE VIEW COMPLETED DATE/TIME: 12/25/2017 9:35 pm REASON FOR STUDY: weakness COMPARISON: None. NUMBER OF VIEWS: One view. TECHNIQUE: Single frontal radiographic view of the chest acquired. LIMITATIONS: None. FINDINGS: LUNGS AND PLEURA: No opacities, masses or pneumothorax. No pleural effusion. MEDIASTINUM AND HILAR STRUCTURES: No masses. Contour normal. HEART AND VASCULAR STRUCTURES: Heart normal in size. Normal vasculature. BONES: No acute findings. HARDWARE: Right port. OTHER: No other significant finding. IMPRESSION: NO SIGNIFICANT RADIOGRAPHIC FINDING IN THE CHEST. TECHNICAL DOCUMENTATION: JOB ID: [id number] [employer]- All Rights Reserved
[2017-12-25] MEDS ORDERED: DILTIAZEM HCL/D5W 125 MG/125 ML RTUINJ IV PRN (21:47)
--- NOTE | 2017-12-25 22:14 | EKG REPORT ---
SEVERITY:- ABNORMAL ECG - ATRIAL FIBRILLATION LVH WITH SECONDARY REPOLARIZATION ABNORMALITY ST DEPRESSION, PROBABLY RATE RELATED : Confirmed by: Domo Parker 25-Dec-2017 22:13:59
--- NOTE | 2017-12-25 22:14 | EKG REPORT ---
SEVERITY:- ABNORMAL ECG - ATRIAL FIBRILLATION WITH RAPID V-RATE LVH WITH SECONDARY REPOLARIZATION ABNORMALITY : Confirmed by: Domo Parker 25-Dec-2017 22:12:58
[2017-12-25 22:21] LABS: APPEARANCE,URINE SLIGHTLY-CLOUDY; BILIRUBIN,URINE NEGATIVE (NEGATIVE); COLOR,URINE YELLOW; GLUCOSE, URINE >=500 mg/dL (NEGATIVE); KETONES,URINE NEGATIVE (NEGATIVE); LEUKOCYTE ESTERASE,URINE NEGATIVE (NEGATIVE); NITRITE,URINE NEGATIVE (NEGATIVE); PROTEIN,URINE NEGATIVE (NEGATIVE); URINE SPECIFIC GRAVITY 1.026; UROBILINOGEN,URINE NEGATIVE mg/dL (<2.0)
[2017-12-26] MEDS ORDERED: DEXTROSE 5%-NORMAL SALINE 1,000 ML IV PRN (00:26)
[2017-12-26] MEDS ORDERED: DEXTROSE 5%-1/4 NORMAL SALINE 1,000 ML IV PRN (00:26)
[2017-12-26] MEDS ORDERED: DEXTROSE 40% GEL 15 GM TUBE X 2 PO PRN ×2 (01:02→08:48)
[2017-12-26] MEDS ORDERED: DEXTROSE 40% GEL 15 GM TUBE PO PRN ×2 (01:02→08:48)
[2017-12-26] MEDS ORDERED: DEXTROSE 50%-WATER SYRINGE 12.5 GM/25 ML DOSE IV PRN ×2 (01:02→08:48)
[2017-12-26] MEDS ORDERED: GLUCAGON,HUMAN RECOMB 1 MG INJ IM PRN ×2 (01:02→08:48)
[2017-12-26] MEDS ORDERED: INSULIN, REGULAR 100 UNIT/100 ML NORMAL SALINE IV PRN ×2 (01:02)
[2017-12-26] MEDS ORDERED: DEXTROSE 50%-WATER SYRINGE 25 GM/50 ML DOSE IV PRN ×2 (01:02→08:48)
[2017-12-26] MEDS ORDERED: INFLUENZA ADLT QUAD (36MOS+) 2017-18 VAC 0.5 ML SYR IM PRN (03:26)
[2017-12-26] MEDS: INSULIN LISPRO 100 UNIT/ML 3 ML VIAL SUBCUT PRN ×3 (09:28→23:08)
--- NOTE | 2017-12-26 13:35 | PDOC H&P ---
History of Present Illness Admission Date/PCP: 12/25/17 23:22 OBED BOGGS MD History of Present Illness: LC ANGUIANO is a 77 year old female patient of Dr. Boggs who presented to the ED with compliant of vomiting that started on the morning f her presentation. She reported associated nausea but no abdominal pain, diarrhea, chest pain, difficulty with breathing, fever or chills. She denied any headache or dizziness. Family at bedside reported excessive intake of apple juice. Her initial evaluation in the ED was remarkable for Atrial fibrillation with rapid ventricular rate, hyperglycemia with low anion gap suggestive of possible DKA and hypomagnesemia. Her morbidities include Diabetes Mellitus Type 2, Chronic Atrial Fibrillation, Hypertension, Peripheral Vascular Disease, Left breast cancer with completion of chemotherapy about 2 months ago. Past Medical History Cardiac Medical History: Reports: Atrial Fibrillation, Hypertension, Peripheral Vascular Disease Denies: Congestive Heart Failure, Coronary Artery Disease, Myocardial Infarction, Hyperlipidema, Pulmonary Embolism, Heart Murmur Pulmonary Medical History: Reports: Bronchitis - approx 2 x yrly, Pneumonia - Nov 2012 (hospitalized), Sleep Apnea - C-PAP use Denies: Asthma, Chronic Obstructive Pulmonary Disease (COPD), Respiratory Failure, Tuberculosis Neurological Medical History: Denies: Seizures Endocrine Medical History: Reports: Diabetes Mellitus Type 2 Denies: Hyperthyroidism, Hypothyroidism Renal/ Medical History: Denies: End Stage Renal Disease Malignancy Medical History: Reports: Breast Cancer - Left, FINISHED CHEMO Tx 2 MOS AGO Denies: Cervical Cancer, Lung Cancer, Ovarian Cancer GI Medical History: Reports: None Musculoskeltal Medical History: Reports: Arthritis - Knees Denies: Fibromyalgia Psychiatric Medical History: Denies: Dementia, Depression Hematology: Denies: Anemia Past Surgical History Past Surgical History: Reports: Hysterectomy, Orthopedic Surgery - Left knee replacement, Tonsillectomy Denies: Amputation, Appendectomy, Section, Cholecystectomy, Coronary Artery Bypass Graft, Gastric Bypass Surgery, Herniorrhaphy, Mastectomy , Pacemaker, Tubal Ligation Social History Lives with: Family Smoking Status: Former Smoker Frequency of Alcohol Use: None Hx Recreational Drug Use: No Drugs: None Hx Prescription Drug Abuse: No - Advance Directive Resuscitation Status: Full Code Family History Family History: Hypertension Parental Family History Reviewed: Yes Children Family History Reviewed: Yes Sibling(s) Family History Reviewed.: Yes Medication/Allergy Home Medications: Atorvastatin Calcium [Lipitor 10 mg Tablet] 10 mg PO QHS 12/26/17 Chlorpheniramine Maleate [Chlor-Trimeton 4 mg Tablet] 4 mg PO Q6HP PRN 12/26/17 Dabigatran Etexilate Mesylate [Pradaxa 75 mg Capsule] 75 mg PO Q12 12/26/17 Empagliflozin/Metformin HCl [Synjardy Xr 25-1,000 mg Tablet] 1 tab PO DAILY Insulin Aspart [Novolog Flexpen] 6 units SUBCUT TID 12/26/17 Insulin Glargine,Hum.rec.anlog [Lantus Insulin 100 Unit/1 ml 10 ml] 40 unit SUBCUT QHS 12/26/17 Losartan Potassium [Cozaar 50 mg Tablet] 50 mg PO DAILY 12/26/17 Metoprolol Succinate [Toprol XL 100 mg Tablet] 100 mg PO Q12 12/26/17 Pioglitazone HCl [Actos] 30 mg PO DAILY 12/26/17 Torsemide [Demadex 20 mg Tablet] 20 mg PO DAILY 12/26/17 Allergies/Adverse Reactions: No Known Allergies Allergy (Verified 12/25/17 16:46) Review of Systems Constitutional: ABSENT: chills, fever(s), headache(s), weight gain, weight loss Ears: ABSENT: hearing changes Nose, Mouth, and Throat: ABSENT: as per HPI, headache(s), mouth pain, sore throat, vertigo, other Cardiovascular: ABSENT: chest pain, dyspnea on exertion, edema, orthropnea, palpitations Respiratory: ABSENT: cough, hemoptysis Gastrointestinal: PRESENT: nausea, vomiting. ABSENT: as per HPI, abdominal pain , bloating, coffee ground emesis, constipation, diarrhea, dysphagia, heartburn, hematemesis, hematochezia, melena, other Genitourinary: ABSENT: dysuria, hematuria Musculoskeletal: ABSENT: joint swelling Integumentary: ABSENT: rash, wounds Neurological: ABSENT: abnormal gait, abnormal speech, confusion, dizziness, focal weakness, syncope Psychiatric: ABSENT: anxiety, depression, homidical ideation, suicidal ideation Endocrine: ABSENT: as per HPI, cold intolerance, flushing, heat intolerance, polydipsia, polyphagia, polyuria, other Hematologic/Lymphatic: ABSENT: easy bleeding, easy bruising, lymphadenopathy Allergic/Immunologic: ABSENT: seasonal rhinorrhea Physical Exam Vital Signs: Temp Pulse Resp BP Pulse Ox 98.1 F 75 20 118/75 100 12/26/17 11:38 12/26/17 11:38 12/26/17 11:38 12/26/17 11:38 12/26/17 11:38 Intake & Output 12/25/17 12/26/17 12/27/17 06:59 06:59 06:59 Intake Total 300 365 Output Total 0 Balance 300 365 Weight 88 kg General appearance: PRESENT: no acute distress, obese, well-developed, well- nourished Head exam: PRESENT: atraumatic, normocephalic Eye exam: PRESENT: conjunctiva pink, EOMI, PERRLA. ABSENT: scleral icterus Ear exam: PRESENT: normal external ear exam Mouth exam: PRESENT: moist Teeth exam: PRESENT: poor dentation Neck exam: PRESENT: full ROM. ABSENT: carotid bruit, JVD, lymphadenopathy, thyromegaly Respiratory exam: PRESENT: clear to auscultation mack Cardiovascular exam: PRESENT: RRR, +S1, +S2. ABSENT: diastolic murmur, rubs, systolic murmur Vascular exam: PRESENT: normal capillary refill. ABSENT: pallor GI/Abdominal exam: PRESENT: normal bowel sounds, soft. ABSENT: distended, guarding, mass, organolmegaly, rebound, tenderness Rectal exam: PRESENT: deferred Extremities exam: ABSENT: pedal edema Musculoskeletal exam: PRESENT: deformity - related to multiple joints involvement with arthritis. Neurological exam: PRESENT: alert, awake, oriented to person, oriented to place , oriented to time, oriented to situation, CN II-XII grossly intact. ABSENT: motor sensory deficit Psychiatric exam: PRESENT: appropriate affect, normal mood. ABSENT: homicidal ideation, suicidal ideation Skin exam: PRESENT: dry, intact, warm. ABSENT: cyanosis, rash Results Laboratory Results: I reviewed her lab results on [employer] and form a significant input in my medial decision making. Impressions: Chest X-Ray 12/25/17 00:00 IMPRESSION: NO SIGNIFICANT RADIOGRAPHIC FINDING IN THE CHEST. Assessment & Plan - Diagnosis (1) DKA (diabetic ketoacidoses) Qualifiers: Diabetes mellitus type: type 2 Is this a current diagnosis for this admission?: Yes Plan: See covering admitting attending physician orders. (2) Chronic atrial fibrillation with RVR Is this a current diagnosis for this admission?: Yes Plan: See covering admitting attending physician orders. (3) Hypomagnesemia Is this a current diagnosis for this admission?: Yes Plan: See covering admitting attending physician orders. (4) COPD (chronic obstructive pulmonary disease) Qualifiers: Emphysema type: unspecified Is this a current diagnosis for this admission?: Yes Plan: See covering admitting attending physician orders. (5) Diabetes mellitus type II, uncontrolled Qualifiers: Diabetes mellitus complication status: with neurologic complications Diabetes mellitus complication detail: with polyneuropathy Diabetes mellitus intermediate insulin use: with termite control servicer use Qualified Code(s): E11.42 - Type 2 diabetes mellitus with diabetic polyneuropathy Is this a current diagnosis for this admission?: Yes Plan: See covering admitting attending physician orders. (6) Obesity (BMI 30-39.9) Is this a current diagnosis for this admission?: Yes Plan: See covering admitting attending physician orders. - Time Time Spent: 50 to 70 Minutes Medications reviewed and adjusted accordingly: Yes Anticipated discharge: Home with Homehealth Within: Other - Inpatient Certification Based on my medical assessment, after consideration of the patient's comorbidities, presenting symptoms, or acuity I expect that the services needed warrant INPATIENT care.: Yes I certify that my determination is in accordance with my understanding of Medicare's requirements for reasonable and necessary INPATIENT services [42 CFR 412.3e].: Yes Medical Necessity: Need Close Monitoring Due to Risk of Patient Decompensation, Need For IV Fluids, Need For Continuous Telemetry Monitoring, Risk of Complication if Not Cared For in Hospital Post Hospital Care: D/C Slot Attendant Documentation - Plan Summary Plan Summary: See covering admitting attending physician orders.
[2017-12-26] MEDS ORDERED: INSULIN ASPART 6 UNIT SUBCUT SCH (14:00)
[2017-12-26] MEDS ORDERED: DABIGATRAN ETEXILATE 75 MG CAPSULE PO ONE (14:00)
[2017-12-26] MEDS: INSULIN LISPRO 100 UNIT/ML 3 ML VIAL SUBCUT SCH (17:17)
[2017-12-26] MEDS ORDERED: INSULIN GLARGINE,HUM.REC.ANLOG 1,000 UNIT/10 ML UNIT SUBCUT SCH (22:00)
[2017-12-26] MEDS: METOPROLOL SUCCINATE 50 MG TAB.SR.24H PO SCH (22:51)
[2017-12-26] MEDS: DABIGATRAN ETEXILATE 75 MG CAPSULE PO SCH (22:58)
[2017-12-26] MEDS: ATORVASTATIN CALCIUM 10 MG TABLET PO SCH (22:59)
[2017-12-26] MEDS ORDERED: DILTIAZEM HCL INJ 25 MG/5 ML VIAL ONE (23:49)
[2017-12-26] MEDS ORDERED: DILTIAZEM HCL INJ 25 MG/5 ML VIAL IV ONE (23:59)
[2017-12-27 07:20] LABS: ABSOLUTE LYMPHOCYTES (AUTO) 3.2 10^3/uL (0.5-4.7); ABSOLUTE MONOCYTES (AUTO) 0.6 10^3/uL (0.1-1.4); BASOPHILS % (AUTO) 0.2 % (0-2); EOSINOPHILS % (AUTO) 0.3 % (0-6); HEMATOCRIT 35.1 % (36.0-47.0); LYMPHOCYTES % (AUTO) 54.1 % (13-45); MEAN CORPUSCULAR HEMOGLOBIN 29.5 pg (27.0-33.4); MEAN CORPUSCULAR HGB CONC 32.1 g/dL (32.0-36.0); MEAN CORPUSCULAR VOLUME 92 fl (80-97); MONOCYTES % (AUTO) 10.6 % (3-13); PLATELET COUNT 130 10^3/uL (150-450); RED BLOOD COUNT 3.82 10^6/uL (3.72-5.28); RED CELL DISTRIBUTION WIDTH 18.4 % (11.5-14.0); SEGMENTED NEUTROPHILS % (AUTO) 34.8 % (42-78); TOTAL CELLS COUNTED % (AUTO) 100 %; WHITE BLOOD COUNT 5.8 10^3/uL (4.0-10.5)
[2017-12-27 07:22] LABS: HEMOGLOBIN 11.3 g/dL (12.0-15.5)
[2017-12-27 07:33] LABS: ALANINE AMINOTRANSFERASE 18 U/L (9-52); ALBUMIN 3.5 g/dL (3.5-5.0); ALKALINE PHOSPHATASE 79 U/L (38-126); ANION GAP 11 (5-19); ASPARTATE AMINO TRANSFERASE 14 U/L (14-36); BILIRUBIN,DIRECT 0.3 mg/dL (0.0-0.4); BILIRUBIN,TOTAL 1.1 mg/dL (0.2-1.3); BLOOD UREA NITROGEN 23 mg/dL (7-20); CARBON DIOXIDE 26 mmol/L (22-30); CHLORIDE 105 mmol/L (98-107); GLUCOSE 120 mg/dL (75-110); POTASSIUM 3.8 mmol/L (3.6-5.0); SODIUM 141.7 mmol/L (137-145); TOTAL PROTEIN 7.2 g/dL (6.3-8.2)
[2017-12-27] MEDS: INSULIN LISPRO 100 UNIT/ML 3 ML VIAL SUBCUT SCH ×3 (07:50→17:26)
[2017-12-27] MEDS: PIOGLITAZONE HCL 30 MG TABLET PO SCH (09:37)
[2017-12-27] MEDS: TORSEMIDE 20 MG TABLET PO SCH (09:37)
[2017-12-27] MEDS: DABIGATRAN ETEXILATE 75 MG CAPSULE PO SCH ×2 (09:38→22:58)
[2017-12-27] MEDS: LOSARTAN POTASSIUM 50 MG TABLET PO SCH (09:38)
[2017-12-27] MEDS: METOPROLOL SUCCINATE 50 MG TAB.SR.24H PO SCH ×2 (09:38→22:56)
[2017-12-27] MEDS ORDERED: METFORMIN HCL PO SCH (10:00)
[2017-12-27] MEDS ORDERED: [UNRECOGNIZED DRUG - OTHER] PO SCH (10:00)
[2017-12-27] MEDS ORDERED: EMPAGLIFLOZIN PO SCH (10:00)
[2017-12-27] MEDS: INSULIN LISPRO 100 UNIT/ML 3 ML VIAL SUBCUT PRN ×2 (17:26→23:01)
--- NOTE | 2017-12-27 21:06 | PDOC PROGRESS REPORT ---
Subjective Progress Note for:: 12/27/17 Subjective:: She was seen by the bedside, she was admitted over the weekend for the management of DKA, Reason For Visit: DIABETIC KETOACIDOSIS,CHRONIC A-FIB WITH RVR, Physical Exam Vital Signs: Temp Pulse Resp BP Pulse Ox 98.3 F 78 17 109/41 L 96 12/27/17 17:11 12/27/17 19:00 12/27/17 17:11 12/27/17 17:11 12/27/17 17:11 Intake & Output 12/26/17 12/27/17 12/28/17 06:59 06:59 06:59 Intake Total 300 1116 1286 Output Total 0 Balance 300 1116 1286 Weight 88 kg 91.1 kg General appearance: PRESENT: no acute distress, well-developed, well-nourished Head exam: PRESENT: atraumatic, normocephalic Eye exam: PRESENT: conjunctiva pink, EOMI, PERRLA Ear exam: PRESENT: normal external ear exam Mouth exam: PRESENT: moist, tongue midline Neck exam: PRESENT: full ROM Respiratory exam: PRESENT: clear to auscultation mack Cardiovascular exam: PRESENT: RRR, +S1, +S2 Pulses: PRESENT: normal dorsalis pedis pul, +2 pedal pulses bilateral Vascular exam: PRESENT: normal capillary refill GI/Abdominal exam: PRESENT: normal bowel sounds, soft Rectal exam: PRESENT: deferred Neurological exam: PRESENT: alert Skin exam: PRESENT: dry, intact, warm. ABSENT: cyanosis, rash Results Laboratory Results: 12/27/17 06:47 12/27/17 06:47 12/27/17 12/27/17 06:47 06:47 WBC 5.8 RBC 3.82 Hgb 11.3 L D Hct 35.1 L MCV 92 MCH 29.5 MCHC 32.1 RDW 18.4 H Plt Count 130 L Seg Neutrophils % 34.8 L Lymphocytes % 54.1 H Monocytes % 10.6 Eosinophils % 0.3 Basophils % 0.2 Absolute Neutrophils 2.0 Absolute Lymphocytes 3.2 Absolute Monocytes 0.6 Absolute Eosinophils 0.0 Absolute Basophils 0.0 Sodium 141.7 Potassium 3.8 Chloride 105 Carbon Dioxide 26 Anion Gap 11 BUN 23 H Creatinine 1.15 Est GFR ( Amer) 55 L Est GFR (Non-Af Amer) 46 L Glucose 120 H Calcium 9.0 Total Bilirubin 1.1 AST 14 ALT 18 Alkaline Phosphatase 79 Total Protein 7.2 Albumin 3.5 Impressions: Chest X-Ray 12/25/17 00:00 IMPRESSION: NO SIGNIFICANT RADIOGRAPHIC FINDING IN THE CHEST. Assessment & Plan - Diagnosis (1) Chronic atrial fibrillation with RVR Is this a current diagnosis for this admission?: Yes (2) DKA (diabetic ketoacidoses) Qualifiers: Diabetes mellitus type: type 2 Is this a current diagnosis for this admission?: Yes (3) Acute kidney injury Is this a current diagnosis for this admission?: Yes - Plan Summary Plan Summary: Medication was adjusted continue treatment
[2017-12-27] MEDS: ATORVASTATIN CALCIUM 10 MG TABLET PO SCH (23:00)
[2017-12-27] MEDS ORDERED: INSULIN GLARGINE,HUM.REC.ANLOG 300 UNIT/3 ML INSULN.PEN SUBCUT ONE (23:07)
[2017-12-27] MEDS: INSULIN GLARGINE,HUM.REC.ANLOG 300 UNIT/3 ML INSULN.PEN SUBCUT SCH (23:27)
[2017-12-28] MEDS: DABIGATRAN ETEXILATE 75 MG CAPSULE PO SCH ×2 (09:49→22:51)
[2017-12-28] MEDS: PIOGLITAZONE HCL 30 MG TABLET PO SCH (09:49)
[2017-12-28] MEDS: TORSEMIDE 20 MG TABLET PO SCH (09:49)
[2017-12-28] MEDS: METOPROLOL SUCCINATE 50 MG TAB.SR.24H PO SCH ×2 (09:49→22:45)
[2017-12-28] MEDS: LOSARTAN POTASSIUM 50 MG TABLET PO SCH (09:49)
[2017-12-28] MEDS: INSULIN LISPRO 100 UNIT/ML 3 ML VIAL SUBCUT SCH ×3 (09:50→17:55)
--- NOTE | 2017-12-28 22:35 | PDOC PROGRESS REPORT ---
Subjective Progress Note for:: 12/28/17 Subjective:: She was seen by the bedside, she continues to improve hopefully discharge very soon Reason For Visit: DIABETIC KETOACIDOSIS,CHRONIC A-FIB WITH RVR, Physical Exam Vital Signs: Temp Pulse Resp BP Pulse Ox 98.1 F 62 16 113/52 L 98 12/28/17 16:02 12/28/17 16:02 12/28/17 16:02 12/28/17 16:02 12/28/17 16:02 Intake & Output 12/27/17 12/28/17 12/29/17 06:59 06:59 06:59 Intake Total 1116 1291 714 Output Total 425 Balance 1116 866 714 Weight 91.1 kg 91 kg General appearance: PRESENT: no acute distress, well-developed, well-nourished Head exam: PRESENT: atraumatic, normocephalic Eye exam: PRESENT: conjunctiva pink, EOMI, PERRLA Ear exam: PRESENT: normal external ear exam Mouth exam: PRESENT: moist, tongue midline Neck exam: PRESENT: full ROM Respiratory exam: PRESENT: clear to auscultation mack Cardiovascular exam: PRESENT: RRR, +S1, +S2 Pulses: PRESENT: normal dorsalis pedis pul, +2 pedal pulses bilateral Vascular exam: PRESENT: normal capillary refill GI/Abdominal exam: PRESENT: normal bowel sounds, soft Rectal exam: PRESENT: deferred Neurological exam: PRESENT: alert Psychiatric exam: PRESENT: appropriate affect, normal mood. ABSENT: homicidal ideation, suicidal ideation Skin exam: PRESENT: dry, intact, warm. ABSENT: cyanosis, rash Results Laboratory Results: 12/27/17 06:47 12/27/17 06:47 Impressions: Chest X-Ray 12/25/17 00:00 IMPRESSION: NO SIGNIFICANT RADIOGRAPHIC FINDING IN THE CHEST. Assessment & Plan - Diagnosis (1) DKA (diabetic ketoacidoses) Qualifiers: Diabetes mellitus type: type 2 Is this a current diagnosis for this admission?: Yes (2) Chronic atrial fibrillation with RVR Is this a current diagnosis for this admission?: Yes (3) Acute kidney injury Is this a current diagnosis for this admission?: Yes
[2017-12-28] MEDS: ATORVASTATIN CALCIUM 10 MG TABLET PO SCH (22:45)
[2017-12-28] MEDS: INSULIN LISPRO 100 UNIT/ML 3 ML VIAL SUBCUT PRN (22:52)
[2017-12-28] MEDS: INSULIN GLARGINE,HUM.REC.ANLOG 300 UNIT/3 ML INSULN.PEN SUBCUT SCH (22:52)
[2017-12-29] MEDS: PIOGLITAZONE HCL 30 MG TABLET PO SCH (09:37)
[2017-12-29] MEDS: INSULIN LISPRO 100 UNIT/ML 3 ML VIAL SUBCUT SCH ×3 (09:37→16:58)
[2017-12-29] MEDS: METOPROLOL SUCCINATE 50 MG TAB.SR.24H PO SCH ×2 (09:37→23:51)
[2017-12-29] MEDS: TORSEMIDE 20 MG TABLET PO SCH (09:37)
[2017-12-29] MEDS: DABIGATRAN ETEXILATE 75 MG CAPSULE PO SCH ×2 (09:37→23:51)
[2017-12-29] MEDS: LOSARTAN POTASSIUM 50 MG TABLET PO SCH (09:37)
[2017-12-29 17:49] LABS: ABSOLUTE LYMPHOCYTES (AUTO) 2.4 10^3/uL (0.5-4.7); ABSOLUTE MONOCYTES (AUTO) 0.5 10^3/uL (0.1-1.4); ABSOLUTE NEUT (AUTO) 1.6 10^3/uL (1.7-8.2); BASOPHILS % (AUTO) 0.2 % (0-2); EOSINOPHILS % (AUTO) 0.4 % (0-6); HEMATOCRIT 35.2 % (36.0-47.0); HEMOGLOBIN 11.3 g/dL (12.0-15.5); LYMPHOCYTES % (AUTO) 53.2 % (13-45); MEAN CORPUSCULAR HEMOGLOBIN 29.4 pg (27.0-33.4); MEAN CORPUSCULAR HGB CONC 32.1 g/dL (32.0-36.0); MEAN CORPUSCULAR VOLUME 92 fl (80-97); MONOCYTES % (AUTO) 10.6 % (3-13); PLATELET COUNT 126 10^3/uL (150-450); RED BLOOD COUNT 3.84 10^6/uL (3.72-5.28); RED CELL DISTRIBUTION WIDTH 17.7 % (11.5-14.0); SEGMENTED NEUTROPHILS % (AUTO) 35.6 % (42-78); TOTAL CELLS COUNTED % (AUTO) 100 %; WHITE BLOOD COUNT 4.6 10^3/uL (4.0-10.5)
[2017-12-29 18:09] LABS: ALANINE AMINOTRANSFERASE 22 U/L (9-52); ALKALINE PHOSPHATASE 72 U/L (38-126); ANION GAP 12 (5-19); ASPARTATE AMINO TRANSFERASE 18 U/L (14-36); BILIRUBIN,DIRECT 0.4 mg/dL (0.0-0.4); BLOOD UREA NITROGEN 27 mg/dL (7-20); CALCIUM 9.5 mg/dL (8.4-10.2); CARBON DIOXIDE 28 mmol/L (22-30); CHLORIDE 101 mmol/L (98-107); GLUCOSE 105 mg/dL (75-110); POTASSIUM 4.1 mmol/L (3.6-5.0); SODIUM 141.2 mmol/L (137-145); TOTAL PROTEIN 7.8 g/dL (6.3-8.2)
--- NOTE | 2017-12-29 20:24 | PDOC PROGRESS REPORT ---
Subjective Progress Note for:: 12/29/17 Subjective:: Patient is seen by the bedside, there is no new complaints Reason For Visit: DIABETIC KETOACIDOSIS,CHRONIC A-FIB WITH RVR, Physical Exam Vital Signs: Temp Pulse Resp BP Pulse Ox 98.1 F 52 L 16 105/77 100 12/29/17 16:07 12/29/17 16:07 12/29/17 16:07 12/29/17 16:07 12/29/17 16:07 Intake & Output 12/28/17 12/29/17 12/30/17 06:59 06:59 06:59 Intake Total 4027 972 5852 Output Total 425 Balance 607 522 1440 Weight 91 kg 90.2 kg General appearance: PRESENT: no acute distress Eye exam: PRESENT: PERRLA Respiratory exam: PRESENT: clear to auscultation mack Cardiovascular exam: PRESENT: +S1, +S2 GI/Abdominal exam: PRESENT: soft Neurological exam: PRESENT: alert Results Laboratory Results: 12/29/17 17:40 12/29/17 17:40 12/29/17 12/29/17 17:40 17:40 WBC 4.6 RBC 3.84 Hgb 11.3 L Hct 35.2 L MCV 92 MCH 29.4 MCHC 32.1 RDW 17.7 H Plt Count 126 L Seg Neutrophils % 35.6 L Lymphocytes % 53.2 H Monocytes % 10.6 Eosinophils % 0.4 Basophils % 0.2 Absolute Neutrophils 1.6 L Absolute Lymphocytes 2.4 Absolute Monocytes 0.5 Absolute Eosinophils 0.0 Absolute Basophils 0.0 Sodium 141.2 Potassium 4.1 Chloride 101 Carbon Dioxide 28 Anion Gap 12 BUN 27 H Creatinine 1.30 H Est GFR ( Amer) 48 L Est GFR (Non-Af Amer) 40 L Glucose 105 Calcium 9.5 Total Bilirubin 1.0 AST 18 ALT 22 Alkaline Phosphatase 72 Total Protein 7.8 Albumin 4.0 Impressions: Chest X-Ray 12/25/17 00:00 IMPRESSION: NO SIGNIFICANT RADIOGRAPHIC FINDING IN THE CHEST. Assessment & Plan - Diagnosis (1) DKA (diabetic ketoacidoses) Qualifiers: Diabetes mellitus type: type 2 Is this a current diagnosis for this admission?: Yes (2) Chronic atrial fibrillation with RVR Is this a current diagnosis for this admission?: Yes (3) Acute kidney injury Is this a current diagnosis for this admission?: Yes
[2017-12-29] MEDS: INSULIN LISPRO 100 UNIT/ML 3 ML VIAL SUBCUT PRN (23:50)
[2017-12-29] MEDS: INSULIN GLARGINE,HUM.REC.ANLOG 300 UNIT/3 ML INSULN.PEN SUBCUT SCH (23:50)
[2017-12-29] MEDS: ATORVASTATIN CALCIUM 10 MG TABLET PO SCH (23:51)
[2017-12-30 06:02] LABS: ABSOLUTE LYMPHOCYTES (AUTO) 2.6 10^3/uL (0.5-4.7); ABSOLUTE MONOCYTES (AUTO) 0.6 10^3/uL (0.1-1.4); ABSOLUTE NEUT (AUTO) 1.2 10^3/uL (1.7-8.2); BASOPHILS % (AUTO) 0.3 % (0-2); EOSINOPHILS % (AUTO) 0.4 % (0-6); HEMATOCRIT 32.9 % (36.0-47.0); HEMOGLOBIN 10.7 g/dL (12.0-15.5); LYMPHOCYTES % (AUTO) 58.3 % (13-45); MEAN CORPUSCULAR HEMOGLOBIN 29.7 pg (27.0-33.4); MEAN CORPUSCULAR HGB CONC 32.4 g/dL (32.0-36.0); MEAN CORPUSCULAR VOLUME 92 fl (80-97); MONOCYTES % (AUTO) 13.8 % (3-13); PLATELET COUNT 120 10^3/uL (150-450); RED BLOOD COUNT 3.58 10^6/uL (3.72-5.28); SEGMENTED NEUTROPHILS % (AUTO) 27.2 % (42-78); TOTAL CELLS COUNTED % (AUTO) 100 %; WHITE BLOOD COUNT 4.5 10^3/uL (4.0-10.5)
[2017-12-30 06:20] LABS: ALANINE AMINOTRANSFERASE 18 U/L (9-52); ALBUMIN 3.7 g/dL (3.5-5.0); ALKALINE PHOSPHATASE 67 U/L (38-126); ANION GAP 12 (5-19); ASPARTATE AMINO TRANSFERASE 15 U/L (14-36); BLOOD UREA NITROGEN 32 mg/dL (7-20); CALCIUM 9.3 mg/dL (8.4-10.2); CARBON DIOXIDE 28 mmol/L (22-30); CHLORIDE 103 mmol/L (98-107); GLUCOSE 104 mg/dL (75-110); POTASSIUM 3.9 mmol/L (3.6-5.0); SODIUM 142.8 mmol/L (137-145)
[2017-12-30] MEDS: INSULIN LISPRO 100 UNIT/ML 3 ML VIAL SUBCUT SCH ×3 (08:35→17:14)
[2017-12-30] MEDS: METOPROLOL SUCCINATE 50 MG TAB.SR.24H PO SCH (09:39)
[2017-12-30] MEDS: DABIGATRAN ETEXILATE 75 MG CAPSULE PO SCH (09:39)
[2017-12-30] MEDS: TORSEMIDE 20 MG TABLET PO SCH (09:39)
[2017-12-30] MEDS: PIOGLITAZONE HCL 30 MG TABLET PO SCH (09:39)
[2017-12-30] MEDS: LOSARTAN POTASSIUM 50 MG TABLET PO SCH (09:39)
[2017-12-30] MEDS: INSULIN LISPRO 100 UNIT/ML 3 ML VIAL SUBCUT PRN (17:14)
[2017-12-30 18:46] VITALS: BP 107/54
--- NOTE | 2017-12-30 20:04 | PDOC DISCHARGE SUMMARY ---
General - Admit/Disc Date/PCP Admission Date/Primary Care Provider: 12/25/17 23:22 BARB MAHER MD Discharge Date: 12/30/17 - Discharge Diagnosis (1) DKA (diabetic ketoacidoses) Is this a current diagnosis for this admission?: Yes (2) Chronic atrial fibrillation with RVR Is this a current diagnosis for this admission?: Yes (3) Acute kidney injury Is this a current diagnosis for this admission?: Yes - Additional Information Resuscitation Status: Full Code Discharge Diet: Diabetic Discharge Activity: Activity As Tolerated Home Medications: Atorvastatin Calcium [Lipitor 10 mg Tablet] 10 mg PO QHS 12/26/17 Chlorpheniramine Maleate [Chlor-Trimeton 4 mg Tablet] 4 mg PO Q6HP PRN 12/26/17 Dabigatran Etexilate Mesylate [Pradaxa 75 mg Capsule] 75 mg PO Q12 12/26/17 Empagliflozin/Metformin HCl [Synjardy Xr 25-1,000 mg Tablet] 1 tab PO DAILY Insulin Aspart [Novolog Flexpen] 6 units SUBCUT TID 12/26/17 Insulin Glargine,Hum.rec.anlog [Lantus Insulin 100 Unit/1 ml 10 ml] 40 unit SUBCUT QHS 12/26/17 Losartan Potassium [Cozaar 50 mg Tablet] 50 mg PO DAILY 12/26/17 Metoprolol Succinate [Toprol XL 100 mg Tablet] 100 mg PO Q12 12/26/17 Pioglitazone HCl [Actos] 30 mg PO DAILY 12/26/17 Torsemide [Demadex 20 mg Tablet] 20 mg PO DAILY 12/26/17 History of Present Illness History of Present Illness: LC ANGUIANO is a 77 year old female,She was admitted to the hospital when she presented with DKA Hospital Course Hospital Course: She was admitted for the management of DKA, she was treated with insulin infusion normal saline and medication was adjusted. There was no precipitating infection or etiology found with DKA, patient improved with treatment Physical Exam Vital Signs: Temp Pulse Resp BP Pulse Ox 97.6 F 81 16 107/54 L 99 12/30/17 18:43 12/30/17 18:43 12/30/17 18:43 12/30/17 18:43 12/30/17 18:43 Intake & Output 12/29/17 12/30/1712/31/18 06:59 06:59 06:59 Intake Total 951 1825 1355 Balance 951 1825 1355 Weight 90.2 kg 91.1 kg General appearance: PRESENT: no acute distress, well-developed, well-nourished Head exam: PRESENT: atraumatic, normocephalic Eye exam: PRESENT: conjunctiva pink, EOMI, PERRLA Ear exam: PRESENT: normal external ear exam Mouth exam: PRESENT: moist, tongue midline Neck exam: PRESENT: full ROM Respiratory exam: PRESENT: clear to auscultation mack Cardiovascular exam: PRESENT: RRR, +S1, +S2 Pulses: PRESENT: normal dorsalis pedis pul, +2 pedal pulses bilateral Vascular exam: PRESENT: normal capillary refill GI/Abdominal exam: PRESENT: normal bowel sounds, soft Rectal exam: PRESENT: deferred Neurological exam: PRESENT: alert, awake, oriented to person, oriented to place , oriented to time, oriented to situation, CN II-XII grossly intact Psychiatric exam: PRESENT: appropriate affect, normal mood Skin exam: PRESENT: dry, intact, warm Results Laboratory Results: 12/30/17 05:41 12/30/17 05:41 12/30/17 12/30/17 05:41 05:41 WBC 4.5 RBC 3.58 L Hgb 10.7 L Hct 32.9 L MCV 92 MCH 29.7 MCHC 32.4 RDW 18.0 H Plt Count 120 L Seg Neutrophils % 27.2 L Lymphocytes % 58.3 H Monocytes % 13.8 H Eosinophils % 0.4 Basophils % 0.3 Absolute Neutrophils 1.2 L Absolute Lymphocytes 2.6 Absolute Monocytes 0.6 Absolute Eosinophils 0.0 Absolute Basophils 0.0 Sodium 142.8 Potassium 3.9 Chloride 103 Carbon Dioxide 28 Anion Gap 12 BUN 32 H Creatinine 1.22 Est GFR ( Amer) 52 L Est GFR (Non-Af Amer) 43 L Glucose 104 Calcium 9.3 Total Bilirubin 1.0 AST 15 ALT 18 Alkaline Phosphatase 67 Total Protein 7.0 Albumin 3.7 Impressions: Chest X-Ray 12/25/17 00:00 IMPRESSION: NO SIGNIFICANT RADIOGRAPHIC FINDING IN THE CHEST. Qualifiers - * PATEINT BEING DISCHARGED WITH ANY OF THE FOLLOWING DIAGNOSIS?: No VTE patient discharged on overlapping Therapy?: Yes
== END 2017-12-30 19:27 | disposition home or self-care (01) | DRG 638 ==
LOC: ER 16:45 → EH 23:22 → 3S 12-26 02:59
PROVIDERS: ADMIT Internal Medicine; ATTEND Internal Medicine
DX: E11.10 Type 2 diabetes mellitus with ketoacidosis without coma (principal); N17.9 Acute kidney failure, unspecified; I48.2 Chronic atrial fibrillation; I10 Essential (primary) hypertension; E11.51 Type 2 diabetes mellitus with diabetic peripheral angiopathy without gangrene; E11.65 Type 2 diabetes mellitus with hyperglycemia; C50.912 Malignant neoplasm of unspecified site of left female breast; G47.30 Sleep apnea, unspecified; M17.0 Bilateral primary osteoarthritis of knee; E83.42 Hypomagnesemia; Z79.4 Long term (current) use of insulin; Z79.899 Other long term (current) drug therapy; Z90.710 Acquired absence of both cervix and uterus; Z96.652 Presence of left artificial knee joint; Z87.891 Personal history of nicotine dependence; Z82.49 Family history of ischemic heart disease and other diseases of the circulatory system
CPT/HCPCS: 36415; 71045; 80053; 81001; 82962; 83036; 83690; 83735; 84443; 84484; 85025; 93005; 93010; 99291; J1815; J3475; J3490; J7030; S0119

== ENCOUNTER 2018-04-19 13:24 | Emergency (ER) | payer MEDICARE, MEDICAID ==
--- NOTE | 2018-04-19 14:43 | ER Document Report ---
ED Medical Screen (RME) - General Chief Complaint: Upper Abdominal Pain Stated Complaint: FLANK PAIN Time Seen by Provider: 04/19/18 14:41 TRAVEL OUTSIDE OF THE [place] IN LAST 30 DAYS: No - HPI Notes: 04/19/18 14:43 Left flank pain leftback pain ongoing since similar to when the patient had pneumonia according to patient - Related Data Allergies/Adverse Reactions: No Known Allergies Allergy (Verified 04/19/18 13:28) Past Medical History - Social History Family history: None - Past Medical History Cardiac Medical History: Reports: Hx Atrial Fibrillation, Hx Hypertension, Hx Peripheral Vascular Disease Denies: Hx Congestive Heart Failure, Hx Coronary Artery Disease, Hx Heart Attack, Hx Hypercholesterolemia, Hx Pulmonary Embolism, Hx Heart Murmur Pulmonary Medical History: Reports: Hx Bronchitis - approx 2 x yrly, Hx Pneumonia - Nov 2012 (hospitalized), Hx Sleep Apnea - C-PAP use Denies: Hx Asthma, Hx COPD, Hx Respiratory Failure, Hx Tuberculosis Neurological Medical History: Denies: Hx Cerebrovascular Accident, Hx Seizures Endocrine Medical History: Reports: Hx Diabetes Mellitus Type 2. Denies: Hx Graves' Disease, Hx Hyperthyroidism, Hx Hypothyroidism Renal/ Medical History: Denies: Hx End Stage Renal Disease, Hx Kidney Stones, Hx Ovarian Cysts, Hx Peritoneal Dialysis, Hx Pelvic Inflammatory Disease Malignancy Medical History: Reports: Hx Breast Cancer - Left, FINISHED CHEMO Tx 2 MOS AGO. Denies: Hx Cervical Cancer, Hx Lung Cancer, Hx Ovarian Cancer Musculoskeltal Medical History: Reports Hx Arthritis - Knees, Denies Hx Fibromyalgia, Denies Hx Multiple Sclerosis, Denies Hx Muscular Dystrophy Psychiatric Medical History: Denies: Hx Dementia, Hx Depression Traumatic Medical History: Denies: Hx Fractures Past Surgical History: Reports: Hx Breast Surgery - lumpectomy, Hx Hysterectomy , Hx Orthopedic Surgery - Left knee replacement, Hx Tonsillectomy. Denies: Hx Appendectomy, Hx Bowel Surgery, Hx Section, Hx Cholecystectomy, Hx Coronary Artery Bypass Graft, Hx Gastric Bypass Surgery, Hx Herniorrhaphy, Hx Mastectomy, Hx Pacemaker, Hx Tubal Ligation - Immunizations Immunizations up to date: Yes Hx Diphtheria, Pertussis, Tetanus Vaccination: Yes History of Influenza Vaccine for 08/2017 - 01/2018 Season: No Review of Systems - Review of Systems Genitourinary: Flank pain Physical Exam - Vital signs Vitals: Temp Pulse Resp BP Pulse Ox 99.5 F 61 16 120/80 97 04/19/18 13:37 04/19/18 13:37 04/19/18 13:37 04/19/18 13:37 04/19/18 13:37 - General General appearance: Appears well In distress: None Course - Vital Signs Vital signs: Temp Pulse Resp BP Pulse Ox 99.5 F 61 16 120/80 97 04/19/18 13:37 04/19/18 13:37 04/19/18 13:37 04/19/18 13:37 04/19/18 13:37 Doctor's Discharge - Discharge Referrals: OBED BOGGS MD [Primary Care Provider] - Follow up as needed
--- NOTE | 2018-04-19 15:15 | RADIOLOGY REPORT (SQ) ---
EXAM DESCRIPTION: CHEST 2 VIEWS COMPLETED DATE/TIME: 04/19/2018 3:07 pm REASON FOR STUDY: sob COMPARISON: CT CHEST 08/10/2017 TWO-VIEW CHEST 08/25/2017 AP PORTABLE CHEST 12/25/2017 EXAM PARAMETERS: NUMBER OF VIEWS: two views TECHNIQUE: Digital Frontal and Lateral radiographic views of the chest acquired. RADIATION DOSE: NA LIMITATIONS: none FINDINGS: LUNGS AND PLEURA: Nodule versus infiltrate right upper lobe superimposed on the anterior r ight 2nd rib. Lungs are otherwise grossly clear. No pleural effusion. No pneumothorax. MEDIASTINUM AND HILAR STRUCTURES: No masses or contour abnormalities. HEART AND VASCULAR STRUCTURES: Mild cardiomegaly BONES: No acute findings. HARDWARE: Clips right upper quadrant post cholecystectomy OTHER: No other significant finding. IMPRESSION: Nodule versus infiltrate in the right upper lobe TECHNICAL DOCUMENTATION: JOB ID: [id number] [employer]- All Rights Reserved Reading location - IP/workstation name: [email or web address]
[2018-04-19 15:47] LABS: ABSOLUTE LYMPHOCYTES (AUTO) 2.4 10^3/uL (0.5-4.7); ABSOLUTE MONOCYTES (AUTO) 0.8 10^3/uL (0.1-1.4); ABSOLUTE NEUT (AUTO) 4.3 10^3/uL (1.7-8.2); BASOPHILS % (AUTO) 0.5 % (0-2); HEMATOCRIT 34.6 % (36.0-47.0); HEMOGLOBIN 11.1 g/dL (12.0-15.5); LYMPHOCYTES % (AUTO) 32.1 % (13-45); MEAN CORPUSCULAR HEMOGLOBIN 28.8 pg (27.0-33.4); MEAN CORPUSCULAR VOLUME 90 fl (80-97); MONOCYTES % (AUTO) 10.3 % (3-13); PLATELET COUNT 189 10^3/uL (150-450); RED BLOOD COUNT 3.84 10^6/uL (3.72-5.28); RED CELL DISTRIBUTION WIDTH 17.5 % (11.5-14.0); SEGMENTED NEUTROPHILS % (AUTO) 57.1 % (42-78); TOTAL CELLS COUNTED % (AUTO) 100 %; WHITE BLOOD COUNT 7.6 10^3/uL (4.0-10.5)
--- NOTE | 2018-04-19 15:53 | ER Document Report ---
ED General - General Chief Complaint: Upper Abdominal Pain Stated Complaint: FLANK PAIN Time Seen by Provider: 04/19/18 14:41 Notes: This is a 77-year-old female patient to the emergency department chief complaint of left flank/left chest pain. Patient states the pain is located on the left lateral chest or under the left breast. Pain is present on and off. Has had this happen multiple times. Denies any fever, chills, sweats. Denies any shortness of breath. Denies any other major symptoms at this time. Pain does not radiate. Pain is rated as 3/10 on numeric pain scale. Dull. Patient with previous history of breast cancer to the left breast status post chemotherapy and surgery. TRAVEL OUTSIDE OF THE [place] IN LAST 30 DAYS: No - HPI Onset: Yesterday Onset/Duration: Gradual Quality of pain: Dull Severity: Moderate Pain Level: 2 Associated symptoms: None - Related Data Allergies/Adverse Reactions: No Known Allergies Allergy (Verified 04/19/18 13:28) Past Medical History - General Information source: Patient - Social History Smoking Status: Never Smoker Chew tobacco use (# tins/day): No Frequency of alcohol use: None Drug Abuse: None Lives with: Family Family History: Hypertension Patient has suicidal ideation: No Patient has homicidal ideation: No - Past Medical History Cardiac Medical History: Reports: Hx Atrial Fibrillation, Hx Hypertension, Hx Peripheral Vascular Disease Denies: Hx Congestive Heart Failure, Hx Coronary Artery Disease, Hx Heart Attack, Hx Hypercholesterolemia, Hx Pulmonary Embolism, Hx Heart Murmur Pulmonary Medical History: Reports: Hx Bronchitis - approx 2 x yrly, Hx Pneumonia - Nov 2012 (hospitalized), Hx Sleep Apnea - C-PAP use Denies: Hx Asthma, Hx COPD, Hx Respiratory Failure, Hx Tuberculosis Neurological Medical History: Denies: Hx Cerebrovascular Accident, Hx Seizures Endocrine Medical History: Reports: Hx Diabetes Mellitus Type 2. Denies: Hx Graves' Disease, Hx Hyperthyroidism, Hx Hypothyroidism Renal/ Medical History: Denies: Hx End Stage Renal Disease, Hx Kidney Stones, Hx Ovarian Cysts, Hx Peritoneal Dialysis, Hx Pelvic Inflammatory Disease Malignancy Medical History: Reports: Hx Breast Cancer - Left, FINISHED CHEMO Tx 2 MOS AGO. Denies: Hx Cervical Cancer, Hx Lung Cancer, Hx Ovarian Cancer Musculoskeltal Medical History: Reports Hx Arthritis - Knees, Denies Hx Fibromyalgia, Denies Hx Multiple Sclerosis, Denies Hx Muscular Dystrophy Psychiatric Medical History: Denies: Hx Dementia, Hx Depression Traumatic Medical History: Denies: Hx Fractures Past Surgical History: Reports: Hx Breast Surgery - lumpectomy, Hx Hysterectomy , Hx Orthopedic Surgery - Left knee replacement, Hx Tonsillectomy. Denies: Hx Appendectomy, Hx Bowel Surgery, Hx Section, Hx Cholecystectomy, Hx Coronary Artery Bypass Graft, Hx Gastric Bypass Surgery, Hx Herniorrhaphy, Hx Mastectomy, Hx Pacemaker, Hx Tubal Ligation - Immunizations Immunizations up to date: Yes Hx Diphtheria, Pertussis, Tetanus Vaccination: Yes Hx Pneumococcal Vaccination: 08/08/16 Review of Systems - Review of Systems Constitutional: No symptoms reported EENT: No symptoms reported Cardiovascular: Chest pain Respiratory: No symptoms reported Gastrointestinal: No symptoms reported Genitourinary: No symptoms reported Female Genitourinary: No symptoms reported Musculoskeletal: No symptoms reported Skin: No symptoms reported Hematologic/Lymphatic: No symptoms reported Neurological/Psychological: No symptoms reported Physical Exam - Vital signs Vitals: Temp Pulse Resp BP Pulse Ox 99.5 F 61 16 120/80 97 04/19/18 13:37 04/19/18 13:37 04/19/18 13:37 04/19/18 13:37 04/19/18 13:37 Interpretation: Normal - General General appearance: Appears well, Alert - HEENT Head: Normocephalic, Atraumatic Eyes: Normal Pupils: PERRL - Respiratory Respiratory status: No respiratory distress Chest status: Nontender Breath sounds: Normal Chest palpation: Normal - Cardiovascular Rhythm: Regular Heart sounds: Normal auscultation Murmur: No Notes: She has tenderness to palpation on the left lateral chest wall as well as underneath the left breast. There is no signs of herpetic lesions or skin breakdown which would be consistent with shingles. - Abdominal Inspection: Normal Distension: No distension Bowel sounds: Normal Tenderness: Nontender Organomegaly: No organomegaly - Back Back: Normal, Nontender - Extremities General upper extremity: Normal inspection, Nontender, Normal color, Normal ROM , Normal temperature General lower extremity: Normal inspection, Nontender, Normal color, Normal ROM , Normal temperature, Normal weight bearing. No: Hannah's sign - Neurological Neuro grossly intact: Yes Cognition: Normal Orientation: AAOx4 [place] Coma Scale Eye Opening: Spontaneous [place] Coma Scale Verbal: Oriented Luis Angel Coma Scale Motor: Obeys Commands Luis Angel Coma Scale Total: 15 Speech: Normal Motor strength normal: LUE, RUE, LLE, RLE Sensory: Normal - Psychological Associated symptoms: Normal affect, Normal mood - Skin Skin Temperature: Warm Skin Moisture: Dry Skin Color: Normal Course - Re-evaluation Re-evalutation: 04/19/18 17:14 Laboratory 04/19/18 04/19/18 04/19/18 15:20 15:20 15:20 WBC 7.6 RBC 3.84 Hgb 11.1 L Hct 34.6 L MCV 90 MCH 28.8 MCHC 32.0 RDW 17.5 H Plt Count 189 Seg Neutrophils % 57.1 Lymphocytes % 32.1 Monocytes % 10.3 Eosinophils % 0.0 Basophils % 0.5 Absolute Neutrophils 4.3 Absolute Lymphocytes 2.4 Absolute Monocytes 0.8 Absolute Eosinophils 0.0 Absolute Basophils 0.0 PT INR APTT Sodium 139.9 Potassium 3.9 Chloride 100 Carbon Dioxide 29 Anion Gap 11 BUN 22 H Creatinine 1.41 H Est GFR ( Amer) 44 L Est GFR (Non-Af Amer) 36 L Glucose 341 H Calcium 9.6 Total Bilirubin 1.5 H Direct Bilirubin 0.3 Neonat Total Bilirubin Not Reportable Neonat Direct Bilirubin Not Reportable Neonat Indirect Bili Not Reportable AST 14 ALT 18 Alkaline Phosphatase 96 Troponin I Total Protein 8.8 H Albumin 4.0 Urine Color SIMONE Urine Appearance CLOUDY Urine pH 5.0 Ur Specific Hanna 1.025 Urine Protein 30 H Urine Glucose (UA) >=500 H Urine Ketones NEGATIVE Urine Blood SMALL H Urine Nitrite NEGATIVE Urine Bilirubin NEGATIVE Urine Urobilinogen 2.0 H Ur Leukocyte Esterase NEGATIVE Urine WBC (Auto) 6 Urine RBC (Auto) 2 U Hyaline Cast (Auto) 66 Urine Bacteria (Auto) TRACE Squamous Epi Cells Auto 16 Amorphous Sediment Auto TRACE Urine Mucus (Auto) MOD Urine Ascorbic Acid NEGATIVE 04/19/18 04/19/18 15:20 15:20 WBC RBC Hgb Hct MCV MCH MCHC RDW Plt Count Seg Neutrophils % Lymphocytes % Monocytes % Eosinophils % Basophils % Absolute Neutrophils Absolute Lymphocytes Absolute Monocytes Absolute Eosinophils Absolute Basophils PT 14.1 INR 1.04 APTT 32.7 Sodium Potassium Chloride Carbon Dioxide Anion Gap BUN Creatinine Est GFR ( Amer) Est GFR (Non-Af Amer) Glucose Calcium Total Bilirubin Direct Bilirubin Neonat Total Bilirubin Neonat Direct Bilirubin Neonat Indirect Bili AST ALT Alkaline Phosphatase Troponin I < 0.012 Total Protein Albumin Urine Color Urine Appearance Urine pH Ur Specific Hanna Urine Protein Urine Glucose (UA) Urine Ketones Urine Blood Urine Nitrite Urine Bilirubin Urine Urobilinogen Ur Leukocyte Esterase Urine WBC (Auto) Urine RBC (Auto) U Hyaline Cast (Auto) Urine Bacteria (Auto) Squamous Epi Cells Auto Amorphous Sediment Auto Urine Mucus (Auto) Urine Ascorbic Acid Chest X-Ray 04/19/18 14:42 IMPRESSION: Nodule versus infiltrate in the right upper lobe Chest/Abdomen CTA 04/19/18 16:09 IMPRESSION: No CT angio evidence of acute pulmonary emboli. New airspace disease in the right upper lobe accounts for the density seen on chest film earlier today. There are waxing and waning areas of consolidation over the series of chest CT exams. This raises a question of chronic disease such as bronchiolitis obliterans organizing pneumonia, sarcoidosis, repeat aspiration, or allergic/ hyper sensitivity alveolitis. This finding was discussed with Dr. Brown. 04/19/18 17:20 She is asymptomatic at this time. EKG does not show any signs of ischemia. Troponin is negative. Does have an abnormal appearing CT scan which is been present in the past. This represents the question whether or not this could be something like sarcoidosis or chronic bronchiolitis obliterans. Could represent infection as well. Patient will be given follow-up information for pulmonology. Encourage her to follow-up with her regular doctor as well. Return for any worsening chest pain, shortness of breath or any other issues. Information was given to family members that were present as well as well as information to family members over the phone. - Vital Signs Vital signs: Temp Pulse Resp BP Pulse Ox 98.1 F 87 16 151/79 H 97 04/19/18 17:53 04/19/18 17:53 04/19/18 17:53 04/19/18 17:53 04/19/18 17:53 - Laboratory Result Diagrams: 04/19/18 15:20 04/19/18 15:20 Laboratory results interpreted by me: 04/19/18 04/19/18 04/19/18 15:20 15:20 15:20 Hgb 11.1 L Hct 34.6 L RDW 17.5 H BUN 22 H Creatinine 1.41 H Est GFR ( Amer) 44 L Est GFR (Non-Af Amer) 36 L Glucose 341 H Total Bilirubin 1.5 H Total Protein 8.8 H Urine Protein 30 H Urine Glucose (UA) >=500 H Urine Blood SMALL H Urine Urobilinogen 2.0 H Discharge - Discharge Clinical Impression: Chest pain Qualifiers: Chest pain type: other chest pain Qualified Code(s): R07.89 - Other chest pain Condition: Good Disposition: HOME, SELF-CARE Instructions: Chest Pain of Unclear Cause ([facility]) Additional Instructions: Please call your doctor to schedule appointment [place]. Return for any worsening pain or symptoms Prescriptions: Albuterol Sulfate [Proair HFA Inhalation Aerosol 8.5 gm MDI] 2 puff IH Q4H PRN # 1 mdi PRN Reason: Azithromycin [Zithromax] 250 mg PO DAILY 7 Days #7 tablet Referrals: OBED BOGGS MD [Primary Care Provider] - Follow up tomorrow JARON HANDLEY MD [ACTIVE STAFF] - Follow up in 3-5 days
[2018-04-19 16:07] LABS: ALANINE AMINOTRANSFERASE 18 U/L (9-52); ALKALINE PHOSPHATASE 96 U/L (38-126); ANION GAP 11 (5-19); ASPARTATE AMINO TRANSFERASE 14 U/L (14-36); BILIRUBIN,DIRECT 0.3 mg/dL (0.0-0.4); BILIRUBIN,TOTAL 1.5 mg/dL (0.2-1.3); BLOOD UREA NITROGEN 22 mg/dL (7-20); CALCIUM 9.6 mg/dL (8.4-10.2); CARBON DIOXIDE 29 mmol/L (22-30); CHLORIDE 100 mmol/L (98-107); GLUCOSE 341 mg/dL (75-110); POTASSIUM 3.9 mmol/L (3.6-5.0); SODIUM 139.9 mmol/L (137-145); TOTAL PROTEIN 8.8 g/dL (6.3-8.2)
[2018-04-19 16:26] LABS: INTERNATIONAL RATION (INR) 1.04; PARTIAL THROMBOPLASTIN TIME 32.7 SEC (23.5-35.8); PROTHROMBIN TIME 14.1 SEC (11.4-15.4)
[2018-04-19 16:28] LABS: AMORPHOUS SEDIMENT,URINE TRACE /HPF; APPEARANCE,URINE CLOUDY; BILIRUBIN,URINE NEGATIVE (NEGATIVE); COLOR,URINE AMBER; GLUCOSE, URINE >=500 mg/dL (NEGATIVE); KETONES,URINE NEGATIVE (NEGATIVE); LEUKOCYTE ESTERASE,URINE NEGATIVE (NEGATIVE); NITRITE,URINE NEGATIVE (NEGATIVE); PROTEIN,URINE 30 mg/dL (NEGATIVE); URINE SPECIFIC GRAVITY 1.025
--- NOTE | 2018-04-19 16:52 | RADIOLOGY REPORT (SQ) ---
EXAM DESCRIPTION: CTA CHEST COMPLETED DATE/TIME: 04/19/2018 4:27 pm REASON FOR STUDY: chest pain COMPARISON: [address] chest exams since 01/07/2007, most recently 08/20/2017, 08/12/2017 TECHNIQUE: CT scan of the chest performed using helical scanning technique with dynamic intravenous contrast injection. Images reviewed with lung, soft tissue and bone windows. Reconstructed coronal and sagittal MPR images reviewed. Additional 3 dimensional post-processing performed to develop Maximal Intensity Projection images (MT P). All images stored on PACS. All CT scanners at this facility use dose modulation, iterative reconstruction, and/or weight based d osing when appropriate to reduce radiation dose to as low as reasonably achievable (ALARA). [facility]: Dose Right [facility]: CareDose [facility]: Dose Right [facility]: Teradose 4D [facility]: [place] CONTRAST TYPE AND DOSE: contrast/concentration: Isovue 370.00 mg/ml; Total Contrast Delivered: 75.0 ml; Total Saline Delivered: 90.0 ml Contrast bolus optimized for the pulmonary arteries. Not diagnostic for the aorta. RENAL FUNCTION: Creatinine 1.4 RADIATION DOSE: CT Rad equipment meets quality standard of care and radiation dose reduction techniq ues were employed. CTDIvol: 28.7 - 41.3 mGy. DLP: 1024 mGy-cm. . LIMITATIONS: None. FINDINGS: LUNGS AND PLEURA: On today's study, a 5 cm area of dense lung parenchymal consolidation is present in the right upper lobe which correlates with findings on chest x-ray earlier today. This i s new compared to 08/20/2017. There is a new 2 cm focus of consolidation in the posterior right upper lobe image 39. There is a new 1 cm focus of consolidation in the periphery of the right lower lobe image 59. Other opacity seen on previous studies have resolved. There is decrease in size of consolidation in the lingula now 8 mm in size (was 1.2 cm in diameter 08/20/2017). No pleural effusion. No pneumothorax. AORTA AND GREAT VESSELS: No aneurysm. Contrast bolus not optimized for the aorta. HEART: No pericardial effusion. No significant coronary artery calcifications. Mild cardiomegaly. E nlarged main pulmonary artery worrisome for pulmonary hypertension PULMONARY ARTERIES: No emboli visualized in the main pulmonary arteries or the segmental branches. HILAR AND MEDIASTINAL STRUCTURES: Mild mediastinal adenopathy is present with enlarged prevascular, r ight paratracheal, and AP window lymph nodes. Index lymph nodes in the prevascular space 2.6 x 1 cm and in the pretracheal region 2 x 1.5 cm in size are stable compared to 08/20/2017. HARDWARE: None in the chest. UPPER ABDOMEN: Esophagus is diffusely abnormal with diffuse wall thickening and an air-fluid level in the upper 3rd. There is a small hiatal hernia. THYROID AND OTHER SOFT TISSUES: No masses. No adenopathy. BONES: No acute or significant finding. 3D MIPS: Confirm above findings. OTHER: No other significant finding. IMPRESSION: No CT angio evidence of acute pulmonary emboli. New airspace disease in the right upper lobe accounts for the density seen on chest film earlier toda y. There are waxing and waning areas of consolidation over the series of chest CT exams. This raises a question of chronic disease such as bronchiolitis obliterans organizing pneumonia, sarcoidosis, repea t aspiration, or allergic/ hyper sensitivity alveolitis. This finding was discussed with Dr. Billy mandujano COMMENT: Quality ID # [id number]: Final reports with documentation of one or more dose reduction techniques (e.g., Automated exposure control, adjustment of the mA and/or kV according to patient size, use of iterative reconstruction technique) TECHNICAL DOCUMENTATION: JOB ID: [id number] [employer]- All Rights Reserved Reading location - IP/workstation name: [email or web address]
[2018-04-19] MEDS ORDERED: AZITHROMYCIN 250 MG TABLET PO ONE (17:19)
[2018-04-19] MEDS ORDERED: ALBUTEROL SULFATE 0.083% NEB 2.5 MG/3 ML AMPUL NEB ONE (17:20)
[2018-04-19 17:57] VITALS: BP 151/79
--- NOTE | 2018-04-19 21:17 | EKG REPORT ---
SEVERITY:- ABNORMAL ECG - SINUS RHYTHM MULTIPLE ATRIAL PREMATURE COMPLEXES LEFT VENTRICULAR HYPERTROPHY NONSPECIFIC T ABNORMALITIES, INFERIOR LEADS : Confirmed by: Will Fierro MD 19-Apr-2018 21:16:19
== END 2018-04-19 18:01 | disposition home or self-care (01) ==
LOC: ER 13:24
DX: R07.89 Other chest pain (principal); R10.10 Upper abdominal pain, unspecified; I48.91 Unspecified atrial fibrillation; I10 Essential (primary) hypertension; E11.9 Type 2 diabetes mellitus without complications; Z96.652 Presence of left artificial knee joint; Z85.3 Personal history of malignant neoplasm of breast; Z90.710 Acquired absence of both cervix and uterus
CPT/HCPCS: 93005; 94640; 99285; 36415; 87040; 85025; 85610; 85730; 80053; 81001; 84484; 71046; 71275; 93010; A9270 ×2

== ENCOUNTER 2018-07-10 08:14 | Emergency (ER) | payer MEDICARE, MEDICAID ==
[2018-07-10] MEDS ORDERED: DILTIAZEM HCL INJ 25 MG/5 ML VIAL ONE (08:34)
[2018-07-10] MEDS ORDERED: DILTIAZEM HCL INJ 25 MG/5 ML VIAL IV ONE ×3 (08:52→09:11)
[2018-07-10] MEDS ORDERED: NORMAL SALINE 500 ML IV ONE (08:52)
--- NOTE | 2018-07-10 09:07 | ER Document Report ---
ED General - General Chief Complaint: Shortness Of Breath Stated Complaint: DIFFICULTY BREATHING Time Seen by Provider: 07/10/18 08:49 Mode of Arrival: Medic Information source: Patient, Relative TRAVEL OUTSIDE OF THE [place] IN LAST 30 DAYS: No - HPI Patient complains to provider of: Shortness of breath Onset: Other - This 70-year-old female presented for evaluation of difficulty breathing and feeling of being unwell over the last few days, according to her daughter she stopped taking her medications over last few days because she has been feeling sick. She has a history of hypertension as well as diabetes atrial fibrillation on Pradaxa as well as congestive heart failure. Denies any fevers, has gone to the bathroom okay, has had episodes like this in the past as recently as December. - Related Data Allergies/Adverse Reactions: No Known Allergies Allergy (Verified 07/10/18 08:15) Past Medical History - General Information source: Patient, Relative - Social History Smoking Status: Former Smoker Family History: Hypertension - Past Medical History Cardiac Medical History: Reports: Hx Atrial Fibrillation, Hx Hypertension, Hx Peripheral Vascular Disease Denies: Hx Congestive Heart Failure, Hx Coronary Artery Disease, Hx Heart Attack, Hx Hypercholesterolemia, Hx Pulmonary Embolism, Hx Heart Murmur Pulmonary Medical History: Reports: Hx Bronchitis - approx 2 x yrly, Hx Pneumonia - Nov 2012 (hospitalized), Hx Sleep Apnea - C-PAP use Denies: Hx Asthma, Hx COPD, Hx Respiratory Failure, Hx Tuberculosis Neurological Medical History: Denies: Hx Cerebrovascular Accident, Hx Seizures Endocrine Medical History: Reports: Hx Diabetes Mellitus Type 2. Denies: Hx Graves' Disease, Hx Hyperthyroidism, Hx Hypothyroidism Renal/ Medical History: Denies: Hx End Stage Renal Disease, Hx Kidney Stones, Hx Ovarian Cysts, Hx Peritoneal Dialysis, Hx Pelvic Inflammatory Disease Malignancy Medical History: Reports: Hx Breast Cancer - Left, FINISHED CHEMO Tx 2 MOS AGO. Denies: Hx Cervical Cancer, Hx Lung Cancer, Hx Ovarian Cancer Musculoskeletal Medical History: Reports Hx Arthritis - Knees, Denies Hx Fibromyalgia, Denies Hx Multiple Sclerosis, Denies Hx Muscular Dystrophy Psychiatric Medical History: Denies: Hx Dementia, Hx Depression Traumatic Medical History: Denies: Hx Fractures Past Surgical History: Reports: Hx Breast Surgery - lumpectomy, Hx Hysterectomy , Hx Orthopedic Surgery - Left knee replacement, Hx Tonsillectomy. Denies: Hx Appendectomy, Hx Bowel Surgery, Hx Section, Hx Cholecystectomy, Hx Coronary Artery Bypass Graft, Hx Gastric Bypass Surgery, Hx Herniorrhaphy, Hx Mastectomy, Hx Pacemaker, Hx Tubal Ligation - Immunizations Immunizations up to date: Yes Hx Diphtheria, Pertussis, Tetanus Vaccination: Yes Hx Pneumococcal Vaccination: 08/08/16 Review of Systems - Review of Systems -: Yes All other systems reviewed and negative Physical Exam - Vital signs Vitals: Temp Pulse Resp BP Pulse Ox 97.7 F 152 H 18 110/83 95 07/10/18 08:15 07/10/18 08:15 07/10/18 08:15 07/10/18 08:15 07/10/18 08:15 - General General appearance: Appears well In distress: None - HEENT Head: Normocephalic Eyes: Normal Conjunctiva: Normal Cornea: Normal Extraocular movements intact: Yes Eyelashes: Normal Pupils: PERRL Ears: Normal Nasal: Normal Mouth/Lips: Normal Mucous membranes: Normal - Respiratory Respiratory status: Pursed lip breathing, Tachypnea Chest status: Nontender Breath sounds: Rhonchi, Wheezing Chest palpation: Normal - Cardiovascular Rhythm: Tachycardia Heart sounds: S1 appreciated Murmur: No - Abdominal Inspection: Obese Distension: No distension Tenderness: Tender Organomegaly: No organomegaly - Back Back: Normal - Extremities General upper extremity: Normal inspection, Normal ROM General lower extremity: Normal inspection, Normal ROM, Normal weight bearing Shoulder: Normal - Neurological Neuro grossly intact: No - confused Cognition: Normal, Confused Orientation: Disoriented to time Luis [place] Coma Scale Eye Opening: Spontaneous Luis [place] Coma Scale Verbal: Confused [place] Coma Scale Motor: Obeys Commands Luis Angel Coma Scale Total: 14 Speech: Dysarthria Motor strength normal: LUE, RUE, LLE, RLE - Psychological Associated symptoms: Normal affect Course - Re-evaluation Re-evalutation: 07/10/18 09:30 This is a 78-year-old female presents for evaluation of shortness of breath in the setting of likely having missed several days of her home medications. 3 historical review this patient does have a history of atrial fibrillation which is presented in the past with A. fib and RVR. Currently her heart rate is in the 150-160 range. She is tachypneic, with normal blood pressures. Given that the patient has what appears to be A. fib with RVR and a rate of 166 on EKG we will plan for the administration of diltiazem as blood pressure allows. Patient is currently being monitored, will re-dose as necessary, 07/10/18 09:30 Twice more this patient was administered 10 mg of diltiazem, there was not even a transient response in her heart rate. Her heart rate continued to be between 145 and 160. Given her poor response will administer metoprolol p.o. which is her home medication. Per previous records this patient has previously presented for a similar episode and at that time she was in DKA for an unknown etiology with a heart rate in the 170s but responded well to diltiazem. At this time she does not appear to be in DKA, her blood glucose while elevated she does not demonstrate a marked acidosis and has no ketones in her urine. Do not believe it is safe to administer large volumes of fluid given her heart failure at this time. We will initiate dig loading for patient given poor response to metoprolol and diltiazem. Following administration of digoxin patient had a transient response in which her heart rate did decrease to 120s for approximately 10 minutes, following approximately 10 minutes the heart rate did increase back to 145. The patient was placed on BiPAP during this time to improve her work of breathing, her work of breathing improved only modestly during this time. We will initiate treatment with diuretic to assess whether or not this patient improves. Have contacted on-call hospitalist to assess whether or not patient would benefit from admission to the hospital and [facility], they note that without cardiology this may prove difficult as this likely represents primary cardiac issue. Have contacted Amparo Wolff and Dr. CHAKRABORTY who agrees that the patient is likely appropriate for transfer and cardiology evaluation but likely may require intensive care level. We will reassess patient plan for transfer to [facility], will defer further administration of antiarrhythmic at this time. Prior to transport this patient's noted to have a heart rate around 160, her blood pressure has remained primarily in the 120 systolic range. She is remained cognizant during this time with a modestly increased work of breathing. - Vital Signs Vital signs: Temp Pulse Resp BP Pulse Ox 97.7 F 152 H 25 H 152/87 H 96 07/10/18 12:31 07/10/18 08:15 07/10/18 16:00 07/10/18 15:30 07/10/18 16:00 - Laboratory Result Diagrams: 07/10/18 08:41 07/10/18 08:41 Laboratory results interpreted by me: 07/10/18 07/10/18 07/10/18 08:41 08:41 08:41 RBC 3.65 L Hgb 10.6 L Hct 33.8 L MCHC 31.3 L RDW 19.5 H VBG pH BUN 22 H Creatinine 1.37 H Est GFR ( Amer) 45 L Est GFR (Non-Af Amer) 37 L Glucose 559 H* POC Glucose AST 55 H Alkaline Phosphatase 136 H NT-Pro-B Natriuret Pep 4440 H Urine Glucose (UA) 07/10/18 07/10/18 07/10/18 09:38 09:41 10:27 RBC Hgb Hct MCHC RDW VBG pH 7.29 L BUN Creatinine Est GFR ( Amer) Est GFR (Non-Af Amer) Glucose POC Glucose 480 H* AST Alkaline Phosphatase NT-Pro-B Natriuret Pep Urine Glucose (UA) >=500 H 07/10/18 13:56 RBC Hgb Hct MCHC RDW VBG pH BUN Creatinine Est GFR ( Amer) Est GFR (Non-Af Amer) Glucose POC Glucose AST Alkaline Phosphatase NT-Pro-B Natriuret Pep 4270 H Urine Glucose (UA) Critical Care Note - Critical Care Note Total time excluding time spent on procedures (mins): 75 Discharge - Discharge Clinical Impression: Atrial fibrillation with RVR, Shortness of breath Condition: Critical Disposition: [facility] Referrals: OBED BOGGS MD [Primary Care Provider] - Follow up as needed
--- NOTE | 2018-07-10 09:20 | RADIOLOGY REPORT (SQ) ---
EXAM DESCRIPTION: CHEST SINGLE VIEW COMPLETED DATE/TIME: 07/10/2018 9:00 am REASON FOR STUDY: shortness of breath COMPARISON: 04/19/2018. NUMBER OF VIEWS: One view. TECHNIQUE: Single frontal radiographic view of the chest acquired. LIMITATIONS: None. FINDINGS: LUNGS AND PLEURA: Suspect subtle Damaris B-lines, likely mild interstitial edema. No signi ficant pleural fluid or airspace disease. MEDIASTINUM AND HILAR STRUCTURES: Stable contours. HEART AND VASCULAR STRUCTURES: Cardiac enlargement. Slight central vascular congestion. BONES: Osteopenic. HARDWARE: Right port. OTHER: No other significant finding. IMPRESSION: 1. Suspect mild CHF. TECHNICAL DOCUMENTATION: JOB ID: [id number] [employer]- All Rights Reserved Reading location - IP/workstation name: [email or web address]
[2018-07-10 09:23] LABS: ABSOLUTE LYMPHOCYTES (AUTO) 1.7 10^3/uL (0.5-4.7); ABSOLUTE MONOCYTES (AUTO) 0.4 10^3/uL (0.1-1.4); ABSOLUTE NEUT (AUTO) 2.3 10^3/uL (1.7-8.2); BASOPHILS % (AUTO) 0.2 % (0-2); EOSINOPHILS % (AUTO) 0.1 % (0-6); HEMATOCRIT 33.8 % (36.0-47.0); HEMOGLOBIN 10.6 g/dL (12.0-15.5); LYMPHOCYTES % (AUTO) 37.8 % (13-45); MEAN CORPUSCULAR HEMOGLOBIN 28.9 pg (27.0-33.4); MEAN CORPUSCULAR HGB CONC 31.3 g/dL (32.0-36.0); MEAN CORPUSCULAR VOLUME 92 fl (80-97); MONOCYTES % (AUTO) 9.6 % (3-13); PLATELET COUNT 181 10^3/uL (150-450); RED BLOOD COUNT 3.65 10^6/uL (3.72-5.28); RED CELL DISTRIBUTION WIDTH 19.5 % (11.5-14.0); SEGMENTED NEUTROPHILS % (AUTO) 52.3 % (42-78); TOTAL CELLS COUNTED % (AUTO) 100 %; WHITE BLOOD COUNT 4.4 10^3/uL (4.0-10.5)
[2018-07-10] MEDS ORDERED: METOPROLOL TARTRATE 50 MG TABLET PO ONE (09:23)
[2018-07-10 09:33] LABS: ALANINE AMINOTRANSFERASE 41 U/L (9-52); ALBUMIN 3.5 g/dL (3.5-5.0); ALKALINE PHOSPHATASE 136 U/L (38-126); ANION GAP 14 (5-19); ASPARTATE AMINO TRANSFERASE 55 U/L (14-36); BILIRUBIN,DIRECT 0.3 mg/dL (0.0-0.4); BILIRUBIN,TOTAL 1.3 mg/dL (0.2-1.3); BLOOD UREA NITROGEN 22 mg/dL (7-20); CALCIUM 9.2 mg/dL (8.4-10.2); CARBON DIOXIDE 25 mmol/L (22-30); CHLORIDE 101 mmol/L (98-107); LIPASE 73.9 U/L (23-300); POTASSIUM 4.9 mmol/L (3.6-5.0); SODIUM 139.9 mmol/L (137-145); TOTAL PROTEIN 7.3 g/dL (6.3-8.2)
[2018-07-10 09:42] LABS: GLUCOSE 559 mg/dL (75-110)
--- NOTE | 2018-07-10 09:42 | EKG REPORT ---
SEVERITY:- ABNORMAL ECG - ATRIAL FLUTTER WITH RVR BORDERLINE T ABNORMALITIES, DIFFUSE LEADS : Confirmed by: Will Fierro MD 10-Jul-2018 09:41:40
[2018-07-10 09:45] LABS: TROPONIN I 0.026 ng/mL
[2018-07-10] MEDS ORDERED: INSULIN REG, HUMAN 100 UNIT/ML 3 ML VIAL (PYX) IV ONE (09:48)
[2018-07-10 09:55] LABS: VENOUS BLOOD BASE EXCESS 0.5 mmol/L; VENOUS BLOOD PCO2 59.5 mmHg (35-63); VENOUS BLOOD PH 7.29 (7.30-7.42)
[2018-07-10] MEDS ORDERED: DIGOXIN INJ 0.5 MG/2 ML AMPULE IV ONE (10:46)
[2018-07-10 10:55] LABS: APPEARANCE,URINE CLEAR; BILIRUBIN,URINE NEGATIVE (NEGATIVE); COLOR,URINE YELLOW; GLUCOSE, URINE >=500 mg/dL (NEGATIVE); KETONES,URINE NEGATIVE (NEGATIVE); LEUKOCYTE ESTERASE,URINE NEGATIVE (NEGATIVE); NITRITE,URINE NEGATIVE (NEGATIVE); PROTEIN,URINE NEGATIVE (NEGATIVE); URINE SPECIFIC GRAVITY 1.027; UROBILINOGEN,URINE NEGATIVE mg/dL (<2.0)
[2018-07-10 14:34] LABS: CREATINE KINASE MB 1.19 ng/mL (<4.55); TROPONIN I 0.029 ng/mL
[2018-07-10] MEDS ORDERED: FUROSEMIDE INJ/PF 40 MG/4 ML SDV IV ONE (14:52)
--- NOTE | 2018-07-10 14:59 | EKG REPORT ---
SEVERITY:- ABNORMAL ECG - ATRIAL FIBRILLATION, V-RATE 90-176 BORDERLINE T ABNORMALITIES, DIFFUSE LEADS : Confirmed by: Will Fierro MD 10-Jul-2018 14:58:57
[2018-07-10 15:10] LABS: CREATINE KINASE 84 U/L (30-135)
[2018-07-10 16:33] VITALS: BP 123/90
== END 2018-07-10 16:51 | disposition short-term general hospital (02) ==
LOC: ER 08:14
DX: I48.91 Unspecified atrial fibrillation (principal); Z79.02 Long term (current) use of antithrombotics/antiplatelets; I11.0 Hypertensive heart disease with heart failure; I50.9 Heart failure, unspecified; R06.02 Shortness of breath; R06.2 Wheezing; R10.819 Abdominal tenderness, unspecified site; R41.0 Disorientation, unspecified; R47.1 Dysarthria and anarthria; E11.65 Type 2 diabetes mellitus with hyperglycemia; E11.51 Type 2 diabetes mellitus with diabetic peripheral angiopathy without gangrene; Z79.899 Other long term (current) drug therapy; Z87.891 Personal history of nicotine dependence; Z85.3 Personal history of malignant neoplasm of breast; Z92.21 Personal history of antineoplastic chemotherapy
CPT/HCPCS: 93005; 96376; 99291; 99292; 96361; 96374; 96375; 36415; 82553; 82962; 82550; 83690; 85025; 80053; 81001; 84484; 82803; 83880; 71045; 93010; 94660; J1160; J1940; J3490; A9270 ×2; J7040; J1815

== ENCOUNTER → 2018-10-04 | Outpatient (CLI) | payer MEDICAID, MEDICARE ==
--- NOTE | 2018-10-04 11:13 | RADIOLOGY REPORT (SQ) ---
EXAM DESCRIPTION: RICHARDIE SWALLOW COMPLETED DATE/TIME: 10/04/2018 9:30 am REASON FOR STUDY: R13.10 DYSPHAGIA, UNSPECIFIED R13.10 DYSPHAGIA, UNSPECIFIED coughing and choking with meals COMPARISON: None. TECHNIQUE: Videofluoroscopic swallowing examination was performed in conjunction with speech patholo gy. Videofluoroscopic imaging was obtained and reviewed and these are the findings: RADIATION DOSE: 1 minutes 49 seconds of fluoroscopy was used. 1 images saved to PACS. LIMITATIONS: None FINDINGS: The patient was brought into the fluoro room and placed upright on a modified barium swall ow chair. The patient was then given multiple consistencies mixed with barium to swallow under live fluoroscopic video guidance. According to the Speech Pathologist there was flash laryngeal penetrati ons with thin liquids. No aspiration seen. IMPRESSION: FLASH LARYNGEAL PENETRATION WITH THIN LIQUIDS. NO ASPIRATION SEEN.PLEASE SEE SPEECH PAT HOLOGIST REPORT FOR OTHER FINDINGS AND RECOMMENDATIONS. COMMENT: Quality ID [id number]: Final reports for procedures using fluoroscopy that document radiation exp osure indices, or exposure time and number of fluorographic images (if radiation exposure indices are not available) TECHNICAL DOCUMENTATION: JOB ID: [id number] [employer] All Rights Reserved Reading location - IP/workstation name: [email or web address] [id number]
--- NOTE | 2018-10-04 15:33 | ST Modified Barium Swallow ---
Recommendation - Recommendations Recommendations: Recommend reduced sip size for liquids. No other skilled intervention or strategies indicated at this time. Medical Diagnoses - Medical Diagnoses Medical Diagnosis Description & ICD-10 Code(s): dysphagia R13.10 Other Medical Diagnoses/Co-Morbidities: patient reports breast cancer in 2009. Also reports taking medication for diabetes and her heart, but did not give specific diagnosis. - ICD-10 Tx Diagnosis Coding (1) Dysphagia ICD-10 Code(s): R13.10 - DYSPHAGIA, UNSPECIFIED ST Modified Barium Swallow - General Date: 10/04/18 Referring Physician: Dr. Mcrae Risks/Precautions: None Date of Onset: 09/08/17 - estimated onset date, stated problems have been going on for "a while" Reason for Referral: dysphagia - History History obtained from: Patient -: Medical - Patient arrived independently and acted as her own historian. Reports that she is coughing during meals at times. No recent pneumonia reported , and no diet changes reported. Medications: patient was unable to give names of medications, did state that she takes "cancer medicine, diabetes medicine, heart medicine, and breathing medicine". Allergies: none reported - Functional Status Prior Functional Status: INDEPENDENT: feeding - independent Current Functional Limitations: feeding - Subjective Patient/caregiver goal(s): safe swallow Cognitive-Linguistic Function: WNL Speech Intelligibility: WNL Current Nutritional Means: PO Current PO diet: Regular Current symptoms: Coughing Pain: Patient reports, 5/5 - reported right knee pain, stated it would not interfere with test. - Objective Assessment: Upright, Left Lateral - Food Trials Used Food trials used: Thin liquids, Pureed, Regular The patient: Was Able to Self Feed - Oral-Motor Skills Dentition: Full Velo-pharyngeal function: Unremarkable - Assessment Oral prep: Normal Labial closure: Adequate Leakage: None Mastication: Adequate Lingual Movement: Normal Oral stage: Normal for this Procedure - Pharyngeal Stage Initiation of Pharyngeal Stage Reflex: Normal Decreased laryngeal elevation: No Reduced Velopharyngeal Closure: no Reduced pressure generation: No reduced tongue-based retraction: No Pre-swallow pooling in valleculae: Mild Pre-Swallow pooling in pyriforms: None Reduced Thyro-Hyoid approximation: No Reduced epiglottic excursion: No Reduced pharyngeal peristalsis/contraction: No Post-swallow residulas vallecular: Mild Post-Swallow residuals in pyriforms: None Reduced Cricopharyngeal opening: No - Fall Risk Assessment Medications/Conditions that increase fall risks include: Antidepressants, sedatives, anti-arrhythmic, diuretic, benzodiazipenes, neuroleptics. BP regulation problems, cardiac problems, balance or gait deficits, neurological problems. Fall Risk Actions Taken: No action needed - Behavioral Observations During evaluation process patient: was pleasant, was cooperative - Treatment / Educational Needs: Treatment/Education Needs: Treatment consisted of patient education on the role of the Speech Pathologist. Patient's plan of care and golas were communicated as well as scheduling and attendance policies. Recommendations for initial home program were shared. Patient demonstrated understanding and verbalized agreement. - Impression/Summary Laryngeal Penetration: Yes, Flash, during swallow - occured only with very large sips of thin liquid, when sip size was reduced, no penetration seen. Consistency: Thin Tracheal Aspiration: no Effective Clearing: yes Patient presents with: Normal swallow at eval Risk of Aspiration: Minimal Risk of nutritional compromise: WNL - Recommendations Solid diet recommendations: Regular Liquid Diet Modification: Thin Strict aspiration precautions: No Dysphagia therapy with FLORAL DECORATOR: no Recommended techniques: Fully Upright During Meal, Small Bites and Sips Information, Precautions and Recommendations: Patient (Written), Patient (Verbal ) - Plan of Care Strategies to optimize patient understanding include:: ongoing assessment of educational needs, implementation of educational strategies, and re-education. - - -: Thank you for the opportunity to work with this patient and his/her family. Should you have any questions about this patient's plan or progress, I can be reached at [phone]. Charge G Code? - - -: Yes ST F.L. Impairment Category - Rationale Based On Rationale Based On: Clin Find., Obj Measures - Swallowing Current G8996: CH 0% Impaired Goal G8997: CH 0% Impaired Discharge G8998: CH 0% Impaired
== END ==
LOC: RAD 08:59
PROVIDERS: ATTEND Internal Medicine Pulmonary Disease
DX: R13.10 Dysphagia, unspecified (principal); Z85.3 Personal history of malignant neoplasm of breast
CPT/HCPCS: 74230; 92611; G8996; G8997; G8998

== ENCOUNTER → 2018-10-11 | Outpatient (CLI) | payer MEDICARE ==
--- NOTE | 2018-10-12 08:50 | RADIOLOGY REPORT (SQ) ---
EXAM DESCRIPTION: PET CT SKULL/THIGH COMPLETED DATE/TIME: 10/11/2018 7:27 pm REASON FOR STUDY: R91.1 SOLITARY PULMONARY NODULE R91.1 SOLITARY PULMONARY NODULE COMPARISON: CT angio chest October 2018 CT chest 08/20/2017 PET-CT 04/16/2013, 06/14/2015 RADIONUCLIDE AND DOSE: 12.7 mCi F18 FDG The route of agent administration: Intravenous FASTING BLOOD SUGAR: 63 mg/dl CONTRAST TYPE AND DOSE: No CT contrast given. TECHNIQUE: Blood glucose level was verified. Above dose of FDG was injected intravenously. 2-D seg mented attenuation correction images were obtained from the base of the skull to the midthighs. Nonc ontrast CT images were obtained for attenuation correction and fusion with emission images. CT image s were performed without oral or intravenous contrast and are not sensitive for parenchymal lesions. A series of overlapping emission PET images were obtained. Images reviewed and manipulated at [facility] work station by the radiologist. Images stored on PACS. LIMITATIONS: None. FINDINGS: HEAD AND NECK: No areas of abnormal metabolic activity in the soft tissues of the head and neck. CHEST: In the left axilla, a 1.7 x 0.6 cm lymph node is present on axial image 67, with SUV of 2.6. Patient has old breast radiation therapy changes with skin thickening and increased attenuation. No increased metabolic activity over the left breast is identified. No hypermetabolic lung nodules or mediastinal/hilar lymph nodes are present. The 5 cm area of consol idation in the right upper lobe seen 04/19/2018 is now smaller, with a 1.4 cm pleural-based nodule in the periphery of the right upper lobe axial image 67 with activity at baseline with SUV 1.1. A 2 cm area of consolidation in the posterior right upper lobe and lingular consolidation seen on CT chest 04/19/2018 have resolved. Non metabolic prevascular and pretracheal lymph nodes are smaller in size than on 04/19/2018. ABDOMEN AND PELVIS: No areas of abnormal metabolic activity in the abdomen or pelvis. Expected physi ologic activity is present in the genitourinary system and bowel. PROXIMAL LOWER EXTREMITIES: No areas of abnormal metabolic activity in the soft tissues of the lower extremities. BONES: No abnormal metabolic activity in the visualized skeleton. 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 Post cholecystectomy an d hysterectomy. Small to moderate bilateral pleural effusions. Moderate cardiomegaly. Retrocardiac hiatal hernia. OTHER: Liver background activity 1.1 SUV. Blood pool background activity 0.68. IMPRESSION: No worrisome hypermetabolic lesions over the lungs, pleura, or kamlesh/mediastinum. 1.7 x 0.6 cm left axillary lymph nodes with metabolic activity, abnormal but nonspecific TECHNICAL DOCUMENTATION: JOB ID: [id number] [employer] All Rights Reserved Reading location - IP/workstation name: [facility]
== END ==
LOC: RAD 10-02 15:04
PROVIDERS: ATTEND Internal Medicine Pulmonary Disease
DX: R91.1 Solitary pulmonary nodule (principal)
CPT/HCPCS: 78815; A9552

== ENCOUNTER → 2018-11-24 | Outpatient (CLI) | payer MEDICARE, MEDICAID ==
--- NOTE | 2018-11-24 11:05 | WOMENS IMAGING REPORT ---
EXAM DESCRIPTION: 3D SCREENING MAMMO BILAT COMPLETED DATE/TIME: 11/24/2018 10:36 am REASON FOR STUDY: ROUTINE BILATERAL SCREENING;Z12.31 Z12.31 ENCNTR SCREEN MAMMOGRAM FOR MALIGNANT N EOPLASM OF [place]IA COMPARISON: 11/23/2017 and 11/11/2016. TECHNIQUE: Standard craniocaudal and mediolateral oblique views of each breast recorded using digita l acquisition and breast tomosynthesis. LIMITATIONS: None. FINDINGS: Findings present which are benign by mammographic criteria. No suspicious masses, calcifi cations or architectural distortion. Pertinent benign findings: Stable treatment changes in the left breast. Read with the assistance of CAD. .[facility] - R2 Cenova Version 1.3 .[facility] Imaging - R2 Cenova Version 1.3 .[facility] Imaging - R2 Cenova Version 2.4 .[facility] [place] - R2 Cenova Version 2.4 .[facility] - R2 Staff Development Manager Version 9.2 Benign mammographic findings may include one or more of the following: Smooth masses, popcorn/rim/co arse calcifications, asymmetries, post-procedure changes, and lesions with long-standing stability. IMPRESSION: BENIGN MAMMOGRAPHIC FINDINGS. BIRADS 2 BREAST DENSITY: b. There are scattered areas of fibroglandular density. BIRAD: 2 BENIGN FINDING(S) RECOMMENDATION: RECOMMENDATION: ROUTINE SCREENING COMMENT: The patient has been notified of the results by letter per SA requirements. Additional no tification policies are in place for contacting patient with suspicious or incomplete findings. Quality ID #[id number]: The [employer] recommends an annual screening mammogram for women aged 40 years or over. This facility utilizes a reminder system to ensure that all patients receive reminder letters, and/or direct phone calls for appointments. This includes reminders for routine scr eening mammograms, diagnostic mammograms, or other Breast Imaging Interventions when appropriate. Th is patient will be placed in the appropriate reminder system. The [employer] (ACR) has developed recommendations for screening MRI of the breast s in certain patient populations, to be used in conjunction with mammography. Breast MRI surveillanc e may be appropriate for women with more than 20% lifetime risk of developing breast cancer as deter mined by genetic testing, significant family history of the disease, or history of mantle radiation f or Hodgkins Disease. ACR Practice Guidelines 2008. DBT Technology DBT is a type of tomographic mammography. With conventional mammography, overlapping breast tissue ma y make lesions difficult to detect, even with good compression. DBT uses an x-ray tube that rotates a round the breast, taking images at different angles. These images are then combined to create thin sl ices of the breast that the radiologist can view as a 3D reconstruction. The [employer] unit can perform full-field digital mammograms (2D imaging); or DBT (3D imaging); or both, in a combination mode that quickly performs both the mammogram and the tomosynthesis scan while the breast is still compressed. PQRS 6045F: Fluoroscopic imaging is not utilized for breast tomosynthesis. TECHNICAL DOCUMENTATION: FINDING NUMBER: (1) ASSESSMENT: (1) JOB ID: [id number] [employer]- All Rights Reserved Reading location - IP/workstation name: [email or web address]
== END ==
LOC: WI 10:07
PROVIDERS: ATTEND Internal Medicine Medical Oncology
DX: Z12.31 Encounter for screening mammogram for malignant neoplasm of breast (principal)
CPT/HCPCS: 77063; 77067

== ENCOUNTER → 2018-11-29 | Outpatient (CLI) | payer MEDICARE, MEDICAID ==
--- NOTE | 2018-11-29 17:27 | RADIOLOGY REPORT (SQ) ---
EXAM DESCRIPTION: CHEST 2 VIEWS COMPLETED DATE/TIME: 11/29/2018 5:16 pm REASON FOR STUDY: R05 COUGH COMPARISON: 04/19/2018 EXAM PARAMETERS: NUMBER OF VIEWS: two views TECHNIQUE: Digital Frontal and Lateral radiographic views of the chest acquired. RADIATION DOSE: NA LIMITATIONS: none FINDINGS: LUNGS AND PLEURA: New left pleural effusion and left basilar opacity. Knee right basilar opacity. No pneumothorax. MEDIASTINUM AND HILAR STRUCTURES: No masses or contour abnormalities. HEART AND VASCULAR STRUCTURES: Heart enlarged. Mild vascular congestion. BONES: No acute findings. HARDWARE: Venous access catheter unchanged. OTHER: No other significant finding. IMPRESSION: Left pleural effusion and left basilar pneumonia. Vascular congestion. TECHNICAL DOCUMENTATION: JOB ID: [id number] [employer]- All Rights Reserved Reading location - IP/workstation name: [email or web address]
== END ==
LOC: RAD 16:57
PROVIDERS: ATTEND Internal Medicine
DX: R05 Cough (principal)
CPT/HCPCS: 71046

== ENCOUNTER 2018-12-21 11:22 | Inpatient (IN) | payer MEDICARE, MEDICAID ==
[2018-12-21] MEDS ORDERED: ASPIRIN 81 MG TABLET, CHEWABLE PO ONE (12:14)
--- NOTE | 2018-12-21 12:18 | ER Document Report ---
ED Cardiac - General Chief Complaint: Chest Pain Stated Complaint: HEART RATE ISSUES Time Seen by Provider: 12/21/18 11:49 Primary Care Provider: BARB MAHER MD [Primary Care Provider] - Follow up as needed Mode of Arrival: Ambulatory Information source: Patient Notes: Chief complaint: Shortness of breath History of complain: 78 years old female was sent over here by the primary care physician to be admitted because of rapid heartbeat with shortness of breath and chest pain since this morning. No fever chills or other constitutional symptoms. Currently has no pain Onset: As above Duration: Gradual Severity: Mild Quality: Unknown Context: History of A. fib Exacerbating factor and relieving factors: Exertion REVIEW OF SYSTEMS: CONSTITUTIONAL : Denies fever, chills, or sweats. Denies recent illness. EENT: Denies eye, ear, throat, or mouth pain or symptoms. Denies nasal or sinus congestion or discharge. Denies throat, tongue, or mouth swelling or difficulty swallowing. CARDIOVASCULAR: Denies chest pain. Denies palpitations or racing or irregular heart beat. Denies ankle edema. RESPIRATORY: Denies cough, cold, or chest congestion. Denies shortness of breath, difficulty breathing, or wheezing. GASTROINTESTINAL: Denies abdominal pain or distention. Denies nausea, vomiting, or diarrhea. Denies blood in vomitus, stools, or per rectum. Denies black, tarry stools. Denies constipation. GENITOURINARY: Denies difficulty urinating, painful urination, burning, frequency, blood in urine, or discharge. MUSCULOSKELETAL: Denies back or neck pain or stiffness. Denies joint pain or swelling. SKIN: Denies rash, lesions or sores. HEMATOLOGIC : Denies easy bruising or bleeding. LYMPHATIC: Denies swollen, enlarged glands. NEUROLOGICAL: Denies confusion or altered mental status. Denies passing out or loss of consciousness. Denies dizziness or lightheadedness. Denies headache. Denies weakness or paralysis or loss of use of either side. Denies problems with gait or speech. Denies sensory loss, numbness, or tingling. Denies seizures. PSYCHIATRIC: Denies anxiety or stress. Denies depression, suicidal ideation, or homicidal ideation. ALL OTHER SYSTEMS REVIEWED AND NEGATIVE. Dictation was performed using [employer] recognition software PHYSICAL EXAMINATION: GENERAL: Well-appearing, well-nourished and in no acute distress. HEAD: Atraumatic, normocephalic. EYES: Pupils equal round and reactive to light, extraocular movements intact, sclera anicteric, conjunctiva are normal. ENT: Nares patent, oropharynx clear without exudates. Moist mucous membranes. NECK: Normal range of motion, supple without lymphadenopathy LUNGS: Breath sounds .... No wheezes rales or rhonchi. HEART: Regular rate and rhythm without murmurs ABDOMEN: Soft, nontender, nondistended abdomen. No guarding, no rebound. No masses appreciated. SKIN: Warm, Dry, normal turgor, no rashes or lesions noted. TRAVEL OUTSIDE OF THE [place] IN LAST 30 DAYS: No - HPI Notes: Dictated - Related Data Allergies/Adverse Reactions: No Known Allergies Allergy (Verified 12/21/18 11:30) Past Medical History - Social History Smoking Status: Never Smoker Frequency of alcohol use: Rare Drug Abuse: None Lives with: Family Family History: Reviewed & Not Pertinent, Hypertension Patient has suicidal ideation: No Patient has homicidal ideation: No - Past Medical History Cardiac Medical History: Reports: Hx Atrial Fibrillation, Hx Hypertension, Hx Peripheral Vascular Disease Denies: Hx Congestive Heart Failure, Hx Coronary Artery Disease, Hx Heart Attack, Hx Hypercholesterolemia, Hx Pulmonary Embolism, Hx Heart Murmur Pulmonary Medical History: Reports: Hx Bronchitis - approx 2 x yrly, Hx Pneumonia - Nov 2012 (hospitalized), Hx Sleep Apnea - C-PAP use Denies: Hx Asthma, Hx COPD, Hx Respiratory Failure, Hx Tuberculosis Neurological Medical History: Denies: Hx Cerebrovascular Accident, Hx Seizures Endocrine Medical History: Reports: Hx Diabetes Mellitus Type 2. Denies: Hx Graves' Disease, Hx Hyperthyroidism, Hx Hypothyroidism Renal/ Medical History: Denies: Hx End Stage Renal Disease, Hx Kidney Stones, Hx Ovarian Cysts, Hx Peritoneal Dialysis, Hx Pelvic Inflammatory Disease Malignancy Medical History: Reports: Hx Breast Cancer - Left, FINISHED CHEMO Tx 2 MOS AGO. Denies: Hx Cervical Cancer, Hx Lung Cancer, Hx Ovarian Cancer Musculoskeletal Medical History: Reports Hx Arthritis - Knees, Denies Hx Fibromyalgia, Denies Hx Multiple Sclerosis, Denies Hx Muscular Dystrophy Psychiatric Medical History: Denies: Hx Dementia, Hx Depression Traumatic Medical History: Denies: Hx Fractures Past Surgical History: Reports: Hx Breast Surgery - lumpectomy, Hx Hysterectomy, Hx Orthopedic Surgery - Left knee replacement, Hx Tonsillectomy. Denies: Hx Appendectomy, Hx Bowel Surgery, Hx Section, Hx Cholecystectomy, Hx Coronary Artery Bypass Graft, Hx Gastric Bypass Surgery, Hx Herniorrhaphy, Hx Mastectomy, Hx Pacemaker, Hx Tubal Ligation - Immunizations Immunizations up to date: Yes Hx Diphtheria, Pertussis, Tetanus Vaccination: Yes Hx Pneumococcal Vaccination: 08/08/16 Review of Systems - Review of Systems Notes: Dictated Physical Exam - Vital signs Vitals: Temp Pulse Resp BP Pulse Ox 97.7 F 62 18 96/66 L 97 12/21/18 11:45 12/21/18 11:45 12/21/18 11:45 12/21/18 11:45 12/21/18 11:45 - Notes Notes: Dictated Course - Vital Signs Vital signs: Temp Pulse Resp BP Pulse Ox 97.7 F 62 18 96/66 L 97 12/21/18 11:45 12/21/18 11:45 12/21/18 11:45 12/21/18 11:45 12/21/18 11:45 Discharge - Discharge Clinical Impression: Chest pain, rule out acute myocardial infarction Atrial fibrillation Qualifiers: Atrial fibrillation type: chronic Qualified Code(s): I48.2 - Chronic atrial fibrillation Condition: Fair Disposition: ADMITTED INPATIENT Admitting Provider: [facility] Unit Admitted: [facility] Referrals: BARB MAHER MD [Primary Care Provider] - Follow up as needed
--- NOTE | 2018-12-21 13:00 | RADIOLOGY REPORT (SQ) ---
EXAM DESCRIPTION: CHEST SINGLE VIEW COMPLETED DATE/TIME: 12/21/2018 12:41 pm REASON FOR STUDY: Chest pain COMPARISON: Chest films 11/29/2018, 04/19/2018 PET-CT 10/11/2018 EXAM PARAMETERS: NUMBER OF VIEWS: One view. TECHNIQUE: Single frontal radiographic view of the chest acquired. RADIATION DOSE: NA LIMITATIONS: None. FINDINGS: LUNGS AND PLEURA: There is bibasilar consolidation atelectasis versus pneumonia. Trace left pleural effusion may be present No pneumothorax Bandlike scarring or atelectasis in the right upper lobe and left mid lung, similar compared to 2018. MEDIASTINUM AND HILAR STRUCTURES: No masses. Contour normal. HEART AND VASCULAR STRUCTURES: Stable moderate to marked cardiomegaly BONES: No acute findings. HARDWARE: Unchanged right-sided permanent central line with the tip in the superior vena cava OTHER: No other significant finding. IMPRESSION: Bibasilar consolidation left greater than right worrisome for pneumonia TECHNICAL DOCUMENTATION: JOB ID: [id number] [employer]- All Rights Reserved Reading location - IP/workstation name: [email or web address]
[2018-12-21 13:47] LABS: ABSOLUTE LYMPHOCYTES (AUTO) 1.4 10^3/uL (0.5-4.7); ABSOLUTE MONOCYTES (AUTO) 0.4 10^3/uL (0.1-1.4); ABSOLUTE NEUT (AUTO) 2.9 10^3/uL (1.7-8.2); BASOPHILS % (AUTO) 0.3 % (0-2); HEMATOCRIT 37.4 % (36.0-47.0); HEMOGLOBIN 11.4 g/dL (12.0-15.5); LYMPHOCYTES % (AUTO) 29.1 % (13-45); MEAN CORPUSCULAR HEMOGLOBIN 30.1 pg (27.0-33.4); MEAN CORPUSCULAR HGB CONC 30.6 g/dL (32.0-36.0); MEAN CORPUSCULAR VOLUME 99 fl (80-97); MONOCYTES % (AUTO) 9.1 % (3-13); PLATELET COUNT 209 10^3/uL (150-450); RED CELL DISTRIBUTION WIDTH 19.3 % (11.5-14.0); SEGMENTED NEUTROPHILS % (AUTO) 61.5 % (42-78); TOTAL CELLS COUNTED % (AUTO) 100 %; WHITE BLOOD COUNT 4.8 10^3/uL (4.0-10.5)
[2018-12-21 14:05] LABS: ALANINE AMINOTRANSFERASE 24 U/L (9-52); ALBUMIN 3.9 g/dL (3.5-5.0); ALKALINE PHOSPHATASE 95 U/L (38-126); ANION GAP 13 (5-19); ASPARTATE AMINO TRANSFERASE 25 U/L (14-36); BILIRUBIN,DIRECT 0.6 mg/dL (0.0-0.4); BILIRUBIN,TOTAL 2.1 mg/dL (0.2-1.3); BLOOD UREA NITROGEN 41 mg/dL (7-20); CALCIUM 9.2 mg/dL (8.4-10.2); CARBON DIOXIDE 28 mmol/L (22-30); CHLORIDE 103 mmol/L (98-107); CREATINE KINASE 41 U/L (30-135); GLUCOSE 234 mg/dL (75-110); SODIUM 143.5 mmol/L (137-145); TOTAL PROTEIN 7.7 g/dL (6.3-8.2)
[2018-12-21 14:19] LABS: CREATINE KINASE MB 0.74 ng/mL (<4.55)
[2018-12-21 14:20] LABS: TROPONIN I < 0.012 ng/mL
[2018-12-21] MEDS ORDERED: DEXTROSE 40% GEL 15 GM TUBE X 2 PO PRN (15:30)
[2018-12-21] MEDS ORDERED: DEXTROSE 50%-WATER SYRINGE 12.5 GM/25 ML DOSE IV PRN (15:30)
[2018-12-21] MEDS ORDERED: GLUCAGON,HUMAN RECOMB 1 MG INJ IM PRN (15:30)
[2018-12-21] MEDS ORDERED: DEXTROSE 50%-WATER SYRINGE 25 GM/50 ML DOSE IV PRN (15:30)
[2018-12-21] MEDS ORDERED: DEXTROSE 40% GEL 15 GM TUBE PO PRN (15:30)
[2018-12-21] MEDS ORDERED: (PENDING PHARMACY ID) (Diltiazem Hcl [Diltiazem 24hr Er] 240 MG) PO SCH (15:45)
[2018-12-21] MEDS ORDERED: [UNRECOGNIZED DRUG - OTHER] PO SCH (15:45)
[2018-12-21] MEDS ORDERED: METFORMIN HCL PO SCH (15:45)
[2018-12-21] MEDS ORDERED: DAPAGLIFLOZIN PO SCH (15:45)
[2018-12-21] MEDS: INSULIN LISPRO 100 UNIT/ML 3 ML VIAL SUBCUT SCH ×2 (16:59→22:20)
[2018-12-21] MEDS: AMIODARONE HCL 200 MG TABLET PO SCH (16:59)
[2018-12-21] MEDS: DILTIAZEM HCL 240 MG CAPSULE.CR PO SCH (17:01)
[2018-12-21 17:56] LABS: ARTERIAL BLOOD BASE EXCESS -0.8 mmol/L; ARTERIAL BLOOD H2CO3 1.23 mmol/L (1.05-1.35); ARTERIAL BLOOD HCO3 24.2 mmol/L (20-24); ARTERIAL BLOOD O2 SATURATION 96.7 % (94-98); ARTERIAL BLOOD PH 7.39 (7.35-7.45); ARTERIAL BLOOD TOTAL CO2 25.4 mmol/L (21-25)
[2018-12-21 17:57] LABS: ARTERIAL BLOOD FIO2 2L
--- NOTE | 2018-12-21 20:03 | PDOC H&P ---
History of Present Illness Admission Date/PCP: 12/21/18 12:53 OBED BOGGS MD History of Present Illness: LC ANGUIANO is a 78 year old female, She has multiple comorbid conditions i ncluding chronic obstructive lung disease, chronic atrial fibrillation, cardiomyopathy, she was at the oncology office earlier this morning for Port-A-Cath flush, she was walking with a walker and noticed to be short of breath on ambulation there was no chest pain the pulse rate recorded was 122 the oxygen saturation was 94%, she was evaluated by oncologist and she felt patient needed to go to the hospital so EMS was called and she was transferred from the oncologist office to the emergency room for further evaluation She was recently admitted at [facility] on October 31, 2018, she was discharged on November 21, 2018 on that admission she was diagnosed with acute on chronic hypoxic respiratory failure requiring BiPAP and trach intubation, aspiration pneumonia most likely gram-negative organisms, ventricular fibrillation arrest, pulseless electrical activity arrest, atrial fibrillation with rapid regular response, acute systolic heart failure, acute kidney injury left atrial thrombus not on anticoagulation dysphagia, hematuria, hemoptysis.She had transesophageal echo done on 11/16/2017 she was found to have atrial thrombus, the ejection fraction was 25%, based on the discharge summary patient had difficult to control heart rate attempt was made to try to cardiovert but she was found to have atrial blood clots so this was not pursued and then she was started on amiodarone.CT chest without contrast done today demonstrated scattered mediastinal lymph nodes no myasthenia or axillary adenopathy. Heart size is enlarged without pericardial effusion. There are small bilateral pleural effusions with atelectasis/consolidation the left lower lobe Past Medical History Cardiac Medical History: Reports: Atrial Fibrillation, Congestive Heart Failure, Hypertension, Peripheral Vascular Disease Pulmonary Medical History: Reports: Bronchitis - approx 2 x yrly, Pneumonia - Nov 2012 (hospitalized), Sleep Apnea - C-PAP use Endocrine Medical History: Reports: Diabetes Mellitus Type 2 Malignancy Medical History: Reports: Breast Cancer - Left, FINISHED CHEMO Tx 2 MOS AGO Musculoskeltal Medical History: Reports: Arthritis - Knees Denies: Fibromyalgia Past Surgical History Past Surgical History: Reports: Hysterectomy, Orthopedic Surgery - Left knee replacement, Tonsillectomy Social History Lives with: Family Smoking Status: Former Smoker Frequency of Alcohol Use: None Hx Recreational Drug Use: No Drugs: None Hx Prescription Drug Abuse: No Family History Family History: Reviewed & Not Pertinent, Hypertension Parental Family History Reviewed: Yes Children Family History Reviewed: Yes Sibling(s) Family History Reviewed.: Yes Medication/Allergy Home Medications: Amiodarone HCl [Cordarone 200 mg Tablet] 200 mg PO DAILY 12/21/18 Dapagliflozin/Metformin HCl [Xigduo Xr 10 mg-1,000 mg Tab] 1 each PO DAILY 12/21/18 Digoxin [Digox] 125 mcg PO DAILY 12/21/18 Diltiazem HCl [Diltiazem 24Hr ER] 240 mg PO DAILY 12/21/18 Metoprolol Tartrate [Lopressor 50 mg Tablet] 50 mg PO BID 12/21/18 Torsemide [Demadex 20 mg Tablet] 20 mg PO DAILY 12/21/18 Allergies/Adverse Reactions: No Known Allergies Allergy (Verified 12/21/18 11:30) Review of Systems Constitutional: PRESENT: fatigue, weakness Ears: ABSENT: hearing changes Cardiovascular: PRESENT: dyspnea on exertion, palpitations Respiratory: PRESENT: dyspnea Gastrointestinal: PRESENT: nausea, vomiting Genitourinary: ABSENT: dysuria, hematuria Integumentary: ABSENT: rash, wounds Psychiatric: PRESENT: depression Endocrine: PRESENT: other Hematologic/Lymphatic: ABSENT: easy bleeding, easy bruising, lymphadenopathy Physical Exam Vital Signs: Temp Pulse Resp BP Pulse Ox 97.8 F 130 H 28 H 116/85 97 12/21/18 13:49 12/21/18 14:00 12/21/18 13:49 12/21/18 13:49 12/21/18 13:49 Intake & Output 12/20/18 12/21/18 12/22/18 06:59 06:59 06:59 Intake Total 237 Balance 237 Weight 83.9 kg General appearance: PRESENT: mild distress Head exam: PRESENT: atraumatic, normocephalic Eye exam: PRESENT: PERRLA Ear exam: PRESENT: normal external ear exam Mouth exam: PRESENT: moist, tongue midline Neck exam: PRESENT: full ROM Respiratory exam: PRESENT: rales, rhonchi Cardiovascular exam: PRESENT: irregular rhythm, +S1, +S2, systolic murmur Pulses: PRESENT: normal dorsalis pedis pul, +2 pedal pulses bilateral GI/Abdominal exam: PRESENT: normal bowel sounds, soft Rectal exam: PRESENT: deferred Neurological exam: PRESENT: CN II-XII grossly intact Psychiatric exam: PRESENT: appropriate affect Skin exam: PRESENT: dry, intact, warm Results Laboratory Results: 12/21/18 13:09 12/21/18 13:09 12/21/18 12/21/18 12/21/18 13:09 13:09 16:00 WBC 4.8 RBC 3.80 Hgb 11.4 L Hct 37.4 MCV 99 H MCH 30.1 MCHC 30.6 L RDW 19.3 H Plt Count 209 Seg Neutrophils % 61.5 Lymphocytes % 29.1 Monocytes % 9.1 Eosinophils % 0.0 Basophils % 0.3 Absolute Neutrophils 2.9 Absolute Lymphocytes 1.4 Absolute Monocytes 0.4 Absolute Eosinophils 0.0 Absolute Basophils 0.0 Carbonic Acid HCO3/H2CO3 Ratio ABG pH ABG pCO2 ABG pO2 ABG HCO3 ABG O2 Saturation ABG Base Excess FiO2 Sodium 143.5 Potassium 4.0 Chloride 103 Carbon Dioxide 28 Anion Gap 13 BUN 41 H Creatinine 1.61 H Est GFR ( Amer) 37 L Est GFR (Non-Af Amer) 31 L Glucose 234 H Lactic Acid 3.9 H Calcium 9.2 Total Bilirubin 2.1 H AST 25 ALT 24 Alkaline Phosphatase 95 Total Protein 7.7 Albumin 3.9 12/21/18 17:27 WBC RBC Hgb Hct MCV MCH MCHC RDW Plt Count Seg Neutrophils % Lymphocytes % Monocytes % Eosinophils % Basophils % Absolute Neutrophils Absolute Lymphocytes Absolute Monocytes Absolute Eosinophils Absolute Basophils Carbonic Acid 1.23 HCO3/H2CO3 Ratio 19:1 ABG pH 7.39 ABG pCO2 41.0 ABG pO2 89.0 ABG HCO3 24.2 H ABG O2 Saturation 96.7 ABG Base Excess -0.8 FiO2 2L Sodium Potassium Chloride Carbon Dioxide Anion Gap BUN Creatinine Est GFR ( Amer) Est GFR (Non-Af Amer) Glucose Lactic Acid Calcium Total Bilirubin AST ALT Alkaline Phosphatase Total Protein Albumin 12/21/18 12/21/18 12/21/18 13:09 13:09 16:00 Creatine Kinase 41 CK-MB (CK-2) 0.74 Troponin I < 0.012 < 0.012 Impressions: Chest X-Ray 12/21/18 12:14 IMPRESSION: Bibasilar consolidation left greater than right worrisome for pneumonia Assessment & Plan - Diagnosis (1) Acute combined systolic and diastolic heart failure Is this a current diagnosis for this admission?: Yes Plan: Patient, continue oxygen via nasal cannula (2) Left lower lobe pneumonia Qualifiers: Pneumonia type: due to unspecified organism Qualified Code(s): J18.1 - Lobar pneumonia, unspecified organism Is this a current diagnosis for this admission?: Yes (3) Chronic atrial fibrillation with rapid ventricular response Is this a current diagnosis for this admission?: Yes Plan: continue amiodarone ,beta-jerry (4) Sleep apnea syndrome Qualifiers: Sleep apnea type: unspecified type Qualified Code(s): G47.30 - Sleep apnea, unspecified Is this a current diagnosis for this admission?: Yes
--- NOTE | 2018-12-21 20:16 | RADIOLOGY REPORT (SQ) ---
CT CHEST WITHOUT IV CONTRAST HISTORY: Chest pain. Evaluate for pneumonia. COMPARISON: None. TECHNIQUE: CT scan of the chest without IV contrast. This exam was performed according to our departmental dose-optimization program, which includes automated exposure control, adjustment of the mA and/or kV according to patient size and/or use of iterative reconstruction technique. FINDINGS: The thyroid gland is unremarkable. There are scattered mediastinal lymph nodes. No mediastinal or axillary adenopathy. Limited evaluation for hilar adenopathy without IV contrast. Heart size is enlarged without pericardial effusion. There are small bilateral pleural effusions with atelectasis/consolidation in the left lower lobe. Additionally, there are bilateral perihilar opacities, nonspecific. No pneumothorax is identified. The visualized upper abdomen demonstrates cholecystectomy clips and a small hiatal hernia. There is a chronic deformity of the sternum. There are mild degenerative changes of the spine. IMPRESSION: 1. Cardiomegaly with pleural effusions and perihilar groundglass opacities suggesting cardiogenic pulmonary edema. 2. Left lower lobe atelectasis; superimposed infection is a possibility in the correct clinical setting.
[2018-12-21] MEDS ORDERED: LEVOFLOXACIN 750 MG/D5W RTU 750 MG/150 ML RTUPB IV SCH (20:30)
[2018-12-21] MEDS ORDERED: FUROSEMIDE INJ/PF 40 MG/4 ML SDV IV ONE (20:45)
[2018-12-21] MEDS: INSULIN GLARGINE,HUM.REC.ANLOG 300 UNIT/3 ML INSULN.PEN SUBCUT SCH (22:19)
[2018-12-21] MEDS: LEVOFLOXACIN 500 MG/D5W RTU 500 MG/100 ML RTUPB IV SCH (22:25)
[2018-12-21] MEDS: CEFTRIAXONE 1 GM/D5W RTU 1 GM/50 ML RTUPB IV SCH (22:27)
[2018-12-21] MEDS: METOPROLOL TARTRATE 50 MG TABLET PO SCH (22:46)
[2018-12-21] MEDS ORDERED: IPRATROPIUM/ALBUTEROL 0.5-2.5 MG/3 ML AMPUL NEB PRN (23:22)
--- NOTE | 2018-12-22 00:30 | EKG REPORT ---
SEVERITY:- ABNORMAL ECG - ATRIAL FLUTTER WITH 2:1 AV BLOCK MULTIPLE VENTRICULAR PREMATURE COMPLEXES NONSPECIFIC INTRAVENTRICULAR CONDUCTION DELAY PROBABLE LVH WITH SECONDARY REPOL ABNRM ANTERIOR Q WAVES, POSSIBLY DUE TO LVH : Confirmed by: Ana Luisa Johnston MD 22-Dec-2018 00:29:35
[2018-12-22] MEDS: INSULIN LISPRO 100 UNIT/ML 3 ML VIAL SUBCUT SCH ×4 (07:56→21:54)
[2018-12-22] MEDS: AMIODARONE HCL 200 MG TABLET PO SCH (09:28)
[2018-12-22] MEDS: METOPROLOL TARTRATE 50 MG TABLET PO SCH ×2 (09:28→21:28)
[2018-12-22] MEDS: DILTIAZEM HCL 240 MG CAPSULE.CR PO SCH (09:28)
--- NOTE | 2018-12-22 17:59 | PDOC PROGRESS REPORT ---
Subjective Progress Note for:: 12/22/18 Subjective:: Patient was seen by the bedside, she is now requiring noninvasive positive pressure ventilation on BiPAP to support breathing. Record was reviewed from [facility], 2D echo was done. She is presently not on anticoagulation because she had severe hemoptysis the last time she was admitted in [facility] Reason For Visit: PNEUMONIA Physical Exam Vital Signs: Temp Pulse Resp BP Pulse Ox 97.7 F 95 34 H 112/71 96 12/22/18 14:52 12/22/18 14:52 12/22/18 14:52 12/22/18 14:52 12/22/18 14:52 Intake & Output 12/21/18 12/22/18 12/23/18 06:59 06:59 06:59 Intake Total 624 237 Output Total 700 100 Balance -76 137 Weight 83.1 kg General appearance: PRESENT: mild distress Eye exam: PRESENT: PERRLA Respiratory exam: PRESENT: crackles Cardiovascular exam: PRESENT: +S1, +S2 GI/Abdominal exam: PRESENT: soft Neurological exam: PRESENT: alert Results Laboratory Results: 12/21/18 13:09 12/21/18 13:09 12/21/18 12/21/18 17:27 20:40 Carbonic Acid 1.23 HCO3/H2CO3 Ratio 19:1 ABG pH 7.39 ABG pCO2 41.0 ABG pO2 89.0 ABG HCO3 24.2 H ABG O2 Saturation 96.7 ABG Base Excess -0.8 FiO2 2L Lactic Acid 2.6 H 12/21/18 12/21/18 12/21/18 13:09 13:09 16:00 Creatine Kinase 41 CK-MB (CK-2) 0.74 Troponin I < 0.012 < 0.012 NT-Pro-B Natriuret Pep 12/21/18 20:40 Creatine Kinase CK-MB (CK-2) Troponin I NT-Pro-B Natriuret Pep 9530 H Impressions: Chest CT 12/21/18 00:00 IMPRESSION: 1. Cardiomegaly with pleural effusions and perihilar groundglass opacities suggesting cardiogenic pulmonary edema. 2. Left lower lobe atelectasis; superimposed infection is a possibility in the correct clinical setting. Chest X-Ray 12/21/18 12:14 IMPRESSION: Bibasilar consolidation left greater than right worrisome for pneumonia Assessment & Plan - Diagnosis (1) Acute combined systolic and diastolic heart failure Is this a current diagnosis for this admission?: Yes Plan: Continue BiPAP support (2) Left lower lobe pneumonia Qualifiers: Pneumonia type: due to unspecified organism Qualified Code(s): J18.1 - Lobar pneumonia, unspecified organism Is this a current diagnosis for this admission?: Yes Plan: Continue antibiotic (3) Chronic atrial fibrillation with rapid ventricular response Is this a current diagnosis for this admission?: Yes Plan: Continue amiodarone, metoprolol,, Consult cardiology (4) Sleep apnea syndrome Qualifiers: Sleep apnea type: unspecified type Qualified Code(s): G47.30 - Sleep apnea, unspecified Is this a current diagnosis for this admission?: Yes
[2018-12-22] MEDS: CEFTRIAXONE 1 GM/D5W RTU 1 GM/50 ML RTUPB IV SCH (20:02)
[2018-12-22] MEDS: LEVOFLOXACIN 500 MG/D5W RTU 500 MG/100 ML RTUPB IV SCH (21:23)
[2018-12-22] MEDS: INSULIN GLARGINE,HUM.REC.ANLOG 300 UNIT/3 ML INSULN.PEN SUBCUT SCH (21:51)
--- NOTE | 2018-12-22 23:54 | XCELERA REPORT ---
[address] [address] Transthoracic Echocardiogram Report Name: LC ANGUIANO Age: 78 yrs Gender: Female : 1940 Patient Status: Inpatient Patient Location: [address] [place] [address] Study Date: 12/22/2018 02:55 PM Height: 63 in Weight: 183 lb BSA: 1.9 m2 Procedure: A two-dimensional transthoracic echocardiogram with color flow and Doppler was performed. The study was technically difficult with many images being suboptimal in quality. Reason For Study: chf History: CHF. Ordering Physician: OBED BOGGS Performed By: Babita Vo Interpretation Summary CHF The left ventricle is moderately dilated. There is normal left ventricular wall thickness. LV EF is LESS than 15% Left ventricular systolic function is severely reduced. There is severe global hypokinesis of the left ventricle. There is no thrombus. The right atrium is normal. The left atrial size is normal. There is no evidence of mitral valve prolapse. There is no vegetation seen on the mitral valve. There is no mitral valve stenosis. There is a mild to moderate amount of mitral regurgitation There is no aortic valvular vegetation. There is no aortic valve stenosis There is no LVOT obstruction. No aortic regurgitation is present. There is no tricuspid stenosis. There is a moderate amount of tricuspid regurgitation There is moderate pulmonary hypertension by echo RVSP is 47 to 52 mm of Hg , with RA mean OF 10 to 15. There is a mild to moderate amount of pulmonic regurgitation There is no pulmonic valvular stenosis. There is no pericardial effusion. Large left pleural effusion. MMode/2D Measurements & Calculations RVDd: 2.5 cm LVIDd: 5.3 cm FS: 5.8 % Ao root diam: 2.5 cm IVSd: 0.98 cm LVIDs: 5.0 cm EDV(Teich): 136.1 ml Ao root area: 5.1 cm2 LVPWd: 0.95 cm ESV(Teich): 118.5 ml LA dimension: 3.3 cm EF(Teich): 12.9 % Doppler Measurements & Calculations MV E max vero: MV P1/2t max vero: Ao V2 max: LV V1 max P.1 cm/sec 89.8 cm/sec 89.6 cm/sec 1.8 mmHg MV A max vero: MV P1/2t: 30.6 msec Ao max PG: LV V1 max: 32.8 cm/sec MVA(P1/2t): 7.2 cm2 3.2 mmHg 66.3 cm/sec MV E/A: 2.7 MV dec slope: 858.9 cm/sec2 MV dec time: 0.11 sec PA V2 max: PI end-d vero: TR max vero: MV P1/2t-pr_phl: 44.7 cm/sec 191.4 cm/sec 302.7 cm/sec 33.4 msec PA max PG: TR max P.80 mmHg 36.6 mmHg Left Ventricle The left ventricle is moderately dilated. There is normal left ventricular wall thickness. LV EF is LESS than 15%. Left ventricular systolic function is severely reduced. There is severe global hypokinesis of the left ventricle. There is no thrombus. Right Ventricle The right ventricle is grossly normal size. Atria The right atrium is normal. The left atrial size is normal. The interatrial septum is intact with no evidence for an atrial septal defect. Mitral Valve There is no evidence of mitral valve prolapse. There is no vegetation seen on the mitral valve. There is no mitral valve stenosis. There is a mild to moderate amount of mitral regurgitation. Aortic Valve There is no aortic valvular vegetation. There is no aortic valve stenosis. There is no LVOT obstruction. No aortic regurgitation is present. Tricuspid Valve There is no tricuspid stenosis. There is a moderate amount of tricuspid regurgitation. There is moderate pulmonary hypertension by echo. RVSP is 47 to 52 mm of Hg , with RA mean OF 10 to 15. Pulmonic Valve There is no pulmonic valvular stenosis. There is a mild to moderate amount of pulmonic regurgitation. Great Vessels The aortic root is normal size. The inferior vena cava appeared normal and decreased < 50% with respiration (RAP 10-15 mmHg). Effusions There is no pericardial effusion. Large left pleural effusion. : OBED BOGGS > Ana Luisa Johnston
[2018-12-23] MEDS: INSULIN LISPRO 100 UNIT/ML 3 ML VIAL SUBCUT SCH ×4 (08:07→22:37)
[2018-12-23] MEDS: AMIODARONE HCL 200 MG TABLET PO SCH (09:04)
[2018-12-23] MEDS: DILTIAZEM HCL 240 MG CAPSULE.CR PO SCH (09:04)
[2018-12-23] MEDS: METOPROLOL TARTRATE 50 MG TABLET PO SCH ×2 (09:04→22:38)
--- NOTE | 2018-12-23 20:05 | PDOC PROGRESS REPORT ---
Subjective Progress Note for:: 12/23/18 Subjective:: Patient was seen by the bedside, she continues to require noninvasive positive pressure ventilation with BiPAP due to acute hypoxemic respiratory failure, the 2D echo demonstrated ejection fraction of left ventricle to be less than 15%. When she was admitted at [facility] the ejection fraction of left ventricle was 25% that was 2 months ago in October. I had a long discussion with patient's children about patient's condition and also the eddie rity of the cardiomyopathy, she is presently a full code I suggest that patient should probably be DNR, consultation from cardiology is ordered, she is very symptomatic she probably need ventricular assist device, I am not sure she is a good candidate for that either. When she was discharged from [facility] she had a MATT done that demonstrated a clot in the left atrium, and anticoagulation was not initiated on that admission because of hemoptysis Reason For Visit: PNEUMONIA Physical Exam Vital Signs: Temp Pulse Resp BP Pulse Ox 98.4 F 75 35 H 102/49 L 85 L 12/23/18 15:10 12/23/18 14:00 12/23/18 15:10 12/23/18 15:10 12/23/18 15:10 Intake & Output 12/22/18 12/23/18 12/24/18 06:59 06:59 06:59 Intake Total 624 637 325 Output Total 700 550 250 Balance -76 87 75 Weight 83.1 kg 84.8 kg General appearance: PRESENT: mild distress Eye exam: PRESENT: PERRLA Respiratory exam: PRESENT: crackles Cardiovascular exam: PRESENT: +S1, +S2, systolic murmur GI/Abdominal exam: PRESENT: soft Extremities exam: PRESENT: joint swelling Neurological exam: PRESENT: alert Results Laboratory Results: 12/21/18 13:09 12/21/18 13:09 12/21/18 12/21/18 12/21/18 13:09 13:09 16:00 Creatine Kinase 41 CK-MB (CK-2) 0.74 Troponin I < 0.012 < 0.012 NT-Pro-B Natriuret Pep 12/21/18 20:40 Creatine Kinase CK-MB (CK-2) Troponin I NT-Pro-B Natriuret Pep 9530 H Impressions: Chest CT 12/21/18 00:00 IMPRESSION: 1. Cardiomegaly with pleural effusions and perihilar groundglass opacities suggesting cardiogenic pulmonary edema. 2. Left lower lobe atelectasis; superimposed infection is a possibility in the correct clinical setting. Chest X-Ray 12/21/18 12:14 IMPRESSION: Bibasilar consolidation left greater than right worrisome for pneumonia Assessment & Plan - Diagnosis (1) Acute combined systolic and diastolic heart failure Is this a current diagnosis for this admission?: Yes Plan: Start Entresto (2) Left lower lobe pneumonia Qualifiers: Pneumonia type: due to unspecified organism Qualified Code(s): J18.1 - Lobar pneumonia, unspecified organism Is this a current diagnosis for this admission?: Yes (3) Chronic atrial fibrillation with rapid ventricular response Is this a current diagnosis for this admission?: Yes Plan: Start Eliquis 2.5 mg p.o. twice daily (4) Sleep apnea syndrome Qualifiers: Sleep apnea type: unspecified type Qualified Code(s): G47.30 - Sleep apnea, unspecified Is this a current diagnosis for this admission?: Yes (5) Acute hypoxemic respiratory failure Is this a current diagnosis for this admission?: Yes Plan: Continue noninvasive positive pressure ventilation, BiPAP
[2018-12-23] MEDS: CEFTRIAXONE 1 GM/D5W RTU 1 GM/50 ML RTUPB IV SCH (20:50)
[2018-12-23] MEDS: LEVOFLOXACIN 500 MG/D5W RTU 500 MG/100 ML RTUPB IV SCH (22:16)
[2018-12-23] MEDS: APIXABAN 2.5 MG TABLET PO SCH (22:32)
[2018-12-23] MEDS: SACUBITRIL/VALSARTAN 24 MG/26 MG TABLET PO SCH (22:32)
[2018-12-23] MEDS: INSULIN GLARGINE,HUM.REC.ANLOG 300 UNIT/3 ML INSULN.PEN SUBCUT SCH (22:38)
[2018-12-24] MEDS: INSULIN LISPRO 100 UNIT/ML 3 ML VIAL SUBCUT SCH ×4 (09:03→22:31)
[2018-12-24] MEDS: AMIODARONE HCL 200 MG TABLET PO SCH (09:38)
[2018-12-24] MEDS: SACUBITRIL/VALSARTAN 24 MG/26 MG TABLET PO SCH ×2 (09:38→17:37)
[2018-12-24] MEDS: DILTIAZEM HCL 240 MG CAPSULE.CR PO SCH (09:39)
[2018-12-24] MEDS: METOPROLOL TARTRATE 50 MG TABLET PO SCH ×2 (09:39→21:33)
[2018-12-24] MEDS: APIXABAN 2.5 MG TABLET PO SCH ×2 (09:39→17:37)
--- NOTE | 2018-12-24 19:01 | PDOC PROGRESS REPORT ---
Subjective Progress Note for:: 12/24/18 Subjective:: No chest pain or significant difficulty with breathing. No leg swelling. Blood pressure and urine output have been on low normal region so far today. No fever or chills. No nausea, vomiting or abdominal pain. Bowel movement okay. Reason For Visit: PNEUMONIA Physical Exam Vital Signs: Temp Pulse Resp BP Pulse Ox 98.0 F 36 L 20 100/55 L 98 12/24/18 16:44 12/24/18 16:44 12/24/18 16:44 12/24/18 16:44 12/24/18 16:44 Intake & Output 12/23/18 12/24/18 12/25/18 06:59 06:59 06:59 Intake Total 637 475 340 Output Total 550 450 150 Balance 87 25 190 Weight 84.8 kg 84.6 kg General appearance: PRESENT: no acute distress, obese Head exam: PRESENT: atraumatic, normocephalic Ear exam: PRESENT: normal external ear exam Mouth exam: PRESENT: moist Teeth exam: PRESENT: poor dentation Respiratory exam: PRESENT: clear to auscultation mack, decreased breath sounds - at lung bases Cardiovascular exam: PRESENT: RRR - current heart rate is 76/minute on residential monitor., +S1, +S2 Vascular exam: ABSENT: pallor GI/Abdominal exam: PRESENT: normal bowel sounds, soft. ABSENT: distended, guarding, mass, organolmegaly, rebound, tenderness Extremities exam: ABSENT: pedal edema Neurological exam: PRESENT: alert, awake, oriented to person, oriented to place, oriented to time, oriented to situation, CN II-XII grossly intact. ABSENT: motor sensory deficit Psychiatric exam: PRESENT: appropriate affect, normal mood. ABSENT: homicidal ideation, suicidal ideation Skin exam: PRESENT: dry, warm Results Laboratory Results: 12/21/18 13:09 12/21/18 13:09 12/21/18 15:45 Sputum Gram Stain - Final 12/21/18 15:45 Sputum Sputum Culture - Final NORMAL BECKI 12/21/18 12/21/18 12/21/18 13:09 13:09 16:00 Creatine Kinase 41 CK-MB (CK-2) 0.74 Troponin I < 0.012 < 0.012 NT-Pro-B Natriuret Pep 12/21/18 20:40 Creatine Kinase CK-MB (CK-2) Troponin I NT-Pro-B Natriuret Pep 9530 H Impressions: Chest CT 12/21/18 00:00 IMPRESSION: 1. Cardiomegaly with pleural effusions and perihilar groundglass opacities suggesting cardiogenic pulmonary edema. 2. Left lower lobe atelectasis; superimposed infection is a possibility in the correct clinical setting. Chest X-Ray 12/21/18 12:14 IMPRESSION: Bibasilar consolidation left greater than right worrisome for pneumonia Assessment & Plan - Diagnosis (1) Acute combined systolic and diastolic heart failure Is this a current diagnosis for this admission?: Yes Plan: Continue current medication management. (2) Chronic atrial fibrillation with rapid ventricular response Is this a current diagnosis for this admission?: Yes Plan: Continue current medication management. (3) Left lower lobe pneumonia Qualifiers: Pneumonia type: due to unspecified organism Qualified Code(s): J18.1 - Lobar pneumonia, unspecified organism Is this a current diagnosis for this admission?: Yes Plan: Continue current medication management. (4) Diabetes mellitus type 2 in obese Is this a current diagnosis for this admission?: Yes Plan: Adjust dietary restriction accordingly. Continue current medication management. - Time Time Spent with patient: 25-34 minutes Medications reviewed and adjusted accordingly: Yes Anticipated discharge: SNF Within: Other - Inpatient Certification Based on my medical assessment, after consideration of the patient's comorbidities, presenting symptoms, or acuity I expect that the services needed warrant INPATIENT care.: Yes I certify that my determination is in accordance with my understanding of Medicare's requirements for reasonable and necessary INPATIENT services [42 CFR 412.3e].: Yes Medical Necessity: Need Close Monitoring Due to Risk of Patient Decompensation, Need For IV Fluids, Need For Continuous Telemetry Monitoring, Need for IV Antibiotics, Risk of Complication if Not Cared For in Hospital, Risk of Diagnosis Which Will Require Inpatient Eval/Care/Monitoring Post Hospital Care: D/C or Transfer Summary - Plan Summary Plan Summary: Continue current medication management. I discussed case with the on-call commercial plumber covering Dr. Meza earlier this morning, awaiting written recommendation regarding suggested medication changes.
[2018-12-24] MEDS: CEFTRIAXONE 1 GM/D5W RTU 1 GM/50 ML RTUPB IV SCH (20:00)
[2018-12-24] MEDS: LEVOFLOXACIN 500 MG/D5W RTU 500 MG/100 ML RTUPB IV SCH (21:33)
[2018-12-24] MEDS: INSULIN GLARGINE,HUM.REC.ANLOG 300 UNIT/3 ML INSULN.PEN SUBCUT SCH (22:31)
[2018-12-25] MEDS: INSULIN LISPRO 100 UNIT/ML 3 ML VIAL SUBCUT SCH ×4 (07:57→22:04)
[2018-12-25] MEDS: APIXABAN 2.5 MG TABLET PO SCH ×2 (09:41→17:23)
[2018-12-25] MEDS: SACUBITRIL/VALSARTAN 24 MG/26 MG TABLET PO SCH ×2 (09:41→17:23)
[2018-12-25] MEDS: DILTIAZEM HCL 240 MG CAPSULE.CR PO SCH (09:41)
[2018-12-25] MEDS: AMIODARONE HCL 200 MG TABLET PO SCH (09:42)
--- NOTE | 2018-12-25 10:36 | PDOC PROGRESS REPORT ---
Subjective Progress Note for:: 12/25/18 Subjective:: No chest pain or difficulty with breathing. There is issue with low blood pressure. No fever or chills. No nausea, vomiting or abdominal pain. Bowel movement okay. Reason For Visit: PNEUMONIA Physical Exam Vital Signs: Temp Pulse Resp BP Pulse Ox 98.4 F 113 H 20 99/63 L 99 12/25/18 03:59 12/25/18 08:37 12/25/18 08:37 12/25/18 08:37 12/25/18 08:37 Intake & Output 12/24/18 12/25/18 12/26/18 06:59 06:59 06:59 Intake Total 475 1030 Output Total 450 450 Balance 25 580 Weight 84.6 kg 85.7 kg Physical Exam: General appearance: PRESENT: no acute distress, obese Head exam: PRESENT: atraumatic, normocephalic Respiratory exam: PRESENT: clear to auscultation mack, decreased breath sounds - at lung bases Cardiovascular exam: PRESENT: RRR, +S1, +S2 Vascular exam: ABSENT: pallor GI/Abdominal exam: PRESENT: normal bowel sounds, soft. ABSENT: distended, guarding, mass, organomegaly, rebound, tenderness Extremities exam: ABSENT: pedal edema Neurological exam: PRESENT: alert, awake, oriented to person, oriented to place, oriented to time, oriented to situation, CN II-XII grossly intact. ABSENT: motor sensory deficit Psychiatric exam: PRESENT: appropriate affect, normal mood. ABSENT: homicidal ideation, suicidal ideation Skin exam: PRESENT: dry, warm Results Laboratory Results: 12/21/18 13:09 12/21/18 13:09 12/21/18 15:45 Sputum Gram Stain - Final 12/21/18 15:45 Sputum Sputum Culture - Final NORMAL BECKI 12/21/18 12/21/18 12/21/18 13:09 13:09 16:00 Creatine Kinase 41 CK-MB (CK-2) 0.74 Troponin I < 0.012 < 0.012 NT-Pro-B Natriuret Pep 12/21/18 20:40 Creatine Kinase CK-MB (CK-2) Troponin I NT-Pro-B Natriuret Pep 9530 H Impressions: Chest CT 12/21/18 00:00 IMPRESSION: 1. Cardiomegaly with pleural effusions and perihilar groundglass opacities suggesting cardiogenic pulmonary edema. 2. Left lower lobe atelectasis; superimposed infection is a possibility in the correct clinical setting. Chest X-Ray 12/21/18 12:14 IMPRESSION: Bibasilar consolidation left greater than right worrisome for pneumonia Assessment & Plan - Diagnosis (1) Acute combined systolic and diastolic heart failure Is this a current diagnosis for this admission?: Yes (2) Chronic atrial fibrillation with rapid ventricular response Is this a current diagnosis for this admission?: Yes (3) Left lower lobe pneumonia Qualifiers: Pneumonia type: due to unspecified organism Qualified Code(s): J18.1 - Lobar pneumonia, unspecified organism Is this a current diagnosis for this admission?: Yes (4) Diabetes mellitus type 2 in obese Is this a current diagnosis for this admission?: Yes - Time Time Spent with patient: 25-34 minutes Medications reviewed and adjusted accordingly: Yes Anticipated discharge: SNF Within: Other - Inpatient Certification Based on my medical assessment, after consideration of the patient's comorbid ities, presenting symptoms, or acuity I expect that the services needed warrant INPATIENT care.: Yes I certify that my determination is in accordance with my understanding of Medicare's requirements for reasonable and necessary INPATIENT services [42 CFR 412.3e].: Yes Medical Necessity: Significant Comorbidiites Make Outpatient Treatment Too Risky, Need Close Monitoring Due to Risk of Patient Decompensation, Need For Continuous Telemetry Monitoring, Risk of Complication if Not Cared For in Hospital, Risk of Diagnosis Which Will Require Inpatient Eval/Care/Monitoring Post Hospital Care: D/C or Transfer Summary - Plan Summary Plan Summary: Continue current medication management.
[2018-12-25] MEDS: METOPROLOL TARTRATE 50 MG TABLET PO SCH ×2 (13:30→22:03)
[2018-12-25] MEDS: CEFTRIAXONE 1 GM/D5W RTU 1 GM/50 ML RTUPB IV SCH (20:40)
[2018-12-25] MEDS: LEVOFLOXACIN 500 MG/D5W RTU 500 MG/100 ML RTUPB IV SCH (22:03)
[2018-12-25] MEDS: INSULIN GLARGINE,HUM.REC.ANLOG 300 UNIT/3 ML INSULN.PEN SUBCUT SCH (22:05)
[2018-12-26] MEDS: INSULIN LISPRO 100 UNIT/ML 3 ML VIAL SUBCUT SCH ×4 (07:47→23:28)
[2018-12-26] MEDS: SACUBITRIL/VALSARTAN 24 MG/26 MG TABLET PO SCH ×2 (09:21→17:52)
[2018-12-26] MEDS: DILTIAZEM HCL 240 MG CAPSULE.CR PO SCH (09:21)
[2018-12-26] MEDS: APIXABAN 2.5 MG TABLET PO SCH ×2 (09:21→17:52)
[2018-12-26] MEDS: AMIODARONE HCL 200 MG TABLET PO SCH (09:21)
[2018-12-26] MEDS: METOPROLOL TARTRATE 50 MG TABLET PO SCH ×2 (09:22→21:24)
--- NOTE | 2018-12-26 20:39 | PDOC PROGRESS REPORT ---
Subjective Progress Note for:: 12/26/18 Subjective:: Patient seen by the bedside, she still requires noninvasive positive pressure ventilation with BiPAP, the blood pressure is on the low side, since adding Entresto, there has been improved symptom control Reason For Visit: PNEUMONIA Physical Exam Vital Signs: Temp Pulse Resp BP Pulse Ox 97.4 F 83 16 98/51 L 95 12/26/18 16:24 12/26/18 19:00 12/26/18 16:24 12/26/18 16:24 12/26/18 20:01 Intake & Output 12/25/18 12/26/18 12/27/18 06:59 06:59 06:59 Intake Total 1030 705 387 Output Total 450 650 250 Balance 580 55 137 Weight 85.7 kg 85.8 kg General appearance: PRESENT: no acute distress Eye exam: PRESENT: PERRLA Respiratory exam: PRESENT: rales Cardiovascular exam: PRESENT: +S1, +S2 GI/Abdominal exam: PRESENT: soft Neurological exam: PRESENT: alert Results Laboratory Results: 12/21/18 13:09 12/21/18 13:09 12/21/18 15:45 Sputum Gram Stain - Final 12/21/18 15:45 Sputum Sputum Culture - Final NORMAL BECKI 12/21/18 12/21/18 12/21/18 13:09 13:09 16:00 Creatine Kinase 41 CK-MB (CK-2) 0.74 Troponin I < 0.012 < 0.012 NT-Pro-B Natriuret Pep 12/21/18 20:40 Creatine Kinase CK-MB (CK-2) Troponin I NT-Pro-B Natriuret Pep 9530 H Impressions: Chest CT 12/21/18 00:00 IMPRESSION: 1. Cardiomegaly with pleural effusions and perihilar groundglass opacities suggesting cardiogenic pulmonary edema. 2. Left lower lobe atelectasis; superimposed infection is a possibility in the correct clinical setting. Chest X-Ray 12/21/18 12:14 IMPRESSION: Bibasilar consolidation left greater than right worrisome for pneumonia Assessment & Plan - Diagnosis (1) Acute combined systolic and diastolic heart failure Is this a current diagnosis for this admission?: Yes Plan: Continue Entresto, other medications (2) Left lower lobe pneumonia Qualifiers: Pneumonia type: due to unspecified organism Qualified Code(s): J18.1 - Lobar pneumonia, unspecified organism Is this a current diagnosis for this admission?: Yes (3) Chronic atrial fibrillation with rapid ventricular response Is this a current diagnosis for this admission?: Yes (4) Sleep apnea syndrome Qualifiers: Sleep apnea type: unspecified type Qualified Code(s): G47.30 - Sleep apnea, unspecified Is this a current diagnosis for this admission?: Yes (5) Acute hypoxemic respiratory failure Is this a current diagnosis for this admission?: Yes
[2018-12-26] MEDS: CEFTRIAXONE 1 GM/D5W RTU 1 GM/50 ML RTUPB IV SCH (21:25)
[2018-12-26] MEDS: LEVOFLOXACIN 500 MG/D5W RTU 500 MG/100 ML RTUPB IV SCH (23:26)
[2018-12-26] MEDS: INSULIN GLARGINE,HUM.REC.ANLOG 300 UNIT/3 ML INSULN.PEN SUBCUT SCH (23:29)
[2018-12-27] MEDS: INSULIN LISPRO 100 UNIT/ML 3 ML VIAL SUBCUT SCH ×4 (08:28→22:26)
[2018-12-27] MEDS: DILTIAZEM HCL 240 MG CAPSULE.CR PO SCH (10:44)
[2018-12-27] MEDS: AMIODARONE HCL 200 MG TABLET PO SCH (10:44)
[2018-12-27] MEDS: APIXABAN 2.5 MG TABLET PO SCH ×2 (10:44→17:11)
[2018-12-27] MEDS: SACUBITRIL/VALSARTAN 24 MG/26 MG TABLET PO SCH ×2 (10:44→17:12)
[2018-12-27] MEDS: METOPROLOL TARTRATE 50 MG TABLET PO SCH (10:44)
--- NOTE | 2018-12-27 21:09 | PDOC PROGRESS REPORT ---
Subjective Progress Note for:: 12/27/18 Subjective:: Patient is alert and oriented Reason For Visit: PNEUMONIA Physical Exam Vital Signs: Temp Pulse Resp BP Pulse Ox 98.5 F 60 16 100/54 L 99 12/27/18 19:44 12/27/18 19:44 12/27/18 19:44 12/27/18 19:44 12/27/18 19:44 Intake & Output 12/26/18 12/27/18 12/28/18 06:59 06:59 06:59 Intake Total 705 1037 422 Output Total 650 450 400 Balance 55 587 22 Weight 85.8 kg 84.8 kg 84.8 kg General appearance: PRESENT: no acute distress Eye exam: PRESENT: PERRLA Respiratory exam: PRESENT: crackles Cardiovascular exam: PRESENT: +S1, +S2 Neurological exam: PRESENT: alert Results Laboratory Results: 12/21/18 13:09 12/21/18 13:09 12/21/18 12/21/18 12/21/18 13:09 13:09 16:00 Creatine Kinase 41 CK-MB (CK-2) 0.74 Troponin I < 0.012 < 0.012 NT-Pro-B Natriuret Pep 12/21/18 20:40 Creatine Kinase CK-MB (CK-2) Troponin I NT-Pro-B Natriuret Pep 9530 H Impressions: Chest CT 12/21/18 00:00 IMPRESSION: 1. Cardiomegaly with pleural effusions and perihilar groundglass opacities suggesting cardiogenic pulmonary edema. 2. Left lower lobe atelectasis; superimposed infection is a possibility in the correct clinical setting. Chest X-Ray 12/21/18 12:14 IMPRESSION: Bibasilar consolidation left greater than right worrisome for pneumonia Assessment & Plan - Diagnosis (1) Acute combined systolic and diastolic heart failure Is this a current diagnosis for this admission?: Yes Plan: Patient was started on Entresto, I will consult discharge planning to find out from patient's insurance if this medication is formulary with [employer] insurance, she did quite well since started on Entresto, she will be discharged home tomorrow on present regimen, the beta-jerry was changed from metoprolol tartrate to evidence-based metoprolol succinate (2) Left lower lobe pneumonia Qualifiers: Pneumonia type: due to unspecified organism Qualified Code(s): J18.1 - Lobar pneumonia, unspecified organism Is this a current diagnosis for this admission?: Yes Plan: Continue antibiotic (3) Chronic atrial fibrillation with rapid ventricular response Is this a current diagnosis for this admission?: Yes Plan: continue Eliquis 2.5 mg p.o. twice daily (4) Sleep apnea syndrome Qualifiers: Sleep apnea type: unspecified type Qualified Code(s): G47.30 - Sleep apnea, unspecified Is this a current diagnosis for this admission?: Yes (5) Acute hypoxemic respiratory failure Is this a current diagnosis for this admission?: Yes
[2018-12-27] MEDS: LEVOFLOXACIN 500 MG/D5W RTU 500 MG/100 ML RTUPB IV SCH (21:31)
[2018-12-27] MEDS: CEFTRIAXONE 1 GM/D5W RTU 1 GM/50 ML RTUPB IV SCH (21:31)
[2018-12-27 21:40] LABS: ABSOLUTE LYMPHOCYTES (AUTO) 1.9 10^3/uL (0.5-4.7); ABSOLUTE MONOCYTES (AUTO) 0.4 10^3/uL (0.1-1.4); ABSOLUTE NEUT (AUTO) 1.7 10^3/uL (1.7-8.2); BASOPHILS % (AUTO) 0.6 % (0-2); EOSINOPHILS % (AUTO) 0.3 % (0-6); HEMOGLOBIN 10.6 g/dL (12.0-15.5); LYMPHOCYTES % (AUTO) 46.4 % (13-45); MEAN CORPUSCULAR HEMOGLOBIN 29.9 pg (27.0-33.4); MEAN CORPUSCULAR HGB CONC 31.2 g/dL (32.0-36.0); MEAN CORPUSCULAR VOLUME 96 fl (80-97); MONOCYTES % (AUTO) 10.6 % (3-13); PLATELET COUNT 182 10^3/uL (150-450); RED BLOOD COUNT 3.55 10^6/uL (3.72-5.28); RED CELL DISTRIBUTION WIDTH 18.2 % (11.5-14.0); SEGMENTED NEUTROPHILS % (AUTO) 42.1 % (42-78); TOTAL CELLS COUNTED % (AUTO) 100 %; WHITE BLOOD COUNT 4.1 10^3/uL (4.0-10.5)
[2018-12-27 21:55] LABS: ALBUMIN 3.2 g/dL (3.5-5.0); ANION GAP 10 (5-19); BLOOD UREA NITROGEN 50 mg/dL (7-20); CALCIUM 8.8 mg/dL (8.4-10.2); CARBON DIOXIDE 27 mmol/L (22-30); CHLORIDE 101 mmol/L (98-107); GLUCOSE 128 mg/dL (75-110); SODIUM 137.7 mmol/L (137-145); TOTAL PROTEIN 6.5 g/dL (6.3-8.2)
[2018-12-27 21:56] LABS: ALANINE AMINOTRANSFERASE 25 U/L (9-52); ALKALINE PHOSPHATASE 64 U/L (38-126); ASPARTATE AMINO TRANSFERASE 14 U/L (14-36); BILIRUBIN,DIRECT 0.2 mg/dL (0.0-0.4); BILIRUBIN,TOTAL 0.4 mg/dL (0.2-1.3)
[2018-12-27] MEDS: INSULIN GLARGINE,HUM.REC.ANLOG 300 UNIT/3 ML INSULN.PEN SUBCUT SCH (22:26)
[2018-12-28 05:43] LABS: ABSOLUTE LYMPHOCYTES (AUTO) 2.2 10^3/uL (0.5-4.7); ABSOLUTE MONOCYTES (AUTO) 0.5 10^3/uL (0.1-1.4); ABSOLUTE NEUT (AUTO) 1.5 10^3/uL (1.7-8.2); BASOPHILS % (AUTO) 0.3 % (0-2); EOSINOPHILS % (AUTO) 0.3 % (0-6); HEMATOCRIT 32.7 % (36.0-47.0); HEMOGLOBIN 10.3 g/dL (12.0-15.5); LYMPHOCYTES % (AUTO) 51.6 % (13-45); MEAN CORPUSCULAR HEMOGLOBIN 30.1 pg (27.0-33.4); MEAN CORPUSCULAR HGB CONC 31.5 g/dL (32.0-36.0); MEAN CORPUSCULAR VOLUME 96 fl (80-97); MONOCYTES % (AUTO) 12.6 % (3-13); PLATELET COUNT 165 10^3/uL (150-450); RED BLOOD COUNT 3.41 10^6/uL (3.72-5.28); RED CELL DISTRIBUTION WIDTH 18.5 % (11.5-14.0); SEGMENTED NEUTROPHILS % (AUTO) 35.2 % (42-78); TOTAL CELLS COUNTED % (AUTO) 100 %; WHITE BLOOD COUNT 4.3 10^3/uL (4.0-10.5)
[2018-12-28 06:19] LABS: ALANINE AMINOTRANSFERASE 23 U/L (9-52); ALBUMIN 2.7 g/dL (3.5-5.0); ALKALINE PHOSPHATASE 60 U/L (38-126); ANION GAP 8 (5-19); ASPARTATE AMINO TRANSFERASE 13 U/L (14-36); BILIRUBIN,DIRECT 0.2 mg/dL (0.0-0.4); BILIRUBIN,TOTAL 0.4 mg/dL (0.2-1.3); BLOOD UREA NITROGEN 48 mg/dL (7-20); CALCIUM 8.5 mg/dL (8.4-10.2); CARBON DIOXIDE 28 mmol/L (22-30); CHLORIDE 103 mmol/L (98-107); GLUCOSE 89 mg/dL (75-110); POTASSIUM 3.9 mmol/L (3.6-5.0); SODIUM 139.1 mmol/L (137-145); TOTAL PROTEIN 5.8 g/dL (6.3-8.2)
[2018-12-28] MEDS: INSULIN LISPRO 100 UNIT/ML 3 ML VIAL SUBCUT SCH ×3 (08:31→17:57)
[2018-12-28] MEDS ORDERED: METOPROLOL SUCCINATE 50 MG TAB.SR.24H PO SCH (10:00)
[2018-12-28] MEDS: APIXABAN 2.5 MG TABLET PO SCH ×2 (11:01→17:59)
[2018-12-28] MEDS: SACUBITRIL/VALSARTAN 24 MG/26 MG TABLET PO SCH ×2 (11:02→17:59)
[2018-12-28] MEDS: DILTIAZEM HCL 240 MG CAPSULE.CR PO SCH (11:02)
[2018-12-28] MEDS: AMIODARONE HCL 200 MG TABLET PO SCH (11:02)
[2018-12-28] MEDS ORDERED: ONDANSETRON HCL INJ/PF 4 MG/2 ML SDV IV PRN (11:39)
--- NOTE | 2018-12-28 16:25 | PDOC DISCHARGE SUMMARY ---
General - Admit/Disc Date/PCP Admission Date/Primary Care Provider: 12/21/18 12:53 OBED BOGGS MD Discharge Date: 12/28/18 - Discharge Diagnosis (1) Acute combined systolic and diastolic heart failure Is this a current diagnosis for this admission?: Yes (2) Left lower lobe pneumonia Is this a current diagnosis for this admission?: Yes (3) Chronic atrial fibrillation with rapid ventricular response Is this a current diagnosis for this admission?: Yes (4) Sleep apnea syndrome Is this a current diagnosis for this admission?: Yes (5) Acute hypoxemic respiratory failure Is this a current diagnosis for this admission?: Yes - Additional Information Discharge Diet: Cardiac, Diabetic Discharge Activity: Activity As Tolerated, Balance Activity w/Rest, Weigh Daily Prescriptions: RX: Amiodarone HCl [Cordarone 200 mg Tablet] 200 mg PO DAILY #30 tablet RX: Apixaban [Eliquis 2.5 mg Tablet] 2.5 mg PO BID #60 tablet RX: Metoprolol Succinate [Toprol Xl 50 mg Tab.sr] 100 mg PO DAILY #90 tab.sr.24h Sacubitril/Valsartan [Entresto 49 mg/51 mg Tablet] 1 tab PO Q12H #60 tablet Home Medications: RX: Dapagliflozin/Metformin HCl [Xigduo Xr 10 mg-1,000 mg Tab] 1 each PO DAILY 12/21/18 RX: Torsemide [Demadex 20 mg Tablet] 20 mg PO DAILY 12/21/18 RX: Amiodarone HCl [Cordarone 200 mg Tablet] 200 mg PO DAILY #30 tablet 12/28/18 RX: Apixaban [Eliquis 2.5 mg Tablet] 2.5 mg PO BID #60 tablet 12/28/18 RX: Metoprolol Succinate [Toprol Xl 50 mg Tab.sr] 100 mg PO DAILY #90 tab.sr.24h 12/28/18 Sacubitril/Valsartan [Entresto 49 mg/51 mg Tablet] 1 tab PO Q12H #60 tablet 12/28/18 History of Present Illness History of Present Illness: LC ANGUIANO is a 78 year old female, She has multiple comorbid conditions including chronic obstructive lung disease, chronic atrial fibrillation, cardiomyopathy, she was at the oncology office earlier this morning for Port-A-Cath flush, she was walking with a walker and noticed to be short of breath on ambulation there was no chest pain the pulse rate recorded was 122 the oxygen saturation was 94%, she was evaluated by oncologist and she felt patient needed to go to the hospital so EMS was called and she was transferred from the oncologist office to the emergency room for further evaluation She was recently admitted at [facility] on October 31, 2018, she was discharged on November 21, 2018 on that admission she was diagnosed with acute on chronic hypoxic respiratory failure requiring BiPAP and trach intubation, as piration pneumonia most likely gram-negative organisms, ventricular fibrillation arrest, pulseless electrical activity arrest, atrial fibrillation with rapid regular response, acute systolic heart failure, acute kidney injury left atrial thrombus not on anticoagulation dysphagia, hematuria, hemoptysis.She had transesophageal echo done on 11/16/2017 she was found to have atrial thrombus, the ejection fraction was 25%, based on the discharge summary patient had difficult to control heart rate attempt was made to try to cardiovert but she was found to have atrial blood clots so this was not pursued and then she was started on amiodarone.CT chest without contrast done today demonstrated scattere d mediastinal lymph nodes no myasthenia or axillary adenopathy. Heart size is enlarged without pericardial effusion. There are small bilateral pleural effusions with atelectasis/consolidation the left lower lobe Hospital Course Hospital Course: She was admitted for the management of acute systolic and diastolic heart failure, chronic atrial fibrillation, pneumonia associated with acute hypoxemic respiratory failure. She required noninvasive positive pressure ventilation, BiPAP. 2D echo was done demonstrated ejection fraction of left ventricle to be less than 15%, on this admission she was started on Entresto, she also was started on anticoagulant Eliquis. She did quite well on the entresto she had improved symptoms of shortness of breath. She was seen by cardiology Dr. Parker, a life jacket was recommended, she is being discharged home on lifejacket. I discussed advanced care/DNR status with patient and family but she opted to be full code Physical Exam Vital Signs: Temp Pulse Resp BP Pulse Ox 97.6 F 93 16 111/80 99 12/28/18 07:49 12/28/18 14:00 12/28/18 07:49 12/28/18 07:49 12/28/18 11:22 Intake & Output 12/27/18 12/28/18 12/29/18 06:59 06:59 06:59 Intake Total 1037 572 Output Total 450 750 Balance 587 -178 Weight 84.8 kg 85 kg General appearance: PRESENT: no acute distress Head exam: PRESENT: atraumatic, normocephalic Eye exam: PRESENT: PERRLA Neck exam: PRESENT: full ROM Respiratory exam: PRESENT: clear to auscultation mack Cardiovascular exam: PRESENT: irregular rhythm, RRR, +S1, +S2 Vascular exam: PRESENT: normal capillary refill GI/Abdominal exam: PRESENT: normal bowel sounds, soft Rectal exam: PRESENT: deferred Neurological exam: PRESENT: alert, CN II-XII grossly intact Psychiatric exam: PRESENT: appropriate affect, normal mood Skin exam: PRESENT: dry, intact, warm Results Laboratory Results: 12/28/18 05:00 12/28/18 05:00 12/27/18 12/27/18 12/28/18 21:20 21:20 05:00 WBC 4.1 4.3 RBC 3.55 L 3.41 L Hgb 10.6 L 10.3 L Hct 34.0 L 32.7 L MCV 96 96 MCH 29.9 30.1 MCHC 31.2 L 31.5 L RDW 18.2 H 18.5 H Plt Count 182 165 Seg Neutrophils % 42.1 35.2 L Lymphocytes % 46.4 H 51.6 H Monocytes % 10.6 12.6 Eosinophils % 0.3 0.3 Basophils % 0.6 0.3 Absolute Neutrophils 1.7 1.5 L Absolute Lymphocytes 1.9 2.2 Absolute Monocytes 0.4 0.5 Absolute Eosinophils 0.0 0.0 Absolute Basophils 0.0 0.0 Sodium 137.7 Potassium 4.0 Chloride 101 Carbon Dioxide 27 Anion Gap 10 BUN 50 H Creatinine 2.54 H Est GFR ( Amer) 22 L Est GFR (Non-Af Amer) 18 L Glucose 128 H Calcium 8.8 Total Bilirubin 0.4 AST 14 ALT 25 Alkaline Phosphatase 64 Total Protein 6.5 Albumin 3.2 L 12/28/18 05:00 WBC RBC Hgb Hct MCV MCH MCHC RDW Plt Count Seg Neutrophils % Lymphocytes % Monocytes % Eosinophils % Basophils % Absolute Neutrophils Absolute Lymphocytes Absolute Monocytes Absolute Eosinophils Absolute Basophils Sodium 139.1 Potassium 3.9 Chloride 103 Carbon Dioxide 28 Anion Gap 8 BUN 48 H Creatinine 2.24 H Est GFR ( Amer) 26 L Est GFR (Non-Af Amer) 21 L Glucose 89 Calcium 8.5 Total Bilirubin 0.4 AST 13 L ALT 23 Alkaline Phosphatase 60 Total Protein 5.8 L Albumin 2.7 L 12/21/18 12/21/18 12/21/18 13:09 13:09 16:00 Creatine Kinase 41 CK-MB (CK-2) 0.74 Troponin I < 0.012 < 0.012 NT-Pro-B Natriuret Pep 12/21/18 20:40 Creatine Kinase CK-MB (CK-2) Troponin I NT-Pro-B Natriuret Pep 9530 H Impressions: Chest CT 12/21/18 00:00 IMPRESSION: 1. Cardiomegaly with pleural effusions and perihilar groundglass opacities suggesting cardiogenic pulmonary edema. 2. Left lower lobe atelectasis; superimposed infection is a possibility in the correct clinical setting. Chest X-Ray 12/21/18 12:14 IMPRESSION: Bibasilar consolidation left greater than right worrisome for pneumonia Qualifiers - * PATIENT BEING DISCHARGED WITH ANY OF THE FOLLOWING DIAGNOSIS: No, Heart Failure HF Pt being discharged on ACEI for LVEF less than 40%?: Yes HF Pt being discharged on ARBS for LVEF less than 40%?: Yes HF Pt with Afib discharged with Warfarin?: Yes HF Pt discharged on evidence-based Beta Tg:: Yes
--- NOTE | 2018-12-28 17:59 | PDOC PROGRESS REPORT ---
Subjective Progress Note for:: 12/28/18 Subjective:: Patient was seen in the morning. She seems to be doing well. Patient chart was reviewed. Echocardiogram showed severely reduced LVEF. Telemetry strips reviewed. It shows intermittent atrial flutter fibrillation however with controlled ventricular response. I am told by the patient that she is suspected to be discharged later on today. However patient would need to be placed on a LifeVest. This was discussed with the patient. She is agreeable to see the r epresentative of the [employer]. Reason For Visit: PNEUMONIA Physical Exam Vital Signs: Temp Pulse Resp BP Pulse Ox 97.7 F 93 20 117/68 100 12/28/18 12:11 12/28/18 14:00 12/28/18 12:11 12/28/18 12:11 12/28/18 12:11 Intake & Output 12/27/18 12/28/18 12/29/18 06:59 06:59 06:59 Intake Total 1037 572 Output Total 450 750 Balance 587 -178 Weight 84.8 kg 85 kg Exam: GENERAL: well-nourished and in no acute distress. Alert and oriented x3 HEAD: Atraumatic, normocephalic. EYES: LOI, sclera anicteric, conjunctiva are normal. ENT: Moist mucous membranes. No oral ulcerations or bleeding gums noted. No obvious ear, nose or throat abnormalities noted. NECK: supple without lymphadenopathy. Trachea is central. No cervical or axillary lymphadenopathy noted. Carotids are 2+, JVD WNL LUNGS: Bibasilar fine crackles are noted. No wheezes rales or rhonchi noted. No significant dullness noted on percussion. CHEST: Palpation of the chest wall shows no significant chest wall tenderness. 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 ABDOMEN: Soft, no significant tenderness appreciated, normoactive bowel sounds. No guarding, no rebound. No rigidity noted . No masses appreciated. EXTREMITIES: Pedal pulses are 1-2+, no calf tenderness noted. No clubbing or cyanosis. 1+ pedal edema noted NEUROLOGICAL: Focused neurological exam showed no significant neurologic de ficit. Normal speech, no focal weakness appreciated. PSYCH: Normal mood, normal affect. Judgment and insight within normal limits. SKIN: No significant ecchymosis, skin is noted to be warm. MUSCULOSKELETAL EXAM: No significant acute joint swelling noted. Results Laboratory Results: 12/28/18 05:00 12/28/18 05:00 12/27/18 12/27/18 12/28/18 21:20 21:20 05:00 WBC 4.1 4.3 RBC 3.55 L 3.41 L Hgb 10.6 L 10.3 L Hct 34.0 L 32.7 L MCV 96 96 MCH 29.9 30.1 MCHC 31.2 L 31.5 L RDW 18.2 H 18.5 H Plt Count 182 165 Seg Neutrophils % 42.1 35.2 L Lymphocytes % 46.4 H 51.6 H Monocytes % 10.6 12.6 Eosinophils % 0.3 0.3 Basophils % 0.6 0.3 Absolute Neutrophils 1.7 1.5 L Absolute Lymphocytes 1.9 2.2 Absolute Monocytes 0.4 0.5 Absolute Eosinophils 0.0 0.0 Absolute Basophils 0.0 0.0 Sodium 137.7 Potassium 4.0 Chloride 101 Carbon Dioxide 27 Anion Gap 10 BUN 50 H Creatinine 2.54 H Est GFR ( Amer) 22 L Est GFR (Non-Af Amer) 18 L Glucose 128 H Calcium 8.8 Total Bilirubin 0.4 AST 14 ALT 25 Alkaline Phosphatase 64 Total Protein 6.5 Albumin 3.2 L 12/28/18 05:00 WBC RBC Hgb Hct MCV MCH MCHC RDW Plt Count Seg Neutrophils % Lymphocytes % Monocytes % Eosinophils % Basophils % Absolute Neutrophils Absolute Lymphocytes Absolute Monocytes Absolute Eosinophils Absolute Basophils Sodium 139.1 Potassium 3.9 Chloride 103 Carbon Dioxide 28 Anion Gap 8 BUN 48 H Creatinine 2.24 H Est GFR ( Amer) 26 L Est GFR (Non-Af Amer) 21 L Glucose 89 Calcium 8.5 Total Bilirubin 0.4 AST 13 L ALT 23 Alkaline Phosphatase 60 Total Protein 5.8 L Albumin 2.7 L 12/21/18 12/21/18 12/21/18 13:09 13:09 16:00 Creatine Kinase 41 CK-MB (CK-2) 0.74 Troponin I < 0.012 < 0.012 NT-Pro-B Natriuret Pep 12/21/18 20:40 Creatine Kinase CK-MB (CK-2) Troponin I NT-Pro-B Natriuret Pep 9530 H EKG Comments: Telemetry strip shows sinus rhythm however intermittent short run of atrial flutter fibrillation also noted. Impressions: Chest CT 12/21/18 00:00 IMPRESSION: 1. Cardiomegaly with pleural effusions and perihilar groundglass opacities suggesting cardiogenic pulmonary edema. 2. Left lower lobe atelectasis; superimposed infection is a possibility in the correct clinical setting. Chest X-Ray 12/21/18 12:14 IMPRESSION: Bibasilar consolidation left greater than right worrisome for pneumonia Assessment & Plan - Diagnosis (1) Acute combined systolic and diastolic heart failure Is this a current diagnosis for this admission?: Yes (2) Atrial fibrillation Qualifiers: Atrial fibrillation type: paroxysmal Qualified Code(s): I48.0 - Paroxysmal atrial fibrillation Is this a current diagnosis for this admission?: Yes (3) Diabetes mellitus type 2 in obese Is this a current diagnosis for this admission?: Yes (4) Hypertension Qualifiers: Hypertension type: essential hypertension Qualified Code(s): I10 - Essential (primary) hypertension Is this a current diagnosis for this admission?: Yes (5) Cardiomyopathy Qualifiers: Cardiomyopathy type: unspecified Qualified Code(s): I42.9 - Cardiomyopathy, unspecified Is this a current diagnosis for this admission?: Yes - Notes Notes: CHF: Patient noted to have acute on chronic systolic and diastolic heart yael lure. Currently seems relatively well compensated and able to be discharged from cardiac standpoint. Cardiomyopathy: Patient has severe dilated cardiomyopathy. Patient will benefit from LifeVest therapy and work towards internal defibrillator if significant improvement in LVEF is not noted. For this patient will need very regular cardiology follow-up. Hypertension: Blood pressure goal is 130/85 or less in this patient with diabetes and cardiomyopathy. Diabetes: Currently being well managed by the attending. Atrial fibrillation: Continue with rate control and chronic anticoagulation. Will consider amiodarone therapy. - Time Time with patient: Greater than 35 minutes - More than 50% of the time spent coordinating care, discussing management plans with involved caregivers. Management plans discussed with involved personnels. Medical decision making was of moderate to high complexity, patient's has multiple comorbidities. Medications reviewed and adjusted accordingly: Yes
[2018-12-28 18:28] VITALS: BP 102/52
== END 2018-12-28 19:10 | disposition home or self-care (01) | DRG 291 ==
LOC: ER 11:22 → EH 12:53 → 3W 13:30 → 3S 12-22 10:55
PROVIDERS: ADMIT Internal Medicine; ATTEND Internal Medicine
PROC: 5A09357 Assistance with Respiratory Ventilation, Less than 24 Consecutive Hours, Continuous Positive Airway Pressure (ICD-10-PCS; principal; 2018-12-28)
PROC: 3E02340 Introduction of Influenza Vaccine into Muscle, Percutaneous Approach (ICD-10-PCS; 2018-12-28)
DX: I11.0 Hypertensive heart disease with heart failure (principal); J18.1 Lobar pneumonia, unspecified organism; J96.21 Acute and chronic respiratory failure with hypoxia; J44.0 Chronic obstructive pulmonary disease with (acute) lower respiratory infection; J90 Pleural effusion, not elsewhere classified; J98.11 Atelectasis; I48.92 Unspecified atrial flutter; Z86.74 Personal history of sudden cardiac arrest; E11.51 Type 2 diabetes mellitus with diabetic peripheral angiopathy without gangrene; I42.9 Cardiomyopathy, unspecified; I48.2 Chronic atrial fibrillation; Z79.01 Long term (current) use of anticoagulants; I50.43 Acute on chronic combined systolic (congestive) and diastolic (congestive) heart failure; G47.30 Sleep apnea, unspecified; M17.0 Bilateral primary osteoarthritis of knee; Z96.652 Presence of left artificial knee joint; E66.9 Obesity, unspecified; F32.9 Major depressive disorder, single episode, unspecified; Z87.01 Personal history of pneumonia (recurrent); Z85.3 Personal history of malignant neoplasm of breast; Z87.891 Personal history of nicotine dependence; Z82.49 Family history of ischemic heart disease and other diseases of the circulatory system; Z79.84 Long term (current) use of oral hypoglycemic drugs; Z23 Encounter for immunization; Z68.32 Body mass index [BMI] 32.0-32.9, adult
CPT/HCPCS: 36415; 71045; 71250; 80053; 82550; 82553; 82803; 82962; 83036; 83605; 83880; 84484; 85025; 87070; 87205; 90686; 93005; 93010; 93306; 94640; 94660; 99285; J0696; J1642; J1815; J1940; J1956; J3490; J7620

== ENCOUNTER 2019-01-06 13:38 | Inpatient (IN) | payer MEDICARE, MEDICAID ==
[2019-01-06] MEDS ORDERED: IPRATROPIUM/ALBUTEROL 0.5-2.5 MG/3 ML AMPUL NEB ONE ×2 (13:49→14:24)
[2019-01-06] MEDS ORDERED: METHYLPREDNISOLONE INJ 125 MG/2 ML SDV ONE (13:49)
--- NOTE | 2019-01-06 14:03 | ER Document Report ---
ED Respiratory Problem - General Chief Complaint: Respiratory Distress Stated Complaint: SHORTNESS OF BREATH Time Seen by Provider: 01/06/19 14:02 Primary Care Provider: OBED BOGGS MD [Primary Care Provider] - Follow up as needed Notes: 78-year-old female to the emergency department chief complaint of respiratory failure. Patient was having a very difficult time breathing at home. History of severe CHF. wearing A LifeVest. She was somnolent on arrival. EMS did not do any interventions while in route. TRAVEL OUTSIDE OF THE [place] IN LAST 30 DAYS: No - HPI Patient complains to provider of: CHF, Short of breath Duration: Worse/persistent Severity: Severe Context: Hx CHF, Hx COPD Short of Breath: Severe - Related Data Allergies/Adverse Reactions: No Known Allergies Allergy (Verified 01/06/19 15:44) Past Medical History - General Information source: Relative, [facility] Records - Social History Smoking Status: Unknown if Ever Smoked Frequency of alcohol use: None Drug Abuse: None Lives with: Family Family History: Reviewed & Not Pertinent, Hypertension - Past Medical History Cardiac Medical History: Reports: Hx Atrial Fibrillation, Hx Congestive Heart Failure, Hx Hypertension, Hx Peripheral Vascular Disease Denies: Hx Coronary Artery Disease, Hx Heart Attack, Hx Hypercholesterolemia, Hx Pulmonary Embolism, Hx Heart Murmur Pulmonary Medical History: Reports: Hx Bronchitis - approx 2 x yrly, Hx Pneumonia - Nov 2012 (hospitalized), Hx Sleep Apnea - C-PAP use Denies: Hx Asthma, Hx COPD, Hx Respiratory Failure, Hx Tuberculosis Neurological Medical History: Denies: Hx Cerebrovascular Accident, Hx Seizures Endocrine Medical History: Reports: Hx Diabetes Mellitus Type 2. Denies: Hx Graves' Disease, Hx Hyperthyroidism, Hx Hypothyroidism Renal/ Medical History: Denies: Hx End Stage Renal Disease, Hx Kidney Stones, Hx Ovarian Cysts, Hx Peritoneal Dialysis, Hx Pelvic Inflammatory Disease Malignancy Medical History: Reports: Hx Breast Cancer - Left, FINISHED CHEMO Tx 2 MOS AGO. Denies: Hx Cervical Cancer, Hx Lung Cancer, Hx Ovarian Cancer Musculoskeletal Medical History: Reports Hx Arthritis - Knees, Denies Hx Fibromyalgia, Denies Hx Multiple Sclerosis, Denies Hx Muscular Dystrophy Psychiatric Medical History: Denies: Hx Dementia, Hx Depression Traumatic Medical History: Denies: Hx Fractures Past Surgical History: Reports: Hx Breast Surgery - lumpectomy, Hx Hysterectomy, Hx Orthopedic Surgery - Left knee replacement, Hx Tonsillectomy. Denies: Hx Appendectomy, Hx Bowel Surgery, Hx Section, Hx Cholecystectomy, Hx Coronary Artery Bypass Graft, Hx Gastric Bypass Surgery, Hx Herniorrhaphy, Hx Mastectomy, Hx Pacemaker, Hx Tubal Ligation - Immunizations Immunizations up to date: Yes Hx Diphtheria, Pertussis, Tetanus Vaccination: Yes Hx Pneumococcal Vaccination: 08/08/16 Review of Systems - Review of Systems -: Yes ROS unobtainable due to patient's medical condition Physical Exam - Vital signs Vitals: Resp Pulse Ox 28 H 99 01/06/19 13:47 01/06/19 13:47 Interpretation: Tachycardic, Tachypneic - General General appearance: Lethargic In distress: Severe - HEENT Head: Normocephalic, Atraumatic Eyes: Normal Pupils: PERRL - Respiratory Respiratory status: No respiratory distress Chest status: Nontender Breath sounds: Normal Chest palpation: Normal - Cardiovascular Rhythm: Tachycardia Heart sounds: Normal auscultation Murmur: No - Abdominal Inspection: Normal Distension: No distension Bowel sounds: Normal Tenderness: Nontender Organomegaly: No organomegaly - Back Back: Normal, Nontender - Extremities General upper extremity: Normal inspection, Nontender, Normal color, Normal ROM, Normal temperature General lower extremity: Normal inspection, Nontender, Edema - 2+ pitting edema, Normal color, Normal ROM, Normal temperature. No: Hannah's sign - Neurological Neuro grossly intact: Yes Cognition: Confused Luis Angel Coma Scale Eye Opening: Spontaneous Luis Angel Coma Scale Verbal: Confused Luis Angel Coma Scale Motor: Obeys Commands Luis Angel Coma Scale Total: 14 Motor strength normal: LUE, RUE, LLE, RLE Sensory: Normal - Psychological Associated symptoms: Normal affect, Normal mood - Skin Skin Temperature: Warm Skin Moisture: Dry Skin Color: Normal Course - Re-evaluation Re-evalutation: 01/06/19 16:39 Patient appears to be in acute respiratory failure. Stat BiPAP ordered. Steroids. Breathing treatments given. Due to the fact the patient has a history of congestive heart failure and peripheral edema assumption was made of potential for CHF. Lasix was given. Chest x-ray confirms large pleural effusion. Cannot exclude pneumonia so will cover with antibiotics. Gas confirmed patient is in a respiratory acidosis with a PCO2 that is elevated. After being on BiPAP for 2 hours repeat blood gas performed which showed improvement. Patient is much more alert now and communicating well through the BiPAP. We have decided not to intubate the patient. I have discussed the case with her primary care Dr. Boggs who will admit her to the hospital at this time. 01/06/19 16:41 Laboratory 01/06/19 01/06/19 01/06/19 13:53 13:53 13:53 WBC 3.9 L RBC 3.43 L Hgb 10.0 L Hct 33.3 L MCV 97 MCH 29.3 MCHC 30.2 L RDW 17.3 H Plt Count 232 Seg Neutrophils % 77.2 Lymphocytes % 15.0 Monocytes % 7.6 Eosinophils % 0.0 Basophils % 0.2 Absolute Neutrophils 3.0 Absolute Lymphocytes 0.6 Absolute Monocytes 0.3 Absolute Eosinophils 0.0 Absolute Basophils 0.0 PT 16.4 H INR 1.26 APTT Carbonic Acid HCO3/H2CO3 Ratio ABG pH ABG pCO2 ABG pO2 ABG HCO3 ABG Total CO2 ABG O2 Saturation ABG Base Excess FiO2 Sodium 141.6 Potassium 5.2 H Chloride 106 Carbon Dioxide 18 L Anion Gap 18 BUN 39 H Creatinine 1.94 H Est GFR ( Amer) 30 L Est GFR (Non-Af Amer) 25 L Glucose 239 H Lactic Acid Calcium 9.2 Total Bilirubin 1.3 Direct Bilirubin 0.4 Neonat Total Bilirubin Not Reportable Neonat Direct Bilirubin Not Reportable Neonat Indirect Bili Not Reportable AST 40 H ALT 27 Alkaline Phosphatase 90 Troponin I NT-Pro-B Natriuret Pep Total Protein 7.7 Albumin 4.1 Urine Color Urine Appearance Urine pH Ur Specific [place] Urine Protein Urine Glucose (UA) Urine Ketones Urine Blood Urine Nitrite Urine Bilirubin Urine Urobilinogen Ur Leukocyte Esterase Urine WBC (Auto) Urine RBC (Auto) U Hyaline Cast (Auto) Squamous Epi Cells Auto Urine Mucus (Auto) Urine Ascorbic Acid 01/06/19 01/06/19 01/06/19 13:53 13:53 13:53 WBC RBC Hgb Hct MCV MCH MCHC RDW Plt Count Seg Neutrophils % Lymphocytes % Monocytes % Eosinophils % Basophils % Absolute Neutrophils Absolute Lymphocytes Absolute Monocytes Absolute Eosinophils Absolute Basophils PT INR APTT 72.0 H Carbonic Acid 1.43 H HCO3/H2CO3 Ratio 12:1 ABG pH 7.21 L ABG pCO2 47.4 H ABG pO2 99.8 ABG HCO3 18.4 L ABG Total CO2 19.8 L ABG O2 Saturation 96.2 ABG Base Excess -9.5 FiO2 55% Sodium Potassium Chloride Carbon Dioxide Anion Gap BUN Creatinine Est GFR ( Amer) Est GFR (Non-Af Amer) Glucose Lactic Acid 5.4 H Calcium Total Bilirubin Direct Bilirubin Neonat Total Bilirubin Neonat Direct Bilirubin Neonat Indirect Bili AST ALT Alkaline Phosphatase Troponin I NT-Pro-B Natriuret Pep Total Protein Albumin Urine Color Urine Appearance Urine pH Ur Specific [place] Urine Protein Urine Glucose (UA) Urine Ketones Urine Blood Urine Nitrite Urine Bilirubin Urine Urobilinogen Ur Leukocyte Esterase Urine WBC (Auto) Urine RBC (Auto) U Hyaline Cast (Auto) Squamous Epi Cells Auto Urine Mucus (Auto) Urine Ascorbic Acid 01/06/19 01/06/19 01/06/19 13:53 13:53 15:10 WBC RBC Hgb Hct MCV MCH MCHC RDW Plt Count Seg Neutrophils % Lymphocytes % Monocytes % Eosinophils % Basophils % Absolute Neutrophils Absolute Lymphocytes Absolute Monocytes Absolute Eosinophils Absolute Basophils PT INR APTT Carbonic Acid HCO3/H2CO3 Ratio ABG pH ABG pCO2 ABG pO2 ABG HCO3 ABG Total CO2 ABG O2 Saturation ABG Base Excess FiO2 Sodium Potassium Chloride Carbon Dioxide Anion Gap BUN Creatinine Est GFR ( Amer) Est GFR (Non-Af Amer) Glucose Lactic Acid Calcium Total Bilirubin Direct Bilirubin Neonat Total Bilirubin Neonat Direct Bilirubin Neonat Indirect Bili AST ALT Alkaline Phosphatase Troponin I < 0.012 NT-Pro-B Natriuret Pep 18215 H Total Protein Albumin Urine Color YELLOW Urine Appearance CLOUDY Urine pH 5.0 Ur Specific [place] 1.015 Urine Protein 100 H Urine Glucose (UA) >=500 H Urine Ketones NEGATIVE Urine Blood NEGATIVE Urine Nitrite NEGATIVE Urine Bilirubin NEGATIVE Urine Urobilinogen NEGATIVE Ur Leukocyte Esterase NEGATIVE Urine WBC (Auto) 2 Urine RBC (Auto) 2 U Hyaline Cast (Auto) 12 Squamous Epi Cells Auto 1 Urine Mucus (Auto) RARE Urine Ascorbic Acid 40 H 01/06/19 15:38 WBC RBC Hgb Hct MCV MCH MCHC RDW Plt Count Seg Neutrophils % Lymphocytes % Monocytes % Eosinophils % Basophils % Absolute Neutrophils Absolute Lymphocytes Absolute Monocytes Absolute Eosinophils Absolute Basophils PT INR APTT Carbonic Acid 1.26 HCO3/H2CO3 Ratio 15:1 ABG pH 7.30 L ABG pCO2 42.0 ABG pO2 89.1 ABG HCO3 20.0 ABG Total CO2 21.3 ABG O2 Saturation 95.9 ABG Base Excess -6.2 FiO2 55% Sodium Potassium Chloride Carbon Dioxide Anion Gap BUN Creatinine Est GFR ( Amer) Est GFR (Non-Af Amer) Glucose Lactic Acid Calcium Total Bilirubin Direct Bilirubin Neonat Total Bilirubin Neonat Direct Bilirubin Neonat Indirect Bili AST ALT Alkaline Phosphatase Troponin I NT-Pro-B Natriuret Pep Total Protein Albumin Urine Color Urine Appearance Urine pH Ur Specific [place] Urine Protein Urine Glucose (UA) Urine Ketones Urine Blood Urine Nitrite Urine Bilirubin Urine Urobilinogen Ur Leukocyte Esterase Urine WBC (Auto) Urine RBC (Auto) U Hyaline Cast (Auto) Squamous Epi Cells Auto Urine Mucus (Auto) Urine Ascorbic Acid 01/06/19 17:01 I made a courtesy call the patient's pharmacy affairs assistant, Dr. Parker. He thinks that patient may need to be transferred to [facility] where her correction officer head is. At this time I have placed a call to that team and will try and decide the best course of action however at this time planning on admitting here. 01/06/19 17:19 Consulted with here EP pharmacy affairs assistant - Vital Signs Vital signs: Temp Pulse Resp BP Pulse Ox 98.4 F 24 H 110/82 100 01/06/19 17:01 01/06/19 17:01 01/06/19 17:01 01/06/19 17:01 - Laboratory Result Diagrams: 01/06/19 13:53 01/06/19 13:53 Laboratory results interpreted by me: 01/06/19 01/06/19 01/06/19 13:53 13:53 13:53 WBC 3.9 L RBC 3.43 L Hgb 10.0 L Hct 33.3 L MCHC 30.2 L RDW 17.3 H PT 16.4 H APTT Carbonic Acid ABG pH ABG pCO2 ABG HCO3 ABG Total CO2 Potassium 5.2 H Carbon Dioxide 18 L BUN 39 H Creatinine 1.94 H Est GFR ( Amer) 30 L Est GFR (Non-Af Amer) 25 L Glucose 239 H Lactic Acid AST 40 H NT-Pro-B Natriuret Pep Urine Protein Urine Glucose (UA) Urine Ascorbic Acid 01/06/19 01/06/19 01/06/19 13:53 13:53 13:53 WBC RBC Hgb Hct MCHC RDW PT APTT 72.0 H Carbonic Acid 1.43 H ABG pH 7.21 L ABG pCO2 47.4 H ABG HCO3 18.4 L ABG Total CO2 19.8 L Potassium Carbon Dioxide BUN Creatinine Est GFR ( Amer) Est GFR (Non-Af Amer) Glucose Lactic Acid 5.4 H AST NT-Pro-B Natriuret Pep Urine Protein Urine Glucose (UA) Urine Ascorbic Acid 01/06/19 01/06/19 01/06/19 13:53 15:10 15:38 WBC RBC Hgb Hct MCHC RDW PT APTT Carbonic Acid ABG pH 7.30 L ABG pCO2 ABG HCO3 ABG Total CO2 Potassium Carbon Dioxide BUN Creatinine Est GFR ( Amer) Est GFR (Non-Af Amer) Glucose Lactic Acid AST NT-Pro-B Natriuret Pep 08698 H Urine Protein 100 H Urine Glucose (UA) >=500 H Urine Ascorbic Acid 40 H - EKG Interpretation by Wy EKG shows normal: Intervals, QRS Complexes, ST-T Waves Rate: Tachycardia Critical Care Note - Critical Care Note Total time excluding time spent on procedures (mins): 60 Discharge - Discharge Clinical Impression: Acute decompensated heart failure Acute respiratory failure Qualifiers: Respiratory failure complication: hypercapnia Qualified Code(s): J96.02 - Acute respiratory failure with hypercapnia Condition: Poor Disposition: ADMITTED INPATIENT Admitting Provider: Juan Unit Admitted: IMCU Referrals: OBED BOGGS MD [Primary Care Provider] - Follow up as needed
[2019-01-06 14:17] LABS: ABSOLUTE LYMPHOCYTES (AUTO) 0.6 10^3/uL (0.5-4.7); ABSOLUTE MONOCYTES (AUTO) 0.3 10^3/uL (0.1-1.4); BASOPHILS % (AUTO) 0.2 % (0-2); HEMATOCRIT 33.3 % (36.0-47.0); MEAN CORPUSCULAR HEMOGLOBIN 29.3 pg (27.0-33.4); MEAN CORPUSCULAR HGB CONC 30.2 g/dL (32.0-36.0); MEAN CORPUSCULAR VOLUME 97 fl (80-97); MONOCYTES % (AUTO) 7.6 % (3-13); PLATELET COUNT 232 10^3/uL (150-450); RED BLOOD COUNT 3.43 10^6/uL (3.72-5.28); RED CELL DISTRIBUTION WIDTH 17.3 % (11.5-14.0); SEGMENTED NEUTROPHILS % (AUTO) 77.2 % (42-78); TOTAL CELLS COUNTED % (AUTO) 100 %; WHITE BLOOD COUNT 3.9 10^3/uL (4.0-10.5)
[2019-01-06 14:18] LABS: ARTERIAL BLOOD BASE EXCESS -9.5 mmol/L; ARTERIAL BLOOD H2CO3 1.43 mmol/L (1.05-1.35); ARTERIAL BLOOD HCO3 18.4 mmol/L (20-24); ARTERIAL BLOOD O2 SATURATION 96.2 % (94-98); ARTERIAL BLOOD PCO2 47.4 mmHg (35-45); ARTERIAL BLOOD PH 7.21 (7.35-7.45); ARTERIAL BLOOD PO2 99.8 mmHg (80-100); ARTERIAL BLOOD TOTAL CO2 19.8 mmol/L (21-25)
[2019-01-06] MEDS ORDERED: METHYLPREDNISOLONE INJ 125 MG/2 ML SDV IV ONE (14:24)
[2019-01-06 14:27] LABS: INTERNATIONAL RATION (INR) 1.26; PROTHROMBIN TIME 16.4 SEC (11.4-15.4)
[2019-01-06] MEDS ORDERED: FUROSEMIDE INJ/PF 40 MG/4 ML SDV IV ONE (14:37)
[2019-01-06 14:38] LABS: ALANINE AMINOTRANSFERASE 27 U/L (9-52); ALBUMIN 4.1 g/dL (3.5-5.0); ALKALINE PHOSPHATASE 90 U/L (38-126); ANION GAP 18 (5-19); ASPARTATE AMINO TRANSFERASE 40 U/L (14-36); BILIRUBIN,DIRECT 0.4 mg/dL (0.0-0.4); BILIRUBIN,TOTAL 1.3 mg/dL (0.2-1.3); BLOOD UREA NITROGEN 39 mg/dL (7-20); CALCIUM 9.2 mg/dL (8.4-10.2); CARBON DIOXIDE 18 mmol/L (22-30); CHLORIDE 106 mmol/L (98-107); GLUCOSE 239 mg/dL (75-110); POTASSIUM 5.2 mmol/L (3.6-5.0); SODIUM 141.6 mmol/L (137-145); TOTAL PROTEIN 7.7 g/dL (6.3-8.2)
--- NOTE | 2019-01-06 14:47 | RADIOLOGY REPORT (SQ) ---
EXAM DESCRIPTION: CHEST SINGLE VIEW COMPLETED DATE/TIME: 01/06/2019 2:37 pm REASON FOR STUDY: respiratory distress COMPARISON: 12/21/2018 EXAM PARAMETERS: NUMBER OF VIEWS: One view. TECHNIQUE: Single frontal radiographic view of the chest acquired. RADIATION DOSE: NA LIMITATIONS: None. FINDINGS: LUNGS AND PLEURA: There is increasing bilateral pleural effusions and basilar airspace dis ease. MEDIASTINUM AND HILAR STRUCTURES: No masses. Contour normal. HEART AND VASCULAR STRUCTURES: Heart is enlarged with central vascular prominence. BONES: No acute findings. HARDWARE: [id number]-Uhpy remains in place. OTHER: No other significant finding. IMPRESSION: Increasing pleural effusions and vascular congestion. Underlying basilar atelectasis or pneumonia cannot be excluded. TECHNICAL DOCUMENTATION: JOB ID: [id number] [email or web address] All Rights Reserved Reading location - IP/workstation name: [email or web address]
[2019-01-06] MEDS ORDERED: CEFTRIAXONE INJ 1000 MG VIAL IV ONE (15:11)
[2019-01-06 15:32] LABS: APPEARANCE,URINE CLOUDY; BILIRUBIN,URINE NEGATIVE (NEGATIVE); GLUCOSE, URINE >=500 mg/dL (NEGATIVE); KETONES,URINE NEGATIVE (NEGATIVE); LEUKOCYTE ESTERASE,URINE NEGATIVE (NEGATIVE); NITRITE,URINE NEGATIVE (NEGATIVE); PROTEIN,URINE 100 mg/dL (NEGATIVE); URINE SPECIFIC GRAVITY 1.015; UROBILINOGEN,URINE NEGATIVE mg/dL (<2.0)
[2019-01-06 15:35] LABS: COLOR,URINE YELLOW
[2019-01-06] MEDS ORDERED: NITROGLYCERIN 2% OINTMENT 1 GM PACKET TP ONE (16:10)
[2019-01-06 16:27] LABS: ARTERIAL BLOOD BASE EXCESS -6.2 mmol/L; ARTERIAL BLOOD H2CO3 1.26 mmol/L (1.05-1.35); ARTERIAL BLOOD O2 SATURATION 95.9 % (94-98); ARTERIAL BLOOD PO2 89.1 mmHg (80-100); ARTERIAL BLOOD TOTAL CO2 21.3 mmol/L (21-25)
[2019-01-06] MEDS ORDERED: AZITHROMYCIN INJ 500 MG VIAL IV ONE (17:18)
[2019-01-06] MEDS ORDERED: ONDANSETRON HCL 8 MG TABLET PO PRN (18:48)
[2019-01-06] MEDS ORDERED: GLUCAGON,HUMAN RECOMB 1 MG INJ IM PRN (18:49)
[2019-01-06] MEDS ORDERED: DEXTROSE 50%-WATER 25 GM/50 ML DISP.SYRIN IV PRN ×2 (18:49)
[2019-01-06] MEDS ORDERED: DEXTROSE 40% GEL 15 GM TUBE PO PRN ×2 (18:49)
[2019-01-06 19:41] LABS: FREE T4 (FREE THYROXINE) 1.93 ng/dL (0.78-2.19)
[2019-01-06 19:55] LABS: THYROID STIMULATING HORMONE 2.86 uIU/mL (0.47-4.68)
[2019-01-06] MEDS: FUROSEMIDE INJ/PF 40 MG/4 ML SDV IV SCH ×2 (20:30→23:14)
[2019-01-06] MEDS: APIXABAN 2.5 MG TABLET PO SCH ×2 (20:30→23:13)
[2019-01-06 20:45] LABS: TOTAL PROTEIN 7.1 g/dL (6.3-8.2)
[2019-01-06 20:49] LABS: INTERNATIONAL RATION (INR) 1.28; PROTHROMBIN TIME 16.6 SEC (11.4-15.4)
[2019-01-06 20:58] LABS: CREATINE KINASE MB 1.79 ng/mL (<4.55); TROPONIN I 0.014 ng/mL
--- NOTE | 2019-01-06 21:59 | PDOC H&P ---
History of Present Illness Admission Date/PCP: 01/06/19 17:10 OBED BOGGS MD History of Present Illness: LC ANGUIANO is a 78 year old female, Patient is well-known to me she has hi story of chronic systolic and diastolic heart failure, the last time she was admitted to the hospital the estimated ejection fraction of left ventricle was less than 15% she was discharged on the LifeVest, she was supposed to see an Spring Fitter next week Wednesday for placement of AICD .she came to the emergency room for evaluation of shortness of breath, when she arrived she was in respiratory distress she was treated immediately with a noninvasive positive pressure ventilation on BiPAP. The ED physician consulted with me about her condition we decided to initiate tracheal intubation and medical ventilation because she was very somnolent but patient refused mechanical ventilation so she was continue on BiPAP machine. The chest x-ray that was done in the ER is consistent with CHF with pleural effusion the BNP is elevated , there is associated cardiorenal syndrome overall prognosis is poor. She remains a full code Past Medical History Cardiac Medical History: Reports: Atrial Fibrillation, Congestive Heart Failure, Hypertension, Peripheral Vascular Disease Pulmonary Medical History: Reports: Bronchitis - approx 2 x yrly, Chronic Obstructive Pulmonary Disease (COPD), Pneumonia - Nov 2012 (hospitalized), Sleep Apnea - C-PAP use Endocrine Medical History: Reports: Diabetes Mellitus Type 2 Malignancy Medical History: Reports: Breast Cancer - Left, FINISHED CHEMO Tx 2 MOS AGO Musculoskeltal Medical History: Reports: Arthritis - Knees Denies: Fibromyalgia Past Surgical History Past Surgical History: Reports: Hysterectomy, Mastectomy, Orthopedic Surgery - Left knee replacement, Tonsillectomy Social History Lives with: Family Smoking Status: Never Smoker Frequency of Alcohol Use: None Hx Recreational Drug Use: No Drugs: None Hx Prescription Drug Abuse: No Family History Family History: Reviewed & Not Pertinent, Hypertension Parental Family History Reviewed: Yes Children Family History Reviewed: Yes Sibling(s) Family History Reviewed.: Yes Medication/Allergy Home Medications: Apixaban [Eliquis 2.5 mg Tablet] 2.5 mg PO Q12 01/06/19 Dapagliflozin/Metformin HCl [Xigduo Xr 10 mg-1,000 mg Tab] 1 tab PO DAILY 01/06/19 RX: Amiodarone HCl [Cordarone 200 mg Tablet] 200 mg PO DAILY 01/06/19 RX: Aspirin [Ecotrin 81 mg EC Tablet] 81 mg PO DAILY 01/06/19 RX: Metoprolol Succinate [Toprol Xl 50 mg Tab.sr] 100 mg PO DAILY 01/06/19 RX: Ondansetron HCl [Zofran 8 mg Tablet] 8 mg PO TIDP PRN 01/06/19 RX: Torsemide [Demadex 20 mg Tablet] 30 mg PO DAILY 01/06/19 Sacubitril/Valsartan [Entresto 49 mg/51 mg Tablet] 1 tab PO Q12 01/06/19 Allergies/Adverse Reactions: No Known Allergies Allergy (Verified 01/06/19 15:44) Review of Systems Constitutional: PRESENT: fatigue Eyes: ABSENT: visual disturbances Ears: ABSENT: hearing changes Cardiovascular: PRESENT: dyspnea on exertion, edema, orthropnea, palpitations Respiratory: PRESENT: cough, dyspnea Gastrointestinal: PRESENT: bloating Musculoskeletal: ABSENT: joint swelling Integumentary: ABSENT: rash, wounds Neurological: PRESENT: confusion, frequent falls Psychiatric: ABSENT: anxiety, depression, homidical ideation, suicidal ideation Endocrine: ABSENT: cold intolerance, heat intolerance, menstrual abnormalities, polydipsia, polyuria Hematologic/Lymphatic: ABSENT: easy bleeding, easy bruising, lymphadenopathy Physical Exam Vital Signs: Temp Pulse Resp BP Pulse Ox 98.4 F 116 H 24 H 128/75 H 98 01/06/19 20:38 01/06/19 20:42 01/06/19 20:38 01/06/19 20:42 01/06/19 20:42 Intake & Output 01/05/19 01/06/19 01/07/19 06:59 06:59 06:59 Weight 86.4 kg General appearance: PRESENT: morbidly obese Head exam: PRESENT: atraumatic, normocephalic Eye exam: PRESENT: PERRLA Ear exam: PRESENT: normal external ear exam Mouth exam: PRESENT: moist, tongue midline Neck exam: PRESENT: full ROM Respiratory exam: PRESENT: crackles, rhonchi Cardiovascular exam: PRESENT: RRR, +S1, +S2 Vascular exam: PRESENT: normal capillary refill GI/Abdominal exam: PRESENT: normal bowel sounds, soft Rectal exam: PRESENT: deferred Neurological exam: PRESENT: altered, CN II-XII grossly intact Skin exam: PRESENT: dry, intact, warm Results Laboratory Results: 01/06/19 13:53 01/06/19 13:53 01/06/19 01/06/19 01/06/19 13:53 13:53 13:53 WBC 3.9 L RBC 3.43 L Hgb 10.0 L Hct 33.3 L MCV 97 MCH 29.3 MCHC 30.2 L RDW 17.3 H Plt Count 232 Seg Neutrophils % 77.2 Lymphocytes % 15.0 Monocytes % 7.6 Eosinophils % 0.0 Basophils % 0.2 Absolute Neutrophils 3.0 Absolute Lymphocytes 0.6 Absolute Monocytes 0.3 Absolute Eosinophils 0.0 Absolute Basophils 0.0 Carbonic Acid HCO3/H2CO3 Ratio ABG pH ABG pCO2 ABG pO2 ABG HCO3 ABG O2 Saturation ABG Base Excess FiO2 Sodium 141.6 Potassium 5.2 H Chloride 106 Carbon Dioxide 18 L Anion Gap 18 BUN 39 H Creatinine 1.94 H Est GFR ( Amer) 30 L Est GFR (Non-Af Amer) 25 L Glucose 239 H Lactic Acid 5.4 H Calcium 9.2 Magnesium Total Bilirubin 1.3 AST 40 H ALT 27 Alkaline Phosphatase 90 Total Protein 7.7 Albumin 4.1 TSH Free T4 Urine Color Urine Appearance Urine pH Ur Specific [place] Urine Protein Urine Glucose (UA) Urine Ketones Urine Blood Urine Nitrite Ur Leukocyte Esterase Urine WBC (Auto) Urine RBC (Auto) 01/06/19 01/06/19 01/06/19 13:53 13:53 15:10 WBC RBC Hgb Hct MCV MCH MCHC RDW Plt Count Seg Neutrophils % Lymphocytes % Monocytes % Eosinophils % Basophils % Absolute Neutrophils Absolute Lymphocytes Absolute Monocytes Absolute Eosinophils Absolute Basophils Carbonic Acid 1.43 H HCO3/H2CO3 Ratio 12:1 ABG pH 7.21 L ABG pCO2 47.4 H ABG pO2 99.8 ABG HCO3 18.4 L ABG O2 Saturation 96.2 ABG Base Excess -9.5 FiO2 55% Sodium Potassium Chloride Carbon Dioxide Anion Gap BUN Creatinine Est GFR ( Amer) Est GFR (Non-Af Amer) Glucose Lactic Acid Calcium Magnesium Total Bilirubin AST ALT Alkaline Phosphatase Total Protein Albumin TSH 2.86 Free T4 1.93 Urine Color YELLOW Urine Appearance CLOUDY Urine pH 5.0 Ur Specific [place] 1.015 Urine Protein 100 H Urine Glucose (UA) >=500 H Urine Ketones NEGATIVE Urine Blood NEGATIVE Urine Nitrite NEGATIVE Ur Leukocyte Esterase NEGATIVE Urine WBC (Auto) 2 Urine RBC (Auto) 2 01/06/19 01/06/19 01/06/19 15:38 17:52 20:14 WBC RBC Hgb Hct MCV MCH MCHC RDW Plt Count Seg Neutrophils % Lymphocytes % Monocytes % Eosinophils % Basophils % Absolute Neutrophils Absolute Lymphocytes Absolute Monocytes Absolute Eosinophils Absolute Basophils Carbonic Acid 1.26 HCO3/H2CO3 Ratio 15:1 ABG pH 7.30 L ABG pCO2 42.0 ABG pO2 89.1 ABG HCO3 20.0 ABG O2 Saturation 95.9 ABG Base Excess -6.2 FiO2 55% Sodium Potassium Chloride Carbon Dioxide Anion Gap BUN Creatinine Est GFR ( Amer) Est GFR (Non-Af Amer) Glucose Lactic Acid 1.8 Calcium Magnesium 1.4 L Total Bilirubin AST ALT Alkaline Phosphatase Total Protein 7.1 Albumin TSH Free T4 Urine Color Urine Appearance Urine pH Ur Specific [place] Urine Protein Urine Glucose (UA) Urine Ketones Urine Blood Urine Nitrite Ur Leukocyte Esterase Urine WBC (Auto) Urine RBC (Auto) 01/06/19 01/06/19 01/06/19 13:53 13:53 20:14 Creatine Kinase 57 CK-MB (CK-2) Troponin I < 0.012 NT-Pro-B Natriuret Pep 30678 H 01/06/19 20:14 Creatine Kinase CK-MB (CK-2) 1.79 Troponin I 0.014 NT-Pro-B Natriuret Pep 59422 H Impressions: Chest X-Ray 01/06/19 00:00 IMPRESSION: Increasing pleural effusions and vascular congestion. Underlying basilar atelectasis or pneumonia cannot be excluded. Assessment & Plan - Diagnosis (1) Acute hypercapnic respiratory failure Is this a current diagnosis for this admission?: Yes Plan: Patient's condition is very critical, she does not want mechanical ventilation, she remains a full code despite very poor condition, her breathing is supported with BiPAP (2) Acute combined systolic and diastolic heart failure Is this a current diagnosis for this admission?: Yes Plan: She has acute combined systolic and diastolic heart failure on a pre-existing chronic combined systolic and diastolic heart failure Moderate pleural effusion, bilaterally, ultrasound-guided thoracentesis is ordered, Continue anti-CHF regimen. I spoke to Dr. Parker the treating milling machine set up operator, the plan is to have patient transferred to [place] for AICD placement she presently have a life vest in place, once bed becomes available she will be transferred to [place] hopefully by Wednesday (3) Cardiorenal syndrome Qualifiers: Heart failure presence: with heart failure Hypertensive chronic kidney disease stage: stage 1-4 or unspecified chronic kidney disease Qualified Code(s): I13.0 - Hypertensive heart and chronic kidney disease with heart failure and stage 1 through stage 4 chronic kidney disease, or unspecified chronic kidney disease Is this a current diagnosis for this admission?: Yes (4) Diabetes mellitus type 2 in obese Is this a current diagnosis for this admission?: Yes
--- NOTE | 2019-01-06 22:05 | EKG REPORT ---
SEVERITY:- OTHERWISE NORMAL ECG - SINUS TACHYCARDIA VS PAT WITH 2:1 CONDUCTION NONSPECIFIC T CHANGES : Confirmed by: Domo Parker 06-Jan-2019 22:04:24
[2019-01-06] MEDS: SACUBITRIL/VALSARTAN 49 MG/51 MG TABLET PO SCH (22:51)
[2019-01-06] MEDS: INSULIN LISPRO 100 UNIT/ML 3 ML VIAL SUBCUT SCH ×2 (22:54→23:15)
[2019-01-06] MEDS: AMIODARONE HCL 200 MG TABLET PO SCH (23:13)
[2019-01-06] MEDS: METOPROLOL SUCCINATE 50 MG TAB.SR.24H PO SCH (23:14)
[2019-01-07 03:32] LABS: CREATINE KINASE MB 1.55 ng/mL (<4.55)
[2019-01-07 03:36] LABS: TROPONIN I < 0.012 ng/mL
[2019-01-07] MEDS: FUROSEMIDE INJ/PF 40 MG/4 ML SDV IV SCH ×2 (05:58→17:33)
[2019-01-07] MEDS: APIXABAN 2.5 MG TABLET PO SCH ×2 (05:59→17:33)
[2019-01-07 06:44] LABS: ALANINE AMINOTRANSFERASE 24 U/L (9-52); ALBUMIN 3.4 g/dL (3.5-5.0); ALKALINE PHOSPHATASE 71 U/L (38-126); ANION GAP 9 (5-19); ASPARTATE AMINO TRANSFERASE 20 U/L (14-36); BILIRUBIN,DIRECT 0.3 mg/dL (0.0-0.4); BLOOD UREA NITROGEN 43 mg/dL (7-20); CARBON DIOXIDE 24 mmol/L (22-30); CHLORIDE 107 mmol/L (98-107); CHOLESTEROL 126.41 mg/dL (0-200); CREATINE KINASE 48 U/L (30-135); GLUCOSE 222 mg/dL (75-110); POTASSIUM 4.9 mmol/L (3.6-5.0); SODIUM 140.3 mmol/L (137-145); TOTAL PROTEIN 6.7 g/dL (6.3-8.2); TRIGLYCERIDES 64 mg/dL (<150)
[2019-01-07 06:53] LABS: HEMATOCRIT 29.5 % (36.0-47.0); HEMOGLOBIN 9.4 g/dL (12.0-15.5); MEAN CORPUSCULAR HEMOGLOBIN 29.8 pg (27.0-33.4); MEAN CORPUSCULAR HGB CONC 31.9 g/dL (32.0-36.0); MEAN CORPUSCULAR VOLUME 94 fl (80-97); PLATELET COUNT 211 10^3/uL (150-450); RED BLOOD COUNT 3.15 10^6/uL (3.72-5.28); RED CELL DISTRIBUTION WIDTH 17.1 % (11.5-14.0); WHITE BLOOD COUNT 4.4 10^3/uL (4.0-10.5)
[2019-01-07 06:55] LABS: DIRECT LDL 65 mg/dL (<100)
[2019-01-07 06:56] LABS: CREATINE KINASE MB 1.48 ng/mL (<4.55)
[2019-01-07 06:57] LABS: TROPONIN I < 0.012 ng/mL
[2019-01-07 07:07] LABS: ABSOLUTE LYMPHOCYTES# (MANUAL) 0.9 10^3/uL (0.5-4.7); ABSOLUTE NEUTROPHILS# (MANUAL) 3.4 10^3/uL (1.7-8.2); ANISOCYTOSIS 1+; BASOPHILS % (MANUAL) 0 % (0-2); EOSINOPHILS % (MANUAL) 0 % (0-6); LYMPHOCYTES % (MANUAL) 21 % (13-45); MONOCYTES % (MANUAL) 1 % (3-13); PLATELET COMMENT ADEQUATE; POLYCHROMASIA 1+; SEGMENTED NEUTROPHILS % (MAN) 78 % (42-78); TOTAL CELLS COUNTED 100
[2019-01-07] MEDS: INSULIN LISPRO 100 UNIT/ML 3 ML VIAL SUBCUT SCH ×4 (08:30→22:11)
[2019-01-07] MEDS: AMIODARONE HCL 200 MG TABLET PO SCH (09:58)
[2019-01-07] MEDS: METOPROLOL SUCCINATE 50 MG TAB.SR.24H PO SCH (09:58)
[2019-01-07] MEDS: SACUBITRIL/VALSARTAN 49 MG/51 MG TABLET PO SCH ×2 (09:58→22:14)
--- NOTE | 2019-01-07 10:20 | PDOC TRANSFER SUMMARY ---
General Admission Date/PCP: 01/06/19 17:10 OBED BOGGS MD Admission Date: 01/06/19 Transfer Date: 01/07/19 Accepting Facility: [facility] Resuscitation Status: Full Code - Transfer Diagnosis (1) Acute combined systolic and diastolic heart failure Is this a current diagnosis for this admission?: Yes (3) Acute hypercapnic respiratory failure Is this a current diagnosis for this admission?: Yes (4) Cardiorenal syndrome Is this a current diagnosis for this admission?: Yes (5) Atrial fibrillation Is this a current diagnosis for this admission?: Yes (6) COPD (chronic obstructive pulmonary disease) Is this a current diagnosis for this admission?: Yes (7) Cardiomyopathy Is this a current diagnosis for this admission?: Yes (8) Diabetes mellitus type II, uncontrolled Is this a current diagnosis for this admission?: Yes (9) Hypertension Is this a current diagnosis for this admission?: Yes (10) Sleep apnea syndrome Is this a current diagnosis for this admission?: Yes - Transfer Medications Home Medications: Amiodarone HCl [Cordarone 200 mg Tablet] 200 mg PO DAILY 01/06/19 Apixaban [Eliquis 2.5 mg Tablet] 2.5 mg PO Q12 01/06/19 Aspirin [Ecotrin 81 mg EC Tablet] 81 mg PO DAILY 01/06/19 Dapagliflozin/Metformin HCl [Xigduo Xr 10 mg-1,000 mg Tab] 1 tab PO DAILY 01/06/19 Metoprolol Succinate [Toprol Xl 50 mg Tab.sr] 100 mg PO DAILY 01/06/19 Ondansetron HCl [Zofran 8 mg Tablet] 8 mg PO TIDP PRN 01/06/19 Sacubitril/Valsartan [Entresto 49 mg/51 mg Tablet] 1 tab PO Q12 01/06/19 Torsemide [Demadex 20 mg Tablet] 30 mg PO DAILY 01/06/19 Transfer Medications: Current Medications Amiodarone HCl (Cordarone 200 Mg Tablet) 200 mg PO DAILY [facility] Stop: 02/05/19 18:59 Last Admin: 01/07/19 09:58 Dose: 200 mg Documented by: Apixaban (Eliquis 2.5 Mg Tablet) 2.5 mg PO Q12A [facility] Stop: 02/05/19 18:59 Last Admin: 03/02/19 05:59 Dose: 2.5 mg Documented by: Dextrose (Dextrose Inj 50% Syringe (25 Gm/50 Ml)) 12.5 gm IV PRN PRN; Protocol PRN Reason: FOR BG 50-69 IN ALERT PATIENT Stop: 02/05/19 18:48 Dextrose (Dextrose Inj 50% Syringe (25 Gm/50 Ml)) 25 gm IV PRN PRN; Protocol PRN Reason: PER PROTOCOL Stop: 02/05/19 18:48 Furosemide (Lasix Inj/Pf 40 Mg/4 Ml Sdv) 40 mg IV Q12A [facility] Stop: 02/05/19 18:59 Last Admin: 01/07/19 05:58 Dose: 40 mg Documented by: Glucagon (Glucagen Inj 1 Mg Vial) 1 mg IM PRN PRN; Protocol PRN Reason: Evaluate for BG < 70 Stop: 02/05/19 18:48 Glucose (Glutose 40% Gel 15 Gm Tube) 15 gm PO PRN PRN; Protocol PRN Reason: FOR BG 50-69 IN ALERT PATIENT Stop: 02/05/19 18:48 Glucose (Glutose 40% Gel 15 Gm Tube) 30 gm PO PRN PRN; Protocol PRN Reason: FOR BG < 50 IN ALERT PATIENT Stop: 02/05/19 18:48 Influenza Virus Vaccine Quadrival (Fluarix Adlt Quad Vac 0.5 Ml Syr) 0.5 ml IM .DISCHARGE PRN PRN Reason: THIS MED IS NOT "PRN" Stop: 02/06/19 02:33 Insulin Human Lispro (Humalog Insulin 100 Unit/1 Ml 3 Ml Vial) 0 - 12 unit [facility]; Protocol Stop: 02/05/19 18:59 Last Admin: 01/07/19 08:30 Dose: 4 unit Documented by: Metoprolol Succinate (Toprol Xl 50 Mg Tab.Sr) 100 mg PO DAILY [facility] Stop: 02/05/19 18:59 Last Admin: 01/07/19 09:58 Dose: 100 mg Documented by: Ondansetron HCl (Zofran 8 Mg Tablet) 8 mg PO TIDP PRN PRN Reason: FOR NAUSEA/VOMITING Stop: 02/05/19 18:47 Sacubitril/Valsartan (Entresto 49 Mg/51 Mg Tablet) 1 tab PO Q12 [facility] Stop: 02/05/19 21:59 Last Admin: 01/07/19 09:58 Dose: 1 tab Documented by: Sodium Chloride (Saline Flush 2.5 Ml Monoject Prefil Syrin) 2.5 ml IV Q8 [facility] Stop: 02/05/19 21:59 Last Admin: 01/07/19 05:58 Dose: 2.5 ml Documented by: - Allergies Allergies/Adverse Reactions: No Known Allergies Allergy (Verified 01/06/19 15:44) Hospital Course Hospital Course: This is a 78-year-old female with a significant history of the combined systolic and diastolic heart failure with recent ejection fraction is only 15%'s with the multiple hospital admissions and a currently scheduled for the AICD placement at [place] on a Wednesday and a patients came yesterday emergency departments for the shortness of the breath and respiratory distressed and diagnosed with the acute congestive heart failure Patient was giving the IV Lasix Patient's improved but as per discussed with the patient's cardiology by attending physicians patient is currently on a transplant list to go to the [place] and discussed myself to the negative checker Dr. Parker today and patient's needs to go to the [place] for AICD placement with Dr. Reynoso Patient is currently otherwise stable alert awake oriented Denied any chest pain but still complaining of a short of breath Patient was giving the IV Lasix 40 mg twice a day Physical Exam Vital Signs: Temp Pulse Resp BP Pulse Ox 98.0 F 124 H 19 103/62 97 01/07/19 07:40 01/07/19 07:40 01/07/19 07:40 01/07/19 07:40 01/07/19 07:40 Intake & Output 01/06/19 01/07/19 01/08/19 06:59 06:59 06:59 Intake Total 544 Output Total 975 Balance -431 Weight 85.5 kg General appearance: PRESENT: no acute distress, well-developed, well-nourished Head exam: PRESENT: atraumatic, normocephalic Eye exam: PRESENT: conjunctiva pink, EOMI, PERRLA. ABSENT: scleral icterus Ear exam: PRESENT: normal external ear exam Mouth exam: PRESENT: moist, tongue midline Neck exam: ABSENT: carotid bruit, JVD, lymphadenopathy, thyromegaly Respiratory exam: PRESENT: clear to auscultation mack. ABSENT: rales, rhonchi, wheezes Cardiovascular exam: PRESENT: RRR. ABSENT: diastolic murmur, rubs, systolic m urmur Vascular exam: PRESENT: normal capillary refill GI/Abdominal exam: PRESENT: normal bowel sounds, soft. ABSENT: distended, guarding, mass, organolmegaly, rebound, tenderness Rectal exam: PRESENT: deferred Extremities exam: PRESENT: full ROM. ABSENT: calf tenderness, clubbing, pedal edema Neurological exam: PRESENT: alert, awake, oriented to person, oriented to place, oriented to time, oriented to situation, CN II-XII grossly intact. ABSENT: motor sensory deficit Psychiatric exam: PRESENT: appropriate affect, normal mood. ABSENT: homicidal ideation, suicidal ideation Skin exam: PRESENT: dry, intact, warm. ABSENT: cyanosis, rash Results Laboratory Results: 01/07/19 05:59 01/07/19 05:59 01/06/19 01/06/19 01/06/19 13:53 13:53 13:53 WBC 3.9 L RBC 3.43 L Hgb 10.0 L Hct 33.3 L MCV 97 MCH 29.3 MCHC 30.2 L RDW 17.3 H Plt Count 232 Seg Neutrophils % 77.2 Lymphocytes % 15.0 Monocytes % 7.6 Eosinophils % 0.0 Basophils % 0.2 Absolute Neutrophils 3.0 Absolute Lymphocytes 0.6 Absolute Monocytes 0.3 Absolute Eosinophils 0.0 Absolute Basophils 0.0 Carbonic Acid HCO3/H2CO3 Ratio ABG pH ABG pCO2 ABG pO2 ABG HCO3 ABG O2 Saturation ABG Base Excess FiO2 Sodium 141.6 Potassium 5.2 H Chloride 106 Carbon Dioxide 18 L Anion Gap 18 BUN 39 H Creatinine 1.94 H Est GFR ( Amer) 30 L Est GFR (Non-Af Amer) 25 L Glucose 239 H Lactic Acid 5.4 H Calcium 9.2 Magnesium Total Bilirubin 1.3 AST 40 H ALT 27 Alkaline Phosphatase 90 Total Protein 7.7 Albumin 4.1 Triglycerides Cholesterol LDL Cholesterol Direct VLDL Cholesterol HDL Cholesterol TSH Free T4 Urine Color Urine Appearance Urine pH Ur Specific [place] Urine Protein Urine Glucose (UA) Urine Ketones Urine Blood Urine Nitrite Ur Leukocyte Esterase Urine WBC (Auto) Urine RBC (Auto) 01/06/19 01/06/19 01/06/19 13:53 13:53 15:10 WBC RBC Hgb Hct MCV MCH MCHC RDW Plt Count Seg Neutrophils % Lymphocytes % Monocytes % Eosinophils % Basophils % Absolute Neutrophils Absolute Lymphocytes Absolute Monocytes Absolute Eosinophils Absolute Basophils Carbonic Acid 1.43 H HCO3/H2CO3 Ratio 12:1 ABG pH 7.21 L ABG pCO2 47.4 H ABG pO2 99.8 ABG HCO3 18.4 L ABG O2 Saturation 96.2 ABG Base Excess -9.5 FiO2 55% Sodium Potassium Chloride Carbon Dioxide Anion Gap BUN Creatinine Est GFR ( Amer) Est GFR (Non-Af Amer) Glucose Lactic Acid Calcium Magnesium Total Bilirubin AST ALT Alkaline Phosphatase Total Protein Albumin Triglycerides Cholesterol LDL Cholesterol Direct VLDL Cholesterol HDL Cholesterol TSH 2.86 Free T4 1.93 Urine Color YELLOW Urine Appearance CLOUDY Urine pH 5.0 Ur Specific [place] 1.015 Urine Protein 100 H Urine Glucose (UA) >=500 H Urine Ketones NEGATIVE Urine Blood NEGATIVE Urine Nitrite NEGATIVE Ur Leukocyte Esterase NEGATIVE Urine WBC (Auto) 2 Urine RBC (Auto) 2 01/06/19 01/06/19 01/06/19 15:38 17:52 20:14 WBC RBC Hgb Hct MCV MCH MCHC RDW Plt Count Seg Neutrophils % Lymphocytes % Monocytes % Eosinophils % Basophils % Absolute Neutrophils Absolute Lymphocytes Absolute Monocytes Absolute Eosinophils Absolute Basophils Carbonic Acid 1.26 HCO3/H2CO3 Ratio 15:1 ABG pH 7.30 L ABG pCO2 42.0 ABG pO2 89.1 ABG HCO3 20.0 ABG O2 Saturation 95.9 ABG Base Excess -6.2 FiO2 55% Sodium Potassium Chloride Carbon Dioxide Anion Gap BUN Creatinine Est GFR ( Amer) Est GFR (Non-Af Amer) Glucose Lactic Acid 1.8 Calcium Magnesium 1.4 L Total Bilirubin AST ALT Alkaline Phosphatase Total Protein 7.1 Albumin Triglycerides Cholesterol LDL Cholesterol Direct VLDL Cholesterol HDL Cholesterol TSH Free T4 Urine Color Urine Appearance Urine pH Ur Specific [place] Urine Protein Urine Glucose (UA) Urine Ketones Urine Blood Urine Nitrite Ur Leukocyte Esterase Urine WBC (Auto) Urine RBC (Auto) 01/07/19 01/07/19 05:59 05:59 WBC 4.4 RBC 3.15 L Hgb 9.4 L Hct 29.5 L MCV 94 MCH 29.8 MCHC 31.9 L RDW 17.1 H Plt Count 211 Seg Neutrophils % Not Reportable Lymphocytes % Not Reportable Monocytes % Not Reportable Eosinophils % Not Reportable Basophils % Not Reportable Absolute Neutrophils Not Reportable Absolute Lymphocytes Not Reportable Absolute Monocytes Not Reportable Absolute Eosinophils Not Reportable Absolute Basophils Not Reportable Carbonic Acid HCO3/H2CO3 Ratio ABG pH ABG pCO2 ABG pO2 ABG HCO3 ABG O2 Saturation ABG Base Excess FiO2 Sodium 140.3 Potassium 4.9 Chloride 107 Carbon Dioxide 24 Anion Gap 9 BUN 43 H Creatinine 1.98 H Est GFR ( Amer) 29 L Est GFR (Non-Af Amer) 24 L Glucose 222 H Lactic Acid Calcium 9.0 Magnesium Total Bilirubin 1.0 AST 20 ALT 24 Alkaline Phosphatase 71 Total Protein 6.7 Albumin 3.4 L Triglycerides 64 Cholesterol 126.41 LDL Cholesterol Direct 65 VLDL Cholesterol 13.0 HDL Cholesterol 52 TSH Free T4 Urine Color Urine Appearance Urine pH Ur Specific [place] Urine Protein Urine Glucose (UA) Urine Ketones Urine Blood Urine Nitrite Ur Leukocyte Esterase Urine WBC (Auto) Urine RBC (Auto) 01/06/19 01/06/19 01/06/19 13:53 13:53 20:14 Creatine Kinase 57 CK-MB (CK-2) Troponin I < 0.012 NT-Pro-B Natriuret Pep 81312 H 01/06/19 01/07/19 01/07/19 20:14 01:51 01:51 Creatine Kinase 51 CK-MB (CK-2) 1.79 1.55 Troponin I 0.014 < 0.012 NT-Pro-B Natriuret Pep 11073 H 01/07/19 01/07/19 05:59 05:59 Creatine Kinase 48 CK-MB (CK-2) 1.48 Troponin I < 0.012 NT-Pro-B Natriuret Pep Impressions: Chest X-Ray 01/06/19 00:00 IMPRESSION: Increasing pleural effusions and vascular congestion. Underlying basilar atelectasis or pneumonia cannot be excluded. Plan Time Spent: Greater than 30 Minutes - Continues to current medications as per discussed with the patient's cardiology patient is transferred when the bed available
--- NOTE | 2019-01-07 11:01 | RADIOLOGY REPORT (SQ) ---
EXAM DESCRIPTION: CHEST SINGLE VIEW COMPLETED DATE/TIME: 01/07/2019 10:47 am REASON FOR STUDY: chf COMPARISON: 01/07/2020 EXAM PARAMETERS: NUMBER OF VIEWS: One view. TECHNIQUE: Single frontal radiographic view of the chest acquired. RADIATION DOSE: NA LIMITATIONS: None. FINDINGS: LUNGS AND PLEURA: Bilateral pleural effusions and basilar opacities. MEDIASTINUM AND HILAR STRUCTURES: No masses. Contour normal. HEART AND VASCULAR STRUCTURES: Heart enlarged. Vascular congestion. BONES: No acute findings. HARDWARE: Venous access catheter unchanged. OTHER: No other significant finding. IMPRESSION: Improved aeration of the lungs. Persistent effusions and vascular congestion. TECHNICAL DOCUMENTATION: JOB ID: [id number] [employer]- All Rights Reserved Reading location - IP/workstation name: [email or web address]
[2019-01-07] MEDS ORDERED: ACETAMINOPHEN 325 MG TABLET PO PRN (14:35)
--- NOTE | 2019-01-07 19:18 | EKG REPORT ---
SEVERITY:- OTHERWISE NORMAL ECG - ATRIAL FLUTTER WITH 2:1 CONDUCTION NONSPECIFIC T CHANGES : Confirmed by: Domo Parker 07-Jan-2019 19:18:27
[2019-01-08 00:36] VITALS: BP 99/71
== END 2019-01-08 01:50 | disposition short-term general hospital (02) | DRG 291 ==
LOC: ER 13:38 → EH 17:10 → 3W 20:30
PROVIDERS: ADMIT Internal Medicine; ATTEND Internal Medicine
PROC: 5A09457 Assistance with Respiratory Ventilation, 24-96 Consecutive Hours, Continuous Positive Airway Pressure (ICD-10-PCS; principal; 2019-01-06)
DX: I13.0 Hypertensive heart and chronic kidney disease with heart failure and stage 1 through stage 4 chronic kidney disease, or unspecified chronic kidney disease (principal); J96.02 Acute respiratory failure with hypercapnia; I50.43 Acute on chronic combined systolic (congestive) and diastolic (congestive) heart failure; N18.9 Chronic kidney disease, unspecified; E11.22 Type 2 diabetes mellitus with diabetic chronic kidney disease; I48.91 Unspecified atrial fibrillation; Z79.82 Long term (current) use of aspirin; Z79.01 Long term (current) use of anticoagulants; J44.9 Chronic obstructive pulmonary disease, unspecified; Z85.3 Personal history of malignant neoplasm of breast; Z92.21 Personal history of antineoplastic chemotherapy; M13.862 Other specified arthritis, left knee; M13.861 Other specified arthritis, right knee; Z90.49 Acquired absence of other specified parts of digestive tract; Z90.12 Acquired absence of left breast and nipple; I42.9 Cardiomyopathy, unspecified; G47.30 Sleep apnea, unspecified; Z97.8 Presence of other specified devices
CPT/HCPCS: 36415; 36600; 51702; 71045; 80048; 80053; 80061; 80076; 81001; 82550; 82553; 82803; 82962; 83036; 83605; 83615; 83735; 83880; 84155; 84439; 84443; 84484; 85025; 85610; 85730; 87040; 87086; 93005; 93010; 94640; 94660; 96365; 96375; 99291; J0456; J0696; J1815; J1940; J2930; J3490; J7620

== ENCOUNTER 2019-04-24 22:21 | Emergency (ER) | payer MEDICARE, MEDICAID ==
--- NOTE | 2019-04-24 23:04 | ER Document Report ---
ED General - General Chief Complaint: Fever Stated Complaint: WEAKNESS,FEVER Time Seen by Provider: 04/24/19 23:04 Primary Care Provider: OBED BOGGS MD [Primary Care Provider] - Follow up tomorrow Notes: Patient is a 78-year-old female presents with complaint of decreased appetite and weakness for the last 24 hours. No fevers at home. Paramedics said that she had a low-grade temp with a temp of 99.8 and a months. No vomiting. Some nausea. No abdominal pain. No chest pain. No shortness of breath. No runny nose cough or congestion. No diarrhea. No bloody stools. Patient is followed by Dr. Boggs. He does have history of congestive heart failure. She was transferred several months ago up to [facility] for AICD placement but they decided to place a LifeVest on her which she does not want to wear nephritis in the back. She supposed to follow back up with her line fixer about potentially discussing AICD placement but she has not yet made that appointment. She does have a history of sleep apnea and does have a CPAP machine at home but the patient's daughter says that the sleep apnea machine is missing some pieces and therefore she has not been using it. TRAVEL OUTSIDE OF THE [place] IN LAST 30 DAYS: No - Related Data Allergies/Adverse Reactions: No Known Allergies Allergy (Verified 04/24/19 23:40) Past Medical History - Social History Smoking Status: Former Smoker Frequency of alcohol use: None Drug Abuse: None Family History: Reviewed & Not Pertinent, Hypertension Patient has suicidal ideation: No Patient has homicidal ideation: No - Past Medical History Cardiac Medical History: Reports: Hx Atrial Fibrillation, Hx Congestive Heart Failure, Hx Hypertension, Hx Peripheral Vascular Disease Denies: Hx Coronary Artery Disease, Hx Heart Attack, Hx Hypercholesterolemia, Hx Pulmonary Embolism, Hx Heart Murmur Pulmonary Medical History: Reports: Hx Bronchitis - approx 2 x yrly, Hx COPD, Hx Pneumonia - Nov 2012 (hospitalized), Hx Sleep Apnea - C-PAP use Denies: Hx Asthma, Hx Respiratory Failure, Hx Tuberculosis Neurological Medical History: Denies: Hx Cerebrovascular Accident, Hx Seizures Endocrine Medical History: Reports: Hx Diabetes Mellitus Type 2. Denies: Hx Graves' Disease, Hx Hyperthyroidism, Hx Hypothyroidism Renal/ Medical History: Denies: Hx End Stage Renal Disease, Hx Kidney Stones, Hx Ovarian Cysts, Hx Peritoneal Dialysis, Hx Pelvic Inflammatory Disease Malignancy Medical History: Reports: Hx Breast Cancer - Left, FINISHED CHEMO Tx 2 MOS AGO. Denies: Hx Cervical Cancer, Hx Lung Cancer, Hx Ovarian Cancer Musculoskeletal Medical History: Reports Hx Arthritis - Knees, Denies Hx Fibromy algia, Denies Hx Multiple Sclerosis, Denies Hx Muscular Dystrophy, Denies Hx Systemic Lupus Erythematosus Psychiatric Medical History: Denies: Hx Dementia, Hx Depression Traumatic Medical History: Denies: Hx Fractures Past Surgical History: Reports: Hx Breast Surgery - lumpectomy, Hx Hysterectomy, Hx Mastectomy, Hx Orthopedic Surgery - Left knee replacement, Hx Tonsillectomy. Denies: Hx Appendectomy, Hx Bowel Surgery, Hx Section, Hx Cholecystectomy, Hx Coronary Artery Bypass Graft, Hx Gastric Bypass Surgery, Hx Herniorrhaphy, Hx Pacemaker, Hx Tubal Ligation - Immunizations Immunizations up to date: Yes Hx Diphtheria, Pertussis, Tetanus Vaccination: Yes Hx Pneumococcal Vaccination: 08/08/16 Review of Systems - Review of Systems Notes: My Normal Review Basic REVIEW OF SYSTEMS: CONSTITUTIONAL : Denies fever, chills, or sweats. Generalized weakness EENT: Denies eye, ear, throat, or mouth pain or symptoms. Denies nasal or sinus congestion. CARDIOVASCULAR: Denies chest pain. RESPIRATORY: Denies cough, cold, or chest congestion. Denies shortness of breath, difficulty breathing, or wheezing. GASTROINTESTINAL: Denies abdominal pain. Denies nausea, vomiting, or diarrhea. GENITOURINARY: Denies difficulty urinating, painful urination, burning, frequency, or blood in urine. MUSCULOSKELETAL: Denies neck or back pain or joint pain or swelling. SKIN: Denies rash or skin lesions. NEUROLOGICAL: Denies altered mental status or loss of consciousness. Denies headache. Denies weakness or paralysis or loss of use of either side. Denies problems with gait or speech. Denies sensory or motor loss. ALL OTHER SYSTEMS REVIEWED AND NEGATIVE. Physical Exam - Vital signs Vitals: Temp Pulse Resp BP Pulse Ox 98.2 F 58 L 22 H 131/71 H 99 04/24/19 22:21 04/24/19 22:21 04/24/19 22:21 04/24/19 22:21 04/24/19 22:21 - Notes Notes: General Appearance: Well nourished, alert, cooperative, no acute distress, no obvious discomfort. There is a little bit weak appearing. Vitals: reviewed, See vital signs table. Head: no swelling or tenderness to the head Eyes: PERRL, EOMI, Conjuctiva clear Mouth: No decreasd moisture Throat: No tonsillar inflammation, No airway obstruction, No lymphadenopathy Neck: Supple, no neck tenderness Lungs: No wheezing, No rales, No rhonci, No accessory muscle use, good air exchange bilaterally. Heart: Normal rate, Regular rythm, No murmur, no rub Abdomen: Normal BS, soft, No rigidity, No abdominal tenderness, No guarding, no rebound, no abdominal masses, no organomegaly Extremities: strength 5/5 in all extremities, good pulses in all extremities, no swelling or tenderness in the extremities, no edema. Skin: warm, dry, appropriate color, no rash Neuro: speech clear, oriented x 3, normal affect, responds appropriately to questions. Cranial nerves II through XII are intact. Patient moves all extremities without difficulty. Distal sensation intact. Course - Re-evaluation Re-evalutation: 04/25/19 02:38 Patient's laboratory evaluation is unremarkable in comparison to her old labs. She does have a low hemoglobin however her most recent hemoglobin for comparison is from January. Hemoglobin is just over 9 at that time and is 8.8 today. This is not a large difference. She has not noticed any blood in her stool or bleeding. Patient does have some leukopenia which again is unchanged comparison to previous labs. Her renal function is actually a little bit better than what her baseline is. She has very mild acidosis with a CO2 of 19 on her chemistry panel. I did give her some IV fluids and suspect she may have a bit dehydration due to decreased appetite over the last 24 hours. She is bradycardic. She does not have any chest pain or hypotension or shortness of breath associated with this. I will hold her metoprolol. Her EKG does not show a AV elyssa block. I did call and speak with Dr. Boggs about the case. He is her primary care physician. He agrees to evaluate her tomorrow in his office. I discussed the plan with the patient and her daughter. They are agreeable with this plan. I informed family that the patient should have a very low threshold to return to ER if she has fevers, chest pain, difficulty breathing, or if she appears to be worsening in any way. The initial triage note says that patient had a fever however this was based on the fact that she had a temp of 99.8 degrees in the ambulance. She has not had a fever at home and she has been afebrile here. Dictation of this chart was performed using voice recognition software; therefore, there may be some unintended grammatical errors. - Vital Signs Vital signs: Temp Pulse Resp BP Pulse Ox 98.5 F 58 L 21 H 118/47 L 98 04/25/19 03:16 04/24/19 22:21 04/25/19 02:31 04/25/19 02:31 04/25/19 02:31 - Laboratory Result Diagrams: 04/24/19 22:27 04/24/19 22:27 Laboratory results interpreted by me: 04/24/19 04/24/19 04/24/19 22:27 22:27 22:27 WBC 3.7 L RBC 2.95 L Hgb 8.9 L Hct 27.1 L RDW 17.1 H Plt Count 144 L Monocytes % (Manual) 14 H VBG pCO2 33.7 L VBG HCO3 18.1 L Chloride 109 H Carbon Dioxide 19 L BUN 26 H Creatinine 1.73 H Est GFR ( Amer) 34 L Est GFR (Non-Af Amer) 28 L Glucose 142 H Albumin 3.3 L Urine Protein 04/25/19 00:57 WBC RBC Hgb Hct RDW Plt Count Monocytes % (Manual) VBG pCO2 VBG HCO3 Chloride Carbon Dioxide BUN Creatinine Est GFR ( Amer) Est GFR (Non-Af Amer) Glucose Albumin Urine Protein 100 H - EKG Interpretation by Me Additional EKG results interpreted by me: 04/25/19 00:01 EKG is reviewed and interpreted by me. EKG shows sinus bradycardia with a rate of [address] segment elevation. She does have mild ST segment depression lateral precordial and inferior leads. DE interval, QRS duration, QT intervals are within normal range. Discharge - Discharge Clinical Impression: Weakness, Bradycardia Condition: Good Disposition: HOME, SELF-CARE Additional Instructions: The exact cause of why you are feeling weak is not 100% clear. Your labs do not show any concerning findings and did not show any evidence of a dangerous or life-threatening cause at this time. We still want you to have a very low threshold to return to the ER if you develop fevers, have difficulty breathing, have vomiting, or feel that you are worsening in any way. I did speak with your primary care doctor, Dr. Boggs, and he agrees to reevaluate you in the next 24-48 hrs. Please call his office this morning to arrange to see him either today or tomorrow. Again please have a low threshold to return to ER if you have fevers, vomiting, abdominal pain, chest pain, difficulty breathing, or feel like you are worsening any way. Your heart rate is a little bit low tonight. Your blood pressure is normal with the low heart rate and therefore I am not convinced that this is what is causing you to feel weak however you are on some medications that lower your heart rate. I want you to stop taking the metoprolol succinate (Toprol XL) until you see Dr. Boggs. Please return to the ER immediately if you start feeling as if your heart is racing or getting too fast. Please wear your CPAP machine at home as this will likely help you have more energy if you are wearing this. Referrals: BOED BOGGS MD [Primary Care Provider] - Follow up tomorrow
[2019-04-24] MEDS ORDERED: NORMAL SALINE 500 ML IV ONE (23:20)
[2019-04-24 23:33] LABS: HEMATOCRIT 27.1 % (36.0-47.0); HEMOGLOBIN 8.9 g/dL (12.0-15.5); MEAN CORPUSCULAR HEMOGLOBIN 30.3 pg (27.0-33.4); MEAN CORPUSCULAR HGB CONC 32.9 g/dL (32.0-36.0); MEAN CORPUSCULAR VOLUME 92 fl (80-97); PLATELET COUNT 144 10^3/uL (150-450); RED BLOOD COUNT 2.95 10^6/uL (3.72-5.28); RED CELL DISTRIBUTION WIDTH 17.1 % (11.5-14.0); WHITE BLOOD COUNT 3.7 10^3/uL (4.0-10.5)
[2019-04-24 23:51] LABS: ABSOLUTE LYMPHOCYTES# (MANUAL) 1.1 10^3/uL (0.5-4.7); ABSOLUTE MONOCYTES # (MANUAL) 0.5 10^3/uL (0.1-1.4); BASOPHILS % (MANUAL) 0 % (0-2); EOSINOPHILS % (MANUAL) 0 % (0-6); LYMPHOCYTES % (MANUAL) 31 % (13-45); MONOCYTES % (MANUAL) 14 % (3-13); SEGMENTED NEUTROPHILS % (MAN) 55 % (42-78); TOTAL CELLS COUNTED 100
[2019-04-24 23:53] LABS: ANISOCYTOSIS 1+; HYPOCHROMASIA 1+; PLATELET COMMENT DECREASED
[2019-04-24 23:55] LABS: ALANINE AMINOTRANSFERASE 29 U/L (9-52); ALBUMIN 3.3 g/dL (3.5-5.0); ALKALINE PHOSPHATASE 63 U/L (38-126); ANION GAP 10 (5-19); ASPARTATE AMINO TRANSFERASE 31 U/L (14-36); BILIRUBIN,DIRECT 0.4 mg/dL (0.0-0.4); BILIRUBIN,TOTAL 1.2 mg/dL (0.2-1.3); BLOOD UREA NITROGEN 26 mg/dL (7-20); CALCIUM 9.1 mg/dL (8.4-10.2); CARBON DIOXIDE 19 mmol/L (22-30); CHLORIDE 109 mmol/L (98-107); GLUCOSE 142 mg/dL (75-110); POTASSIUM 3.6 mmol/L (3.6-5.0); SODIUM 137.6 mmol/L (137-145); TOTAL PROTEIN 7.1 g/dL (6.3-8.2)
[2019-04-24 23:56] LABS: VENOUS BLOOD BASE EXCESS -6.7 mmol/L; VENOUS BLOOD HCO3 18.1 mmol/L (20-32); VENOUS BLOOD PCO2 33.7 mmHg (35-63); VENOUS BLOOD PH 7.35 (7.30-7.42)
--- NOTE | 2019-04-25 00:40 | RADIOLOGY REPORT (SQ) ---
EXAM DESCRIPTION: XR CHEST 1 VIEW COMPLETED DATE/TME: 04/24/2019 23:55 CLINICAL HISTORY: 78 years, Female, weakness COMPARISON: 01/07/2019 NUMBER OF VIEWS: One TECHNIQUE: AP view of the chest LIMITATIONS: None. FINDINGS: The lungs are clear. The heart is enlarged. There is no pneumothorax or pleural effusion. The right chest wall port terminates within the SVC. IMPRESSION: No acute cardiopulmonary abnormality. copyright 2010 [email or web address]- All Rights Reserved
[2019-04-25 01:46] LABS: APPEARANCE,URINE SLIGHTLY-CLOUDY; BILIRUBIN,URINE NEGATIVE (NEGATIVE); COLOR,URINE YELLOW; GLUCOSE, URINE NEGATIVE (NEGATIVE); KETONES,URINE NEGATIVE (NEGATIVE); LEUKOCYTE ESTERASE,URINE NEGATIVE (NEGATIVE); NITRITE,URINE NEGATIVE (NEGATIVE); PROTEIN,URINE 100 mg/dL (NEGATIVE); UROBILINOGEN,URINE NEGATIVE mg/dL (<2.0)
[2019-04-25 02:45] VITALS: BP 118/47
--- NOTE | 2019-04-25 10:51 | EKG REPORT ---
SEVERITY:- ABNORMAL ECG - SINUS BRADYCARDIA LVH WITH SECONDARY REPOLARIZATION ABNORMALITY : Confirmed by: Ana Luisa Johnston MD 25-Apr-2019 10:50:16
== END 2019-04-25 03:16 | disposition home or self-care (01) ==
LOC: ER 22:21
DX: R00.1 Bradycardia, unspecified (principal); R50.9 Fever, unspecified; R53.1 Weakness; Z87.891 Personal history of nicotine dependence; I48.91 Unspecified atrial fibrillation; I73.9 Peripheral vascular disease, unspecified; I11.0 Hypertensive heart disease with heart failure; I50.9 Heart failure, unspecified; J44.9 Chronic obstructive pulmonary disease, unspecified; E11.9 Type 2 diabetes mellitus without complications; Z85.3 Personal history of malignant neoplasm of breast; M19.90 Unspecified osteoarthritis, unspecified site; Z90.10 Acquired absence of unspecified breast and nipple; Z90.710 Acquired absence of both cervix and uterus
CPT/HCPCS: 93005; 99284; 51701; 36415; 85025; 80053; 81001; 84484; 82803; 71045; 93010; J7040

== ENCOUNTER 2019-10-01 08:25 | Emergency (ER) | payer MEDICARE, MEDICAID ==
[2019-10-01 09:40] LABS: ABSOLUTE LYMPHOCYTES (AUTO) 2.1 10^3/uL (0.5-4.7); ABSOLUTE MONOCYTES (AUTO) 0.5 10^3/uL (0.1-1.4); ABSOLUTE NEUT (AUTO) 1.4 10^3/uL (1.7-8.2); BASOPHILS % (AUTO) 0.5 % (0-2); EOSINOPHILS % (AUTO) 0.2 % (0-6); HEMATOCRIT 31.1 % (36.0-47.0); LYMPHOCYTES % (AUTO) 51.7 % (13-45); MEAN CORPUSCULAR HEMOGLOBIN 28.8 pg (27.0-33.4); MEAN CORPUSCULAR HGB CONC 32.1 g/dL (32.0-36.0); MEAN CORPUSCULAR VOLUME 90 fl (80-97); MONOCYTES % (AUTO) 13.4 % (3-13); PLATELET COUNT 161 10^3/uL (150-450); RED BLOOD COUNT 3.47 10^6/uL (3.72-5.28); RED CELL DISTRIBUTION WIDTH 17.7 % (11.5-14.0); SEGMENTED NEUTROPHILS % (AUTO) 34.2 % (42-78); TOTAL CELLS COUNTED % (AUTO) 100 %
--- NOTE | 2019-10-01 09:50 | ER Document Report ---
ED GI/ - General Chief Complaint: Flank Pain Stated Complaint: FLANK PAIN Time Seen by Provider: 10/01/19 09:30 Primary Care Provider: OBED BOGGS MD [Primary Care Provider] - Follow up as needed Notes: 79-year-old female with insulin-dependent diabetes mellitus, hypertension, CHF obtained from previous documentation presents to the emergency department with right upper quadrant abdominal pain x2 days. Patient states that she is unable to lie on her right side to the pain. Patient states that the pain is constant, crampy, and radiates around to approximately the right mid axillary line. Nothing makes it better or worse. Denies fevers or chills, shortness of breath or chest pain, denies nausea or vomiting, states bowel movements are normal, no urinary symptoms, only reported abdominal surgical history is a hysterectomy in the . TRAVEL OUTSIDE OF THE [place] IN LAST 30 DAYS: No - Related Data Allergies/Adverse Reactions: No Known Allergies Allergy (Verified 04/24/19 23:40) Home Medications: DAUGHTER HAS LIST OF MEDICATIONS Past Medical History - Social History Smoking Status: Former Smoker Frequency of alcohol use: None Drug Abuse: None Family History: Reviewed & Not Pertinent, Hypertension Patient has suicidal ideation: No Patient has homicidal ideation: No - Past Medical History Cardiac Medical History: Reports: Hx Atrial Fibrillation, Hx Congestive Heart Failure, Hx Hypertension, Hx Peripheral Vascular Disease Denies: Hx Coronary Artery Disease, Hx Heart Attack, Hx Hypercholesterolemia, Hx Pulmonary Embolism, Hx Heart Murmur Pulmonary Medical History: Reports: Hx Bronchitis - approx 2 x yrly, Hx COPD, Hx Pneumonia - Nov 2012 (hospitalized), Hx Sleep Apnea - C-PAP use Denies: Hx Asthma, Hx Respiratory Failure, Hx Tuberculosis Neurological Medical History: Denies: Hx Cerebrovascular Accident, Hx Seizures, Hx Parkinson's Disease Endocrine Medical History: Reports: Hx Diabetes Mellitus Type 2. Denies: Hx Graves' Disease, Hx Hyperthyroidism, Hx Hypothyroidism Renal/ Medical History: Denies: Hx End Stage Renal Disease, Hx Kidney Stones, Hx Ovarian Cysts, Hx Peritoneal Dialysis, Hx Pelvic Inflammatory Disease Malignancy Medical History: Reports: Hx Breast Cancer - Left, FINISHED CHEMO Tx 2 MOS AGO. Denies: Hx Cervical Cancer, Hx Lung Cancer, Hx Ovarian Cancer Musculoskeletal Medical History: Reports Hx Arthritis - Knees, Denies Hx Fibromyalgia, Denies Hx Multiple Sclerosis, Denies Hx Muscular Dystrophy, Denies Hx Systemic Lupus Erythematosus Psychiatric Medical History: Denies: Hx Dementia, Hx Depression Traumatic Medical History: Denies: Hx Fractures Past Surgical History: Reports: Hx Breast Surgery - LEFT LUMPECTOMY, Hx Hysterectomy, Hx Mastectomy, Hx Orthopedic Surgery - Left knee replacement, Hx Tonsillectomy. Denies: Hx Appendectomy, Hx Bowel Surgery, Hx Section, Hx Cholecystectomy, Hx Coronary Artery Bypass Graft, Hx Gastric Bypass Surgery, Hx Herniorrhaphy, Hx Pacemaker, Hx Tubal Ligation - Immunizations Immunizations up to date: Yes Hx Diphtheria, Pertussis, Tetanus Vaccination: Yes Hx Pneumococcal Vaccination: 08/08/16 Review of Systems - Review of Systems Constitutional: See HPI EENT: No symptoms reported Cardiovascular: See HPI Respiratory: See HPI Gastrointestinal: No symptoms reported Genitourinary: See HPI Female Genitourinary: See HPI Musculoskeletal: No symptoms reported Skin: No symptoms reported Hematologic/Lymphatic: No symptoms reported Neurological/Psychological: No symptoms reported Physical Exam - Vital signs Vitals: Temp Pulse Resp BP Pulse Ox 97.8 F 78 20 145/60 H 98 10/01/19 08:31 10/01/19 08:31 10/01/19 08:31 10/01/19 08:31 10/01/19 08:31 - Notes Notes: PHYSICAL EXAMINATION: Reviewed vital signs and charting by RN GENERAL: Alert, interacts well. No acute distress. HEAD: Normocephalic, atraumatic. EYES: Pupils equal and round. Extraocular movements intact. ENT: Oral mucosa moist, tongue midline. NECK: Full range of motion. Trachea midline. LUNGS: Clear to auscultation bilaterally, no wheezes, rales, or rhonchi. No respiratory distress. HEART: Regular rate and rhythm. No murmur ABDOMEN: soft, right upper quadrant tenderness to palpation. No distention. Bowel sounds present EXTREMITIES: Moves all 4 extremities spontaneously. No edema, No cyanosis. PSYCH: Normal affect, normal mood. SKIN: Warm, dry, normal turgor. No rashes or lesions noted. Course - Re-evaluation Re-evalutation: 10/01/19 12:39 Patient is well-appearing in no acute distress. She presents with right upper quadrant abdominal pain and lab work all unremarkable. No leukocytosis, creatinine 1.62 consistent with previous visits. Liver enzyme testing all within normal limits. A right upper quadrant ultrasound was completed which showed a contracted gallbladder but patient was fasting, no evidence of cholelithiasis or cholecystitis, no gallbladder sludge. When I went to report results to the patient she was sleeping comfortably and when she woke up denied any right upper quadrant abdominal pain. Patient denied any other abdominal pain and her abdomen was soft and nontender in all other regions. Patient is having normal bowel movements so I have no suspicion for small bowel obstruction. Patient's vital signs are within normal limits and pulses were equal strength bilateral so I have low suspicion for cardiac etiology like AAA, aortic dissection. Patient does not have a history of diverticulosis so I have low suspicion for diverticulitis that she has no hematochezia. Melena. I explained all of this to patient and her daughter, Dr. Boggs is her primary doctor. EKG showed a sinus rhythm with a rate of 62, normal axis, a prolonged QT interval of 520. No evidence of STEMI or NSTEMI. I explained the patient that her work-up was reassuring and she should follow-up with Dr. Boggs in the office tomorrow morning. She agrees with the plan and is stable for discharge. 10/01/19 12:44 - Vital Signs Vital signs: Temp Pulse Resp BP Pulse Ox 97.8 F 78 20 145/60 H 98 10/01/19 08:31 10/01/19 08:31 10/01/19 08:31 10/01/19 08:31 10/01/19 08:31 - Laboratory Result Diagrams: 10/01/19 09:20 10/01/19 09:20 Laboratory results interpreted by me: 10/01/19 10/01/19 09:20 09:20 RBC 3.47 L Hgb 10.0 L Hct 31.1 L RDW 17.7 H Lymph % (Auto) 51.7 H [place] % (Auto) 13.4 H Absolute Neuts (auto) 1.4 L Seg Neutrophils % 34.2 L BUN 31 H Creatinine 1.62 H Est GFR ( Amer) 37 L Est GFR (MDRD) Non-Af 31 L Glucose 273 H Discharge - Discharge Clinical Impression: Biliary colic Condition: Good Disposition: HOME, SELF-CARE Additional Instructions: You were seen in the emergency department today for something called biliary colic. This is been a person has pain in her right upper abdomen and is usually related to the gallbladder. The ultrasound did not show any evidence of gallstones or sludge in your gallbladder. Your lab work was all very reassuring and there was no evidence of infection. It is very reassuring that your symptoms had subsided and you are resting comfortably in the room. Please follow-up with Dr. Boggs tomorrow morning. Please return to the emergency department if you develop severe, intractable abdominal pain, you have persistent vomiting with nausea, you see blood in your vomit or stool, you have severe chest pain or severe shortness of breath, or you have any other concerning symptoms. Referrals: OBED BOGGS MD [Primary Care Provider] - Follow up tomorrow
[2019-10-01 09:54] LABS: ALBUMIN 3.6 g/dL (3.5-5.0); ALKALINE PHOSPHATASE 98 U/L (38-126); ANION GAP 8 (5-19); ASPARTATE AMINO TRANSFERASE 21 U/L (14-36); BILIRUBIN,DIRECT 0.1 mg/dL (0.0-0.4); BILIRUBIN,TOTAL 0.8 mg/dL (0.2-1.3); BLOOD UREA NITROGEN 31 mg/dL (7-20); CALCIUM 9.2 mg/dL (8.4-10.2); CARBON DIOXIDE 28 mmol/L (22-30); CHLORIDE 107 mmol/L (98-107); GLUCOSE 273 mg/dL (75-110); POTASSIUM 4.1 mmol/L (3.6-5.0); TOTAL PROTEIN 7.4 g/dL (6.3-8.2)
--- NOTE | 2019-10-01 10:20 | RADIOLOGY REPORT (SQ) ---
EXAM DESCRIPTION: CHEST 2 VIEWS COMPLETED DATE/TIME: 10/01/2019 10:09 am REASON FOR STUDY: flank/abd pain COMPARISON: 04/25/2019 EXAM PARAMETERS: NUMBER OF VIEWS: two views TECHNIQUE: Digital Frontal and Lateral radiographic views of the chest acquired. RADIATION DOSE: NA LIMITATIONS: none FINDINGS: LUNGS AND PLEURA: No opacities, masses or pneumothorax. No pleural effusion. MEDIASTINUM AND HILAR STRUCTURES: No masses or contour abnormalities. HEART AND VASCULAR STRUCTURES: Stable heart size. No evidence for failure. BONES: No acute findings. HARDWARE: None in the chest. OTHER: Unchanged position right-sided port. IMPRESSION: NO ACUTE RADIOGRAPHIC FINDING IN THE CHEST. TECHNICAL DOCUMENTATION: JOB ID: [id number] [employer]- All Rights Reserved Reading location - IP/workstation name: [email or web address]
--- NOTE | 2019-10-01 12:21 | RADIOLOGY REPORT (SQ) ---
EXAM DESCRIPTION: U/S ABDOMEN LTD W/DOPPLER COMPLETED DATE/TIME: 10/01/2019 12:04 pm REASON FOR STUDY: RUQ pain, r/o cholelithiasis/cholecystitis COMPARISON: None. TECHNIQUE: Dynamic and static grayscale images acquired of the abdomen and recorded on PACS. Bipino weston selected color Doppler and spectral images recorded. LIMITATIONS: Patient not fasting. FINDINGS: PANCREAS: No masses. Visualized pancreatic duct normal caliber. LIVER: Normal size Mild fatty infiltration. No focal masses. LIVER VASCULATURE: Normal directional flow of the main portal vein and hepatic veins. GALLBLADDER: Contracted. No stones. Normal wall thickness. No pericholecystic fluid. ULTRASOUND-DETECTED BABIN'S SIGN: Negative. INTRAHEPATIC DUCTS AND COMMON DUCT: CBD and intrahepatic ducts normal caliber. No filling defects. INFERIOR VENA CAVA: Normal flow. AORTA: No aneurysm. RIGHT KIDNEY: Normal size. Normal echogenicity. No solid or suspicious masses. No hydronephros is. No calcifications. PERITONEAL AND RIGHT PLEURAL SPACE: No ascites or effusions. OTHER: No other significant findings. IMPRESSION: Contracted gallbladder. No obvious cholecystitis. TECHNICAL DOCUMENTATION: JOB ID: [id number]- All Rights Reserved Reading location - IP/workstation name: [email or web address]
[2019-10-01 13:26] VITALS: BP 148/99
--- NOTE | 2019-10-01 17:12 | EKG REPORT ---
SEVERITY:- ABNORMAL ECG - SINUS RHYTHM PROLONGED QT INTERVAL : Confirmed by: Will Fierro MD 01-Oct-2019 17:11:35
== END 2019-10-01 13:24 | disposition home or self-care (01) ==
LOC: ER 08:25
DX: K80.50 Calculus of bile duct without cholangitis or cholecystitis without obstruction (principal); R10.9 Unspecified abdominal pain; E11.9 Type 2 diabetes mellitus without complications; I48.91 Unspecified atrial fibrillation; I50.9 Heart failure, unspecified; I11.0 Hypertensive heart disease with heart failure; Z79.4 Long term (current) use of insulin; Z90.710 Acquired absence of both cervix and uterus
CPT/HCPCS: 36415; 71046; 76705; 80053; 83690; 84484; 85025; 93005; 93010; 93976; 99284

== ENCOUNTER 2019-10-23 21:02 | Emergency (ER) | payer MEDICARE, MEDICAID ==
--- NOTE | 2019-10-23 23:59 | ER Document Report ---
ED Medical Screen (RME) - General Chief Complaint: Back Pain Stated Complaint: BACK AND SIDE PAIN Time Seen by Provider: 10/23/19 23:52 Primary Care Provider: OBED BOGGS MD [Primary Care Provider] - Follow up as needed Mode of Arrival: Wheelchair Information source: Patient Notes: This 79-year-old female with history of atrial fib presents to the emergency department with complaints of cough right-sided pain and spitting. Patient is very sensitive tender to the right side. Reports Dr. Weinstein told her she had internal shingles. No obvious shingles noted to her side. Right upper quad tender to touch right flank tender to touch. Denies fever vomiting diarrhea. I have greeted and performed a rapid initial assessment of this patient. A comprehensive ED assessment and evaluation of the patient, analysis of test results and completion of the medical decision making process will be conducted by additional ED providers. Dictation of this chart was performed using voice recognition software; therefore, there may be some unintended grammatical errors. TRAVEL OUTSIDE OF THE [place] IN LAST 30 DAYS: No - Related Data Allergies/Adverse Reactions: No Known Allergies Allergy (Verified 04/24/19 23:40) Home Medications: eliquis Past Medical History - Social History Family history: None - Past Medical History Cardiac Medical History: Reports: Hx Atrial Fibrillation, Hx Congestive Heart Failure, Hx Hypertension, Hx Peripheral Vascular Disease Denies: Hx Coronary Artery Disease, Hx Heart Attack, Hx Hypercholesterolemia, Hx Pulmonary Embolism, Hx Heart Murmur Pulmonary Medical History: Reports: Hx Bronchitis - approx 2 x yrly, Hx COPD, Hx Pneumonia - Nov 2012 (hospitalized), Hx Sleep Apnea - C-PAP use Denies: Hx Asthma, Hx Respiratory Failure, Hx Tuberculosis Neurological Medical History: Denies: Hx Cerebrovascular Accident, Hx Seizures, Hx Parkinson's Disease Endocrine Medical History: Reports: Hx Diabetes Mellitus Type 2. Denies: Hx Graves' Disease, Hx Hyperthyroidism, Hx Hypothyroidism Renal/ Medical History: Denies: Hx End Stage Renal Disease, Hx Kidney Stones, Hx Ovarian Cysts, Hx Peritoneal Dialysis, Hx Pelvic Inflammatory Disease Malignancy Medical History: Reports: Hx Breast Cancer - Left, FINISHED CHEMO Tx 2 MOS AGO. Denies: Hx Cervical Cancer, Hx Lung Cancer, Hx Ovarian Cancer Musculoskeltal Medical History: Reports Hx Arthritis - Knees, Denies Hx Fibromyalgia, Denies Hx Multiple Sclerosis, Denies Hx Muscular Dystrophy, Denies Hx Systemic Lupus Erythematosus Psychiatric Medical History: Denies: Hx Dementia, Hx Depression Traumatic Medical History: Denies: Hx Fractures Past Surgical History: Reports: Hx Breast Surgery - LEFT LUMPECTOMY, Hx Hysterectomy, Hx Mastectomy, Hx Orthopedic Surgery - Left knee replacement, Hx Tonsillectomy. Denies: Hx Appendectomy, Hx Bowel Surgery, Hx Section, Hx Cholecystectomy, Hx Coronary Artery Bypass Graft, Hx Gastric Bypass Surgery, Hx Herniorrhaphy, Hx Pacemaker, Hx Tubal Ligation - Immunizations Immunizations up to date: Yes Hx Diphtheria, Pertussis, Tetanus Vaccination: Yes Physical Exam - Vital signs Vitals: Temp Pulse Resp BP Pulse Ox 99.2 F 78 18 136/58 H 97 10/23/19 22:01 10/23/19 22:01 10/23/19 22:01 10/23/19 22:01 10/23/19 22:01 Course - Vital Signs Vital signs: Temp Pulse Resp BP Pulse Ox 99.2 F 78 18 136/58 H 97 10/23/19 23:52 10/23/19 22:01 10/23/19 23:52 10/23/19 22:01 10/23/19 23:52 Doctor's Discharge - Discharge Referrals: OBED BOGGS MD [Primary Care Provider] - Follow up as needed
--- NOTE | 2019-10-24 00:37 | EKG REPORT ---
SEVERITY:- ABNORMAL ECG - SINUS RHYTHM LEFT VENTRICULAR HYPERTROPHY : Confirmed by: Domo Parker 24-Oct-2019 00:36:57
[2019-10-24 01:24] LABS: ABSOLUTE LYMPHOCYTES (AUTO) 2.5 10^3/uL (0.5-4.7); ABSOLUTE MONOCYTES (AUTO) 0.6 10^3/uL (0.1-1.4); ABSOLUTE NEUT (AUTO) 1.8 10^3/uL (1.7-8.2); BASOPHILS % (AUTO) 0.2 % (0-2); EOSINOPHILS % (AUTO) 0.2 % (0-6); HEMATOCRIT 30.6 % (36.0-47.0); LYMPHOCYTES % (AUTO) 50.4 % (13-45); MEAN CORPUSCULAR HEMOGLOBIN 29.1 pg (27.0-33.4); MEAN CORPUSCULAR HGB CONC 32.7 g/dL (32.0-36.0); MEAN CORPUSCULAR VOLUME 89 fl (80-97); MONOCYTES % (AUTO) 12.7 % (3-13); PLATELET COUNT 221 10^3/uL (150-450); RED BLOOD COUNT 3.44 10^6/uL (3.72-5.28); RED CELL DISTRIBUTION WIDTH 17.9 % (11.5-14.0); SEGMENTED NEUTROPHILS % (AUTO) 36.5 % (42-78); TOTAL CELLS COUNTED % (AUTO) 100 %; WHITE BLOOD COUNT 4.9 10^3/uL (4.0-10.5)
--- NOTE | 2019-10-24 01:51 | RADIOLOGY REPORT (SQ) ---
EXAM DESCRIPTION: [facility]: US ABDOMEN LIMITED CLINICAL HISTORY: 79 years Female; flank ruq pain TECHNIQUE: Right upper quadrant ultrasound was performed. COMPARISON: PET CT 10/11/2018, ultrasound 10/01/2019 FINDINGS: Pancreas: Visualized portions are unremarkable. Liver: 14.8 cm long Portal venous flow is hepatopedal, normal. Gallbladder: Not identified. There are cholecystectomy clips on the PET/CT performed 10/11/2018. Common bile duct: 7 mm. Right kidney: 10 cm long. No hydronephrosis. Visualized portions of the aorta are unremarkable, maximum 2.6 cm diameter. IMPRESSION: 1. Previous cholecystectomy 2. No acute findings in the right upper quadrant.
--- NOTE | 2019-10-24 01:52 | RADIOLOGY REPORT (SQ) ---
EXAM DESCRIPTION: [facility]: XR CHEST 2 VIEWS Views: 2 CLINICAL HISTORY: 79 years Female, cough COMPARISON: 04/25/2019 FINDINGS: The lungs are clear. No pneumothorax or significant pleural effusion. Cardiomediastinal silhouette is within normal limits. Right IJ port is in place, tip in the SVC. This is a CT compatible port. Bony structures are unremarkable for age. IMPRESSION: 1. No focal infiltrates 2. Right IJ port, as on prior exam.
[2019-10-24 01:57] VITALS: BP 116/47
[2019-10-24 03:41] LABS: APPEARANCE,URINE SLIGHTLY-CLOUDY; BILIRUBIN,URINE NEGATIVE (NEGATIVE); COLOR,URINE YELLOW; GLUCOSE, URINE NEGATIVE (NEGATIVE); KETONES,URINE NEGATIVE (NEGATIVE); LEUKOCYTE ESTERASE,URINE SMALL (NEGATIVE); NITRITE,URINE NEGATIVE (NEGATIVE); PROTEIN,URINE 30 mg/dL (NEGATIVE); URINE SPECIFIC GRAVITY 1.018; UROBILINOGEN,URINE NEGATIVE mg/dL (<2.0)
== END 2019-10-24 04:04 | disposition left against medical advice (07) ==
LOC: ER 21:02
DX: R05 Cough (principal); R10.811 Right upper quadrant abdominal tenderness; R10.819 Abdominal tenderness, unspecified site; M54.9 Dorsalgia, unspecified; I10 Essential (primary) hypertension; J44.9 Chronic obstructive pulmonary disease, unspecified; E11.51 Type 2 diabetes mellitus with diabetic peripheral angiopathy without gangrene; I48.91 Unspecified atrial fibrillation; Z79.01 Long term (current) use of anticoagulants; Z85.3 Personal history of malignant neoplasm of breast; Z92.21 Personal history of antineoplastic chemotherapy; Z53.20 Procedure and treatment not carried out because of patient's decision for unspecified reasons
CPT/HCPCS: 36415; 71046; 76705; 81001; 85025; 93005; 93010; 99281

== ENCOUNTER 2019-10-25 16:13 | Emergency (ER) | payer MEDICARE, MEDICAID ==
[2019-10-25] MEDS ORDERED: NORMAL SALINE 1000 ML 1,000 ML IV ONE (16:49)
[2019-10-25] MEDS ORDERED: MORPHINE SULFATE 10 MG/ML INJ IV ONE (16:50)
--- NOTE | 2019-10-25 16:52 | ER Document Report ---
ED Medical Screen (RME) - General Chief Complaint: Back Pain Stated Complaint: BACK PAIN,ABDOMINAL PAIN Time Seen by Provider: 10/25/19 16:38 Primary Care Provider: OBED BOGGS MD [Primary Care Provider] - Follow up as needed Notes: Patient is a 79-year-old female who presents to the emergency department with a chief complaint of right-sided abdominal pain. Patient states that she was diagnosed with internal shingles around Thanksgiving and was started on acyclovir. She was also seen 2 days ago here in the emergency department but due to the wait, she ended up leaving. Patient has a history of a chol ecystectomy, as per right upper quadrant ultrasound done 2 days ago. Exam: Tender right upper abdomen. I have greeted and performed a rapid initial assessment of this patient. A comprehensive ED assessment and evaluation of the patient, analysis of test results and completion of medical decision making process will be conducted by an additional ED providers. TRAVEL OUTSIDE OF THE [place] IN LAST 30 DAYS: No - Related Data Allergies/Adverse Reactions: No Known Allergies Allergy (Verified 10/25/19 16:40) Past Medical History - Social History Family history: None - Past Medical History Cardiac Medical History: Reports: Hx Atrial Fibrillation, Hx Congestive Heart Failure, Hx Hypertension, Hx Peripheral Vascular Disease Denies: Hx Coronary Artery Disease, Hx Heart Attack, Hx Hypercholesterolemia, Hx Pulmonary Embolism, Hx Heart Murmur Pulmonary Medical History: Reports: Hx Bronchitis - approx 2 x yrly, Hx COPD, Hx Pneumonia - Nov 2012 (hospitalized), Hx Sleep Apnea - C-PAP use Denies: Hx Asthma, Hx Respiratory Failure, Hx Tuberculosis Neurological Medical History: Denies: Hx Cerebrovascular Accident, Hx Seizures, Hx Parkinson's Disease Endocrine Medical History: Reports: Hx Diabetes Mellitus Type 2. Denies: Hx Graves' Disease, Hx Hyperthyroidism, Hx Hypothyroidism Renal/ Medical History: Denies: Hx End Stage Renal Disease, Hx Kidney Stones, Hx Ovarian Cysts, Hx Peritoneal Dialysis, Hx Pelvic Inflammatory Disease Malignancy Medical History: Reports: Hx Breast Cancer - Left, FINISHED CHEMO Tx 2 MOS AGO. Denies: Hx Cervical Cancer, Hx Lung Cancer, Hx Ovarian Cancer Musculoskeltal Medical History: Reports Hx Arthritis - Knees, Denies Hx Fibromyalgia, Denies Hx Multiple Sclerosis, Denies Hx Muscular Dystrophy, Denies Hx Systemic Lupus Erythematosus Psychiatric Medical History: Denies: Hx Dementia, Hx Depression Traumatic Medical History: Denies: Hx Fractures Past Surgical History: Reports: Hx Breast Surgery - LEFT LUMPECTOMY, Hx Hysterectomy, Hx Mastectomy, Hx Orthopedic Surgery - Left knee replacement, Hx Tonsillectomy. Denies: Hx Appendectomy, Hx Bowel Surgery, Hx Section, Hx Cholecystectomy, Hx Coronary Artery Bypass Graft, Hx Gastric Bypass Surgery, Hx Herniorrhaphy, Hx Pacemaker, Hx Tubal Ligation - Immunizations Immunizations up to date: Yes Hx Diphtheria, Pertussis, Tetanus Vaccination: Yes Physical Exam - Vital signs Vitals: Temp Pulse Resp BP Pulse Ox 98.1 F 80 24 H 144/79 H 96 10/25/19 16:27 10/25/19 16:27 10/25/19 16:27 10/25/19 16:27 10/25/19 16:27 Course - Vital Signs Vital signs: Temp Pulse Resp BP Pulse Ox 98.1 F 80 24 H 144/79 H 96 10/25/19 16:27 10/25/19 16:27 10/25/19 16:27 10/25/19 16:27 10/25/19 16:27 Doctor's Discharge - Discharge Referrals: OBED BOGGS MD [Primary Care Provider] - Follow up as needed
[2019-10-25 17:35] LABS: APPEARANCE,URINE CLEAR; BILIRUBIN,URINE NEGATIVE (NEGATIVE); COLOR,URINE STRAW; GLUCOSE, URINE NEGATIVE (NEGATIVE); KETONES,URINE NEGATIVE (NEGATIVE); LEUKOCYTE ESTERASE,URINE NEGATIVE (NEGATIVE); NITRITE,URINE NEGATIVE (NEGATIVE); PROTEIN,URINE NEGATIVE (NEGATIVE); URINE SPECIFIC GRAVITY 1.005; UROBILINOGEN,URINE NEGATIVE mg/dL (<2.0)
[2019-10-25 17:37] LABS: ABSOLUTE LYMPHOCYTES (AUTO) 1.8 10^3/uL (0.5-4.7); ABSOLUTE MONOCYTES (AUTO) 0.6 10^3/uL (0.1-1.4); ABSOLUTE NEUT (AUTO) 2.1 10^3/uL (1.7-8.2); BASOPHILS % (AUTO) 0.2 % (0-2); EOSINOPHILS % (AUTO) 0.3 % (0-6); HEMATOCRIT 27.6 % (36.0-47.0); HEMOGLOBIN 9.1 g/dL (12.0-15.5); LYMPHOCYTES % (AUTO) 40.8 % (13-45); MEAN CORPUSCULAR HEMOGLOBIN 29.6 pg (27.0-33.4); MEAN CORPUSCULAR VOLUME 90 fl (80-97); MONOCYTES % (AUTO) 12.3 % (3-13); PLATELET COUNT 201 10^3/uL (150-450); RED BLOOD COUNT 3.08 10^6/uL (3.72-5.28); RED CELL DISTRIBUTION WIDTH 18.1 % (11.5-14.0); SEGMENTED NEUTROPHILS % (AUTO) 46.4 % (42-78); TOTAL CELLS COUNTED % (AUTO) 100 %; WHITE BLOOD COUNT 4.5 10^3/uL (4.0-10.5)
[2019-10-25 17:52] LABS: ALBUMIN 3.7 g/dL (3.5-5.0); ALKALINE PHOSPHATASE 82 U/L (38-126); ANION GAP 9 (5-19); ASPARTATE AMINO TRANSFERASE 18 U/L (14-36); BILIRUBIN,DIRECT 0.2 mg/dL (0.0-0.4); BILIRUBIN,TOTAL 0.8 mg/dL (0.2-1.3); BLOOD UREA NITROGEN 34 mg/dL (7-20); CALCIUM 9.2 mg/dL (8.4-10.2); CARBON DIOXIDE 29 mmol/L (22-30); CHLORIDE 105 mmol/L (98-107); GLUCOSE 232 mg/dL (75-110); TOTAL PROTEIN 7.6 g/dL (6.3-8.2)
--- NOTE | 2019-10-25 18:38 | ER Document Report ---
ED General - General Chief Complaint: Flank Pain Stated Complaint: BACK PAIN,ABDOMINAL PAIN Time Seen by Provider: 10/25/19 16:38 Primary Care Provider: OBED BOGGS MD [Primary Care Provider] - Follow up as needed Notes: 79-year-old female with history of cholecystectomy presents with right flank pain that radiates to right lower quadrant for 1 week worse the last 2 days. Patient denies any nausea, vomiting, diarrhea, constipation, fever, chills, urinary symptoms, chest pain, shortness of breath. Patient states she was diagnosed with shingles around [place] and thinks she may have finished all the medications for this. Patient was seen here 2 days ago and left prior to being seen due to wait time and had an abdominal ultrasound which was negative and a chest x-ray which was also negative. TRAVEL OUTSIDE OF THE [place] IN LAST 30 DAYS: No - Related Data Allergies/Adverse Reactions: No Known Allergies Allergy (Verified 10/25/19 16:40) Past Medical History - Social History Smoking Status: Never Smoker Chew tobacco use (# tins/day): No Frequency of alcohol use: None Drug Abuse: None Family History: Reviewed & Not Pertinent, Hypertension Patient has suicidal ideation: No Patient has homicidal ideation: No - Past Medical History Cardiac Medical History: Reports: Hx Atrial Fibrillation, Hx Congestive Heart Failure, Hx Hypertension, Hx Peripheral Vascular Disease Denies: Hx Coronary Artery Disease, Hx Heart Attack, Hx Hypercholesterolemia, Hx Pulmonary Embolism, Hx Heart Murmur Pulmonary Medical History: Reports: Hx Bronchitis - approx 2 x yrly, Hx COPD, Hx Pneumonia - Nov 2012 (hospitalized), Hx Sleep Apnea - C-PAP use Denies: Hx Asthma, Hx Respiratory Failure, Hx Tuberculosis Neurological Medical History: Denies: Hx Cerebrovascular Accident, Hx Seizures, Hx Parkinson's Disease Endocrine Medical History: Reports: Hx Diabetes Mellitus Type 2. Denies: Hx Graves' Disease, Hx Hyperthyroidism, Hx Hypothyroidism Renal/ Medical History: Denies: Hx End Stage Renal Disease, Hx Kidney Stones, Hx Ovarian Cysts, Hx Peritoneal Dialysis, Hx Pelvic Inflammatory Disease Malignancy Medical History: Reports: Hx Breast Cancer - Left, FINISHED CHEMO Tx 2 MOS AGO. Denies: Hx Cervical Cancer, Hx Lung Cancer, Hx Ovarian Cancer Musculoskeletal Medical History: Reports Hx Arthritis - Knees, Denies Hx Fibromyalgia, Denies Hx Multiple Sclerosis, Denies Hx Muscular Dystrophy, Denies Hx Systemic Lupus Erythematosus Psychiatric Medical History: Denies: Hx Dementia, Hx Depression Traumatic Medical History: Denies: Hx Fractures Past Surgical History: Reports: Hx Breast Surgery - LEFT LUMPECTOMY, Hx Hysterectomy, Hx Mastectomy, Hx Orthopedic Surgery - Left knee replacement, Hx Tonsillectomy. Denies: Hx Appendectomy, Hx Bowel Surgery, Hx Section, Hx Cholecystectomy, Hx Coronary Artery Bypass Graft, Hx Gastric Bypass Surgery, Hx Herniorrhaphy, Hx Pacemaker, Hx Tubal Ligation - Immunizations Immunizations up to date: Yes Hx Diphtheria, Pertussis, Tetanus Vaccination: Yes Hx Pneumococcal Vaccination: 08/08/16 Review of Systems - Review of Systems Notes: Constitutional: Negative for fever. HENT: Negative for sore throat. Eyes: Negative for visual changes. Cardiovascular: Negative for chest pain. Respiratory: Negative for shortness of breath. Gastrointestinal: Positive for flank pain and abdominal pain. Negative for vomiting or diarrhea. Genitourinary: Negative for dysuria. Musculoskeletal: Negative for back pain. Skin: Negative for rash. Neurological: Negative for headaches, weakness or numbness. 10 point ROS negative except as marked above and in HPI. Physical Exam - Vital signs Vitals: Temp Pulse Resp BP Pulse Ox 98.1 F 80 24 H 144/79 H 96 10/25/19 16:27 10/25/19 16:27 10/25/19 16:27 10/25/19 16:27 10/25/19 16:27 - Notes Notes: GENERAL: Well-appearing, well-nourished and in no acute distress. HEAD: Atraumatic, normocephalic. EYES: Extraocular movements intact, sclera anicteric, conjunctiva are normal. NECK: Normal range of motion, supple without lymphadenopathy or JVD. LUNGS: Breath sounds clear to auscultation bilaterally and equal. No wheezes rales or rhonchi. HEART: Regular rate and rhythm without murmurs, rubs or gallops. ABDOMEN: Soft, nontender. No guarding, no rebound. No masses appreciated. Very mild right CVA tenderness. No rash seen on right flank. EXTREMITIES: Normal range of motion, no pitting or edema. No clubbing or cyanosis. NEUROLOGICAL: Cranial nerves II through XII grossly intact. Normal speech, normal gait. PSYCH: Normal mood, normal affect. SKIN: Warm, Dry, normal turgor, no rashes or lesions noted. Course - Re-evaluation Re-evalutation: 10/25/19 79-year-old female presents with right flank pain that radiates to her right lower quadrant for 1 week, worse the last 2 days. No associated symptoms. Patient is nontoxic, well-appearing. Abdomen is soft nontender. There is very mild CVA tenderness. Work-up was initiated including CT abdomen/pelvis without contrast due to kidney function. 10/25/19 20:48 discussed patient with attending, Dr. Linn, who agrees most likely muscular in etiology. CT shows possible airspace opacities however patient has no fever or no leukocytosis. Patient has no coughing. Discussed all results with patient including printing out report of CT and giving it to patient. Patient given close follow-up with her PCP. Strict return precautions given. All questions/concerns addressed prior to discharge. - Vital Signs Vital signs: Temp Pulse Resp BP Pulse Ox 97.9 F 72 17 132/77 H 97 10/25/19 19:39 10/25/19 19:39 10/25/19 19:39 10/25/19 19:39 10/25/19 19:39 - Laboratory Result Diagrams: 10/25/19 17:07 10/25/19 17:07 Laboratory results interpreted by me: 10/25/19 10/25/19 17:07 17:07 RBC 3.08 L Hgb 9.1 L Hct 27.6 L RDW 18.1 H BUN 34 H Creatinine 2.05 H Est GFR ( Amer) 28 L Est GFR (MDRD) Non-Af 23 L Glucose 232 H Discharge - Discharge Clinical Impression: Flank pain Condition: Stable Disposition: HOME, SELF-CARE Instructions: Warm Packs ([facility]), Muscle Strain ([facility]) Additional Instructions: Please follow-up with your primary care doctor in 2 to 3 days. Return to ER for any worsening symptoms, including worsening pain, urinary frequency, blood in your urine, fever, nausea/vomiting, diarrhea, constipation, worsening abdominal pain, or any other symptoms that are concerning to you. Prescriptions: Cyclobenzaprine HCl [Flexeril 5 mg Tablet] 5 mg PO TID #15 tablet Referrals: OBED BOGGS MD [Primary Care Provider] - Follow up in 3-5 days
--- NOTE | 2019-10-25 18:58 | RADIOLOGY REPORT (SQ) ---
EXAM DESCRIPTION: CT ABD/PELVIS NO ORAL OR IV COMPLETED DATE/TIME: 10/25/2019 6:19 pm REASON FOR STUDY: right flank pain COMPARISON: None. TECHNIQUE: CT scan of the abdomen and pelvis performed without intravenous or oral contrast. Images reviewed with lung, soft tissue, and bone windows. Reconstructed coronal and sagittal MPR images revi ewed. All images stored on PACS. All CT scanners at this facility use dose modulation, iterative reconstruction, and/or weight based d osing when appropriate to reduce radiation dose to as low as reasonably achievable (ALARA). [facility]: Dose Right [facility]: CareDose [facility]: Dose Right [facility]: Teradose 4D [facility]: Smart [employer] RADIATION DOSE: CT Rad equipment meets quality standard of care and radiation dose reduction techniq ues were employed. CTDIvol: 16.7 mGy. DLP: 902 mGy-cm.mGy. LIMITATIONS: None. FINDINGS: LOWER CHEST: Partially visualized port catheter terminating at the superior cavoatrial nba ction. Bibasilar interstitial lung marking and few scattered patchy airspace opacities. NON-CONTRASTED LIVER, SPLEEN, ADRENALS: Evaluation limited by lack of IV contrast. No identified sign ificant masses. PANCREAS: No masses. No peripancreatic inflammatory changes. GALLBLADDER: Surgically absent. RIGHT KIDNEY AND URETER: No suspicious masses. Assessment limited by lack of IV contrast. No signif icant calcifications. No hydronephrosis or hydroureter. LEFT KIDNEY AND URETER: No suspicious masses. Assessment limited by lack of IV contrast. No signifi cant calcifications. No hydronephrosis or hydroureter. AORTA AND RETROPERITONEUM: No aneurysm. No retroperitoneal masses or adenopathy. BOWEL AND PERITONEAL CAVITY: No obvious masses or inflammatory changes. No free fluid. APPENDIX: Normal. PELVIS, BLADDER, AND ABDOMINAL WALL:2.5 cm fat containing umbilical hernia. Hysterectomy. No free fl uid. Bladder normal. BONES: No acute findings. OTHER: No other significant finding. IMPRESSION: No urolithiasis or other acute intra-abdominal findings. Bibasilar interstitial lung markings and scattered patchy airspace opacities suggestive of an infecti ous process. COMMENT: Quality ID # [id number]: Final reports with documentation of one or more dose reduction techniques (e.g., Automated exposure control, adjustment of the mA and/or kV according to patient size, use of iterative reconstruction technique) TECHNICAL DOCUMENTATION: JOB ID: [id number] [employer] [facility] [employer]- All Rights Reserved Reading location - IP/workstation name: [email or web address]
[2019-10-25 21:09] VITALS: BP 129/56
== END 2019-10-25 21:08 | disposition home or self-care (01) ==
LOC: ER 16:13
DX: R10.9 Unspecified abdominal pain (principal); R10.31 Right lower quadrant pain; I10 Essential (primary) hypertension; E11.51 Type 2 diabetes mellitus with diabetic peripheral angiopathy without gangrene; J44.9 Chronic obstructive pulmonary disease, unspecified; Z90.49 Acquired absence of other specified parts of digestive tract; Z85.3 Personal history of malignant neoplasm of breast; Z92.21 Personal history of antineoplastic chemotherapy
CPT/HCPCS: 99284; 96361; 96374; 36415; 83690; 85025; 80053; 81001; 83605; 74176; J2270; J7030

== ENCOUNTER 2019-11-11 12:11 | Emergency (ER) | payer MEDICARE, MEDICAID ==
--- NOTE | 2019-11-11 12:59 | ER Document Report ---
ED Medical Screen (RME) - General Chief Complaint: Abdominal Pain >50 Stated Complaint: UPPER ABDOMINAL PAIN Time Seen by Provider: 11/11/19 12:52 Primary Care Provider: OBED BOGGS MD [Primary Care Provider] - Follow up as needed Notes: Patient is a 79-year-old female with a past history of cholecystectomy who presents to the emergency department with right upper quadrant pain. Patient she has had the symptoms for the past few weeks now. She was even evaluated here in the emergency department was told that the CT was normal. She was given cyclobenzaprine. Patient states that the pain is not any better. Patient also states that she was diagnosed with internal shingles by her primary care provider. Exam: Tenderness to the right upper abdomen. I have greeted and performed a rapid initial assessment of this patient. A comprehensive ED assessment and evaluation of the patient, analysis of test results and completion of medical decision making process will be conducted by an additional ED providers. TRAVEL OUTSIDE OF THE [place] IN LAST 30 DAYS: No - Related Data Allergies/Adverse Reactions: No Known Allergies Allergy (Verified 10/25/19 16:40) Past Medical History - Social History Chew tobacco use (# tins/day): No Frequency of alcohol use: None Drug Abuse: None Family history: None - Past Medical History Cardiac Medical History: Reports: Hx Atrial Fibrillation, Hx Congestive Heart Failure, Hx Hypertension, Hx Peripheral Vascular Disease Denies: Hx Coronary Artery Disease, Hx Heart Attack, Hx Hypercholesterolemia, Hx Pulmonary Embolism, Hx Heart Murmur Pulmonary Medical History: Reports: Hx Bronchitis - approx 2 x yrly, Hx COPD, Hx Pneumonia - Nov 2012 (hospitalized), Hx Sleep Apnea - C-PAP use Denies: Hx Asthma, Hx Respiratory Failure, Hx Tuberculosis Neurological Medical History: Denies: Hx Cerebrovascular Accident, Hx Seizures, Hx Parkinson's Disease Endocrine Medical History: Reports: Hx Diabetes Mellitus Type 2. Denies: Hx Graves' Disease, Hx Hyperthyroidism, Hx Hypothyroidism Renal/ Medical History: Denies: Hx End Stage Renal Disease, Hx Kidney Stones, Hx Ovarian Cysts, Hx Peritoneal Dialysis, Hx Pelvic Inflammatory Disease Malignancy Medical History: Reports: Hx Breast Cancer - Left, FINISHED CHEMO Tx 2 MOS AGO. Denies: Hx Cervical Cancer, Hx Lung Cancer, Hx Ovarian Cancer Musculoskeltal Medical History: Reports Hx Arthritis - Knees, Denies Hx Fibromyalgia, Denies Hx Multiple Sclerosis, Denies Hx Muscular Dystrophy, Denies Hx Systemic Lupus Erythematosus Psychiatric Medical History: Denies: Hx Dementia, Hx Depression Traumatic Medical History: Denies: Hx Fractures Past Surgical History: Reports: Hx Breast Surgery - LEFT LUMPECTOMY, Hx Hysterectomy, Hx Mastectomy, Hx Orthopedic Surgery - Left knee replacement, Hx Tonsillectomy. Denies: Hx Appendectomy, Hx Bowel Surgery, Hx Section, Hx Cholecystectomy, Hx Coronary Artery Bypass Graft, Hx Gastric Bypass Surgery, Hx Herniorrhaphy, Hx Pacemaker, Hx Tubal Ligation - Immunizations Immunizations up to date: Yes Hx Diphtheria, Pertussis, Tetanus Vaccination: Yes Physical Exam - Vital signs Vitals: Temp Pulse Resp BP Pulse Ox 98.0 F 68 20 153/51 H 94 11/11/19 12:16 11/11/19 12:16 11/11/19 12:16 11/11/19 12:16 11/11/19 12:16 Course - Vital Signs Vital signs: Temp Pulse Resp BP Pulse Ox 98.0 F 68 20 153/51 H 94 11/11/19 12:16 11/11/19 12:16 11/11/19 12:16 11/11/19 12:16 11/11/19 12:16 Doctor's Discharge - Discharge Referrals: OBED BOGGS MD [Primary Care Provider] - Follow up as needed
[2019-11-11] MEDS ORDERED: HYDROCODONE/ACETAMINOPHEN 5-325 MG TABLET PO ONE (13:02)
[2019-11-11 13:59] LABS: ABSOLUTE MONOCYTES (AUTO) 0.5 10^3/uL (0.1-1.4); ABSOLUTE NEUT (AUTO) 1.7 10^3/uL (1.7-8.2); BASOPHILS % (AUTO) 0.2 % (0-2); EOSINOPHILS % (AUTO) 0.3 % (0-6); HEMATOCRIT 28.4 % (36.0-47.0); HEMOGLOBIN 9.1 g/dL (12.0-15.5); LYMPHOCYTES % (AUTO) 47.1 % (13-45); MEAN CORPUSCULAR HEMOGLOBIN 29.2 pg (27.0-33.4); MEAN CORPUSCULAR HGB CONC 32.1 g/dL (32.0-36.0); MEAN CORPUSCULAR VOLUME 91 fl (80-97); MONOCYTES % (AUTO) 11.1 % (3-13); PLATELET COUNT 194 10^3/uL (150-450); RED BLOOD COUNT 3.12 10^6/uL (3.72-5.28); RED CELL DISTRIBUTION WIDTH 19.3 % (11.5-14.0); SEGMENTED NEUTROPHILS % (AUTO) 41.3 % (42-78); TOTAL CELLS COUNTED % (AUTO) 100 %; WHITE BLOOD COUNT 4.2 10^3/uL (4.0-10.5)
[2019-11-11 14:07] LABS: APPEARANCE,URINE CLEAR; BILIRUBIN,URINE NEGATIVE (NEGATIVE); COLOR,URINE YELLOW; GLUCOSE, URINE NEGATIVE (NEGATIVE); KETONES,URINE NEGATIVE (NEGATIVE); PROTEIN,URINE 100 mg/dL (NEGATIVE); URINE SPECIFIC GRAVITY 1.018; UROBILINOGEN,URINE NEGATIVE mg/dL (<2.0)
[2019-11-11 14:26] LABS: ALBUMIN 3.9 g/dL (3.5-5.0); ALKALINE PHOSPHATASE 84 U/L (38-126); ANION GAP 10 (5-19); ASPARTATE AMINO TRANSFERASE 22 U/L (14-36); BILIRUBIN,DIRECT 0.1 mg/dL (0.0-0.4); BILIRUBIN,TOTAL 0.8 mg/dL (0.2-1.3); BLOOD UREA NITROGEN 30 mg/dL (7-20); CALCIUM 9.3 mg/dL (8.4-10.2); CARBON DIOXIDE 28 mmol/L (22-30); CHLORIDE 105 mmol/L (98-107); GLUCOSE 130 mg/dL (75-110); POTASSIUM 4.7 mmol/L (3.6-5.0); TOTAL PROTEIN 8.1 g/dL (6.3-8.2)
--- NOTE | 2019-11-11 17:11 | RADIOLOGY REPORT (SQ) ---
EXAM DESCRIPTION: CT ABD/PELVIS NO ORAL OR IV COMPLETED DATE/TIME: 11/11/2019 4:00 pm REASON FOR STUDY: abdominal pain COMPARISON: 10/25/2019 TECHNIQUE: CT scan of the abdomen and pelvis performed without intravenous or oral contrast. Images reviewed with lung, soft tissue, and bone windows. Reconstructed coronal and sagittal MPR images revi ewed. All images stored on PACS. All CT scanners at this facility use dose modulation, iterative reconstruction, and/or weight based d osing when appropriate to reduce radiation dose to as low as reasonably achievable (ALARA). [facility]: Dose Right [facility]: CareDose [facility]: Dose Right [facility]: Teradose 4D [facility]: Smart [employer] RADIATION DOSE: CT Rad equipment meets quality standard of care and radiation dose reduction techniq ues were employed. CTDIvol: 17.9 mGy. DLP: 918 mGy-cm.mGy. LIMITATIONS: None. FINDINGS: LOWER CHEST: Clustered ground-glass and irregular opacities of the included bilateral lung bases similar to prior examination. NON-CONTRASTED LIVER, SPLEEN, ADRENALS: Evaluation limited by lack of IV contrast. No identified sign ificant masses. PANCREAS: No masses. No peripancreatic inflammatory changes. GALLBLADDER: Surgically absent. RIGHT KIDNEY AND URETER: No solid masses. No significant calcification. No hydronephrosis or hydroure ter. LEFT KIDNEY AND URETER: No solid masses. No significant calcification. No hydronephrosis or hydrouret er. AORTA AND RETROPERITONEUM: No aneurysm. No retroperitoneal masses or adenopathy. Calcific atheroscle rosis. BOWEL AND PERITONEAL CAVITY: No obvious masses or inflammatory changes. No free fluid. APPENDIX: Normal. PELVIS, BLADDER, AND ABDOMINAL WALL:No abnormal masses. Status post hysterectomy. No free fluid. Bl adder normal. BONES: No significant findings. OTHER: No other significant finding. IMPRESSION: 1. No acute noncontrast CT findings of the abdomen or pelvis to explain pain. 2. Chronic incidental and postoperative findings in the abdomen and pelvis as detailed above. 3. Clustered ground-glass and irregular opacities of the included bilateral lung bases similar to gary or examination, which are of uncertain acuity and may reflect infection or inflammation or alternatel y chronic interstitial change. TECHNICAL DOCUMENTATION: JOB ID: [id number] Quality ID # [id number]: Final reports with documentation of one or more dose reduction techniques (e.g., Au tomated exposure control, adjustment of the mA and/or kV according to patient size, use of iterative reconstruction technique) 2010 [employer] [facility] [employer]- All Rights Reserved Reading location - IP/workstation name: [email or web address]
[2019-11-11] MEDS ORDERED: LIDOCAINE 2% VISCOUS SOLN 20 ML UDCUP PO ONE (17:39)
[2019-11-11] MEDS ORDERED: METOCLOPRAMIDE HCL ORAL SOLN 10 MG/10 ML UDCUP PO ONE (17:39)
[2019-11-11] MEDS ORDERED: MAG HYDROX/AL HYDROX/SIMETH SUSP 30 ML UDCUP PO ONE (17:39)
--- NOTE | 2019-11-11 17:48 | ER Document Report ---
ED GI/ - General Chief Complaint: Abdominal Pain >50 Stated Complaint: UPPER ABDOMINAL PAIN Time Seen by Provider: 11/11/19 12:52 Primary Care Provider: OMI SHAW MD [ACTIVE STAFF] - Follow up as needed YISSEL SANDS MD [ACTIVE STAFF] - Follow up as needed OBED BOGGS MD [Primary Care Provider] - Follow up as needed Notes: Patient is a 79-year-old female with a history of congestive heart failure, hype rtension, peripheral vascular disease and type 2 diabetes who presents the emergency department with a chief complaint of epigastric and right upper quadrant pain. Patient reports she has had this discomfort for many weeks. Patient reports she has been seen here multiple times in the emergency dep artment and was told that her CT scan was normal. Patient reports she has had her gallbladder removed. Patient was given a muscle relaxer when the last time she was here but this did not help with her discomfort. Patient reports she did see her primary care physician Dr. Boggs a little over a month ago and was diagnosed with internal shingles. Patient denies rash or open wounds. Patient does not have any nausea, vomiting or diarrhea. Patient denies fever. Patient reports her last bowel movement was yesterday and normal. Patient denies blood in her stool. Patient reports he does not take anything for gastritis. Patient reports the pain is now worse when she attempts to eat or drink. Patient denies urinary symptoms. TRAVEL OUTSIDE OF THE [place] IN LAST 30 DAYS: No - Related Data Allergies/Adverse Reactions: No Known Allergies Allergy (Verified 10/25/19 16:40) Past Medical History - General Information source: Patient - Social History Smoking Status: Never Smoker Chew tobacco use (# tins/day): No Frequency of alcohol use: None Drug Abuse: None Lives with: Family Family History: Reviewed & Not Pertinent, Hypertension Patient has suicidal ideation: No Patient has homicidal ideation: No - Past Medical History Cardiac Medical History: Reports: Hx Atrial Fibrillation, Hx Congestive Heart Failure, Hx Hypertension, Hx Peripheral Vascular Disease Denies: Hx Coronary Artery Disease, Hx Heart Attack, Hx Hypercholesterolemia, Hx Pulmonary Embolism, Hx Heart Murmur Pulmonary Medical History: Reports: Hx Bronchitis - approx 2 x yrly, Hx COPD, Hx Pneumonia - Nov 2012 (hospitalized), Hx Sleep Apnea - C-PAP use Denies: Hx Asthma, Hx Respiratory Failure, Hx Tuberculosis EENT Medical History: Reports: None Neurological Medical History: Reports: None. Denies: Hx Cerebrovascular Accident, Hx Seizures, Hx Parkinson's Disease Endocrine Medical History: Reports: Hx Diabetes Mellitus Type 2. Denies: Hx Graves' Disease, Hx Hyperthyroidism, Hx Hypothyroidism Renal/ Medical History: Reports: None. Denies: Hx End Stage Renal Disease, Hx Kidney Stones, Hx Ovarian Cysts, Hx Peritoneal Dialysis, Hx Pelvic Inflammatory Disease Malignancy Medical History: Reports: Hx Breast Cancer - Left, FINISHED CHEMO Tx 2 MOS AGO. Denies: Hx Cervical Cancer, Hx Lung Cancer, Hx Ovarian Cancer GI Medical History: Reports: None Musculoskeletal Medical History: Reports Hx Arthritis - Knees, Denies Hx Fibromyalgia, Denies Hx Multiple Sclerosis, Denies Hx Muscular Dystrophy, Denies Hx Systemic Lupus Erythematosus Skin Medical History: Reports None Psychiatric Medical History: Reports: None Denies: Hx Dementia, Hx Depression Traumatic Medical History: Reports: None. Denies: Hx Fractures Infectious Medical History: Reports: None Past Surgical History: Reports: Hx Breast Surgery - LEFT LUMPECTOMY, Hx Hysterectomy, Hx Mastectomy, Hx Orthopedic Surgery - Left knee replacement, Hx Tonsillectomy. Denies: Hx Appendectomy, Hx Bowel Surgery, Hx Section, Hx Cholecystectomy, Hx Coronary Artery Bypass Graft, Hx Gastric Bypass Surgery, Hx Herniorrhaphy, Hx Pacemaker, Hx Tubal Ligation - Immunizations Immunizations up to date: Yes Hx Diphtheria, Pertussis, Tetanus Vaccination: Yes Hx Pneumococcal Vaccination: 08/08/16 Review of Systems - Review of Systems Constitutional: No symptoms reported EENT: No symptoms reported Cardiovascular: No symptoms reported Respiratory: No symptoms reported Gastrointestinal: See HPI Genitourinary: No symptoms reported Female Genitourinary: No symptoms reported Musculoskeletal: No symptoms reported Skin: No symptoms reported Hematologic/Lymphatic: No symptoms reported Neurological/Psychological: No symptoms reported Physical Exam - Vital signs Vitals: Temp Pulse Resp BP Pulse Ox 98.0 F 68 20 153/51 H 94 11/11/19 12:16 11/11/19 12:16 11/11/19 12:16 11/11/19 12:16 11/11/19 12:16 Interpretation: Hypertensive - Notes Notes: GENERAL: Well-appearing, well-nourished and in no acute distress. HEAD: Atraumatic, normocephalic. EYES: Pupils equal round and reactive to light, extraocular movements intact, sclera anicteric, conjunctiva are normal. ENT: Nares patent, oropharynx clear without exudates. Moist mucous membranes. NECK: Normal range of motion, supple without lymphadenopathy or JVD. LUNGS: Breath sounds clear to auscultation bilaterally and equal. No wheezes rales or rhonchi. HEART: Regular rate and rhythm without murmurs, rubs or gallops. ABDOMEN: Soft, obese, mild ruq and epigastric pain with palpation, normoactive bowel sounds. No guarding, no rebound. No masses appreciated. BACK: No cervical, thoracic, lumbar midline tenderness. No saddle anesthesia, normal distal neurovascular exam. No rash noted. No CVA tenderness. GENITOURINARY: Deferred. EXTREMITIES: Normal range of motion, no pitting or edema. No clubbing or cyanosis. NEUROLOGICAL: Cranial nerves II through XII grossly intact. Normal speech. PSYCH: Normal mood, normal affect. SKIN: Warm, Dry, normal turgor, no rashes or lesions noted. Course - Re-evaluation Re-evalutation: 11/11/19 18:34 Patient's hemoglobin 9.1. Patient appears to be at her baseline as she does have a history of anemia. Patient's hemoglobin was 9.1 at her previous emergency department visit. Patient also has an elevated BUN and creatinine which has slightly improved since she was here in the emergency department. This appears to be at patient's baseline. Patient continues to complain of epigastric pain. Patient reports she has never been diagnosed with gastritis. Patient reports she has been seen multiple times here in the emergency department for epigastric and right upper quadrant pain. Patient reports she does not drink alcohol. Patient CT of the abdomen was negative. Will give a GI cocktail to see if this helps with her symptoms. Patient to follow-up with Dr. Boggs and potentially gastroenterology for an upper scope. 11/11/19 19:17 Patient reports that the GI cocktail helped a little bit but she still has the upper abdominal pain. Patient reports this pain is worse when she attempts to sit upright and when sleeping on her right side. This makes me think that it is more musculoskeletal in nature. Patient reports this is the same type of pain she has been battling for a few weeks. Patient reports that is not worse when attempting to eat or drink. 11/11/19 20:23 Discussed patient case with Dr. Dickens, states her symptoms appear more musculoskeletal. Patient resting comfortably on stretcher, on her right side which she stated previously made her symptoms worse. Patient eating [employer] sandwich. No vomiting. Discussed with patient and family to follow up with PCP. - Vital Signs Vital signs: Temp Pulse Resp BP Pulse Ox 97.9 F 64 16 162/76 H 94 11/11/19 16:32 11/11/19 16:32 11/11/19 16:32 11/11/19 16:32 11/11/19 16:32 - Laboratory Result Diagrams: 11/11/19 13:30 11/11/19 13:30 Laboratory results interpreted by me: 11/11/19 11/11/19 11/11/19 13:30 13:30 13:30 RBC 3.12 L Hgb 9.1 L Hct 28.4 L RDW 19.3 H Lymph % (Auto) 47.1 H Seg Neutrophils % 41.3 L BUN 30 H Creatinine 1.88 H Est GFR ( Amer) 31 L Est GFR (MDRD) Non-Af 26 L Glucose 130 H Urine Protein 100 H Leukocyte Esterase Rfl TRACE H 11/11/19 18:34 Patient's hemoglobin is 9.1. Patient does not have a leukocytosis. Patient's BUN and creatinine are elevated. Laboratory 11/11/19 11/11/19 11/11/19 13:30 13:30 13:30 WBC 4.2 RBC 3.12 L Hgb 9.1 L Hct 28.4 L MCV 91 MCH 29.2 MCHC 32.1 RDW 19.3 H Plt Count 194 Lymph % (Auto) 47.1 H [place] % (Auto) 11.1 Eos % (Auto) 0.3 Baso % (Auto) 0.2 Absolute Neuts (auto) 1.7 Absolute Lymphs (auto) 2.0 Absolute Monos (auto) 0.5 Absolute Eos (auto) 0.0 Absolute Basos (auto) 0.0 Seg Neutrophils % 41.3 L Sodium 142.5 Potassium 4.7 Chloride 105 Carbon Dioxide 28 Anion Gap 10 BUN 30 H Creatinine 1.88 H Est GFR ( Amer) 31 L Est GFR (MDRD) Non-Af 26 L Glucose 130 H Calcium 9.3 Total Bilirubin 0.8 Direct Bilirubin 0.1 Neonat Total Bilirubin Not Reportable Neonat Direct Bilirubin Not Reportable Neonat Indirect Bili Not Reportable AST 22 ALT 14 Alkaline Phosphatase 84 Total Protein 8.1 Albumin 3.9 Lipase 46.1 Urine Color YELLOW Urine Appearance CLEAR Urine pH 6.0 Ur Specific [place] 1.018 Urine Protein 100 H Urine Glucose (UA) NEGATIVE Urine Ketones NEGATIVE Urine Blood NEGATIVE Urine Nitrite (Reflex) NEGATIVE Urine Bilirubin NEGATIVE Urine Urobilinogen NEGATIVE Leukocyte Esterase Rfl TRACE H Urine RBC (Auto) 1 Urine Bacteria (Auto) TRACE Urine WBC (Reflex) 3 Squamous Epi Cells Auto 4 Urine Mucus (Auto) RARE Urine Ascorbic Acid NEGATIVE 11/11/19 18:34 - Diagnostic Test Radiology reviewed: Reports reviewed Radiology results interpreted by me: 11/11/19 17:46 Abdomen/Pelvis CT 11/11/19 13:03 IMPRESSION: 1. No acute noncontrast CT findings of the abdomen or pelvis to explain pain. 2. Chronic incidental and postoperative findings in the abdomen and pelvis as detailed above. 3. Clustered ground-glass and irregular opacities of the included bilateral lung bases similar to prior examination, which are of uncertain acuity and may reflect infection or inflammation or alternately chronic interstitial change. Discharge - Discharge Clinical Impression: Epigastric pain, Obesity (BMI 30-39.9), Right upper quadrant abdominal pain Hypertension Qualifiers: Hypertension type: essential hypertension Qualified Code(s): I10 - Essential (primary) hypertension Condition: Stable Disposition: HOME, SELF-CARE Additional Instructions: *Today you are seen in the emergency department for upper abdominal pain. Your CT of your abdomen was negative for any acute abnormality. You have been here multiple times for the same complaint with a negative work-up. There was no change in your laboratory findings. I would follow-up with your primary care physician Dr. Boggs. Your symptoms could be due to a gastritis or musculoskeletal in nature. Gastritis can cause upper abdominal pain with nausea and vomiting. Begin with sips of clear fluid over the next 24 hours and then start with bland foods. Avoid alcohol, caffeine, coffee and spicy foods. Will refer you to our gastroenterologists here in the area. You may benefit from an upper endoscopy scope to look at your stomach and esophagus. Abdominal Pain There are many causes of abdominal pain. Pain can mean a serious problem requiring surgery (such as appendicitis). It can also be an innocent problem that goes away on its own (such as a viral infection). Often, time must pass to determine the cause of pain. The physician does not feel that hospitalization is necessary, at present. Things may change within the next 24 hours. Call the doctor or come back for re- examination if any problems occur, such as: (1) Pain that becomes more severe, steady, or becomes concentrated in one specific area. Also, pain that is more severe with movement or coughing. (2) Vomiting that persists or becomes more frequent. (3) Blood in the vomitus, urine, or bowel movements. Blood in the stool may have a tarry or black appearance. (4) Shaking chills or fever greater than 100 degrees F. (5) The abdomen becomes more distended or swollen. (6) Bowel movements cease. (7) Failure to improve as expected. Gastritis You have an inflammation of the stomach called gastritis. This commonly causes upper abdominal pain, nausea, and vomiting. In severe cases, bleeding of the stomach lining can occur. Gastritis can be caused by bacteria or viruses, alcohol, or stomach-irritating drugs. Begin with sips of clear liquids. Take increasing amounts of fluid over the first 24 hours. Then start small amounts of bland foods (such as dry toast, applesauce, mashed potato). Gradually resume your usual diet. You should take antacids every two hours until the pain has subsided. Acid-suppressing drugs may be prescribed as well. Avoid aspirin, caffeine, tobacco, and alcohol. If the abdominal pain worsens, or there is evidence of major bleeding in the stomach (such as black, tarry stool, bloody or black vomit, or lightheadedness), you should return immediately. Call the doctor if you aren't improved in 24 to 36 hours. Prescriptions: Famotidine [Pepcid 20 mg Tablet] 20 mg PO DAILY #30 tablet Referrals: OBED BOGGS MD [Primary Care Provider] - Follow up as needed YISSEL SANDS MD [ACTIVE STAFF] - Follow up as needed OMI SHAW MD [ACTIVE STAFF] - Follow up as needed
[2019-11-11 20:36] VITALS: BP 150/52
== END 2019-11-11 20:25 | disposition home or self-care (01) ==
LOC: ER 12:11
DX: R10.13 Epigastric pain (principal); R10.11 Right upper quadrant pain; I11.0 Hypertensive heart disease with heart failure; I50.9 Heart failure, unspecified; I73.9 Peripheral vascular disease, unspecified; E11.9 Type 2 diabetes mellitus without complications
CPT/HCPCS: 99284; 36415; 83690; 85025; 80053; 81001; 74176; J3490; A9270 ×3

== ENCOUNTER → 2019-12-19 | Outpatient (CLI) | payer MEDICAID, MEDICARE ==
--- NOTE | 2019-12-19 13:44 | RADIOLOGY REPORT (SQ) ---
EXAM DESCRIPTION: U/S RETROPERITON (RENAL/AORTA) COMPLETED DATE/TIME: 12/19/2019 1:26 pm REASON FOR STUDY: N18.4 CHRONIC KIDNEY DISEASE, STAGE 4 (SEVERE) N18.4 CHRONIC KIDNEY DISEASE, STAG E 4 (SEVERE) COMPARISON: 08/21/2017 TECHNIQUE: Dynamic and static grayscale images acquired of the kidneys and bladder and recorded on P ACS. Additional selected color Doppler and spectral images recorded. LIMITATIONS: None. FINDINGS: RIGHT KIDNEY: The right kidney measures 10.9 x 3.4 x 3.9 cm, normal size. Normal echogeni city. No solid or suspicious masses. No hydronephrosis. No calcifications. LEFT KIDNEY: The left kidney measures 11.3 x 4.8 x 5.5 cm, normal size. Normal echogenicity. An 8 x 2 x 8 mm calcified area in the cortex of the kidney laterally. This finding may correlate to the CT examination dated 11/11/2019. The CT examination demonstrated a low attenuated lesion with partially surrounding rim of calcification in the mid-lower kidney, may represent a complex cyst. BLADDER: No masses. Bilateral ureteral jets are not visualized. OTHER FINDINGS: No other significant finding. IMPRESSION: 1. No evidence of hydronephrosis. 2. An area of calcification in the cortex of the left kidney. This finding may correlate to the CT examination dated 11/11/2019 which demonstrated a low attenuated lesion in the lateral aspect of the mi d-lower kidney with partially surrounding rim of calcification. Considerations for this finding incl udes a complex cyst. A follow-up CT examination in 3 to 6 months to document for interval stability. TECHNICAL DOCUMENTATION: JOB ID: [id number] 2010 [employer]- All Rights Reserved Reading location - IP/workstation name: [email or web address]
[2019-12-19 13:46] LABS: APPEARANCE,URINE CLEAR; BILIRUBIN,URINE NEGATIVE (NEGATIVE); COLOR,URINE YELLOW; GLUCOSE, URINE NEGATIVE (NEGATIVE); KETONES,URINE NEGATIVE (NEGATIVE); LEUKOCYTE ESTERASE,URINE TRACE (NEGATIVE); NITRITE,URINE NEGATIVE (NEGATIVE); PROTEIN,URINE 30 mg/dL (NEGATIVE); URINE SPECIFIC GRAVITY 1.014; UROBILINOGEN,URINE NEGATIVE mg/dL (<2.0)
[2019-12-19 13:47] LABS: ABSOLUTE LYMPHOCYTES (AUTO) 2.3 10^3/uL (0.5-4.7); ABSOLUTE MONOCYTES (AUTO) 0.3 10^3/uL (0.1-1.4); ABSOLUTE NEUT (AUTO) 1.3 10^3/uL (1.7-8.2); BASOPHILS % (AUTO) 0.4 % (0-2); EOSINOPHILS % (AUTO) 0.2 % (0-6); HEMATOCRIT 29.6 % (36.0-47.0); HEMOGLOBIN 9.7 g/dL (12.0-15.5); LYMPHOCYTES % (AUTO) 58.9 % (13-45); MEAN CORPUSCULAR HEMOGLOBIN 28.9 pg (27.0-33.4); MEAN CORPUSCULAR HGB CONC 32.7 g/dL (32.0-36.0); MEAN CORPUSCULAR VOLUME 89 fl (80-97); PLATELET COUNT 227 10^3/uL (150-450); RED BLOOD COUNT 3.34 10^6/uL (3.72-5.28); RED CELL DISTRIBUTION WIDTH 18.5 % (11.5-14.0); SEGMENTED NEUTROPHILS % (AUTO) 32.5 % (42-78); TOTAL CELLS COUNTED % (AUTO) 100 %
[2019-12-19 14:12] LABS: ALBUMIN 4.1 g/dL (3.5-5.0); ANION GAP 11 (5-19); BLOOD UREA NITROGEN 50 mg/dL (7-20); CALCIUM 9.1 mg/dL (8.4-10.2); CARBON DIOXIDE 29 mmol/L (22-30); CHLORIDE 102 mmol/L (98-107); GLUCOSE 156 mg/dL (75-110); PHOSPHORUS 4.5 mg/dL (2.5-4.5); POTASSIUM 4.1 mmol/L (3.6-5.0)
[2019-12-20 10:36] LABS: CREATININE URINE 150.4 mg/dL (Not Estab.); MICROALBUMIN URINE 54.2 ug/mL (Not Estab.)
== END ==
LOC: RAD 13:03
PROVIDERS: ATTEND Internal Medicine Nephrology
DX: I13.0 Hypertensive heart and chronic kidney disease with heart failure and stage 1 through stage 4 chronic kidney disease, or unspecified chronic kidney disease (principal); I50.9 Heart failure, unspecified; N18.4 Chronic kidney disease, stage 4 (severe); E11.22 Type 2 diabetes mellitus with diabetic chronic kidney disease; R80.9 Proteinuria, unspecified
CPT/HCPCS: 36415; 76770; 80069; 81001; 82043; 82306; 82570; 83970; 85025

== ENCOUNTER 2020-01-19 13:28 | Emergency (ER) | payer MEDICARE, MEDICAID ==
[2020-01-19] MEDS ORDERED: OXYCODONE-ACETAMINOPHEN 5-325 MG TABLET PO ONE (13:50)
--- NOTE | 2020-01-19 14:34 | RADIOLOGY REPORT (SQ) ---
EXAM DESCRIPTION: ANKLE BILATERAL 3 VIEWS MIN COMPLETED DATE/TIME: 01/19/2020 2:24 pm REASON FOR STUDY: pain COMPARISON: None. NUMBER OF VIEWS: Three views. TECHNIQUE: AP, lateral, and oblique radiographic images acquired of the right and left ankle. LIMITATIONS: None. FINDINGS: MINERALIZATION: Decreased. BONES: No acute fracture or dislocation. No worrisome bone lesions. Plantar and superior calcaneal e nthesophytes. Mild midfoot osteophytosis. JOINTS: No effusions. SOFT TISSUES: No soft tissue swelling. No foreign body. Vascular calcifications. OTHER: No other significant finding. IMPRESSION: No evidence of acute bony abnormality of either ankle. Mild degenerative changes above. TECHNICAL DOCUMENTATION: JOB ID: [id number] 2010 [employer]- All Rights Reserved Reading location - IP/workstation name: [email or web address]
--- NOTE | 2020-01-19 14:49 | RADIOLOGY REPORT (SQ) ---
EXAM DESCRIPTION: FOOT BILATERAL 3 VIEWS COMPLETED DATE/TIME: 01/19/2020 2:24 pm REASON FOR STUDY: pain COMPARISON: None. NUMBER OF VIEWS: Three views. TECHNIQUE: AP, lateral and oblique radiographic images acquired of the right and left foot. LIMITATIONS: None. FINDINGS: MINERALIZATION: Decreased. BONES: No acute fracture or dislocation. No worrisome bone lesions. Superior plantar calcaneal enth esophytes. Mild midfoot osteophytosis. JOINTS: No dislocation. SOFT TISSUES: No soft tissue swelling. No foreign body. Scattered vascular calcifications. OTHER: No other significant finding. IMPRESSION: 1. No evidence of acute bony abnormality of either foot. 2. Decreased mineralization with mild osteoarthritic change. TECHNICAL DOCUMENTATION: JOB ID: [id number] 2010 [employer]- All Rights Reserved Reading location - IP/workstation name: [email or web address]
[2020-01-19 15:06] LABS: ALBUMIN 3.5 g/dL (3.5-5.0); ALKALINE PHOSPHATASE 87 U/L (38-126); ANION GAP 14 (5-19); ASPARTATE AMINO TRANSFERASE 24 U/L (14-36); BILIRUBIN,DIRECT 0.3 mg/dL (0.0-0.4); BILIRUBIN,TOTAL 1.6 mg/dL (0.2-1.3); BLOOD UREA NITROGEN 37 mg/dL (7-20); CALCIUM 8.7 mg/dL (8.4-10.2); CARBON DIOXIDE 26 mmol/L (22-30); CHLORIDE 98 mmol/L (98-107); GLUCOSE 226 mg/dL (75-110); POTASSIUM 4.1 mmol/L (3.6-5.0); URIC ACID 9.3 mg/dL (2.5-7.5)
[2020-01-19 15:46] LABS: ABSOLUTE LYMPHOCYTES (AUTO) 1.5 10^3/uL (0.5-4.7); ABSOLUTE MONOCYTES (AUTO) 1.5 10^3/uL (0.1-1.4); ABSOLUTE NEUT (AUTO) 6.6 10^3/uL (1.7-8.2); BASOPHILS % (AUTO) 0.2 % (0-2); HEMATOCRIT 25.1 % (36.0-47.0); HEMOGLOBIN 8.6 g/dL (12.0-15.5); LYMPHOCYTES % (AUTO) 15.3 % (13-45); MEAN CORPUSCULAR HEMOGLOBIN 29.8 pg (27.0-33.4); MEAN CORPUSCULAR VOLUME 88 fl (80-97); MONOCYTES % (AUTO) 15.4 % (3-13); PLATELET COUNT 241 10^3/uL (150-450); RED BLOOD COUNT 2.87 10^6/uL (3.72-5.28); RED CELL DISTRIBUTION WIDTH 17.8 % (11.5-14.0); SEGMENTED NEUTROPHILS % (AUTO) 69.1 % (42-78); TOTAL CELLS COUNTED % (AUTO) 100 %; WHITE BLOOD COUNT 9.6 10^3/uL (4.0-10.5)
--- NOTE | 2020-01-19 15:58 | ER Document Report ---
ED General - General Chief Complaint: Leg Pain Stated Complaint: FOOT PAIN Time Seen by Provider: 01/19/20 13:38 Primary Care Provider: RAJIV BENTON MD [Primary Care Provider] - Follow up as needed TRAVEL OUTSIDE OF THE [place] IN LAST 30 DAYS: No - HPI Notes: Chief complaint: Bilateral foot and ankle pain 79-year-old female patient followed by Dr. Martinez with a history of CHF, chronic renal insufficiency, hypertension and diabetes mellitus presented this time with complaint of severe bilateral foot and ankle pain. She says she may have stumbled in her room within the last day or 2 but really does not recall any specific significant injury. Daughter indicates that the patient was seen in the office by Dr. Martinez 3 days ago with symptoms of a lower respiratory infection and was at that time started on Levaquin for 7 days. Patient has no known history of gout. Her cough is improved since initiation of antibiotic. She is not been running a fever. She has not checked her blood sugar at home within the last several days. - Related Data Allergies/Adverse Reactions: No Known Allergies Allergy (Verified 10/25/19 16:40) Past Medical History - General Information source: Patient, Relative, DrJose Braxton, [facility] Records - Social History Smoking Status: Never Smoker Chew tobacco use (# tins/day): No Frequency of alcohol use: None Drug Abuse: None Family History: Reviewed & Not Pertinent, Hypertension Patient has suicidal ideation: No Patient has homicidal ideation: No - Past Medical History Cardiac Medical History: Reports: Hx Atrial Fibrillation, Hx Congestive Heart Failure, Hx Hypertension, Hx Peripheral Vascular Disease Denies: Hx Coronary Artery Disease, Hx Heart Attack, Hx Hypercholesterolemia, Hx Pulmonary Embolism, Hx Heart Murmur Pulmonary Medical History: Reports: Hx Bronchitis - approx 2 x yrly, Hx COPD, Hx Pneumonia - Nov 2012 (hospitalized), Hx Sleep Apnea - C-PAP use Denies: Hx Asthma, Hx Respiratory Failure, Hx Tuberculosis Neurological Medical History: Denies: Hx Cerebrovascular Accident, Hx Seizures, Hx Parkinson's Disease Endocrine Medical History: Reports: Hx Diabetes Mellitus Type 2. Denies: Hx Graves' Disease, Hx Hyperthyroidism, Hx Hypothyroidism Renal/ Medical History: Denies: Hx End Stage Renal Disease, Hx Kidney Stones, Hx Ovarian Cysts, Hx Peritoneal Dialysis, Hx Pelvic Inflammatory Disease Malignancy Medical History: Reports: Hx Breast Cancer - Left, FINISHED CHEMO Tx 2 MOS AGO. Denies: Hx Cervical Cancer, Hx Lung Cancer, Hx Ovarian Cancer Musculoskeletal Medical History: Reports Hx Arthritis - Knees, Denies Hx Fi bromyalgia, Denies Hx Multiple Sclerosis, Denies Hx Muscular Dystrophy, Denies Hx Systemic Lupus Erythematosus Psychiatric Medical History: Denies: Hx Dementia, Hx Depression Traumatic Medical History: Denies: Hx Fractures Past Surgical History: Reports: Hx Breast Surgery - LEFT LUMPECTOMY, Hx Hysterectomy, Hx Mastectomy, Hx Orthopedic Surgery - Left knee replacement, Hx Tonsillectomy. Denies: Hx Appendectomy, Hx Bowel Surgery, Hx Section, Hx Cholecystectomy, Hx Coronary Artery Bypass Graft, Hx Gastric Bypass Surgery, Hx Herniorrhaphy, Hx Pacemaker, Hx Tubal Ligation - Immunizations Immunizations up to date: Yes Hx Diphtheria, Pertussis, Tetanus Vaccination: Yes Hx Pneumococcal Vaccination: 08/08/16 Review of Systems - Review of Systems Notes: Constitutional: Negative for fever. HENT: Negative for sore throat. Eyes: Negative for visual changes. Cardiovascular: Negative for chest pain. Respiratory: Nonproductive cough, negative for shortness of breath. Gastrointestinal: Negative for abdominal pain, vomiting or diarrhea. Genitourinary: Negative for dysuria. Musculoskeletal: As per HPI. Skin: Negative for rash. Neurological: Negative for headaches, weakness or numbness. 10 point ROS negative except as marked above and in HPI. Physical Exam - Vital signs Vitals: Resp Pulse Ox 25 H 99 01/19/20 13:49 01/19/20 13:49 - Notes Notes: GENERAL: Elderly female who appears moderately uncomfortable. SKIN: Good turgor no rashes. HEAD: Normocephalic atraumatic. EYES: PERRLA. EOMI. Conjunctivae and sclerae clear. EARS: CANALS AND TMS CLEAR. NOSE: CLEAR. MOUTH: Moist mucosa. Good dentition. No stridor or edema. No drooling. NECK: Supple. No masses or thyromegaly. No adenopathy. Carotids 2+ without bruits. No JVD. BACK: Symmetrical without tenderness. CHEST: Minimal cough. Respirations unlabored. Breath sounds clear and symmetrical. HEART: Regular rhythm. No murmur gallop or rub. ABDOMEN: Soft nontender without masses, organomegaly or rebound. Bowel sounds normally active. No bruits. GENITALIA: Deferred. EXTREMITIES: Feet appear normally perfused without ulcerations. There is no vis ible swelling or ecchymosis. She is has diffuse soft tissue tenderness of both feet and ankles. No edema. No calf tenderness. Cap refill less than 1.5 seconds. Dorsalis pedis and posterior tibial pulses 3+ and symmetrical. NEUROLOGICAL: GCS 15. Alert and oriented x3. Fluent speech. Cranial nerves II through XII intact. Sensorimotor and cerebellar normal. Normal tone. PSYCHIATRIC: Appropriate affect. Course - Re-evaluation Re-evalutation: 01/19/20 16:15 Patient is afebrile. She does not have any elevation of her white count. She is mildly anemic but has chronic renal insufficiency and her hemoglobin is stable. Her creatinine is actually little better than usual with a value of 1.9 today. Current findings were discussed with her primary care physician, Dr. Martinez, who feels that her present symptoms are likely to be related to the Levaquin she was prescribed. We agree that this will be stopped and she will follow-up in the office within 2 to 3 days. She can return to the emergency department for any new or worsening symptoms. 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 Return to emergency department for new or worsening symptoms. See Dr. Martinez on Wednesday Referrals: RAJIV BENTON MD [Primary Care Provider] - Follow up as needed
--- NOTE | 2020-01-19 16:30 | RADIOLOGY REPORT (SQ) ---
EXAM DESCRIPTION: CHEST SINGLE VIEW COMPLETED DATE/TIME: 01/19/2020 4:21 pm REASON FOR STUDY: cough COMPARISON: 10/24/2019 EXAM PARAMETERS: NUMBER OF VIEWS: One view. TECHNIQUE: Single frontal radiographic view of the chest acquired. RADIATION DOSE: NA LIMITATIONS: None. FINDINGS: LUNGS AND PLEURA: No opacities, masses or pneumothorax. No pleural effusion. MEDIASTINUM AND HILAR STRUCTURES: No masses. Contour normal. HEART AND VASCULAR STRUCTURES: Heart normal in size. Normal vasculature. BONES: No acute findings. HARDWARE: None in the chest. OTHER: Right chest wall injection catheter in place with the tip projecting near the cavoatrial junct ion. IMPRESSION: NO ACUTE RADIOGRAPHIC FINDING IN THE CHEST. TECHNICAL DOCUMENTATION: JOB ID: [id number] 2010 [employer]- All Rights Reserved Reading location - IP/workstation name: [email or web address]
[2020-01-19 20:44] VITALS: BP 120/78
== END 2020-01-19 20:44 | disposition home or self-care (01) ==
LOC: ER 13:28
DX: G72.0 Drug-induced myopathy (principal); Z79.01 Long term (current) use of anticoagulants; M79.671 Pain in right foot; M79.672 Pain in left foot; M25.571 Pain in right ankle and joints of right foot; M25.572 Pain in left ankle and joints of left foot; I50.9 Heart failure, unspecified; I11.0 Hypertensive heart disease with heart failure; I48.91 Unspecified atrial fibrillation; E11.9 Type 2 diabetes mellitus without complications
CPT/HCPCS: 99284; 36415; 84550; 85025; 80053; 71045; 73630; 73610; A9270

== ENCOUNTER 2020-01-24 15:30 | Inpatient (IN) | payer MEDICAID, MEDICARE ==
[2020-01-24 16:49] LABS: ABSOLUTE LYMPHOCYTES (AUTO) 1.6 10^3/uL (0.5-4.7); ABSOLUTE MONOCYTES (AUTO) 0.8 10^3/uL (0.1-1.4); ABSOLUTE NEUT (AUTO) 4.5 10^3/uL (1.7-8.2); BASOPHILS % (AUTO) 0.2 % (0-2); HEMATOCRIT 21.5 % (36.0-47.0); LYMPHOCYTES % (AUTO) 23.1 % (13-45); MEAN CORPUSCULAR HEMOGLOBIN 29.8 pg (27.0-33.4); MEAN CORPUSCULAR HGB CONC 33.6 g/dL (32.0-36.0); MEAN CORPUSCULAR VOLUME 89 fl (80-97); MONOCYTES % (AUTO) 11.5 % (3-13); PLATELET COUNT 252 10^3/uL (150-450); RED BLOOD COUNT 2.42 10^6/uL (3.72-5.28); SEGMENTED NEUTROPHILS % (AUTO) 65.2 % (42-78); TOTAL CELLS COUNTED % (AUTO) 100 %; WHITE BLOOD COUNT 6.8 10^3/uL (4.0-10.5)
[2020-01-24 16:52] LABS: HEMOGLOBIN 7.2 g/dL (12.0-15.5)
[2020-01-24] MEDS ORDERED: DEXTROSE 40% GEL 15 GM TUBE X 2 PO PRN (17:00)
[2020-01-24] MEDS ORDERED: DEXTROSE 50%-WATER SYRINGE 25 GM/50 ML DOSE IV PRN (17:00)
[2020-01-24] MEDS ORDERED: DEXTROSE 50%-WATER SYRINGE 12.5 GM/25 ML DOSE IV PRN (17:00)
[2020-01-24] MEDS ORDERED: DEXTROSE 40% GEL 15 GM TUBE PO PRN (17:00)
[2020-01-24] MEDS ORDERED: GLUCAGON,HUMAN RECOMB 1 MG INJ IM PRN (17:00)
--- NOTE | 2020-01-24 17:19 | PDOC H&P ---
History of Present Illness Admission Date/PCP: 01/24/20 15:30 OBED BOGGS MD History of Present Illness: LC ANGUIANO is a 79 year old female She has multiple comorbid conditions including compensated chronic systolic heart failure, history of malignant neoplasm of the breast, COPD, mild cognitive impairment. Patient's daughter called the office that their mother has hematuria, they found blood in the underpants and she could not stand. Because she has underlining multiple comorbid condition and COVID 19 pandemic family was not comfortable for her to go to the emergency room I felt that it is best for her to be admitted directly to the hospital. The hemogram revealed hemoglobin of 7. CAT scan of the abdomen and pelvis without contrast was obtained, it demonstrated no suspicious masses in the right kidney and ureter there was mild dilatation of the right pelvis and calyces with hyperdense material likely hemorrhage the left kidney was normal there was no aneurysm. There was no mass lesion identified Past Medical History Cardiac Medical History: Reports: Atrial Fibrillation, Congestive Heart Failure, Hypertension, Peripheral Vascular Disease Pulmonary Medical History: Reports: Bronchitis - approx 2 x yrly, Chronic Obstructive Pulmonary Disease (COPD), Pneumonia - Nov 2012 (hospitalized), Sleep Apnea - C-PAP use Endocrine Medical History: Reports: Diabetes Mellitus Type 2 Malignancy Medical History: Reports: Breast Cancer - Left, FINISHED CHEMO Tx 2 MOS AGO Musculoskeltal Medical History: Reports: Arthritis - Knees Past Surgical History Past Surgical History: Reports: Hysterectomy, Mastectomy, Orthopedic Surgery - Left knee replacement, Tonsillectomy Social History Information Source: Patient Lives with: Family Smoking Status: Former Smoker Frequency of Alcohol Use: None Hx Recreational Drug Use: No Drugs: None Hx Prescription Drug Abuse: No Family History Family History: Reviewed & Not Pertinent, Hypertension Parental Family History Reviewed: Yes Children Family History Reviewed: Yes Sibling(s) Family History Reviewed.: Yes Medication/Allergy Home Medications: Aspirin [Ecotrin 81 mg EC Tablet] 81 mg PO DAILY 01/06/19 Torsemide [Demadex 20 mg Tablet] 20 mg PO DAILY 01/06/19 Amiodarone HCl [Cordarone 200 mg Tablet] 200 mg PO DAILY 10/01/19 Insulin Glargine,Hum.rec.anlog [Lantus Insulin 100 Unit/1 ml 10 ml] 15 unit SUBCUT QHS 10/01/19 Metoprolol Succinate 100 mg PO DAILY 10/01/19 Sacubitril/Valsartan [Entresto 49 mg/51 mg Tablet] 1 tab PO BID 10/25/19 Allergies/Adverse Reactions: No Known Allergies Allergy (Verified 10/25/19 16:40) Review of Systems Constitutional: ABSENT: chills, fever(s), headache(s), weight gain, weight loss Eyes: ABSENT: visual disturbances Ears: ABSENT: hearing changes Cardiovascular: ABSENT: chest pain, dyspnea on exertion, edema, orthropnea, palpitations Respiratory: ABSENT: cough, hemoptysis Gastrointestinal: ABSENT: abdominal pain, constipation, diarrhea, hematemesis, hematochezia, nausea, vomiting Genitourinary: PRESENT: hematuria. ABSENT: dysuria Musculoskeletal: ABSENT: joint swelling Integumentary: ABSENT: rash, wounds Neurological: PRESENT: weakness. ABSENT: abnormal gait, abnormal speech, confusion, dizziness, focal weakness, syncope Psychiatric: ABSENT: anxiety, depression, homidical ideation, suicidal ideation Endocrine: ABSENT: cold intolerance, heat intolerance, menstrual abnormalities, polydipsia, polyuria Hematologic/Lymphatic: ABSENT: easy bleeding, easy bruising, lymphadenopathy Physical Exam Vital Signs: Temp Pulse Resp BP Pulse Ox 74 01/24/20 16:15 General appearance: PRESENT: no acute distress, well-developed, well-nourished Head exam: PRESENT: atraumatic, normocephalic Eye exam: PRESENT: conjunctiva pink, EOMI, PERRLA Ear exam: PRESENT: normal external ear exam Mouth exam: PRESENT: moist, tongue midline Neck exam: PRESENT: full ROM Respiratory exam: PRESENT: clear to auscultation mack Cardiovascular exam: PRESENT: RRR, +S1, +S2 Pulses: PRESENT: normal dorsalis pedis pul, +2 pedal pulses bilateral Vascular exam: PRESENT: normal capillary refill GI/Abdominal exam: PRESENT: normal bowel sounds, soft Rectal exam: PRESENT: deferred Neurological exam: PRESENT: alert, CN II-XII grossly intact. ABSENT: motor sensory deficit Skin exam: PRESENT: dry, intact, warm. ABSENT: cyanosis, rash Results Laboratory Results: 01/24/20 16:36 01/24/20 16:36 WBC 6.8 RBC 2.42 L Hgb 7.2 L Hct 21.5 L MCV 89 MCH 29.8 MCHC 33.6 RDW 18.0 H Plt Count 252 Seg Neutrophils % 65.2 Assessment & Plan - Diagnosis (1) Anemia Qualifiers: Anemia type: other cause Other causes of anemia: acute posthemorrhagic Qualified Code(s): D62 - Acute posthemorrhagic anemia Is this a current diagnosis for this admission?: Yes Plan: She has anemia due to blood loss, hematuria, she will be transfused with packed red blood cells (2) Coagulopathy Is this a current diagnosis for this admission?: Yes Plan: There is coagulopathy, LFTs normal, etiology is not clear she was supposed to be on anticoagulant but is not listed on the medication reconciled by pharmacy, she may require FFP if hematuria continues (3) Hematuria Qualifiers: Hematuria type: gross Qualified Code(s): R31.0 - Gross hematuria Is this a current diagnosis for this admission?: Yes Plan: The etiology is not clear she may need a cystoscopy at one point
[2020-01-24 17:22] LABS: ANION GAP 11 (5-19); BLOOD UREA NITROGEN 60 mg/dL (7-20); CALCIUM 8.8 mg/dL (8.4-10.2); CARBON DIOXIDE 29 mmol/L (22-30); CHLORIDE 99 mmol/L (98-107); GLUCOSE 325 mg/dL (75-110); POTASSIUM 5.1 mmol/L (3.6-5.0)
[2020-01-24 17:55] LABS: ABSOLUTE RETICS # 0.028 10^6/uL (0.028-0.122); RETICULOCYTE COUNT (AUTO) 1.16 % (0.66-2.85)
--- NOTE | 2020-01-24 17:58 | RADIOLOGY REPORT (SQ) ---
EXAM DESCRIPTION: CHEST SINGLE VIEW COMPLETED DATE/TIME: 01/24/2020 5:41 pm REASON FOR STUDY: hematuria COMPARISON: Chest films 01/19/2020, 10/24/2019 EXAM PARAMETERS: NUMBER OF VIEWS: One view. TECHNIQUE: Single frontal radiographic view of the chest acquired. RADIATION DOSE: NA LIMITATIONS: None. FINDINGS: LUNGS AND PLEURA: No opacities, masses or pneumothorax. No pleural effusion. MEDIASTINUM AND HILAR STRUCTURES: No masses. Contour normal. HEART AND VASCULAR STRUCTURES: Heart normal in size. Normal vasculature. BONES: No acute findings. HARDWARE: Right permanent central line tip superior vena cava OTHER: No other significant finding. IMPRESSION: No acute findings TECHNICAL DOCUMENTATION: JOB ID: [id number] 2010 [employer]- All Rights Reserved Reading location - IP/workstation name: [id number]
[2020-01-24 18:05] LABS: ALBUMIN 2.9 g/dL (3.5-5.0); ALKALINE PHOSPHATASE 105 U/L (38-126); ASPARTATE AMINO TRANSFERASE 27 U/L (14-36); BILIRUBIN,TOTAL 0.8 mg/dL (0.2-1.3); TOTAL PROTEIN 6.9 g/dL (6.3-8.2)
[2020-01-24 18:16] LABS: IRON(TIBC) 40.2 ug/dL (37-170)
--- NOTE | 2020-01-24 18:34 | RADIOLOGY REPORT (SQ) ---
EXAM DESCRIPTION: CT ABD/PELVIS NO ORAL OR IV COMPLETED DATE/TIME: 01/24/2020 6:19 pm REASON FOR STUDY: hematuria COMPARISON: CT abdomen pelvis 11/11/2019, 10/25/2019 TECHNIQUE: CT scan of the abdomen and pelvis performed without intravenous or oral contrast. Images reviewed with lung, soft tissue, and bone windows. Reconstructed coronal and sagittal MPR images revi ewed. All images stored on PACS. All CT scanners at this facility use dose modulation, iterative reconstruction, and/or weight based d osing when appropriate to reduce radiation dose to as low as reasonably achievable (ALARA). [facility]: Dose Right [facility]: CareDose [facility]: Dose Right [facility]: Teradose 4D [facility]: Smart [employer] RADIATION DOSE: CT Rad equipment meets quality standard of care and radiation dose reduction techniq ues were employed. CTDIvol: 18.8 mGy. DLP: 1078 mGy-cm.mGy. LIMITATIONS: None. FINDINGS: LOWER CHEST: Moderate size hiatal hernia. No nodules or infiltrates. NON-CONTRASTED LIVER, SPLEEN, ADRENALS: Evaluation limited by lack of IV contrast. No identified sign ificant masses. PANCREAS: No masses. No peripancreatic inflammatory changes. GALLBLADDER: Surgically absent. RIGHT KIDNEY AND URETER: No suspicious masses. Assessment limited by lack of IV contrast. No signif icant calcifications. There is mild dilatation of the right renal pelvis and calices with hyperdens e material likely hemorrhage. This is best shown on axial image 48. LEFT KIDNEY AND URETER: No suspicious masses. Assessment limited by lack of IV contrast. Peripherall y calcified 1 cm complex cyst left mid pole kidney No significant calcifications. No hydronephrosis or hydroureter. AORTA AND RETROPERITONEUM: No aneurysm. No retroperitoneal masses or adenopathy. BOWEL AND PERITONEAL CAVITY: No obvious masses or inflammatory changes. No free fluid. APPENDIX: Normal. PELVIS, BLADDER, AND ABDOMINAL WALL:No abnormal masses. No free fluid. Bladder normal. Post hysterec eric BONES: No significant findings. OTHER: No other significant finding. IMPRESSION: Hyperdense material in mildly dilated right renal pelvis calices, worrisome for hemorrha ge. No discrete right renal mass is identified COMMENT: Quality ID # [id number]: Final reports with documentation of one or more dose reduction techniques (e.g., Automated exposure control, adjustment of the mA and/or kV according to patient size, use of iterative reconstruction technique) TECHNICAL DOCUMENTATION: JOB ID: [id number] 2010 [employer]- All Rights Reserved Reading location - IP/workstation name: [id number]
[2020-01-24] MEDS ORDERED: NORMAL SALINE 250 ML IV PRN ×2 (18:59)
[2020-01-24] MEDS ORDERED: INFLUENZA QUAD (6MOS+) 2019-20 VAC 0.5 ML SYR IM ONE (19:48)
--- NOTE | 2020-01-24 20:03 | EKG REPORT ---
SEVERITY:- NORMAL ECG - SINUS RHYTHM : Confirmed by: Ana Luisa Johnston MD 24-Jan-2020 20:02:55
[2020-01-24] MEDS: SACUBITRIL/VALSARTAN 49 MG/51 MG TABLET PO SCH (20:05)
[2020-01-24] MEDS: AMIODARONE HCL 200 MG TABLET PO SCH (20:05)
[2020-01-24 20:07] LABS: INTERNATIONAL RATION (INR) 2.08; PROTHROMBIN TIME 23.7 SEC (11.4-15.4)
[2020-01-24 20:08] LABS: PARTIAL THROMBOPLASTIN TIME 46.7 SEC (23.5-35.8)
[2020-01-24 20:09] LABS: APPEARANCE,URINE SLIGHTLY-CLOUDY; BILIRUBIN,URINE NEGATIVE (NEGATIVE); GLUCOSE, URINE 150 mg/dL (NEGATIVE); KETONES,URINE NEGATIVE (NEGATIVE); LEUKOCYTE ESTERASE,URINE SMALL (NEGATIVE); NITRITE,URINE NEGATIVE (NEGATIVE); PROTEIN,URINE 100 mg/dL (NEGATIVE); URINE SPECIFIC GRAVITY 1.016; UROBILINOGEN,URINE NEGATIVE mg/dL (<2.0)
[2020-01-24 20:10] LABS: COLOR,URINE RED
[2020-01-24] MEDS: RINGERS SOLUTION,LACTATED 1,000 ML IV PRN (20:23)
--- NOTE | 2020-01-24 21:08 | RADIOLOGY REPORT (SQ) ---
CT HEAD WITHOUT IV CONTRAST CLINICAL STATEMENT: suspect CVA acute confusion. TECHNIQUE: Axial CT images from skull base to vertex without IV contrast. This exam was performed according to our departmental dose optimization program, and includes the following measures where applicable: automated exposure control, adjustment of the mAs and/or kVp according to patient size and/or exam, and an iterative reconstruction algorithm. COMPARISON: Unenhanced CT scan of the brain August 17, 2017 FINDINGS: There is no acute intracranial hemorrhage, mass, mass effect or abnormal extra-axial fluid collection. No evidence of an acute territorial infarct is identified. Ventricles and basilar cisterns are patent. Diffuse global volume loss is noted with prominence of ventricles, sulci and CSF spaces. Scattered low density is identified in the periventricular white matter bilaterally. The appearance and distribution is similar to the previous examination. There may be an old infarct in the right centrum semiovale. Vascular calcifications are noted in the skull base. Calvaria: Hyperostosis frontalis. No fracture. Paranasal sinuses: Visualized portions of the orbits and paranasal sinuses are unremarkable. skull base: Unremarkable IMPRESSION: 1. No hemorrhage or mass lesion. 2. Diffuse global volume loss with extensive white matter changes. Overall the appearance is stable.
[2020-01-24] MEDS ORDERED: ACETAMINOPHEN 325 MG TABLET ONE (22:59)
[2020-01-24] MEDS: INSULIN LISPRO 100 UNIT/ML 3 ML VIAL SUBCUT SCH (23:00)
[2020-01-24] MEDS: ACETAMINOPHEN 325 MG TABLET PO PRN (23:00)
[2020-01-24] MEDS: INSULIN GLARGINE,HUM.REC.ANLOG 1,000 UNIT/10 ML VIAL SUBCUT SCH (23:07)
[2020-01-25] MEDS: INSULIN LISPRO 100 UNIT/ML 3 ML VIAL SUBCUT SCH ×4 (08:15→21:48)
[2020-01-25] MEDS: SACUBITRIL/VALSARTAN 49 MG/51 MG TABLET PO SCH ×2 (09:54→18:27)
[2020-01-25] MEDS: AMIODARONE HCL 200 MG TABLET PO SCH (09:54)
[2020-01-25 10:22] LABS: HEMATOCRIT 27.4 % (36.0-47.0); MEAN CORPUSCULAR HGB CONC 34.2 g/dL (32.0-36.0); MEAN CORPUSCULAR VOLUME 88 fl (80-97); PLATELET COUNT 224 10^3/uL (150-450); RED BLOOD COUNT 3.13 10^6/uL (3.72-5.28); RED CELL DISTRIBUTION WIDTH 16.5 % (11.5-14.0)
[2020-01-25 10:23] LABS: HEMOGLOBIN 9.4 g/dL (12.0-15.5)
[2020-01-25] MEDS ORDERED: NORMAL SALINE 250 ML IV PRN ×2 (20:27)
--- NOTE | 2020-01-25 20:34 | PDOC PROGRESS REPORT ---
Subjective Progress Note for:: 01/25/20 Subjective:: She has ongoing hematuria, there is no urology on staff, there is coagulopathy with elevated PT/PTT, she will be transfused with FFP.There was weakness of both legs CT head was done there was no focal lesion on the CT head, CT head demonstrated diffuse global volume loss Reason For Visit: HEMATURIA, WEAKNESS OF BOTH LEGS Physical Exam Vital Signs: Temp Pulse Resp BP Pulse Ox 98.3 F 58 L 16 126/48 H 99 01/25/20 20:27 01/25/20 20:27 01/25/20 20:27 01/25/20 20:27 01/25/20 20:27 Intake & Output 01/24/20 01/25/20 01/26/20 06:59 06:59 06:59 Intake Total 1260 1014 Output Total 300 250 Balance 960 764 Weight 90 kg 90 kg General appearance: PRESENT: no acute distress Eye exam: PRESENT: PERRLA Respiratory exam: PRESENT: clear to auscultation mack Cardiovascular exam: PRESENT: +S1, +S2 GI/Abdominal exam: PRESENT: soft Neurological exam: PRESENT: alert Results Laboratory Results: 01/25/20 10:00 01/24/20 16:36 01/24/20 01/25/20 19:35 10:00 WBC 8.0 RBC 3.13 L Hgb 9.4 L D Hct 27.4 L MCV 88 MCH 30.0 MCHC 34.2 RDW 16.5 H Plt Count 224 Blood Type O POSITIVE Antibody Screen NEGATIVE Impressions: Abdomen/Pelvis CT 01/24/20 00:00 IMPRESSION: Hyperdense material in mildly dilated right renal pelvis calices, worrisome for hemorrhage. No discrete right renal mass is identified Chest X-Ray 01/24/20 00:00 IMPRESSION: No acute findings Head CT 01/24/20 00:00 IMPRESSION: 1. No hemorrhage or mass lesion. 2. Diffuse global volume loss with extensive white matter changes. Overall the appearance is stable. Assessment & Plan - Diagnosis (1) Anemia Qualifiers: Anemia type: other cause Other causes of anemia: acute posthemorrhagic Qualified Code(s): D62 - Acute posthemorrhagic anemia Is this a current diagnosis for this admission?: Yes Plan: She was transfused with packed red blood cells (2) Coagulopathy Is this a current diagnosis for this admission?: Yes Plan: There is coagulopathy, with ongoing hematuria, transfused with FFP (3) Hematuria Qualifiers: Hematuria type: gross Qualified Code(s): R31.0 - Gross hematuria Is this a current diagnosis for this admission?: Yes Plan: She may need urologic evaluation - Time Time Spent with patient: 25-34 minutes Level of Care: CU
[2020-01-25] MEDS: INSULIN GLARGINE,HUM.REC.ANLOG 1,000 UNIT/10 ML VIAL SUBCUT SCH (21:48)
[2020-01-25] MEDS: ACETAMINOPHEN 325 MG TABLET PO PRN (22:36)
[2020-01-26] MEDS: RINGERS SOLUTION,LACTATED 1,000 ML IV PRN (04:51)
[2020-01-26] MEDS: INSULIN LISPRO 100 UNIT/ML 3 ML VIAL SUBCUT SCH ×4 (08:37→22:09)
[2020-01-26] MEDS: SACUBITRIL/VALSARTAN 49 MG/51 MG TABLET PO SCH ×2 (11:03→18:14)
[2020-01-26] MEDS: AMIODARONE HCL 200 MG TABLET PO SCH (11:03)
[2020-01-26 13:06] LABS: ABSOLUTE LYMPHOCYTES (AUTO) 1.3 10^3/uL (0.5-4.7); ABSOLUTE MONOCYTES (AUTO) 0.8 10^3/uL (0.1-1.4); ABSOLUTE NEUT (AUTO) 4.5 10^3/uL (1.7-8.2); BASOPHILS % (AUTO) 0.1 % (0-2); EOSINOPHILS % (AUTO) 0.1 % (0-6); HEMATOCRIT 26.3 % (36.0-47.0); HEMOGLOBIN 8.8 g/dL (12.0-15.5); LYMPHOCYTES % (AUTO) 19.3 % (13-45); MEAN CORPUSCULAR HEMOGLOBIN 29.4 pg (27.0-33.4); MEAN CORPUSCULAR HGB CONC 33.2 g/dL (32.0-36.0); MEAN CORPUSCULAR VOLUME 88 fl (80-97); MONOCYTES % (AUTO) 11.8 % (3-13); PLATELET COUNT 219 10^3/uL (150-450); RED BLOOD COUNT 2.98 10^6/uL (3.72-5.28); RED CELL DISTRIBUTION WIDTH 16.4 % (11.5-14.0); SEGMENTED NEUTROPHILS % (AUTO) 68.7 % (42-78); TOTAL CELLS COUNTED % (AUTO) 100 %; WHITE BLOOD COUNT 6.5 10^3/uL (4.0-10.5)
[2020-01-26 13:12] LABS: INTERNATIONAL RATION (INR) 1.11; PROTHROMBIN TIME 14.3 SEC (11.4-15.4)
[2020-01-26 13:16] LABS: ALKALINE PHOSPHATASE 94 U/L (38-126); ANION GAP 9 (5-19); ASPARTATE AMINO TRANSFERASE 22 U/L (14-36); BILIRUBIN,DIRECT 0.3 mg/dL (0.0-0.4); BILIRUBIN,TOTAL 0.8 mg/dL (0.2-1.3); BLOOD UREA NITROGEN 38 mg/dL (7-20); CALCIUM 9.1 mg/dL (8.4-10.2); CARBON DIOXIDE 30 mmol/L (22-30); CHLORIDE 102 mmol/L (98-107); GLUCOSE 224 mg/dL (75-110); POTASSIUM 4.6 mmol/L (3.6-5.0); TOTAL PROTEIN 7.1 g/dL (6.3-8.2)
[2020-01-26] MEDS: ACETAMINOPHEN 325 MG TABLET PO PRN (15:39)
--- NOTE | 2020-01-26 15:42 | RADIOLOGY REPORT (SQ) ---
EXAM DESCRIPTION: FOOT BILATERAL 2 VIEWS COMPLETED DATE/TIME: 01/26/2020 3:28 pm REASON FOR STUDY: mack feet pain COMPARISON: Bilateral foot three views 01/19/2020 NUMBER OF VIEWS: Two views right foot, three views left foot TECHNIQUE: AP and lateral radiographic images acquired of the right and left foot. LIMITATIONS: None. FINDINGS: MINERALIZATION: Osteopenic BONES: No acute fracture. No malalignment. Old well corticated avulsion fragment off the right medi al cuneiform bone. Prominent bilateral dorsal and plantar calcaneal spurs. JOINTS: No effusions. SOFT TISSUES: Diffuse dorsal foot soft tissue swelling. No foreign body. OTHER: No other significant finding. IMPRESSION: No acute fracture or malalignment TECHNICAL DOCUMENTATION: JOB ID: [id number] 2010 [employer]- All Rights Reserved Reading location - IP/workstation name: [email or web address]
[2020-01-26] MEDS ORDERED: METOPROLOL SUCCINATE 50 MG TAB.SR.24H PO SCH (19:00)
--- NOTE | 2020-01-26 20:14 | PDOC TRANSFER SUMMARY ---
General Admission Date/PCP: 01/24/20 15:30 OBED BOGGS MD - Transfer Diagnosis (1) Hematuria Is this a current diagnosis for this admission?: Yes (2) Anemia Is this a current diagnosis for this admission?: Yes (3) Coagulopathy Is this a current diagnosis for this admission?: Yes (4) Chronic systolic (congestive) heart failure Is this a current diagnosis for this admission?: Yes (5) Chronic kidney disease, stage 3 Is this a current diagnosis for this admission?: Yes (6) Atrial fibrillation Is this a current diagnosis for this admission?: Yes (7) Diabetes mellitus type 2 in obese Is this a current diagnosis for this admission?: Yes - Transfer Medications Home Medications: Aspirin [Ecotrin 81 mg EC Tablet] 81 mg PO DAILY 01/06/19 Torsemide [Demadex 20 mg Tablet] 20 mg PO DAILY 01/06/19 Amiodarone HCl [Cordarone 200 mg Tablet] 200 mg PO DAILY 10/01/19 Insulin Glargine,Hum.rec.anlog [Lantus Insulin 100 Unit/1 ml 10 ml] 15 unit SUBCUT QHS 10/01/19 Metoprolol Succinate 100 mg PO DAILY 10/01/19 Sacubitril/Valsartan [Entresto 49 mg/51 mg Tablet] 1 tab PO BID 10/25/19 Transfer Medications: Current Medications Acetaminophen (Tylenol 325 Mg Tablet) 650 mg PO Q6HP PRN PRN Reason: FOR PAIN OR TEMP Stop: 02/23/20 23:10 Last Admin: 01/26/20 15:39 Dose: 650 mg Documented by: Amiodarone HCl (Cordarone 200 Mg Tablet) 200 mg PO DAILY FATEMEH Stop: 02/23/20 18:29 Last Admin: 01/26/20 11:03 Dose: 200 mg Documented by: Dextrose (Dextrose Inj 50% Syringe (25 Gm/50 Ml)) 12.5 gm IV PRN PRN; Protocol PRN Reason: FOR BG 50-69 IN ALERT PATIENT Stop: 02/23/20 16:59 Dextrose (Dextrose Inj 50% Syringe (25 Gm/50 Ml)) 25 gm IV PRN PRN; Protocol Stop: 02/23/20 16:59 Glucagon (Glucagen Inj 1 Mg Vial) 1 mg IM PRN PRN; Protocol PRN Reason: EVALUATE FOR BG < 70 Stop: 02/23/20 16:59 Glucose (Glutose 40% Gel 15 Gm Tube) 15 gm PO PRN PRN; Protocol PRN Reason: FOR BG 50-69 IN ALERT PATIENT Stop: 02/23/20 16:59 Glucose (Glutose 40% Gel 15 Gm Tube) 30 gm PO PRN PRN; Protocol PRN Reason: FOR BG < 50 IN ALERT PATIENT Stop: 02/23/20 16:59 Heparin Sodium (Porcine) (Heparin Flush 10 Unit/Ml 5 Ml Disp.Syrg) 70 unit IV .AFTER EACH USE PRN PRN Reason: AFTER EACH INTERMITTENT USE Stop: 02/24/20 06:41 Lactated Ringer's (Lactated Ringers 1000 Ml Iv Soln) 1,000 mls @ 30 mls/hr IV CONTINUOUS PRN PRN Reason: THIS MED IS NOT "PRN" Stop: 02/23/20 18:26 Last Admin: 01/26/20 04:51 Dose: 30 mls/hr Documented by: Sodium Chloride (Nacl 0.9% 250 Ml Iv Soln) 250 mls @ 30 mls/hr IV .DURING TRANSFUSION PRN PRN Reason: THIS MED IS NOT "PRN" Stop: 01/26/20 20:26 Sodium Chloride (Nacl 0.9% 250 Ml Iv Soln) 250 mls @ 0 mls/hr IV CONTINUOUS PRN PRN Reason: AFTER EACH UNIT Stop: 01/26/20 20:26 Insulin Glargine (Lantus Insulin 100 Unit/1 Ml 10 Ml) 15 unit SUBCUT QHS [facility] Stop: 02/23/20 21:59 Last Admin: 01/25/20 21:48 Dose: 15 unit Documented by: Insulin Human Lispro (Humalog Insulin 100 Unit/1 Ml 3 Ml Vial) 0 - 12 unit SUBCUT [facility]; Protocol Stop: 02/23/20 21:59 Last Admin: 01/26/20 18:05 Dose: Not Given Documented by: Metoprolol Succinate (Toprol Xl 50 Mg Tab.Sr) 50 mg PO QPM [facility] Stop: 02/25/20 18:59 Last Admin: 01/26/20 18:14 Dose: 50 mg Documented by: Sacubitril/Valsartan (Entresto 49 Mg/51 Mg Tablet) 1 tab PO BID [facility] Stop: 02/23/20 19:29 Last Admin: 01/26/20 18:14 Dose: 1 tab Documented by: - Allergies Allergies/Adverse Reactions: No Known Allergies Allergy (Verified 10/25/19 16:40) Hospital Course Hospital Course: Patient was admitted for the management of hematuria, CAT scan of the abdomen and pelvis without contrast was done, she has underlining CKD stage III, the CAT scan did not demonstrate any significant pathology other than hyperdense material in the right pelvic area felt to be blood. On admission the hemoglobin was 7.2 she also have elevated PT/PTT, liver function test was normal. She was transfused with red blood cells posttransfusion hemoglobin was 9 because of the elevated PT/PTT she was transfused with FFP.. It was felt that if the PT PTT is corrected the hematuria will stop but this persisted. I felt patient needed to be seen by urology service for evaluation unfortunately we do not have this service presently in this hospital. The hemoglobin from today's lab work was 8 because of ongoing blood loss.She has a history of well compensated chronic systolic heart failure status post AICD placement with a pacemaker, history of malignant neoplasm of the breast, history of COPD, the other issue was patient was having trouble ambulating CT head was negative for any stroke, she complained specifically of foot pain x-ray was obtained of the foot there was prominent bilateral dorsal and plantar calcaneal spurs there was no acute fracture there was old well corticated avulsion fragment of the right medial cuneiform boneI [facility], patient was accepted in transfer by the hospitalist Physical Exam Vital Signs: Temp Pulse Resp BP Pulse Ox 98.5 F 73 20 143/70 H 95 01/26/20 16:17 01/26/20 16:17 01/26/20 16:17 01/26/20 16:17 01/26/20 16:17 Intake & Output 01/25/20 01/26/20 01/27/20 06:59 06:59 06:59 Intake Total 1260 3156 743 Output Total 300 1000 400 Balance 960 2156 343 Weight 90 kg 89.9 kg General appearance: PRESENT: no acute distress Eye exam: PRESENT: PERRLA Respiratory exam: PRESENT: clear to auscultation mack Cardiovascular exam: PRESENT: +S1, +S2 GI/Abdominal exam: PRESENT: soft Neurological exam: PRESENT: alert Results Laboratory Results: 01/26/20 11:10 01/26/20 11:10 01/24/20 01/26/20 01/26/20 19:35 11:10 11:10 WBC 6.5 RBC 2.98 L Hgb 8.8 L Hct 26.3 L MCV 88 MCH 29.4 MCHC 33.2 RDW 16.4 H Plt Count 219 Seg Neutrophils % 68.7 Sodium 140.5 Potassium 4.6 Chloride 102 Carbon Dioxide 30 Anion Gap 9 BUN 38 H Creatinine 1.55 H Est GFR ( Amer) 39 L Glucose 224 H Calcium 9.1 Total Bilirubin 0.8 AST 22 Alkaline Phosphatase 94 Total Protein 7.1 Albumin 3.0 L Blood Type O POSITIVE Antibody Screen NEGATIVE Impressions: Abdomen/Pelvis CT 01/24/20 00:00 IMPRESSION: Hyperdense material in mildly dilated right renal pelvis calices, worrisome for hemorrhage. No discrete right renal mass is identified Chest X-Ray 01/24/20 00:00 IMPRESSION: No acute findings Head CT 01/24/20 00:00 IMPRESSION: 1. No hemorrhage or mass lesion. 2. Diffuse global volume loss with extensive white matter changes. Overall the appearance is stable. Foot X-Ray 01/26/20 00:00 IMPRESSION: No acute fracture or malalignment
[2020-01-26] MEDS: INSULIN GLARGINE,HUM.REC.ANLOG 1,000 UNIT/10 ML VIAL SUBCUT SCH (22:09)
[2020-01-27 00:51] VITALS: BP 104/57
== END 2020-01-26 00:50 | disposition short-term general hospital (02) | DRG 696 ==
LOC: 3S 15:30 → 3W 15:40
PROVIDERS: ADMIT Internal Medicine; ATTEND Internal Medicine
PROC: 30233N1 Transfusion of Nonautologous Red Blood Cells into Peripheral Vein, Percutaneous Approach (ICD-10-PCS; principal; 2020-01-24)
PROC: 30233K1 Transfusion of Nonautologous Frozen Plasma into Peripheral Vein, Percutaneous Approach (ICD-10-PCS; 2020-01-25)
DX: R31.0 Gross hematuria (principal); D62 Acute posthemorrhagic anemia; I13.0 Hypertensive heart and chronic kidney disease with heart failure and stage 1 through stage 4 chronic kidney disease, or unspecified chronic kidney disease; D68.9 Coagulation defect, unspecified; I48.91 Unspecified atrial fibrillation; N18.3 Chronic kidney disease, stage 3 (moderate); E11.22 Type 2 diabetes mellitus with diabetic chronic kidney disease; J44.9 Chronic obstructive pulmonary disease, unspecified; E11.51 Type 2 diabetes mellitus with diabetic peripheral angiopathy without gangrene; M77.32 Calcaneal spur, left foot; M77.31 Calcaneal spur, right foot; M17.0 Bilateral primary osteoarthritis of knee; Z85.3 Personal history of malignant neoplasm of breast; Z90.10 Acquired absence of unspecified breast and nipple; Z90.710 Acquired absence of both cervix and uterus; Z87.891 Personal history of nicotine dependence; Z79.82 Long term (current) use of aspirin; Z79.4 Long term (current) use of insulin; Z95.810 Presence of automatic (implantable) cardiac defibrillator; Z92.21 Personal history of antineoplastic chemotherapy
CPT/HCPCS: 36415; 36430; 70450; 71045; 74176; 80048; 80053; 80076; 81001; 82607; 82728; 82746; 82962; 83540; 83550; 85025; 85027; 85045; 85610; 85730; 86850; 86900; 86901; 86920; 87086; 93005; 93010; C1758; J1815; J7120; P9016; P9017

== ENCOUNTER → 2020-07-17 | Outpatient (CLI) | payer MEDICARE ==
[2020-07-17 15:56] LABS: ABSOLUTE LYMPHOCYTES (AUTO) 2.4 10^3/uL (0.5-4.7); ABSOLUTE MONOCYTES (AUTO) 0.5 10^3/uL (0.1-1.4); BASOPHILS % (AUTO) 0.2 % (0-2); EOSINOPHILS % (AUTO) 0.1 % (0-6); HEMATOCRIT 34.6 % (36.0-47.0); HEMOGLOBIN 11.1 g/dL (12.0-15.5); LYMPHOCYTES % (AUTO) 40.4 % (13-45); MEAN CORPUSCULAR HEMOGLOBIN 29.5 pg (27.0-33.4); MEAN CORPUSCULAR HGB CONC 32.1 g/dL (32.0-36.0); MEAN CORPUSCULAR VOLUME 92 fl (80-97); PLATELET COUNT 217 10^3/uL (150-450); RED BLOOD COUNT 3.76 10^6/uL (3.72-5.28); SEGMENTED NEUTROPHILS % (AUTO) 50.3 % (42-78); TOTAL CELLS COUNTED % (AUTO) 100 %; WHITE BLOOD COUNT 5.9 10^3/uL (4.0-10.5)
[2020-07-17 16:07] LABS: APPEARANCE,URINE CLOUDY; BILIRUBIN,URINE NEGATIVE (NEGATIVE); COLOR,URINE YELLOW; GLUCOSE, URINE >=500 mg/dL (NEGATIVE); KETONES,URINE NEGATIVE (NEGATIVE); LEUKOCYTE ESTERASE,URINE LARGE (NEGATIVE); NITRITE,URINE NEGATIVE (NEGATIVE); PROTEIN,URINE 30 mg/dL (NEGATIVE); URINE SPECIFIC GRAVITY 1.021; UROBILINOGEN,URINE NEGATIVE mg/dL (<2.0)
[2020-07-17 16:21] LABS: ALBUMIN 4.1 g/dL (3.5-5.0); ANION GAP 9 (5-19); BLOOD UREA NITROGEN 43 mg/dL (7-20); CALCIUM 9.3 mg/dL (8.4-10.2); CARBON DIOXIDE 24 mmol/L (22-30); CHLORIDE 105 mmol/L (98-107); GLUCOSE 383 mg/dL (75-110); IRON(TIBC) 100.3 ug/dL (37-170); PHOSPHORUS 3.2 mg/dL (2.5-4.5); POTASSIUM 4.9 mmol/L (3.6-5.0); URIC ACID 7.6 mg/dL (2.5-7.5)
== END ==
LOC: OD 15:18
PROVIDERS: ATTEND Internal Medicine Nephrology
DX: N18.4 Chronic kidney disease, stage 4 (severe) (principal); D63.1 Anemia in chronic kidney disease; E79.0 Hyperuricemia without signs of inflammatory arthritis and tophaceous disease
CPT/HCPCS: 36415; 80069; 81001; 82043; 82306; 82570; 82728; 83540; 83550; 83970; 84550; 85025

== ENCOUNTER → 2020-07-24 | Outpatient (CLI) | payer MEDICARE ==
--- NOTE | 2020-07-24 14:56 | RADIOLOGY REPORT (SQ) ---
EXAM DESCRIPTION: CT ABD/PELVIS NO ORAL OR IV IMAGES COMPLETED DATE/TIME: 07/24/2020 2:38 pm REASON FOR STUDY: N28.1 CYST OF KIDNEY, ACQUIRED N28.1 CYST OF KIDNEY, ACQUIRED COMPARISON: 01/24/2020 TECHNIQUE: CT scan of the abdomen and pelvis performed without intravenous or oral contrast. Images reviewed with lung, soft tissue, and bone windows. Reconstructed coronal and sagittal MPR images revi ewed. All images stored on PACS. All CT scanners at this facility use dose modulation, iterative reconstruction, and/or weight based d osing when appropriate to reduce radiation dose to as low as reasonably achievable (ALARA). [facility]: Dose Right [facility]: CareDose [facility]: Dose Right [facility]: Teradose 4D [facility]: Smart [facility] RADIATION DOSE: CT Rad equipment meets quality standard of care and radiation dose reduction techniq ues were employed. CTDIvol: 18.5 mGy. DLP: 878 mGy-cm.mGy. LIMITATIONS: None. FINDINGS: LOWER CHEST: No significant findings. No nodules or infiltrates. NON-CONTRASTED LIVER, SPLEEN, ADRENALS: Evaluation limited by lack of IV contrast. No identified sign ificant masses. PANCREAS: No masses. No peripancreatic inflammatory changes. GALLBLADDER: Surgically absent. RIGHT KIDNEY AND URETER: No suspicious masses. Assessment limited by lack of IV contrast. No signif icant calcifications. No hydronephrosis or hydroureter. LEFT KIDNEY AND URETER: No suspicious masses. Assessment limited by lack of IV contrast. No signifi cant calcifications. No hydronephrosis or hydroureter. AORTA AND RETROPERITONEUM: No aneurysm. No retroperitoneal masses or adenopathy. BOWEL AND PERITONEAL CAVITY: No obvious masses or inflammatory changes. No free fluid. APPENDIX: Not visualized. PELVIS, BLADDER, AND ABDOMINAL WALL:No abnormal masses. No free fluid. Bladder normal. BONES: Degenerative changes in the lumbar spine. OTHER: No other significant finding. IMPRESSION: Degenerative changes in the lumbar spine. No acute intra-abdominal abnormalities. Prio r cholecystectomy. COMMENT: Quality ID # [id number]: Final reports with documentation of one or more dose reduction techniques (e.g., Automated exposure control, adjustment of the mA and/or kV according to patient size, use of iterative reconstruction technique) TECHNICAL DOCUMENTATION: JOB ID: [id number] [employer]- All Rights Reserved Reading location - IP/workstation name: [email or web address]
== END ==
LOC: RAD 02:29
PROVIDERS: ATTEND Internal Medicine Nephrology
DX: N28.1 Cyst of kidney, acquired (principal)
CPT/HCPCS: 74176

== ENCOUNTER → 2020-11-25 | Outpatient (CLI) | payer MEDICARE ==
--- NOTE | 2020-11-25 11:10 | WOMENS IMAGING REPORT ---
EXAM DESCRIPTION: BONE DENSITY HIP/SPINE IMAGES COMPLETED DATE/TIME: 11/25/2020 10:58 am REASON FOR STUDY: Z78.0 Z12.31 ENCNTR SCREEN MAMMOGRAM FOR MALIGNANT NEOPLASM OF [place]UVIA Z78.0 ASYMPTO MATIC MENOPAUSAL STATE COMPARISON: None. TECHNIQUE: Dual-Energy X-ray Absorptiometry (DEXA) of the AP Spine and Hip. LIMITATIONS: None. FINDINGS: LUMBAR SPINE: The bone mineral density (BMD) measured from L1-L4 in the AP projection correlates with a T-score of -1.0, which is normal as defined by the World Health Organization. HIP: The bone mineral density (BMD) measured in the left hip correlates with a T-score of -1.1, which is o steopenia as defined by the World Health Organization. IMPRESSION: 1. LUMBAR SPINE: NORMAL. 2. HIP: OSTEOPENIA. COMMENT: The World Health Organization defines low BMD as follows: T-score: Normal: Greater than -1.0 Osteopenia: Between -1.0 and -2.5 Osteoporosis: Less than -2.5 without fractures Established osteoporosis: Less than -2.5 with fractures In general, you may wish to consider: Diagnosis Treatment Follow-up DEXA Normal BMD Prevention 2-3 years Osteopenia Prevention/Therapy 1-2 years Osteoporosis Therapy Yearly TECHNICAL DOCUMENTATION: JOB ID: [id number] [employer]- All Rights Reserved Reading location - IP/workstation name: [email or web address]
--- NOTE | 2020-11-26 08:55 | WOMENS IMAGING REPORT ---
EXAM DESCRIPTION: BILAT SCREENING MAMMO W/CAD IMAGES COMPLETED DATE/TIME: 11/25/2020 9:58 am REASON FOR STUDY: ROUTINE SCREENING MAMMOGRAM Z12.31 Z12.31 ENCNTR SCREEN MAMMOGRAM FOR MALIGNANT N EOPLASM OF [place]UVIA Z78.0 ASYMPTOMATIC MENOPAUSAL STATE COMPARISON: 11/24/2018, 11/23/2017, 11/11/2016, September 19302014, 10/02/2014 EXAM PARAMETERS: Standard craniocaudal and mediolateral oblique views of each breast recorded using digital acquisition. Read with the assistance of CAD. .[facility] - [employer]er Version 9.2 LIMITATIONS: None. FINDINGS: Findings present which are benign by mammographic criteria. No suspicious masses, calcifi cations or architectural distortion. Pertinent benign findings: Posttreatment changes in the left breast are stable. Benign mammographic findings may include one or more of the following: Smooth masses, popcorn/rim/co arse calcifications, asymmetries, post-procedure changes, and lesions with long-standing stability. IMPRESSION: BENIGN MAMMOGRAPHIC FINDINGS. BIRADS 2 BREAST DENSITY: a. The breasts are almost entirely fatty. BIRAD: ASSESSMENT: 2 BENIGN FINDING(S) RECOMMENDATION: ROUTINE SCREENING COMMENT: The patient has been notified of the results by letter per [place] requirements. Additional no tification policies are in place for contacting patient with suspicious or incomplete findings. Quality ID #[id number]: The [employer] recommends an annual screening mammogram for women aged 40 years or over. This facility utilizes a reminder system to ensure that all patients receive reminder letters, and/or direct phone calls for appointments. This includes reminders for routine scr eening mammograms, diagnostic mammograms, or other Breast Imaging Interventions when appropriate. Th is patient will be placed in the appropriate reminder system. TECHNICAL DOCUMENTATION: FINDING NUMBER: (1) ASSESSMENT: (1) JOB ID: [id number] 2010 [employer]- All Rights Reserved Reading location - IP/workstation name: [email or web address]
== END ==
LOC: WI 10:42
PROVIDERS: ATTEND Internal Medicine Hematology & Oncology
DX: Z12.31 Encounter for screening mammogram for malignant neoplasm of breast (principal); Z78.0 Asymptomatic menopausal state; M85.862 Other specified disorders of bone density and structure, left lower leg
CPT/HCPCS: 77067; 77080